=== PATIENT | female | born 1950 | race Caucasian/White ===

== ENCOUNTER 2018-03-18 13:46 | Inpatient (IN) | payer MEDICARE, BC, SELFPAY ==
[2018-03-18 13:47] VITALS: BP 143/85; PULSE 82; RESP 16; TEMP 35.6; O2SAT 96; BMI 37.0
--- NOTE | 2018-03-18 14:57 | RAD_ITS ---
STUDY: X-RAY CHEST REASON FOR EXAM: Female, 67 years old. Cough. TECHNIQUE: Single PA view of the chest. COMPARISON: 14 August 2017 FINDINGS: No evidence of distinct focal airspace disease. There is no demonstrated pleural abnormality. Normal size heart. Normal mediastinum and ronni. Normal visualized pulmonary arteries. Normal visualized aortic arch and descending thoracic aorta. Normal visualized thoracic spine. Normal visualized ribs, clavicles, and shoulders. There is no demonstrated abnormality of the visualized soft tissue structures of the upper abdomen. RAD/Chest 1 View (Portable) IMPRESSION: No evidence of acute cardiopulmonary process. Electronically Signed: Dustin Hamm DO at 15:21 EDT , Service support ,
--- NOTE | 2018-03-18 14:58 | EKG12_ITS ---
Test Reason : EDEMA Blood Pressure : / mmHG Vent. Rate : 067 BPM Atrial Rate : 067 BPM P-R Int : 282 ms QRS Dur : 102 ms QT Int : 422 ms P-R-T Axes : 047 000 022 degrees QTc Int : 445 ms Sinus rhythm with 1st degree A-V block Otherwise normal ECG Confirmed by SONY THOMAS, LEANNE ([id number]), purchasing expeditor ANTELMO MARTÍNEZ ([id number]) on 03/21/2018 2:44:37 PM Referred By: NICHO Confirmed By:LEANNE CARDOZA MD
[2018-03-18 15:34] LABS: Absolute Lymphocyte Count 0.95 X10^3/ul (0.83-4.51); Absolute Neutrophil Count 3.6 X10^3/uL (2.0-7.7); Basophil# 0.02 X10^3/uL; Basophil% 0.4 % (0-1); Eosinophil# 0.09 X10^3/uL; Eosinophils% 1.8 % (0-5); Hematocrit 40.1 % (37-47); Hemoglobin 13.4 g/dl (12.0-15.0); Lymphocyte # 0.95 X10^3/ul (4.0); Lymphocyte % 19.3 % (19-41); Mean Corp Hgb Conc 33.4 g/gl (32-36); Mean Corpuscular Hgb 32.1 pg (27.0-32.0); Mean Corpuscular Volume 96.2 fL (81-99); Mean Platelet Vol. 10.8 fl (6.2-12.0); Monocyte# 0.31 X10^3/uL; Monocyte% 6.3 % (0-10); Neutrophil # 3.55 X10^3/uL (2.7-7.7); Platelet Count 236 K/mm3 (150-450); RBC Distribution Width CV 14.5 % (11.6-14.6); RBC Distribution Width SD 50.4 fl (35.1-43.9); Red Blood Count 4.17 M/mm3 (4.2-5.4); White Blood Count 4.9 K/mm3 (4.4-11.0)
[2018-03-18 15:41] LABS: Anion Gap 5 (5-15); BUN 32 mg/dL (7-18); BUN/Creat Ratio 19.8 RATIO (10-20); Chloride 95 mmol/L (98-107); Creatinine, Serum 1.62 mg/dL (0.55-1.02); EST Glomerular Filtration Rate 33 mL/min (>60); Est Glom Filt Rate - Afr Amer 40 mL/min (>60); Estimated Creatinine Clearance 27.11 ml/min; Glucose 128 mg/dL (74-106); Potassium 4.1 mmol/L (3.5-5.1); Sodium Level 133 mmol/L (136-145)
[2018-03-18 15:51] VITALS: BP 132/99; PULSE 76; RESP 18; O2SAT 98
[2018-03-18 15:57] LABS: POSITIVE COUNT NO; POSITIVE DIFFERENTIAL NO; POSITIVE MORPHOLOGY NO
[2018-03-18 16:27] LABS: BNP,B-Type NATRIURETIC PEPTIDE 12.9 pg/mL (0-100)
[2018-03-18 16:50] LABS: Mucous, Urine 0 SEEN /hpf (<or=2+)
[2018-03-18 16:52] LABS: Color, Urine Yellow (Yellow); Glucose, Dipstick Normal (Normal); Ketone-Dipstick Negative (Negative); Leukocyte Esterase-Dipstick 500 /ul (Negative); Nitrite-Dipstick Positive (Negative); Occult Blood-Urine 10 /ul (Negative); Protein-Dipstick Negative (Negative); Urine Bilirubin Dipstick Negative (Negative); Urine Clarity Cloudy (Clear); Urine Urobilinogen Normal (Normal); Urine pH 6.5 (5.0 - 8.0)
--- NOTE | 2018-03-18 17:07 | HP.PCM_ITS ---
Problem List (1) Hypothyroidism Status: Chronic (2) Hypertension Status: Chronic (3) Depression Status: Chronic (4) GERD (gastroesophageal reflux disease) Status: Chronic (5) Allergic rhinitis Status: Chronic (6) Acute kidney injury Status: Acute (7) Parkinsons disease Status: Chronic (8) Obstructive sleep apnea Status: Chronic (9) History of breast cancer Status: Resolved (10) History of pneumothorax Status: Resolved (11) Obesity (BMI 30-39.9) Status: Chronic History of Present Illness Date of Admission: 03/18/18 Chief Complaint: Increased lower extremity swelling, low urine output. The patient is a 67 year old F who presents to the emergency room with increased lower extremity edema, low urine output. Patient states she chronically has lower extremity edema however this has increased significantly in the past 2 days. She took extra hydrochlorothiazide at home and has had very little urine output. She also complains of constipation. She states she administered a suppository yesterday with small bowel movements but still feels bloated. Patient denies dysuria, flank pain. Denies fever, chills. Patient has a history of neurogenic bladder and urinary incontinence. Her other past medical history includes Parkinson's disease, hypertension, hypothyroidism, depression, GERD, allergic rhinitis, obstructive sleep apnea on BiPAP with supplemental oxygen at bedtime, obesity, history of breast cancer status post right mastectomy. She is wheelchair-bound for the most part at home secondary to Parkinson's disease. She does have home health services and able to pivot with walker. Past Medical History Past Medical History (Chronic Problems): Chronic Problems Hypothyroidism (Chronic) Hypertension (Chronic) Depression (Chronic) GERD (gastroesophageal reflux disease) (Chronic) Allergic rhinitis (Chronic) Parkinsons disease (Chronic) Obstructive sleep apnea (Chronic) Obesity (BMI 30-39.9) (Chronic) Allergies atorvastatin calcium [From Lipitor] Allergy (Verified 07/05/16 06:28) Other tetanus immune globulin Allergy (Verified 07/05/16 06:28) Fever and skin rash codeine Adverse Reaction (Verified 07/05/16 06:28) Other Home Medications: Ambulatory Orders Medication Instructions Recorded Calcium Carb,Gluc/Mag Ox,Gluc 1 each PO DAILY 09/07/13 [Calcium Magnesium Caplet] Citalopram [Celexa] 20 mg PO DAILY 09/07/13 Hydrochlorothiazide 25 mg PO DAILY 09/07/13 Levothyroxine [Synthroid] 50 mcg PO DAILY 09/07/13 Mometasone Furoate [Elocon] 15 gm TP PRN PRN 09/07/13 Mometasone Furoate [Nasonex] 2 spray NASAL DAILY 09/07/13 Multivit-Min/FA/Lycopene/Lut 1 each PO DAILY 09/07/13 [Centrum Silver Tablet] Naproxen Sodium [Aleve] 220 mg PO 4X/DAY 09/07/13 Omeprazole [Prilosec] 40 mg PO QHS 09/07/13 Zolpidem Tartrate [Ambien Cr] 12.5 mg PO QHS PRN PRN 09/07/13 Carbidopa/Levodopa [Carbidopa-Levo 1 each PO TID 07/04/16 10-100 mg Odt] Aspirin 325 mg PO DAILY@0800 07/05/16 Loratadine [Claritin] 10 mg PO DAILY 03/18/18 Tolterodine Tartrate [Detrol LA] 2 mg PO DAILY 03/18/18 Surgical History: cholecystectomy, tonsillectomy, - - Right mastectomy, right underarm lymph node removal, bilateral breast biopsy Psychiatric History: Depression Smoking Status: Never smoker - *Family History Maternal History Items: Hypertension Paternal History Items: Heart Disease, Hypertension Review of Systems Constitutional: Denies: Chills, Fever, Weight Change Eyes: Reports: Redness, Vision Change - Intermittent blurry/double vision., - - Dryness. HEENT: Denies: Head Aches, Sinus Congestion, Sinus Drainage Cardiovascular: Reports: Edema - BLLE. Denies: Chest Pain, Palpitations, Syncope Respiratory: Denies: Cough, Shortness of breath at rest, Sputum production Gastrointestinal: Reports: Constipation, - - Bloating.. Denies: Abdominal Pain , Nausea, Vomiting Genitourinary: Reports: Incontinence, Retention, - - Low urine output.. Denies : Dysuria, Hematuria Musculoskeletal: Denies: Joint Pain, Joint Tenderness Skin: Denies: Rash, Wounds Psychiatric: Reports: Depression Hematologic/ Lymphatic: Denies: Easy Bruising, Easy Bleeding VTE Information - Inpt Only VTE Present on Admission: No VTE Mechan Device Prophylaxis: None VTE Pharm Prophylaxis ordered?: Yes Patient Problems: Active and Suspected Problems Acute kidney injury (Acute) - Physical Exam General: Alert, Oriented x3, Cooperative, No apparent distress HEENT: - - Bilateral conjunctival erythema, no drainage. Neck: Supple, No JVD, Negative Carotid Bruits Lungs: Clear to auscultation, Diminished Cardiovascular: Regular rate, Regular Rhythm, Normal S1, Normal S2, No murmurs Abdomen: Bowel Sounds Present, Soft, Non Tender, Non-Distended Extremities: No clubbing, No cyanosis, Capillary Refill Less than 3 Seconds, Edema - +3 bilateral lower extremities Skin: No rashes, No breakdown, - - Chronic skin changes bilateral lower extremities Musculoskeletal: No Tenderness to Palpation of Joints or Extremities Neurological: Cranial nerves II-XII grossly intact Psych/Mental Status: Normal Affect, Appropriate Vital Signs Temp Pulse Resp BP Pulse Ox 96.0 F L 82 16 143/85 H 96 03/18/18 13:47 03/18/18 13:47 03/18/18 13:47 03/18/18 13:47 03/18/18 13:47 Oxygen Delivery Method Room Air Weight: 95 kg Body Mass Index (BMI) 37.0 Laboratory Tests Past 24 Hrs 03/18/18 03/18/18 03/18/18 14:30 14:30 14:30 WBC 4.9 RBC 4.17 L Hgb 13.4 Hct 40.1 MCV 96.2 MCH 32.1 H MCHC 33.4 RDW 14.5 RDW Differential 50.4 H Plt Count 236 MPV 10.8 Immature Gran % (Auto) 0.200 Neut % (Auto) 72.0 H Lymph % (Auto) 19.3 Bryan % (Auto) 6.3 Eos % (Auto) 1.8 Baso % (Auto) 0.4 Absolute Neuts (auto) 3.6 Absolute Lymphs (auto) 0.95 Total Counted Not Reportable Sodium 133 L Potassium 4.1 Chloride 95 L Carbon Dioxide 33.0 H Anion Gap 5 BUN 32 H Creatinine 1.62 H Estim Creat Clear Calc 27.11 Est GFR (MDRD) Af Amer 40 L Est GFR (MDRD) Non-Af 33 L BUN/Creatinine Ratio 19.8 Glucose 128 H Calcium 9.0 Troponin I < 0.015 B-Natriuretic Peptide 12.9 Urine Color Urine Clarity Urine pH Ur Specific [place] Urine Protein Urine Glucose (UA) Urine Ketones Urine Occult Blood Urine Nitrite Urine Bilirubin Urine Urobilinogen Ur Leukocyte Esterase Urine RBC Urine WBC Ur Squamous Epith Cells Urine Bacteria Urine Mucus 03/18/18 16:40 WBC RBC Hgb Hct MCV MCH MCHC RDW RDW Differential Plt Count MPV Immature Gran % (Auto) Neut % (Auto) Lymph % (Auto) Bryan % (Auto) Eos % (Auto) Baso % (Auto) Absolute Neuts (auto) Absolute Lymphs (auto) Total Counted Sodium Potassium Chloride Carbon Dioxide Anion Gap BUN Creatinine Estim Creat Clear Calc Est GFR (MDRD) Af Amer Est GFR (MDRD) Non-Af BUN/Creatinine Ratio Glucose Calcium Troponin I B-Natriuretic Peptide Urine Color Pending Urine Clarity Pending Urine pH Pending Ur Specific [place] Pending Urine Protein Pending Urine Glucose (UA) Pending Urine Ketones Pending Urine Occult Blood Pending Urine Nitrite Pending Urine Bilirubin Pending Urine Urobilinogen Pending Ur Leukocyte Esterase Pending Urine RBC Pending Urine WBC Pending Ur Squamous Epith Cells Pending Urine Bacteria Pending Urine Mucus Pending Assessment/Plan Active and Suspected Problems Acute kidney injury (Acute) 1. Acute kidney injury, low urine output-patient has a history of neurogenic bladder secondary to Parkinson's disease. Suspect dehydration as a result of patient increasing home dose of hydrochlorothiazide. IV fluids. FENa. Monitor BMP. Bladder scan, place pedersen if retaining. 2. Acute cystitis-urinalysis positive. Send urine for culture. Begin IV Rocephin. 3. Increased lower extremity edema-suspect secondary to chronic dependent position and wheelchair. Gurinder wraps bilateral lower extremities. Elevate lower extremities. Obtain duplex ultrasound to rule out DVT. 4. Hyponatremia-suspect secondary to dehydration. IV fluids. Monitor BMP. 5. Parkinson's disease with associated physical debility-patient mostly wheelchair-bound. PT/OT. Continue home carbidopa/levodopa regimen. 6. Constipation-scheduled and as needed bowel regimen. Continue to monitor. 7. Hypothyroidism-continue home Synthroid regimen. Check TSH. 8. Hypertension-hydrochlorothiazide regimen on hold secondary to #1. 9. Obstructive sleep apnea-continue BiPAP nightly with supplemental oxygen. 10. GERD-continue omeprazole. 11. Depression-continue home Celexa regimen. 12. Allergic rhinitis-continue home Nasonex, Claritin regimen. 13. History of breast cancer status post right mastectomy 14. Obesity-encouraged diet and lifestyle modifications. Nutrition consult. DVT prophylaxis-heparin subcu. This patient was seen by THOMAS Robles under the supervision of Dr. Stevens.
[2018-03-18 17:08] VITALS: BP 132/99; PULSE 76; RESP 18; TEMP 36.6; O2SAT 98
--- NOTE | 2018-03-18 17:11 | ED.DCSUM_ITS ---
- ER Visit Summary Date of Service: 03/18/18 Chief Complaint: Leg swelling History of Present Illness: The patient is a 67 F who presents with leg swelling. She has noticed increased peripheral edema since yesterday. She always has some but it is worse since yesterday. She took an extra hydrochlorothiazide last night. She reports little urination since that time and only voided a small amount this morning. She does report decreased urination but is unable to say how long. She denies any other symptoms such as fevers chest pain shortness of breath vomiting. Physical Examination: Afebrile vitals are stable Pulse ox 96% on room air Moist mucous membranes Heart regular rate and rhythm Lungs are clear Abdomen soft 3+ pitting symmetric lower extremity edema Alert Test Results: EKG shows sinus rhythm at a rate of 67. CBC normal. BMP notable for sodium 133. Troponin negative. BNP 12.9. Urinalysis pending at the time of this dictation. BUN 32, creatinine 1.62. Emergency Department Course and Treatment: Patient presents with increasing peripheral edema. However her laboratory studies are notable for acute kidney injury. Creatinine 1.62 today and was normal on prior labs. Patient was treated with gentle hydration. She was discussed with the hospitalist and will be admitted. Treatment Plan: [] Disposition: Admit Impression: Acute kidney injury Peripheral edema This note was generated with [employer] dictation software. It may contain incorrect words, spelling, and punctuation that were not noted in review of the chart prior to signing ED Disposition - Plan for ED Patient: Chief Complaint: Edema Referrals: Gordon Locke III, MD [Primary Care Provider] -
[2018-03-18 17:42] LABS: Bacteria 1+ /hpf (None Seen); Red Blood Cells-Urine 0-5 SEEN /hpf (0-5); Squamous Epithelial Cells - UA 0-5 SEEN /hpf (5-10); White Blood Cells 25-50 SEEN /hpf (0-5)
[2018-03-18] MEDS: 0.9% Normal Saline 1,000 ML 150 ML IV (18:06)
[2018-03-18] MEDS: Ceftriaxone 1 GM/50 ML BAG IV (18:06)
--- NOTE | 2018-03-18 18:06 | VDLE_ITS ---
Reason For Study: LEG SWELLING RIGHT LEFT GSV is normal. GSV is normal. CFV is compressible, spontaneous, phasic, CFV is compressible, spontaneous, phasic, competent and demonstrates normal competent, and demonstrates normal augmentation. augmentation. FV is compressible, spontaneous, phasic, FV is compressible, spontaneous, phasic, competent and demonstrates normal competent and demonstrates normal augmentation. augmentation. POP V is compressible, spontaneous, phasic, POP V is compressible, spontaneous, phasic, competent and demonstrates normal competent and demonstrates normal augmentation. augmentation. T/P Trunk is compressible. T/P Trunk is compressible. PTV is compressible. PTV is compressible. RT PerV is compressible. LT PerV is compressible. Procedure Exam performed portable in patient room. A preliminary report was called and/or faxed to [id number]. Interpretation Summary No evidence for acute deep venous thrombosis bilateral lower extremities with patent and compressible bilateral great saphenous veins. Ordering Physician: Deann Stevens Referring Physician: SOLOMON Locke M.D. Performed By: Karely Red RVT
[2018-03-18 18:07] VITALS: BMI 43.2
[2018-03-18 18:45] VITALS: BP 166/91; PULSE 84; RESP 18; TEMP 36.5; O2SAT 93
--- NOTE | 2018-03-18 18:56 | NURSING ---
DIETARY CALLED PRIOR TO PT'S (~[phone] )ARRIVAL AND ABLE TO HAVE MEAL ORDERED FOR WHEN PATIENT ARRIVED.
[2018-03-18] MEDS: Senna/Docusate Sodium 1 Tablet 2 TABLET PO (19:07)
[2018-03-18 19:16] LABS: Magnesium 1.9 mg/dL (1.6-2.6); T4 Free Direct 1.28 ng/dL (0.76-1.46); Thyroid Stim Hormone (TSH) 5.21 uIU/mL (0.358-3.74)
[2018-03-18 19:30] LABS: Hemoglobin A1c 5.4 % (4.2-6.3)
[2018-03-18 20:19] VITALS: O2SAT 93
[2018-03-18 21:06] VITALS: BP 124/92; PULSE 92; RESP 16; TEMP 36.3; O2SAT 93
[2018-03-18] MEDS: Pantoprazole Sodium 40 MG Tablet PO (21:16)
[2018-03-18] MEDS: Heparin Injection (Vial) 5,000 UNIT/ML VIAL 5000 UNIT SC (21:16)
[2018-03-18] MEDS: 0.9% Normal Saline 1,000 ML 125 ML IV (21:17)
[2018-03-19 00:05] LABS: Urine Sodium 51 mmol/L (Not Establ.)
[2018-03-19] MEDS: 0.9% Normal Saline 1,000 ML 125 ML IV ×3 (02:16→19:49)
[2018-03-19 04:07] VITALS: BP 95/68; PULSE 82; RESP 16; TEMP 36.4; O2SAT 96
[2018-03-19] MEDS: Levothyroxine 50 MCG Tablet PO (06:34)
[2018-03-19] MEDS: Heparin Injection (Vial) 5,000 UNIT/ML VIAL 5000 UNIT SC ×3 (06:34→21:10)
[2018-03-19] MEDS: Carbidopa/Levodopa 10/100 Tablet PO ×3 (06:35→16:05)
[2018-03-19 07:01] LABS: Absolute Lymphocyte Count 1.41 X10^3/ul (0.83-4.51); Absolute Neutrophil Count 1.8 X10^3/uL (2.0-7.7); Basophil# 0.02 X10^3/uL; Basophil% 0.5 % (0-1); Eosinophil# 0.09 X10^3/uL; Eosinophils% 2.5 % (0-5); Hematocrit 35.2 % (37-47); Lymphocyte # 1.41 X10^3/ul (4.0); Lymphocyte % 38.6 % (19-41); Mean Corp Hgb Conc 34.1 g/gl (32-36); Mean Corpuscular Hgb 32.9 pg (27.0-32.0); Mean Corpuscular Volume 96.4 fL (81-99); Mean Platelet Vol. 10.7 fl (6.2-12.0); Monocyte# 0.36 X10^3/uL; Monocyte% 9.9 % (0-10); Neutrophil # 1.77 X10^3/uL (2.7-7.7); Neutrophil % 48.5 % (47-70); Platelet Count 223 K/mm3 (150-450); RBC Distribution Width CV 14.3 % (11.6-14.6); Red Blood Count 3.65 M/mm3 (4.2-5.4); White Blood Count 3.7 K/mm3 (4.4-11.0)
[2018-03-19 07:02] LABS: POSITIVE COUNT NO; POSITIVE DIFFERENTIAL NO; POSITIVE MORPHOLOGY NO
[2018-03-19 07:17] LABS: Anion Gap 8 (5-15); BUN 27 mg/dL (7-18); BUN/Creat Ratio 23.5 RATIO (10-20); Calcium,Total 8.5 mg/dL (8.5-10.1); Chloride 102 mmol/L (98-107); Creatinine, Serum 1.15 mg/dL (0.55-1.02); EST Glomerular Filtration Rate 50 mL/min (>60); Est Glom Filt Rate - Afr Amer 60 mL/min (>60); Estimated Creatinine Clearance 38.19 ml/min; Glucose 71 mg/dL (74-106); Sodium Level 140 mmol/L (136-145)
[2018-03-19 07:22] VITALS: O2SAT 91
[2018-03-19] MEDS: Loratadine 10 MG Tablet PO (08:43)
[2018-03-19] MEDS: Aspirin 325 MG Tablet PO (08:43)
[2018-03-19] MEDS: Senna/Docusate Sodium 1 Tablet 2 TABLET PO (08:43)
[2018-03-19] MEDS: Citalopram 20 MG Tablet PO (08:44)
[2018-03-19] MEDS: Psyllium 1 PACKET PO (08:44)
[2018-03-19] MEDS: Tolterodine Tartrate 2 MG CAP.SA PO (08:48)
[2018-03-19] MEDS: Acetaminophen 325 MG Tablet 650 MG PO ×2 (08:49→21:08)
[2018-03-19 08:50] VITALS: BP 128/83; PULSE 87; RESP 16; TEMP 36.3; O2SAT 95
--- NOTE | 2018-03-19 09:20 | PCM.PROGNOTE ---
Patient Problems: Active and Suspected Problems Acute kidney injury (Acute) Subjective: Mrs Morocho is a 67 YO Female with a PMH of Parkinson's disease, chronic debility/WC bound, neurogenic bladder, hypothyroidism, chronic mild hyponatremia, KAREN on BiPAP, history of breast cancer, GERD, depression, allergic rhinitis, dry eyes, glaucoma, hypertension, morbid obesity and chronic bilateral lower extremity edema who presented to the [facility] emergency department on 03/18/2018 complaining of increased fatigue, weakness, malaise and nausea with decreased urine output over the preceding 24 hours. Significant lab in the emergency department included a UA with positive nitrites, 25-50 WBCs per high-power field and 1+ bacteria. White blood cell count was normal with an unremarkable differential. Creatinine was increased at 1.62 and the creatinine 1 day following admission was 1.15 after hydration. She was admitted to the hospital with a diagnosis of cystitis and started on IV Rocephin. Day #2 Rocephin Afebrile since admission Blood pressure today is mildly decreased at 95/68 but that was while she was sleeping. She is 91% saturated on room air today. Fluid balance since admission is +1593. Urine output overnight was 300 cc. White blood cell count today is 3.7 with a normal differential. Hemoglobin and platelets are normal. Electrolytes are within normal limits and the BUN is 27 with a creatinine of 1.15, down from 1.62 at admission. Urine culture has not been set up yet. X-ray at admission showed no acute cardiopulmonary processes. She is unaware of having a UTI and thinks she came to the hospital with swelling in the legs. She sits in a chair with her legs dependent......tells me the compression stockings are too small and she and her are unable to get them on. She has chronic constipation. Had a large BM yesterday. No recent falls. Parkinson's is managed by Dr. Gordon Locke. Denies dysuria. No cough, no SOB, no hx of CHF. Objective: PHYSICAL EXAM: GENERAL: alert, oriented X 3, Cooperative, NAD, slow speech, EOMI, PERRLA ORAL: moist mucosa, no mucosal lesions NECK: No JVD, supple, trachea midline LUNGS: CTA, symmetric chest expansion, diminished HEART: RRR, Normal S1 and S2, no rub, no gallop, no MM ABDOMEN: soft, NT, ND, BS present, no guarding with palpation EXTREMITIES: + edema- much better than at admission per the pt, no cyanosis, no calf tenderness, the legs are both in MOISES wraps SKIN: No rashes, no breakdown NEUROLOGIC: no focal neurologic deficits, no significant cogwheel rigidity, + bradykinesia PSYCH: appropriate, normal affect, pleasant - Physical Exam Vital Signs Temp Pulse Resp BP Pulse Ox 97.5 F L 82 16 95/68 91 03/19/18 04:07 03/19/18 04:07 03/19/18 04:07 03/19/18 04:07 03/19/18 07:22 Oxygen Delivery Method Room Air Weight: 248 lb 0.321 oz Body Mass Index (BMI) 43.2 Intake and Output for Last 24 Hours 03/17/18 03/18/18 03/19/18 23:59 23:59 23:59 Intake Total 1893 / 1893 Output Total 300 / 300 Balance 1593 / 1593 Laboratory Tests Past 24 Hrs 03/18/18 03/18/18 03/18/18 18:25 18:25 23:17 WBC RBC Hgb Hct MCV MCH MCHC RDW RDW Differential Plt Count MPV Immature Gran % (Auto) Neut % (Auto) Lymph % (Auto) [place] % (Auto) Eos % (Auto) Baso % (Auto) Absolute Neuts (auto) Absolute Lymphs (auto) Total Counted Sodium Potassium Chloride Carbon Dioxide Anion Gap BUN Creatinine Estim Creat Clear Calc Est GFR (MDRD) Af Amer Est GFR (MDRD) Non-Af BUN/Creatinine Ratio Glucose Hemoglobin A1c 5.4 Calcium Magnesium 1.9 TSH 5.21 H Free T4 1.28 Ur Random Sodium Urine Creatinine 15.80 03/18/18 03/19/18 03/19/18 23:17 05:58 05:58 WBC 3.7 L RBC 3.65 L Hgb 12.0 Hct 35.2 L MCV 96.4 MCH 32.9 H MCHC 34.1 RDW 14.3 RDW Differential 48.0 H Plt Count 223 MPV 10.7 Immature Gran % (Auto) 0.000 Neut % (Auto) 48.5 Lymph % (Auto) 38.6 [place] % (Auto) 9.9 Eos % (Auto) 2.5 Baso % (Auto) 0.5 Absolute Neuts (auto) 1.8 L Absolute Lymphs (auto) 1.41 Total Counted Not Reportable Sodium 140 Potassium 4.0 Chloride 102 Carbon Dioxide 30.0 Anion Gap 8 BUN 27 H Creatinine 1.15 H Estim Creat Clear Calc 38.19 Est GFR (MDRD) Af Amer 60 Est GFR (MDRD) Non-Af 50 L BUN/Creatinine Ratio 23.5 H Glucose 71 L Hemoglobin A1c Calcium 8.5 Magnesium TSH Free T4 Ur Random Sodium 51 Urine Creatinine Medical Necessity - Tobacco Use Smoking Status: Never smoker Assessment/Plan Active and Suspected Problems Acute kidney injury (Acute) Impressions 1. suspected UTI - started on Rocephin at admission 2. 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 Parkinson's disease with chronic debility- has a WC but is able to walk with a WW 4. Elevated creatinine at admission -no recent baseline creatinine available 5. Neurogenic bladder-does not self cath 6. Hypothyroidism TSH is mildly increased at 5.21 but free T4 is within normal limits. 7. Depression 8. History of breast cancer-follows with Dr. Johnston 9. GERD 10. Allergic rhinitis 11. Glaucoma 12. Hypertension 13. Morbid obesity 14. Venous insufficiency 15. Obstructive sleep apnea 16. Hyponatremia/hypochloremia-secondary to hydrochlorothiazide-resolved with hydration post void bladder residual Continue Rocephin Urine culture has not even been set up yet.......she does not appear toxic and she is afebrile with Nl WBC and Diff......probable DC tomorrow. DC the anti-cholinergic since she has neurogenic bladder Continue heparin for DVT prophylaxis Check BMP in the a.m. Possible discharge 03/20 if she remains afebrile Code Visit Inpatient E&M: 78470 Subs Hosp L2
--- NOTE | 2018-03-19 09:26 | PN_ITS ---
Patient Problems: Active and Suspected Problems Acute kidney injury (Acute) Subjective: Mrs Morocho is a 67 YO Female with a PMH of Parkinson's disease, chronic debility/ WC bound, neurogenic bladder, hypothyroidism, chronic mild hyponatremia, KAREN on BiPAP, history of breast cancer, GERD, depression, allergic rhinitis, dry eyes, glaucoma, hypertension, morbid obesity and chronic bilateral lower extremity edema who presented to the [facility] emergency department on complaining of increased fatigue, weakness, malaise and nausea with decreased urine output over the preceding 24 hours. Significant lab in the emergency department included a UA with positive nitrites, 25-50 WBCs per high- power field and 1+ bacteria. White blood cell count was normal with an unremarkable differential. Creatinine was increased at 1.62 and the creatinine 1 day following admission was 1.15 after hydration. She was admitted to the hospital with a diagnosis of cystitis and started on IV Rocephin. Day #2 Rocephin Afebrile since admission Blood pressure today is mildly decreased at 95/68 but that was while she was sleeping. She is 91% saturated on room air today. Fluid balance since admission is +1593. Urine output overnight was 300 cc. White blood cell count today is 3.7 with a normal differential. Hemoglobin and platelets are normal. Electrolytes are within normal limits and the BUN is 27 with a creatinine of 1.15, down from 1.62 at admission. Urine culture has not been set up yet. X-ray at admission showed no acute cardiopulmonary processes. She is unaware of having a UTI and thinks she came to the hospital with swelling in the legs. She sits in a chair with her legs dependent......tells me the compression stockings are too small and she and her are unable to get them on. She has chronic constipation. Had a large BM yesterday. No recent falls. Parkinson's is managed by Dr. Gordon Locke. Denies dysuria. No cough, no SOB, no hx of CHF. Objective: PHYSICAL EXAM: GENERAL: alert, oriented X 3, Cooperative, NAD, slow speech, EOMI, PERRLA ORAL: moist mucosa, no mucosal lesions NECK: No JVD, supple, trachea midline LUNGS: CTA, symmetric chest expansion, diminished HEART: RRR, Normal S1 and S2, no rub, no gallop, no MM ABDOMEN: soft, NT, ND, BS present, no guarding with palpation EXTREMITIES: + edema- much better than at admission per the pt, no cyanosis, no calf tenderness, the legs are both in MOISES wraps SKIN: No rashes, no breakdown NEUROLOGIC: no focal neurologic deficits, no significant cogwheel rigidity, + bradykinesia PSYCH: appropriate, normal affect, pleasant - Physical Exam Vital Signs Temp Pulse Resp BP Pulse Ox 97.5 F L 82 16 95/68 91 03/19/18 04:07 03/19/18 04:07 03/19/18 04:07 03/19/18 04:07 03/19/18 07:22 Oxygen Delivery Method Room Air Weight: 248 lb 0.321 oz Body Mass Index (BMI) 43.2 Intake and Output for Last 24 Hours 03/17/18 03/18/18 03/19/18 23:59 23:59 23:59 Intake Total 1893 / 1893 Output Total 300 / 300 Balance 1593 / 1593 Laboratory Tests Past 24 Hrs 03/18/18 03/18/18 03/18/18 18:25 18:25 23:17 WBC RBC Hgb Hct MCV MCH MCHC RDW RDW Differential Plt Count MPV Immature Gran % (Auto) Neut % (Auto) Lymph % (Auto) [place] % (Auto) Eos % (Auto) Baso % (Auto) Absolute Neuts (auto) Absolute Lymphs (auto) Total Counted Sodium Potassium Chloride Carbon Dioxide Anion Gap BUN Creatinine Estim Creat Clear Calc Est GFR (MDRD) Af Amer Est GFR (MDRD) Non-Af BUN/Creatinine Ratio Glucose Hemoglobin A1c 5.4 Calcium Magnesium 1.9 TSH 5.21 H Free T4 1.28 Ur Random Sodium Urine Creatinine 15.80 03/18/18 03/19/18 03/19/18 23:17 05:58 05:58 WBC 3.7 L RBC 3.65 L Hgb 12.0 Hct 35.2 L MCV 96.4 MCH 32.9 H MCHC 34.1 RDW 14.3 RDW Differential 48.0 H Plt Count 223 MPV 10.7 Immature Gran % (Auto) 0.000 Neut % (Auto) 48.5 Lymph % (Auto) 38.6 [place] % (Auto) 9.9 Eos % (Auto) 2.5 Baso % (Auto) 0.5 Absolute Neuts (auto) 1.8 L Absolute Lymphs (auto) 1.41 Total Counted Not Reportable Sodium 140 Potassium 4.0 Chloride 102 Carbon Dioxide 30.0 Anion Gap 8 BUN 27 H Creatinine 1.15 H Estim Creat Clear Calc 38.19 Est GFR (MDRD) Af Amer 60 Est GFR (MDRD) Non-Af 50 L BUN/Creatinine Ratio 23.5 H Glucose 71 L Hemoglobin A1c Calcium 8.5 Magnesium TSH Free T4 Ur Random Sodium 51 Urine Creatinine Medical Necessity - Tobacco Use Smoking Status: Never smoker Assessment/Plan Active and Suspected Problems Acute kidney injury (Acute) Impressions 1. suspected UTI - started on Rocephin at admission 2. LE edema is due to venous insufficiency - not able to get compressions stockings on - has a OPERATIONS PROGRAM MANAGER daily.....may be able to use MOISES wraps 3. Parkinson's disease with chronic debility- has a WC but is able to walk with a WW 4. Elevated creatinine at admission -no recent baseline creatinine available 5. Neurogenic bladder-does not self cath 6. Hypothyroidism TSH is mildly increased at 5.21 but free T4 is within normal limits. 7. Depression 8. History of breast cancer-follows with Dr. Johnston 9. GERD 10. Allergic rhinitis 11. Glaucoma 12. Hypertension 13. Morbid obesity 14. Venous insufficiency 15. Obstructive sleep apnea 16. Hyponatremia/hypochloremia-secondary to hydrochlorothiazide-resolved with hydration post void bladder residual Continue Rocephin Urine culture has not even been set up yet.......she does not appear toxic and she is afebrile with Nl WBC and Diff......probable DC tomorrow. DC the anti-cholinergic since she has neurogenic bladder Continue heparin for DVT prophylaxis Check BMP in the a.m. Possible discharge 03/20 if she remains afebrile Code Visit Inpatient E&M: 63745 Subs Hosp L2
[2018-03-19] MEDS: Ceftriaxone 1 GM/50 ML BAG IV (10:12)
[2018-03-19 14:35] VITALS: BP 142/89; PULSE 67; RESP 18; TEMP 36.7; O2SAT 95
[2018-03-19 20:50] VITALS: BP 155/86; PULSE 80; RESP 16; TEMP 36.7; O2SAT 95
[2018-03-19] MEDS: Pantoprazole Sodium 40 MG Tablet PO (21:08)
[2018-03-20 02:26] VITALS: BP 157/88; PULSE 88; RESP 16; TEMP 36.4; O2SAT 94
[2018-03-20] MEDS: 0.9% Normal Saline 1,000 ML 125 ML IV ×2 (03:34→11:59)
[2018-03-20] MEDS: Heparin Injection (Vial) 5,000 UNIT/ML VIAL 5000 UNIT SC ×2 (05:48→13:34)
[2018-03-20] MEDS: Levothyroxine 50 MCG Tablet PO (05:48)
[2018-03-20] MEDS: Carbidopa/Levodopa 10/100 Tablet PO ×2 (05:48→10:45)
[2018-03-20 06:21] LABS: Anion Gap 7 (5-15); BUN 20 mg/dL (7-18); BUN/Creat Ratio 17.9 RATIO (10-20); Calcium,Total 8.2 mg/dL (8.5-10.1); Chloride 105 mmol/L (98-107); Creatinine, Serum 1.12 mg/dL (0.55-1.02); EST Glomerular Filtration Rate 51 mL/min (>60); Est Glom Filt Rate - Afr Amer 62 mL/min (>60); Estimated Creatinine Clearance 39.22 ml/min; Glucose 83 mg/dL (74-106); Sodium Level 141 mmol/L (136-145)
[2018-03-20 07:25] VITALS: O2SAT 90
[2018-03-20 07:32] VITALS: BP 140/80; PULSE 71; RESP 18; TEMP 35.9; O2SAT 94
[2018-03-20] MEDS: Aspirin 325 MG Tablet PO (07:34)
[2018-03-20] MEDS: Psyllium 1 PACKET PO (07:34)
[2018-03-20] MEDS: Citalopram 20 MG Tablet PO (07:34)
[2018-03-20] MEDS: Acetaminophen 325 MG Tablet 650 MG PO ×2 (07:35→13:35)
[2018-03-20] MEDS: Tolterodine Tartrate 2 MG CAP.SA PO (07:35)
[2018-03-20] MEDS: Senna/Docusate Sodium 1 Tablet 2 TABLET PO (07:35)
[2018-03-20] MEDS: Loratadine 10 MG Tablet PO (07:35)
--- NOTE | 2018-03-20 08:45 | SLEEP ---
Seen patient and educated patient on the importance of bipap complaince, patient verbalized understanding. Patient states that she uses it at home with no issues and is compliant. Patient had machine and mask from home in room and both looked to be in good, clean shape. A brochure was left with the patient with information.
[2018-03-20] MEDS: Ceftriaxone 1 GM/50 ML BAG IV (09:22)
[2018-03-20 09:57] LABS: Bacteria 0 SEEN /hpf (None Seen); Mucous, Urine 0 SEEN /hpf (<or=2+)
[2018-03-20 09:59] LABS: Color, Urine Yellow (Yellow); Glucose, Dipstick Normal (Normal); Ketone-Dipstick Negative (Negative); Leukocyte Esterase-Dipstick 100 /ul (Negative); Nitrite-Dipstick Negative (Negative); Occult Blood-Urine Negative /ul (Negative); Protein-Dipstick Negative (Negative); Urine Bilirubin Dipstick Negative (Negative); Urine Clarity Clear (Clear); Urine Urobilinogen Normal (Normal)
[2018-03-20 10:09] LABS: Red Blood Cells-Urine 0-5 SEEN /hpf (0-5); White Blood Cells 5-10 SEEN /hpf (0-5)
[2018-03-20 10:10] LABS: Squamous Epithelial Cells - UA 0-5 SEEN /hpf (5-10)
--- NOTE | 2018-03-20 10:32 | CASEMGMT ---
SUSAN BARRETT Face to Face with patient for initial transition planning/care coordination assessment. RN NENA introduced self and role at [facility]. Patient sitting in chair, alert and oriented. Patient willing to participate in assessment and is able to answer all questions appropriately. Care providers, pharmacy, and demographics verified. See link attached. Patient wishes to discharge home, denies need for home health at this time. Patient states she has no further needs or concerns at this time. CM to follow for discharge planning needs that may arise. Disposition Plan: Patient to discharge home with family support, private branch exchange operator, and follow-up plans in place.
--- NOTE | 2018-03-20 12:30 | CASEMGMT ---
Received update from Dr. Moss that patient is agreeable to [facility] for PT. SUSAN BARRETT spoke with patient and she is agreeable [facility] for PT. Referral made to [facility] with acceptance. SUSAN BARRETT updated patient and Dr. Moss. SUSAN BARRETT will continue to follow this patient and plan for a safe discharge.
--- NOTE | 2018-03-20 12:34 | PCM.DC ---
- Discharge Diagnoses Current Active Problems: Current Active and Chronic Problems Hypothyroidism (Chronic) Hypertension (Chronic) Depression (Chronic) GERD (gastroesophageal reflux disease) (Chronic) Allergic rhinitis (Chronic) Acute kidney injury (Acute) Parkinsons disease (Chronic) Obstructive sleep apnea (Chronic) Obesity (BMI 30-39.9) (Chronic) You will use the following diet at home:: Other - Resume previous diet - low salt. Your food should be the consistency of: Regular Your liquids should be the consistency of: Regular/Thin Discharge Activity: Return to Normal Activity Call your doctor if you observe: Fever of 101 or Higher, Shortness of breath, Dizziness, Fainting spells, Swelling in the ankles, Chest pain, - - Call your PCP if severe diarrhea, painful sores in the mouth, painful swallowing, rash or itching. Additional Instructions: Motrin or any medications like it make your body retain salt and then you retain water to follow the salt and then you swell up. I would discontinue the Motrin or any medications like it and eat a low salt diet......that means < than 2 GM of salt a day. There were no blood clots in the legs. the legs swell because you are overweight and you have venous insufficiency in the legs. In order to have the swelling go down with elevation you have to elevate the legs higher than the level of the heart. The best way to control the swelling in the legs is to lose weight, decrease salt intake and wear the MOISES wraps from the time you get up in the AM and do not take them off until you go to bed at night. Maybe your aid can put them on during the week and your on the weekend. The next time you are in an ER and they ask you to get a urine specimen ask to be catheterized for this. IT is IMPOPSSIBLE to get a good specimen if you are overweight and [place]inton if you are overweight and have PD. Pending Tests on Discharge: none Allergies/Adverse Reactions: Allergies atorvastatin calcium [From Lipitor] Allergy (Verified 07/05/16 06:28) Other tetanus immune globulin Allergy (Verified 07/05/16 06:28) Fever and skin rash codeine Adverse Reaction (Verified 07/05/16 06:28) Other Medications to take at Discharge Citalopram [Celexa] 20 mg PO DAILY 09/07/13 Hydrochlorothiazide 25 mg PO DAILY 09/07/13 Levothyroxine [Synthroid] 50 mcg PO DAILY 09/07/13 Mometasone Furoate [Elocon] 15 gm TP PRN PRN 09/07/13 Multivit-Min/FA/Lycopene/Lut [Centrum Silver Tablet] 1 each PO DAILY 09/07/13 Omeprazole [Prilosec] 40 mg PO QHS 09/07/13 Zolpidem Tartrate [Ambien Cr] 12.5 mg PO QHS PRN PRN 09/07/13 Carbidopa/Levodopa [Carbidopa-Levo 10-100 mg Odt] 1 each PO TID 07/04/16 Aspirin 325 mg PO DAILY@0800 07/05/16 Calcium 600-Vit D3 400 Tablet 1 tab PO QODAY 03/18/18 Latanoprost [Xalatan] 1 drop OPHTHALMIC QHS 03/18/18 Loratadine [Claritin] 10 mg PO DAILY 03/18/18 Ketotifen Fumarate [Zaditor] 1 ml OP DAILY 03/19/18 Cefdinir [Omnicef [equiv]] 300 mg PO Q12H #8 cap 03/20/18 The following prescriptions were given: Cefdinir [Omnicef [equiv]] 300 mg PO Q12H #8 cap Primary Care Physician: Gordon Locke III, MD [Primary Care Provider] - Please follow up with your Primary Care Physician in: 1 week Proposed Discharge Date: 03/20/18
--- NOTE | 2018-03-20 12:57 | DS.PCM_ITS ---
Discharge Date and Diagnosis - Problem List Patient Problems: Active and Suspected Problems Cystitis (Acute) Acute kidney injury (Acute) Date of Admission: 03/18/18 Date of Discharge: 03/20/18 - Primary Discharge Diagnosis Active and Suspected Problems Cystitis (Acute) - ruled out Acute kidney injury (Acute) - resolved with fluids Dehydration - Secondary Discharge Diagnosis Chronic Problems Hypothyroidism (Chronic) Hypertension (Chronic) Depression (Chronic) GERD (gastroesophageal reflux disease) (Chronic) Allergic rhinitis (Chronic) Parkinsons disease (Chronic) Obstructive sleep apnea (Chronic) Obesity (BMI 30-39.9) (Chronic) Venous Insufficiency Hospital Course and Treatment Imaging Results: Clinical Impression(s) from Imaging Studies Chest X-Ray 03/18/18 14:57 IMPRESSION: No evidence of acute cardiopulmonary process. Electronically Signed: Dustin Hamm DO at 15:21 EDT , Service support , Laboratory Results - last 24 hr 03/20/18 03/20/18 05:20 09:40 Sodium 141 Potassium 4.0 Chloride 105 Carbon Dioxide 29.0 Anion Gap 7 BUN 20 H Creatinine 1.12 H Estim Creat Clear Calc 39.22 Est GFR (MDRD) Af Amer 62 Est GFR (MDRD) Non-Af 51 L BUN/Creatinine Ratio 17.9 Glucose 83 Calcium 8.2 L Urine Color Yellow Urine Clarity Clear Urine pH 7.0 Ur Specific [place] 1.010 Urine Protein Negative Urine Glucose (UA) Normal Urine Ketones Negative Urine Occult Blood Negative Urine Nitrite Negative Urine Bilirubin Negative Urine Urobilinogen Normal Ur Leukocyte Esterase 100 H Urine RBC 0-5 SEEN Urine WBC 5-10 SEEN Ur Squamous Epith Cells 0-5 SEEN Urine Bacteria 0 SEEN Urine Mucus 0 SEEN Microbiology 03/18/18 23:17 Urine, Clean Catch Urine Culture - Preliminary Culture exhibits no growth. none Operations: None Procedures: None Summary of Care Provided: Mrs Morocho is a 67 YO Female with a PMH of Parkinson's disease, chronic debility/WC bound, neurogenic bladder, hypothyroidism, chronic mild hyponatremia , KAREN on BiPAP, history of breast cancer, GERD, depression, allergic rhinitis, dry eyes, glaucoma, hypertension, morbid obesity and chronic bilateral lower extremity edema who presented to the [facility] emergency department on 03/18/2018 complaining of increased fatigue, weakness, malaise and nausea with decreased urine output over the preceding 24 hours. Significant lab in the emergency department included a UA with positive nitrites, 25-50 WBCs per high-power field and 1+ bacteria. It was a clean catch in a 67 YO morbidly obese patient who has Parkinson's disease and is wheel chair bound. White blood cell count was normal with an unremarkable differential. Creatinine was increased at 1.62 and the creatinine 1 day following admission was 1.15 after hydration. She was on HCTZ as an OP. She was admitted to the hospital with a diagnosis of cystitis and started on IV Rocephin. HCTZ was held and IV fluids were ordered. She was afebrile throughout her entire hospital stay. She denied any dysuria. She never had leukocytosis and the differential was unremarkable. Her main complaint was swelling of her legs.She takes Motrin at home. In addition she is morbidly obese and does not elevate her legs. She does not wear compression stockings because she tells me they are to small. she does not eat a low sodium diet. She had venous US's of the legs and they were negative for DVT. The preliminary urine culture is negative. She was discharged home on 03/20 and instructed to consume a 2 g sodium diet, elevate her legs above the level of her heart when seated in a chair, wear Gurinder wraps to be applied by her aid in the a.m. and removed at bedtime, lose weight and discontinue Motrin as it increases salt and water retention. She was give 4 days of Omnicef to complete 7 days of antibiotics because on a straight cath UA on the day of DC she still had 5-10 WBC's. She will follow-up with Dr. Gordon Locke iii in the office in 1 week. GENERAL: alert, oriented X 3, Cooperative, NAD, slow speech, EOMI, PERRLA ORAL: moist mucosa, no mucosal lesions NECK: No JVD, supple, trachea midline LUNGS: CTA, symmetric chest expansion, diminished HEART: RRR, Normal S1 and S2, no rub, no gallop, no MM ABDOMEN: soft, NT, ND, BS present, no guarding with palpation EXTREMITIES: + edema- much better than at admission per the pt, no cyanosis, no calf tenderness, the legs are both in GURINDER wraps SKIN: No rashes, no breakdown NEUROLOGIC: no focal neurologic deficits, no significant cogwheel rigidity, + bradykinesia PSYCH: appropriate, normal affect, pleasant] This note was generated with [employer] dictation software. It may contain incorrect words, spelling, and punctuation that were not noted in checking the note before signing. Discharge Activity: Return to Normal Activity Call your doctor if you observe: Fever of 101 or Higher, Shortness of breath, Dizziness, Fainting spells, Swelling in the ankles, Chest pain, - - Call your PCP if severe diarrhea, painful sores in the mouth, painful swallowing, rash or itching. Home Medications: Medications to take at Discharge Citalopram [Celexa] 20 mg PO DAILY 09/07/13 Hydrochlorothiazide 25 mg PO DAILY 09/07/13 Levothyroxine [Synthroid] 50 mcg PO DAILY 09/07/13 Mometasone Furoate [Elocon] 15 gm TP PRN PRN 09/07/13 Multivit-Min/FA/Lycopene/Lut [Centrum Silver Tablet] 1 each PO DAILY 09/07/13 Omeprazole [Prilosec] 40 mg PO QHS 09/07/13 Zolpidem Tartrate [Ambien Cr] 12.5 mg PO QHS PRN PRN 09/07/13 Carbidopa/Levodopa [Carbidopa-Levo 10-100 mg Odt] 1 each PO TID 07/04/16 Aspirin 325 mg PO DAILY@0800 07/05/16 Calcium 600-Vit D3 400 Tablet 1 tab PO QODAY 03/18/18 Latanoprost [Xalatan] 1 drop OPHTHALMIC QHS 03/18/18 Loratadine [Claritin] 10 mg PO DAILY 03/18/18 Ketotifen Fumarate [Zaditor] 1 ml OP DAILY 03/19/18 Cefdinir [Omnicef [equiv]] 300 mg PO Q12H #8 cap 03/20/18 Following Prescrptions Were Given to Patient: Cefdinir [Omnicef [equiv]] 300 mg PO Q12H #8 cap Primary Care Physician: Gordon Locke III, MD [Primary Care Provider] - Please follow up with your Primary Care Physician in: 1 week Disposition: Home with Home Health Minutes spent on discharge:: 30 Patient Condition:: Good Medical Necessity - Tobacco Use Smoking Status: Never smoker Meaningful Use Info Meaningful Use Diagnoses (Choose all that apply): None applicable Code Visit Inpatient E&M: 00492 Disch Hosp
[2018-03-20 13:29] VITALS: BP 141/91; PULSE 73; RESP 18; TEMP 36.1; O2SAT 96
== END 2018-03-20 14:15 | disposition home health service (06) | DRG 683 ==
LOC: ED 17:44 → MS3 17:52
PROVIDERS: Admitting Provider Family Medicine; Emergency Provider Emergency Medicine; Family Provider Family Medicine; PCP Family Medicine; Visit Provider Internal Medicine
DX: N17.9 Acute kidney failure, unspecified (principal); Z68.41 Body mass index [BMI] 40.0-44.9, adult; E87.1 Hypo-osmolality and hyponatremia; I87.2 Venous insufficiency (chronic) (peripheral); E86.0 Dehydration; E03.9 Hypothyroidism, unspecified; I10 Essential (primary) hypertension; F32.9 Major depressive disorder, single episode, unspecified; K21.9 Gastro-esophageal reflux disease without esophagitis; G47.33 Obstructive sleep apnea (adult) (pediatric); G20 Parkinson's disease; E66.01 Morbid (severe) obesity due to excess calories; Z71.3 Dietary counseling and surveillance; N31.9 Neuromuscular dysfunction of bladder, unspecified; Z85.3 Personal history of malignant neoplasm of breast; K59.09 Other constipation; R73.9 Hyperglycemia, unspecified
CPT/HCPCS: 36415; 71045; 80048; 81001; 82570; 83036; 83735; 83880; 84300; 84439; 84443; 84484; 85025; 87086; 87088; 93005; 93970; 97161; 97165; 97802; 99282; J7030

== ENCOUNTER 2018-06-21 13:00 | Outpatient (RCR) | payer MEDICARE, BC, SELFPAY ==
--- NOTE | 2018-04-24 14:01 | HP.PTEVAL_ITS ---
Patient's Visit Information BEATRIZ PINA is a 67 year old F referred to Physical Therapy by Gordon Locke with a diagnosis of Parkinson's Disease. Date of Evaluation: 04/24/18 Physical Therapist: Emi Crowley PT - Visit Plan Frequency: 2x /Week Duration: 4 Weeks Plan: Therapeutic exercises and activities in an aquatic setting target total body strengthening, endurance and balance. Functional Mobility training to improve gait, increase endurance and improve transfers to decrease risk of falls. - Subjective Subjective: Patient presents in therapy today with chief complaint of general weakness secondary to Parkinson's Disease. She reports that she was getting home therapy and the more exercises she did the more tired she was and muscles cramping. States the next day after activity she would be in more pain. She just finished home therapy last week. States that she keeps getting weaker and wants to be able to walk better. She can walk short distances and transfers but uses wheelchair for distance ambulation. She has pretty consistent muscle grabbing and cramping that worsens with movement. Reports her Parkinson's effect more of her left side. She is taking prescription alleve to help with the pain. Takes 3-4 pills a day. Ambulates household distances reaching for furniture and with walker. Uses wheelchair for community distances. Lives with who helps her with all ADLs. PMHx: No known heart, autoimmune, and respiratory conditions noted. - Pain throughout body Pain Intensity (Out of 10): 5 Pain Intensity Range: 5, 6 Comment: worsens with activity - Objective Appearance: Patient is obese. Pleasant and talkative. Posture: Slouched positioning sitting unsupported requiring UE support to maintain balance of 1 limb. Static standing WBOS to maintain balance slight kyphotic posturing of thoracic spine and forward head position. Palpation: No tenderness or increase pain to palpation; Moderate Swelling non-pitting throughout BLE. Strength: BLE grossly 4/5 strength except left hip flexion 4-/5, bilateral hip extension 4-/5 , bilateral hip abduction 4-/5, knee flexion left 4-/5; BUE grossly 4+/5 except bilateral shoulder abduction 4/5, scapular retraction 4-/5 (pain with resistance ), ER/IR 4-/5 bilaterally, core 3+/5 in sitting. Range of Motion: Shoulder Flexion- R: 145*, L:135*; Shoulder Abduction R/L 130*, BUE WFL; BLE WFL except hip flexion limited by adipiose tissue and ankles bilaterally limited in all planes secondary to swelling. Flexibility: Tightness noted in bilateral hamstrings in seated position and hip flexors in standing position. Gait: Patient ambulating 10 ft. with flat foot to shuffling progression and wide base of support; Typically walks with AD but fatigued and did not bring to evaluation. Transfers/ Functional Mobility: Patient transfers from wheelchair to mat with SBA. Sitting to standing transitions requires moderate UE support. Slow transitions. Patient ascends/descends stairs using a step to pattern with moderate 2 hand UE support on handrail. She self propels her W/C using single hand and LE support. Balance: Feet together eyes open 30 seconds minimal sway; Modified tandem stance 12 seconds bilaterally with moderate sway and SBA. Activity Tolerance: Fair-- patient required moderate rest breaks with activities. Minimal shortness of breath; Dizziness with transitioning sitting to standing requiring time to recover. - Goals Goal 1:: Patient will increase BLE grossly 4+/5 for improved performance with functional activities. Goal Time Frame: 6-8 Weeks Goal 2:: Patient will ambulate 50 ft. with AD displaying good endurance and without increase in pain Goal Time Frame: 6-8 Weeks Goal 3:: Patient will tolerate 10 minutes of therapeutic exercises and activities in an aquatic setting without increase in pain Goal Time Frame: 6-8 Weeks Goal 4:: Patient will increase BUE strength grossly 5/5 for improved performance wtih functional activities Goal Time Frame: 6-8 Weeks Goal 5:: Patient will perform a modified tandem stance for 20 seconds with minimal sway Goal Time Frame: 6-8 Weeks Goal 6:: Patient will transition from seated to standing for 3 consecutive repetitions and minimal UE support Goal Time Frame: 6-8 Weeks - Rehabilitation Potential Physical Therapy Diagnosis: Muscle Weakness, Impaired Gait, Decreased Activity Tolerance Rehabilitation Potential: Fair - Anticipated Interventions Patient/Client Instruction: Educate patient on: Condition, Plan of Care For the Purpose of:: To improve muscle performance and motor function, To improve ability to perform ADL's, To increase tolerance to activity/condition/ position, To improve performance and independence with ADL's, To improve ability of physical actions for home/community/work/leisure, To improve gait and locomotor functions Therapeutic Exercise to Include: Strength training, Endurance training, Balance training, Body mechanics, Postural training, Flexibilty training, Gait and locomotor training, In an aquatic setting, Passive ROM, Active ROM For the Purpose of:: To improve muscle performance and motor function, To improve performance and independence with ADL's, To decrease level of supervision to perform tasks, To improve ability of physical actions for home/ community/work/leisure, To increase flexibility/ROM, To improve ability to perform tasks related to life management, To improve tolerance to ADL's Functional Training to Include: ADL Training, Gait training For the Purpose of:: To improve muscle performance and motor function, To improve ability to perform ADL's, To improve performance and independence with ADL's, To improve gait and locomotor functions For the Purpose of:: To decrease pain, To decrease swelling/inflammation, To increase ROM For the Purpose of:: To decrease pain, To decrease swelling/inflammation, To increase ROM Thank you for the opportunity to evaluate your patient. For Medicare and Medicare HMO plans, please review the plan of care and approve it. It will need to be FAXED BACK to us at [phone] for Medicare purposes. Please let me know if there are questions or concerns regarding this plan of care. Physician Signature: Date:
--- NOTE | 2018-05-29 14:35 | HP.PTREVAL_ITS ---
Gordon Locke, It has been my pleasure to treat BEATRIZ PINA over the last 9 visits for Parkinson's Disease. Please see the progress note below for an update on the physical therapy plan of care! Subjective: No falls lately, feeling better. Struggling with Parkinson's especially in L eye. Pool helped with getting more motivated and active. No f/ u with Dr. Locke scheduled. Parkinson's meds increased in March. Objective/Function: 4/5 LE strength adn 4/5 UE strength today. Walks slowly with wh walker mod I 100 feet, able to ambulate without AD very slowly and hesitant but 15 feet. tandem stance x 5 sec I but wobbly. Stand balance ec 30 seconds without difficulty. Trasnfer sit to stand 3x I without evidence of fatigue. OVERALL APPEARS BETTER OBJECTIVELY AND SUBJECTIVELY. Met all goals except the strength goals from last recheck and appropriate to cotninue with a fair prognosis. Plan Plan: 2x/week for 4 weeks to continue in pool emphasizing UE adn LE strength but more focus on gait without holding on and balance and speed of walking. Progress to some I ex as patient will ahve access to pool in [place] with family. Goals Goal 1:: Patient will increase BLE grossly 4+/5 for improved performance with functional activities. Goal Time Frame: 6-8 Weeks Goal Progress: Progressing Goal 2:: Walk 50 feet without AD without LOB Goal Time Frame: 4-6 Weeks Goal Progress: NEW GOAL Goal 3:: Tolerate FGA adn score 20/30 Goal Time Frame: 4-6 Weeks Goal Progress: NEW GOAL Goal 4:: Patient will increase BUE strength grossly 5/5 for improved performance wt functional activities Goal Time Frame: 6-8 Weeks Goal Progress: Progressing Goal 5:: Pt report 75% overall improvement in mobility adn have HEP to continue to maintain improvements. Goal Time Frame: 4-6 Weeks Goal Progress: NEW GOAL Goal 6:: Patient will transition from seated to standing for 3 consecutive repetitions and minimal UE support Goal Time Frame: 6-8 Weeks Goal Progress: Goal Met Anticipated Interventions Patient/Client Instruction: Educate patient on: Condition, Plan of Care For the Purpose of:: To improve muscle performance and motor function, To improve ability to perform ADL's, To increase tolerance to activity/condition/ position, To improve performance and independence with ADL's, To improve ability of physical actions for home/community/work/leisure, To improve gait and locomotor functions Therapeutic Exercise to Include: Strength training, Endurance training, Balance training, Body mechanics, Postural training, Flexibilty training, Gait and locomotor training, In an aquatic setting, Passive ROM, Active ROM For the Purpose of:: To improve muscle performance and motor function, To improve performance and independence with ADL's, To decrease level of supervision to perform tasks, To improve ability of physical actions for home/ community/work/leisure, To increase flexibility/ROM, To improve ability to perform tasks related to life management, To improve tolerance to ADL's Functional Training to Include: ADL Training, Gait training For the Purpose of:: To improve muscle performance and motor function, To improve ability to perform ADL's, To improve performance and independence with ADL's, To improve gait and locomotor functions For the Purpose of:: To decrease pain, To decrease swelling/inflammation, To increase ROM For the Purpose of:: To decrease pain, To decrease swelling/inflammation, To increase ROM Please do not hesitate to contact me at [phone] by phone or Fax: if you have questions or concerns regarding this new plan of care! Sincerely, Anuj Renteria, ABDON, OC
--- NOTE | 2018-08-09 12:11 | HP.PTDCNRP_ITS ---
HP - Discharge Summary (1) - Patient Information BEATRIZ PINA was seen in my office for initial evaluation on 04/24/18. The following Plan of Care was established for this patient: Initial Frequency: 2x /Week Initial Duration: 4 Weeks - Anticipated Interventions Patient/Client Instruction: Educate patient on: Condition, Plan of Care For the Purpose of:: To improve muscle performance and motor function, To improv e ability to perform ADL's, To increase tolerance to activity/condition/position, To improve performance and independence with ADL's, To improve ability of physical actions for home/community/work/leisure, To improve gait and locomotor functions Therapeutic Exercise to Include: Strength training, Endurance training, Balance training, Body mechanics, Postural training, Flexibilty training, Gait and locomotor training, In an aquatic setting, Passive ROM, Active ROM For the Purpose of:: To improve muscle performance and motor function, To improv e performance and independence with ADL's, To decrease level of supervision to perform tasks, To improve ability of physical actions for home/community/work/leisure, To increase flexibility/ROM, To improve ability to perform tasks related to life management, To improve tolerance to ADL's Functional Training to Include: ADL Training, Gait training For the Purpose of:: To improve muscle performance and motor function, To improve ability to perform ADL's, To improve performance and independence with ADL's, To improve gait and locomotor functions For the Purpose of:: To decrease pain, To decrease swelling/inflammation, To increase ROM For the Purpose of:: To decrease pain, To decrease swelling/inflammation, To increase ROM This patient was last seen in our office 06/21/18. Pertinent comments regarding their Physical therapy will appear below: Pt seen 14 visits of plan of care and did not wchedule recheck after her vacation. At this point, it has been over two months and I will discontinue due to nonattendance. At this point I will be discontinuing this patient from physical therapy. I would be happy to see this patient again in the future if found appropriate by the physician. Thank you! Anuj Renteria, DPT, OC
== END 2018-06-21 19:00 | disposition home or self-care (01) ==
LOC: PT 13:00
PROVIDERS: Family Provider Family Medicine; PCP Family Medicine; Visit Provider Family Medicine
DX: G20 Parkinson's disease (principal)
CPT/HCPCS: 97113; 97162; 97530

== ENCOUNTER 2019-02-11 10:28 | Inpatient (IN) | payer MEDICARE, BC, SELFPAY ==
[2019-02-11] VITALS (60 sets, daily range): BP systolic 60–119; BP diastolic 34–64; PULSE 71–106; RESP 15–25; TEMP 35.7–36.6; O2SAT 88–99; BMI 38.6; BMI 38.2; BMI 38.3
--- NOTE | 2019-02-11 11:15 | RAD_ITS ---
STUDY: X-RAY CHEST REASON FOR EXAM: Female, 68 years old. Hypotension, recent pneumonia. TECHNIQUE: A single AP crosswise frontal chest. COMPARISON: March 18, 2018. FINDINGS: Again seen is stable elevation of the right hemidiaphragm. The lungs are clear and expanded. There is no pleural effusion. There is no pneumothorax. Normal size heart. Normal mediastinum and ronni. Normal visualized pulmonary arteries. There is atherosclerotic calcification of the aortic arch with tortuosity. The patient is status post right axillary lymph kim dissection. There is no evident acute osseous abnormality. There is no demonstrated abnormality of the visualized soft tissue structures of the upper abdomen. RAD/Chest 1 View (Portable) IMPRESSION: Stable examination without radiographically evident acute cardiopulmonary disease. Electronically Signed: Andreas Juan MD at 11:45 EDT , Service support ,
--- NOTE | 2019-02-11 11:15 | EKG12_ITS ---
Test Reason : JENA Blood Pressure : / mmHG Vent. Rate : 074 BPM Atrial Rate : 074 BPM P-R Int : 206 ms QRS Dur : 098 ms QT Int : 398 ms P-R-T Axes : 068 016 025 degrees QTc Int : 441 ms Normal sinus rhythm Normal ECG Confirmed by SONY THOMAS, LEANNE ([id number]), material expeditor ULICES HEAD ([id number]) on 02/13/2019 1:28:53 PM Referred By: EBEN Confirmed By:LEANNE CARDOZA MD
--- NOTE | 2019-02-11 11:18 | ED.VISSUMM ---
- ER Visit Summary Date of Service: 02/11/19 Chief Complaint: Hypotension History of Present Illness: The patient is a 68 F currently being treated for recently diagnosed C. difficile. She states she has had 10 episodes of liquid diarrhea or more per day since last Monday. Reportedly they have a positive C. difficile culture. Believes that she is on p.o. vancomycin. Denies any melena. No vomiting but positive nausea. No cough or shortness of breath. Patient was recently hospitalized both in a retirement and a hospital in [place] and currently is in a local retirement. She was hospitalized in [place] due to pneumonia and then eventually also aspiration pneumonia. Physical Examination: Older female. Initial blood pressure 64/40 however she is in Trendelenburg and she is awake alert answering questions acting appropriately. She is actually tolerating her hypotension well. Pulse ox 96% on room air no signs of hypoxia. HEENT exam moist weeks membranes. Neck nontender no lymphadenopathy. Lungs clear to auscultation bilaterally. Heart regular rhythm rate about 70 no murmur. Chest wall nontender. Abdomen soft and nontender. Normal bowel sounds no peritoneal signs. Nondistended. Patient is moving all 4 extremities. Calves are nontender without edema. Neurologically she is awake and alert with no focal motor deficits. Test Results: X-ray shows no acute abnormality one view portable read both of myself and radiologist. EKG is rhythm rate of 74 with no acute signs of ischemia. CBC shows a white count 11.8. Hemoglobin 11. Her baseline. Sodium 124 significantly lower from a month ago. BUN and creatinine are 58 and 4.2 consistent with prerenal azotemia dehydration and acute renal failure. 10 days ago she had almost normal renal function. Liver enzymes normal. Lactate normal 1. Component normal. Emergency Department Course and Treatment: Patient treated with IV fluids. I have ordered 2 large bore IVs. Hypotension may just be secondary to dehydration from the diarrhea. Also worked up for other etiologies. Treatment Plan: Received 2 L of normal saline. She will be given a third. Currently I think her C. difficile is caused to be severely dehydrated putting her in renal failure and causing her to be hypotensive. I have the hospitalist on page for admission Disposition: Admission Impression: Acute hypotension Acute diarrhea secondary to recently diagnosed with C. difficile Acute dehydration and renal insufficiency /acute renal failure Acute hyponatremia This note was generated with [employer] dictation software. It may contain incorrect words, spelling, and punctuation that were not noted in review of the chart prior to signing ED Disposition - Plan for ED Patient: Referrals: Gordon Locke III, MD [Primary Care Provider] -
--- NOTE | 2019-02-11 11:21 | ED.DCSUM_ITS ---
- ER Visit Summary Date of Service: 02/11/19 Chief Complaint: Hypotension History of Present Illness: The patient is a 68 F currently being treated for recently diagnosed C. difficile. She states she has had 10 episodes of liquid diarrhea or more per day since last Monday. Reportedly they have a positive C. difficile culture. Believes that she is on p.o. vancomycin. Denies any melena. No vomiting but positive nausea. No cough or shortness of breath. Patient was recently hospitalized both in a assisted and a hospital in [place] and currently is in a local assisted. She was hospitalized in [place] due to pneumonia and then eventually also aspiration pneumonia. Physical Examination: Older female. Initial blood pressure 64/40 however she is in Trendelenburg and she is awake alert answering questions acting appropriately. She is actually tolerating her hypotension well. Pulse ox 96% on room air no signs of hypoxia. HEENT exam moist weeks membranes. Neck nontender no lymphadenopathy. Lungs clear to auscultation bilaterally. Heart regular rhythm rate about 70 no murmur. Chest wall nontender. Abdomen soft and nontender. Normal bowel sounds no peritoneal signs. Nondistended. Patient is moving all 4 extremities. Calves are nontender without edema. Neurologically she is awake and alert with no focal motor deficits. Test Results: X-ray shows no acute abnormality one view portable read both of myself and radiologist. EKG is rhythm rate of 74 with no acute signs of ischemia. CBC shows a white count 11.8. Hemoglobin 11. Her baseline. Sodium 124 significantly lower from a month ago. BUN and creatinine are 58 and 4.2 consistent with prerenal azotemia dehydration and acute renal failure. 10 days ago she had almost normal renal function. Liver enzymes normal. Lactate normal 1. Component normal. Emergency Department Course and Treatment: Patient treated with IV fluids. I have ordered 2 large bore IVs. Hypotension may just be secondary to dehydration from the diarrhea. Also worked up for other etiologies. Treatment Plan: Received 2 L of normal saline. She will be given a third. Currently I think her C. difficile is caused to be severely dehydrated putting her in renal failure and causing her to be hypotensive. I have the hospitalist on page for admission Disposition: Admission Impression: Acute hypotension Acute diarrhea secondary to recently diagnosed with C. difficile Acute dehydration and renal insufficiency /acute renal failure Acute hyponatremia This note was generated with [employer] dictation software. It may contain incorrect words, spelling, and punctuation that were not noted in review of the chart prior to signing ED Disposition - Plan for ED Patient: Referrals: Gordon Locke III, MD [Primary Care Provider] -
[2019-02-11] MEDS: 0.9% Normal Saline 1,000 ML 999 ML IV ×4 (11:23→15:30)
[2019-02-11 11:34] LABS: International Normalized Ratio 1.1; Prothrombin Time (Protime)PT. 13.9 SECONDS (11.7-14.9)
[2019-02-11 11:35] LABS: Absolute Lymphocyte Count 0.56 X10^3/ul (0.83-4.51); Absolute Neutrophil Count 9.9 X10^3/uL (2.0-7.7); Basophil# 0.01 X10^3/uL; Basophil% 0.1 % (0-1); Eosinophil# 0.06 X10^3/uL; Eosinophils% 0.5 % (0-5); Hematocrit 33.3 % (37-47); Hemoglobin 11.3 g/dl (12.0-15.0); Lymphocyte # 0.56 X10^3/ul (4.0); Lymphocyte % 4.8 % (19-41); Mean Corp Hgb Conc 33.9 g/gl (32-36); Mean Corpuscular Hgb 30.7 pg (27.0-32.0); Mean Corpuscular Volume 90.5 fL (81-99); Mean Platelet Vol. 10.3 fl (6.2-12.0); Monocyte# 1.15 X10^3/uL; Monocyte% 9.8 % (0-10); Neutrophil # 9.93 X10^3/uL (2.7-7.7); Neutrophil % 84.2 % (47-70); Partial Thromboplast Time 34.1 Seconds (24.1-36.2); Platelet Count 240 K/mm3 (150-450); RBC Distribution Width CV 14.6 % (11.6-14.6); RBC Distribution Width SD 47.9 fl (35.1-43.9); Red Blood Count 3.68 M/mm3 (4.2-5.4); White Blood Count 11.8 K/mm3 (4.4-11.0)
[2019-02-11 11:37] LABS: Differential Indicated SCAN CRITERIA MET; POSITIVE COUNT NO; POSITIVE DIFFERENTIAL YES; POSITIVE MORPHOLOGY NO
[2019-02-11 11:51] LABS: BUN 58 mg/dL (7-18); Glucose 70 mg/dL (74-106)
[2019-02-11 11:52] LABS: ALB/GLOB Ratio 0.6 RATIO (0.9-2.4); AST(SGOT) 17 U/L (15-37); Alanine Aminotransfer ALT/SGPT < 6 U/L (13-56); Albumin, Serum 1.9 g/dL (3.2-5.0); Alkaline Phosphatase 84 U/L (45-117); Anion Gap 10 (5-15); BUN/Creat Ratio 13.8 RATIO (10-20); Calcium,Total 7.8 mg/dL (8.5-10.1); Chloride 88 mmol/L (98-107); EST Glomerular Filtration Rate 11 mL/min (>60); Est Glom Filt Rate - Afr Amer 13 mL/min (>60); Estimated Creatinine Clearance 10.31 ml/min; Globulin 3.3 g/dL (2.2-4.2); Potassium 4.5 mmol/L (3.5-5.1); Protein, Total 5.2 g/dL (6.4-8.2); Sodium Level 124 mmol/L (136-145)
--- NOTE | 2019-02-11 14:28 | PCM.HP.STD ---
Problem List (1) Clostridium difficile infection Status: Acute (2) Hyponatremia Status: Acute (3) Hypotension due to hypovolemia Status: Acute (4) Acute kidney injury Status: Acute (5) Hypothyroidism Status: Chronic Qualifiers: Hypothyroidism type: unspecified Qualified Code(s): E03.9 - Hypothyroidism, unspecified (6) Hypertension Status: Chronic Qualifiers: Hypertension type: essential hypertension Qualified Code(s): I10 - Essential (primary) hypertension (7) Depression Status: Chronic Qualifiers: Depression Type: unspecified Qualified Code(s): F32.9 - Major depressive disorder, single episode, unspecified (8) GERD (gastroesophageal reflux disease) Status: Chronic Qualifiers: Esophagitis presence: esophagitis presence not specified Qualified Code(s): K21.9 - Gastro-esophageal reflux disease without esophagitis (9) Allergic rhinitis Status: Chronic Qualifiers: Allergic rhinitis trigger: unspecified (10) Parkinsons disease Status: Chronic History of Present Illness Date of Admission: 02/11/19 Chief Complaint: Diarrhea, abd cramping, poor intake. The patient is a 68 y/o F w/ PMHx: Parkinson's Disease w/ Chronic Debility, Wheelchair bound, severe LE Weakness, Neurogenic Bladder, Hypothyroidism, Chronic Mild Hyponatremia (Na 133-134), KAREN on q HS BIPAP, Hx Breast CA, GERD, Depression, Allergic Rhinitis, Dry Eyes, Glaucoma, HTN, Obesity, Chronic BL LE Lymphedema, Hx of transition to [facility] following history of hospitalization in [place] preceding w/ ICU care, requested eventual intubation with Influenza A who presents to the [facility] ED on 02/11/19 with history of onset severe copious ongoing foul smelling diarrhea, poor oral intake, associated generalized abdominal cramping with no nausea or emesis associated, noted decreased appetite without fevers or chills starting this past Monday, ongoing w/ confirmation of + toxigenic c. difficile testing with most recent abx therapy ~ 2 months prior to current onset with abx oral vanc administration once confirmed (1st dose Monday). Work-up in the ED included T 96.6, heart rate 76, initial BP 64/40 --> 76/43 now on 3rd NS L starting, RR 16, 92% on RA, CBC with W BC 11.8, hemoglobin 11.3, platelet 240 with left shift, unremarkable coags, CMP with sodium 124, chloride 88, BUN/Cr 58/4.20, glucose 70, troponin less than 0.015, EKG with no acute evidence of ischemia, chest x-ray with no acute cardiopulmonary process, blood culture x2 pending per ED, recent 02/08/19 + toxigenic c. difficile testing. In the ED patient administered aggressive IV fluids (3L NS). Past Medical History Past Medical History (Chronic Problems): Chronic Problems Hypothyroidism (Chronic) Hypertension (Chronic) Depression (Chronic) GERD (gastroesophageal reflux disease) (Chronic) Allergic rhinitis (Chronic) Parkinsons disease (Chronic) Obstructive sleep apnea (Chronic) Obesity (BMI 30-39.9) (Chronic) Allergies atorvastatin calcium [From Lipitor] Allergy (Verified 02/11/19 12:24) Other tetanus immune globulin Allergy (Verified 02/11/19 12:24) Fever and skin rash codeine Adverse Reaction (Verified 02/11/19 12:24) Other Home Medications: Ambulatory Orders Medication Instructions Recorded Citalopram [Celexa] 20 mg PO DAILY 09/07/13 Latanoprost [Xalatan] 1 drop OPHTHALMIC QHS 03/18/18 Acetaminophen [Pain Relief] 650 mg PO TID 02/11/19 Carbidopa/Levodopa 25/100 [Sinemet 1 tab PO TID 02/11/19 25/100] Furosemide [Lasix] 20 mg PO DAILY 02/11/19 Ipratropium/Albuterol Sulfate 3 ml INHALATION Q6H.RT 02/11/19 [Duoneb] Levothyroxine Sodium [Synthroid] 75 mcg PO DAILY 02/11/19 Lisinopril [Prinivil] 5 mg PO DAILY 02/11/19 Montelukast Sodium [Singulair] 10 mg PO DAILY 02/11/19 Multivitamin [Multiple Vitamins] 1 tab PO DAILY 02/11/19 Pantoprazole Sodium [Protonix] 40 mg PO DAILY 02/11/19 Vancomycin [Vancocin] 125 mg PO Q6H 02/11/19 Surgical History: cholecystectomy, tonsillectomy, - - Right mastectomy, right underarm lymph node removal, bilateral breast biopsy. 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 Denies: Chills, Fever, Weight Change HEENT: Denies: Head Aches, Sinus Congestion, Sinus Drainage Cardiovascular: Denies: Chest Pain, Palpitations Respiratory: Denies: Cough, Shortness of breath at rest, Sputum production Gastrointestinal: Reports: Abdominal Pain, Diarrhea. Denies: Nausea, Vomiting Genitourinary: Reports: - - Decreased UOP, hx neurogenic bladder.. Denies: Dysuria Musculoskeletal: Reports: Back Pain, Joint Pain. Denies: Joint Tenderness Skin: Denies: Rash, Wounds Neurological: Reports: Focal weakness. Denies: Numbness, Tingling Psychiatric: Reports: Depression. Denies: Anxiety, Homicidal Ideations, Suicidal Ideations Hematologic/ Lymphatic: Denies: Easy Bruising, Easy Bleeding VTE Information - Inpt Only VTE Present on Admission: No VTE Mechan Device Prophylaxis: SCD's VTE Pharm Prophylaxis ordered?: Yes Patient Problems: Active and Suspected Problems Clostridium difficile infection (Acute) Hyponatremia (Acute) Hypotension due to hypovolemia (Acute) Subjective: Laying in [place] in the ED, fatigued appearance, recent stool incontinence, noting ongoing abdominal cramping and discomfort. Objective: Physical Examination: General: awake, alert, oriented x 3 and cooperative, laying in Trendelenburg in the ED bed, fatigued appearance, ill-appearing. Skin: normal color, turgor, no icterus, cyanosis. HEENT: AT/NC, EOMI, PERRLA, dry MM, no carotid bruits or JVD noted. Lungs: Diminished BS BL bases, moderate effort, mild decrease BL bases, no rales, ronchi or wheezing. Heart: Regular rate and rhythm; no gallop, rub audible. Abdomen: soft, obese, generalized discomfort w/ palpation, no rebound or guarding, no distention evidence, hyperactive bowel sounds, no HSM. Extremities: no cyanosis, clubbing, BL LE mild chronic lymphedema, stable, no pitting. Neurological: patient awake, alert, oriented x 3; cognitive function intact; pupils equally reactive to light and accomodation; cranial nerves II-XII grossly normal, patient able to move all 4 extremities but severely weak and especially bilateral lower extremities with chronic wheelchair usage, severe Parkinson's disease, strength accordingly severely globally decreased complicated by acute presentation. Psychiatric: affect appears flat, fatigued, no acute evidence of depressive or anxiety feelings. - Physical Exam Vital Signs Temp Pulse Resp BP Pulse Ox 96.3 F L 72 23 H 71/42 L 95 02/11/19 11:26 02/11/19 11:17 02/11/19 11:17 02/11/19 11:17 02/11/19 11:19 Oxygen Flow Rate (L/min) 2 Oxygen Delivery Method Nasal Cannula Weight: 218 lb 0.595 oz Body Mass Index (BMI) 38.6 Laboratory Tests Past 24 Hrs 02/11/19 02/11/19 02/11/19 10:40 10:40 10:40 WBC 11.8 H RBC 3.68 L Hgb 11.3 L Hct 33.3 L MCV 90.5 MCH 30.7 MCHC 33.9 RDW 14.6 RDW Differential 47.9 H Plt Count 240 MPV 10.3 Immature Gran % (Auto) 0.600 Neut % (Auto) 84.2 H Lymph % (Auto) 4.8 L [place] % (Auto) 9.8 Eos % (Auto) 0.5 Baso % (Auto) 0.1 Absolute Neuts (auto) 9.9 H Absolute Lymphs (auto) 0.56 L Total Counted Not Reportable PT 13.9 INR 1.1 APTT 34.1 Sodium 124 L Potassium 4.5 Chloride 88 L Carbon Dioxide 26.0 Anion Gap 10 BUN 58 H Creatinine 4.20 H Estim Creat Clear Calc 10.31 Est GFR (MDRD) Af Amer 13 L Est GFR (MDRD) Non-Af 11 L BUN/Creatinine Ratio 13.8 Glucose 70 L Lactic Acid Calcium 7.8 L Total Bilirubin 0.30 AST 17 ALT < 6 L Alkaline Phosphatase 84 Troponin I < 0.015 Total Protein 5.2 L Albumin 1.9 L Globulin 3.3 Albumin/Globulin Ratio 0.6 L 02/11/19 10:40 WBC RBC Hgb Hct MCV MCH MCHC RDW RDW Differential Plt Count MPV Immature Gran % (Auto) Neut % (Auto) Lymph % (Auto) [place] % (Auto) Eos % (Auto) Baso % (Auto) Absolute Neuts (auto) Absolute Lymphs (auto) Total Counted PT INR APTT Sodium Potassium Chloride Carbon Dioxide Anion Gap BUN Creatinine Estim Creat Clear Calc Est GFR (MDRD) Af Amer Est GFR (MDRD) Non-Af BUN/Creatinine Ratio Glucose Lactic Acid 1.0 Calcium Total Bilirubin AST ALT Alkaline Phosphatase Troponin I Total Protein Albumin Globulin Albumin/Globulin Ratio Assessment/Plan All Active Problems Clostridium difficile infection (Acute) Hyponatremia (Acute) Hypotension due to hypovolemia (Acute) Cystitis (Acute) Acute kidney injury (Acute) History of breast cancer (Resolved) History of pneumothorax (Resolved) The patient is a 68 y/o F w/ PMHx: Parkinson's Disease w/ Chronic Debility, Wheelchair bound, severe LE Weakness, Neurogenic Bladder, Hypothyroidism, Chronic Mild Hyponatremia (Na 133-134), KAREN on q HS BIPAP, Hx Breast CA, GERD, Depression, Allergic Rhinitis, Dry Eyes, Glaucoma, HTN, Obesity, Chronic BL LE Lymphedema who presents to the [facility] ED on 02/11/19 with history of onset severe copious ongoing foul smelling diarrhea, poor oral intake, associated generalized abdominal cramping with no nausea or emesis associated, noted decreased appetite without fevers or chills starting this past Monday, ongoing w/ confirmation of + toxigenic c. difficile testing with most recent abx therapy ~ 2 months prior to current onset with abx oral vanc administration once confirmed (1st dose Monday). (1) Severe Hypotensive secondary to GI Losses w/ Acute Clostridium Difficile Infection: Work-up in the ED included T 96.6, heart rate 76, initial BP 64/40 --> 76/43 now on 3rd NS L starting, RR 16, 92% on RA, CBC with W BC 11.8, hemoglobin 11.3, platelet 240 with left shift, unremarkable coags, CMP with sodium 124, chloride 88, BUN/Cr 58/4.20, glucose 70, troponin less than 0.015, EKG with no acute evidence of ischemia, chest x-ray with no acute cardiopulmonary process, blood culture x2 pending per ED, recent 02/08/19 + toxigenic c. difficile testing. Will admit to the ICU, maintain on telemetry, continue aggressive IVF administration, continue oral vancomycin with consideration concurrent IV flagyl if ongoing severe diarrhea, discussed with Dr. Keane and noted intention for continued IVFs, [address], if not responsive will necessitate transition to pressor therapy, LA normal, likely secondary to hypovolemia with concurrent as noted ARRON, hyponatremia with acute GI losses, trending labs, obtain mag, phos, pedersen placement for accurate I&Os, also hx neurogenic bladder, hold nephrotoxic regimen, hold BP regimen, fall precautions, position changes, barrier cream, PT, OT, CM for discharge planning, additionally per discussion with family ID consultation requested. Nutrition consulted given poor intake. (2) Acute kidney injury w/ Decreased UOP, secondary to #1: Secondary to #1. Admission BUN/Cr 58/4.20, prior baseline creatinine noted to be 0.9. Will continue to aggressively hydrate, hold nephrotoxic medications and repeat chemistry in AM. If not improving will request FeNa and renal US assessment. (3) Hyponatremia, Acute on Chronic, Hypovolemic: Admission Na 124, secondary to #1, GI losses, hypovolemia, continue to aggressively hydrate, trend BMP. (4) Dry Eyes: Continue home eye drop regimen. (5) Parkinson's disease: Continue home Sinemet regimen, fall precautions, position changes, PT, OT, CM for discharge planning. (6) Obesity: Weight loss and lifestyle changes encouraged. (7) Depression: Continue home Celexa regimen; however, if worsening function hold given severe ARRON. (8) Hypothyroidism: Continue home synthroid regimen. (9) GERD: Hold chronic PPI given acute presentation #1, will need to avoid PPI/H2B given this presentation. (10) KAREN: BIPAP q HS. (11) DVT Prophylaxis: SCDs, heparin. (12) CODE status: Patient HCPOA. Patient living will in place. SNF code status listed full code status. Discussed CODE status including difference concept of usage of aggressive interventions, i.e. compressions, paddles, intubation. Following discussions, requested continued Full Code status. Advanced Care Planning Face to Face Time: 16 minutes. Code Visit Inpatient E&M: 76021 Init Hosp L3 Procedures: 72773 Advncd Care Plan 30 Min
--- NOTE | 2019-02-11 15:36 | NURSING ---
patient arrived in ICU at 1503
[2019-02-11 15:45] LABS: Magnesium 1.6 mg/dL (1.6-2.6); Phosphorus 5.5 mg/dL (2.5-4.9)
[2019-02-11 16:05] LABS: Mucous, Urine 0 SEEN /hpf (<or=2+)
[2019-02-11 16:23] LABS: Color, Urine Yellow (Yellow); Glucose, Dipstick Normal (Normal); Ketone-Dipstick 5 mg/dl (Negative); Leukocyte Esterase-Dipstick 25 /ul (Negative); Nitrite-Dipstick Negative (Negative); Occult Blood-Urine 10 /ul (Negative); Protein-Dipstick 30 mg/dl (Negative); Specific Gravity, Urine 1.025 (1.002-1.030); Urine Clarity Cloudy (Clear); Urine Urobilinogen Normal (Normal)
--- NOTE | 2019-02-11 16:23 | CPS ---
Pt wears a BIPAP @[facility], family is bringing it in this evening.
[2019-02-11 16:24] LABS: Urine Bilirubin Dipstick 1 mg/dL (Negative)
[2019-02-11 16:31] LABS: Amorphous Sediment 1+; Bacteria 3+ /hpf (None Seen); Calcium Oxalate Crystals Ur 4+ /hpf (<or=2+); Red Blood Cells-Urine 0-5 SEEN /hpf (0-5); Squamous Epithelial Cells - UA 5-10 SEEN /hpf (5-10); White Blood Cells 0-5 SEEN /hpf (0-5)
[2019-02-11] MEDS: 0.9% Normal Saline 1,000 ML 150 ML IV ×2 (17:00→22:26)
[2019-02-11] MEDS: Carbidopa/Levodopa 25/100 Tablet PO (17:54)
[2019-02-11] MEDS: Ipratropium/Albuterol Sulfate 3 ML AMPUL.NEB INHALATION (18:34)
--- NOTE | 2019-02-11 18:53 | CPS ---
home bipap setup with sterile water to max fill line. patient placed on bipap, no adverse reaction noted.
[2019-02-11] MEDS: 0.9% NaCl Peripheral Flush Adult/Peds IV (20:30)
[2019-02-11] MEDS: Menthol/Lanolin/Calamine/Znox 113 GM Tube 1 APPLIC TOPICAL (22:26)
[2019-02-11] MEDS: Acetaminophen 325 MG Tablet 650 MG PO (22:26)
[2019-02-11] MEDS: Heparin Injection (Vial) 5,000 UNIT/ML VIAL 5000 UNIT SC (22:27)
[2019-02-11] MEDS: Latanoprost 0.005% 1 Bottle 1 DRP EACH EYE (22:27)
[2019-02-12] VITALS (47 sets, daily range): BP systolic 62–118; BP diastolic 35–81; PULSE 80–105; RESP 16–26; TEMP 36.1–36.6; O2SAT 90–100
[2019-02-12] MEDS: Ipratropium/Albuterol Sulfate 3 ML AMPUL.NEB INHALATION (00:46)
--- NOTE | 2019-02-12 00:49 | CPS ---
Addendum entered by Jay Edmond 02/12/19 00:52: 2 lpm oxygen bled in as per home use. Original Note: bipap on per home unit.
[2019-02-12] MEDS: 0.9% NaCl Peripheral Flush Adult/Peds IV ×3 (04:04→11:10)
[2019-02-12 04:21] LABS: Absolute Lymphocyte Count 0.65 X10^3/ul (0.83-4.51); Absolute Neutrophil Count 10.7 X10^3/uL (2.0-7.7); Basophil# 0.01 X10^3/uL; Basophil% 0.1 % (0-1); Eosinophil# 0.03 X10^3/uL; Eosinophils% 0.2 % (0-5); Hematocrit 35.4 % (37-47); Hemoglobin 12.1 g/dl (12.0-15.0); Lymphocyte # 0.65 X10^3/ul (4.0); Mean Corp Hgb Conc 34.2 g/gl (32-36); Mean Corpuscular Hgb 31.3 pg (27.0-32.0); Mean Corpuscular Volume 91.7 fL (81-99); Mean Platelet Vol. 10.2 fl (6.2-12.0); Monocyte% 11.5 % (0-10); Neutrophil # 10.68 X10^3/uL (2.7-7.7); Neutrophil % 82.2 % (47-70); Platelet Count 265 K/mm3 (150-450); RBC Distribution Width CV 14.7 % (11.6-14.6); RBC Distribution Width SD 49.2 fl (35.1-43.9); Red Blood Count 3.86 M/mm3 (4.2-5.4)
[2019-02-12 04:34] LABS: Anion Gap 11 (5-15); BUN 57 mg/dL (7-18); Calcium,Total 7.3 mg/dL (8.5-10.1); Chloride 98 mmol/L (98-107); Creatinine, Serum 3.35 mg/dL (0.55-1.02); Differential Indicated SCAN CRITERIA MET; EST Glomerular Filtration Rate 14 mL/min (>60); Est Glom Filt Rate - Afr Amer 17 mL/min (>60); Estimated Creatinine Clearance 12.93 ml/min; Glucose 154 mg/dL (74-106); POSITIVE COUNT NO; POSITIVE DIFFERENTIAL NO; POSITIVE MORPHOLOGY YES; Potassium 4.3 mmol/L (3.5-5.1); Sodium Level 130 mmol/L (136-145)
[2019-02-12] MEDS: 0.9% Normal Saline 1,000 ML 150 ML IV (05:00)
[2019-02-12 05:21] LABS: Anisocytosis RARE; Macrocytosis RARE; Platelet Estimate ADEQUATE (ADEQ); Toxic Granulation 1+
[2019-02-12] MEDS: Carbidopa/Levodopa 25/100 Tablet PO ×3 (06:15→18:37)
[2019-02-12] MEDS: Levothyroxine 75 MCG Tablet PO (06:15)
[2019-02-12] MEDS: Acetaminophen 325 MG Tablet 650 MG PO ×2 (06:15→22:44)
--- NOTE | 2019-02-12 06:19 | CON.PCM_ITS ---
Reason for Consult Date of Consultation: 02/12/19 Reason for Consultation: Septic shock History of Present Illness: The patient is a 68-year-old female, with a history as outlined below, who presented to the emergency department on February 11 with nausea, voluminous diarrhea and hypotension. The patient was diagnosed with C. difficile colitis on February 08. She was subsequently placed on p.o. vancomycin by her primary care provider. On presentation to the emergency department, the patient was noted to be afebrile and hypotensive. Laboratory evaluation revealed a mildly elevated white blood cell count to 12,000. Coagulation profile was within normal limits. Chemistry profile was notable for a sodium of 124, chloride of 88 along with evidence of acute on chronic kidney disease with a creatinine of 4.20. Lactate was within normal limits. Troponin was negative. Albumin is low at 1.9. Urine analysis was positive for leukocyte esterase, 0-5 white blood cells and 3+ urine bacteria. Plain film chest x-ray revealed elevation of the right hemidiaphragm without acute cardiopulmonary process. The patient received supplemental IV fluid hydration in the emergency department. She was continued on p.o. vancomycin and admitted to the medical intensive care unit. Following arrival to the ICU, the patient received several additional liters of supplemental IV fluid hydration, but remained persistently hypotensive. Therefore, she was started on levophed to maintain hemodynamic stability. A PICC line was also placed last evening. Given the patient's high vasopressor requirement, I elected to place an arterial line after obtaining consent from the patient. Arterial Line Placement A time-out was completed verifying correct patient, procedure, site, positioning, and special equipment if applicable. Geovany?s test was performed to ensure adequate perfusion. The patient?s left wrist was prepped and draped in sterile fashion. 1% Lidocaine was used to anesthetize the area. A 18G Arrow arterial line was introduced into the radial artery. The catheter was threaded over the guide wire and the needle was removed with appropriate pulsatile blood return. The catheter was then sutured in place to the skin and a sterile dressing applied. Perfusion to the extremity distal to the point of catheter insertion was checked and found to be adequate. ULTRASOUND GUIDANCE STATEMENT (Vascular Access): I performed ultrasound image acquisition and interpretation for needle placement during this procedure. The vessel was identified and was found to be free of thrombosis by compression technique. A safe point of entry was marked at the skin and an angle for access was determined. The needle was guided by obtaining free flowing fluid and by real time visualization. Past Medical History Past Medical History (Chronic Problems): Chronic Problems Hypothyroidism (Chronic) Hypertension (Chronic) Depression (Chronic) GERD (gastroesophageal reflux disease) (Chronic) Allergic rhinitis (Chronic) Parkinsons disease (Chronic) Obstructive sleep apnea (Chronic) Obesity (BMI 30-39.9) (Chronic) Allergies atorvastatin calcium [From Lipitor] Allergy (Verified 02/11/19 15:30) severe muscle pain tetanus immune globulin Allergy (Verified 02/11/19 15:30) Fever, skin rash, swelling around injection site codeine Adverse Reaction (Verified 02/11/19 15:30) it causes more pain than it relieves Home Medications: Ambulatory Orders Medication Instructions Recorded Citalopram [Celexa] 20 mg PO DAILY 09/07/13 Latanoprost [Xalatan] 1 drop OPHTHALMIC QHS 03/18/18 Acetaminophen [Pain Relief] 650 mg PO TID 02/11/19 Carbidopa/Levodopa 25/100 [Sinemet 1 tab PO TID 02/11/19 25/100] Furosemide [Lasix] 20 mg PO DAILY 02/11/19 Ipratropium/Albuterol Sulfate 3 ml INHALATION Q6H.RT 02/11/19 [Duoneb] Levothyroxine Sodium [Synthroid] 75 mcg PO DAILY 02/11/19 Lisinopril [Prinivil] 5 mg PO DAILY 02/11/19 Montelukast Sodium [Singulair] 10 mg PO DAILY 02/11/19 Multivitamin [Multiple Vitamins] 1 tab PO DAILY 02/11/19 Pantoprazole Sodium [Protonix] 40 mg PO DAILY 02/11/19 Vancomycin [Vancocin] 125 mg PO Q6H 02/11/19 Surgical History: cholecystectomy, tonsillectomy, - - Right mastectomy, right underarm lymph node removal, bilateral breast biopsy. 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 Denies: Chills, Fever Eyes: Denies: Blurred vision, Double vision HEENT: Denies: Head Aches, Sinus Congestion, Sinus Drainage Cardiovascular: Denies: Chest Pain, Palpitations Respiratory: Denies: Cough, Shortness of breath at rest, Sputum production Gastrointestinal: Reports: Diarrhea, Nausea Genitourinary: Denies: Dysuria Musculoskeletal: Denies: Joint Pain, Joint Tenderness Skin: Denies: Rash, Wounds Neurological: Denies: Numbness, Tingling, Focal weakness Psychiatric: Denies: Anxiety, Depression, Homicidal Ideations, Suicidal Ideations Hematologic/ Lymphatic: Denies: Easy Bruising, Easy Bleeding Patient Problems: Active and Suspected Problems Clostridium difficile infection (Acute) Hyponatremia (Acute) Hypotension due to hypovolemia (Acute) Septic shock (Acute) Objective: The patient's most recent lab work, culture data and imaging studies have all been personally reviewed. Blood and urine cultures are pending. - Physical Exam General: Alert, Cooperative, No apparent distress, - - Resting comfortably in bed. HEENT: Atraumatic, PERRLA, Normocephalic Oral: No Gingival or Mucosal Lesions/ Ulcerations Neck: Supple, No Nodes, Trachea Midline Lungs: No rhonchi, No wheeze, No rales, Diminished Cardiovascular: Regular rate, Regular Rhythm, Normal S1, Normal S2, No murmurs Abdomen: Soft, Non Tender, Hyperactive Bowel Sounds, Obese Extremities: No clubbing, No cyanosis, Edema Skin: No breakdown Musculoskeletal: No Tenderness to Palpation of Joints or Extremities Lymphatic: No Cervical, Supraclavicular, or Inguinal Adenopathy Neurological: Neuro grossly intact, - - +tremor Psych/Mental Status: Flat Affect Vital Signs Temp Pulse Resp BP Pulse Ox 97.8 F 83 16 101/53 L 96 02/12/19 04:00 02/12/19 06:00 02/12/19 06:00 02/12/19 06:00 02/12/19 06:00 Oxygen Flow Rate (L/min) 2 Oxygen Delivery Method CPAP Weight: 224 lb 3.362 oz Body Mass Index (BMI) 38.2 Intake and Output for Last 24 Hours 02/10/19 02/11/19 02/12/19 23:59 23:59 23:59 Intake Total 4000 / 4000 2080.7 / 2080.7 Output Total 400 / 400 145 / 145 Balance 3600 / 3600 1935.7 / 1935.7 Laboratory Tests Past 24 Hrs 02/11/19 02/11/19 02/11/19 10:40 10:40 10:40 WBC 11.8 H RBC 3.68 L Hgb 11.3 L Hct 33.3 L MCV 90.5 MCH 30.7 MCHC 33.9 RDW 14.6 RDW Differential 47.9 H Plt Count 240 MPV 10.3 Immature Gran % (Auto) 0.600 Neut % (Auto) 84.2 H Lymph % (Auto) 4.8 L [place] % (Auto) 9.8 Eos % (Auto) 0.5 Baso % (Auto) 0.1 Absolute Neuts (auto) 9.9 H Absolute Lymphs (auto) 0.56 L Total Counted Not Reportable Diff Path Review Toxic Granulation Platelet Estimate Anisocytosis Macrocytosis PT 13.9 INR 1.1 APTT 34.1 Sodium 124 L Potassium 4.5 Chloride 88 L Carbon Dioxide 26.0 Anion Gap 10 BUN 58 H Creatinine 4.20 H Estim Creat Clear Calc 10.31 Est GFR (MDRD) Af Amer 13 L Est GFR (MDRD) Non-Af 11 L BUN/Creatinine Ratio 13.8 Glucose 70 L Lactic Acid Calcium 7.8 L Phosphorus Magnesium Total Bilirubin 0.30 AST 17 ALT < 6 L Alkaline Phosphatase 84 Troponin I < 0.015 Total Protein 5.2 L Albumin 1.9 L Globulin 3.3 Albumin/Globulin Ratio 0.6 L Urine Color Urine Clarity Urine pH Ur Specific Turner Urine Protein Urine Glucose (UA) Urine Ketones Urine Occult Blood Urine Nitrite Urine Bilirubin Urine Urobilinogen Ur Leukocyte Esterase Urine RBC Urine WBC Ur Squamous Epith Cells Calcium Oxalate Crystal Amorphous Sediment Urine Bacteria Urine Mucus 02/11/19 02/11/19 02/11/19 10:40 10:40 15:53 WBC RBC Hgb Hct MCV MCH MCHC RDW RDW Differential Plt Count MPV Immature Gran % (Auto) Neut % (Auto) Lymph % (Auto) [place] % (Auto) Eos % (Auto) Baso % (Auto) Absolute Neuts (auto) Absolute Lymphs (auto) Total Counted Diff Path Review Toxic Granulation Platelet Estimate Anisocytosis Macrocytosis PT INR APTT Sodium Potassium Chloride Carbon Dioxide Anion Gap BUN Creatinine Estim Creat Clear Calc Est GFR (MDRD) Af Amer Est GFR (MDRD) Non-Af BUN/Creatinine Ratio Glucose Lactic Acid 1.0 Calcium Phosphorus 5.5 H Magnesium 1.6 Total Bilirubin AST ALT Alkaline Phosphatase Troponin I Total Protein Albumin Globulin Albumin/Globulin Ratio Urine Color Yellow Urine Clarity Cloudy Urine pH 5.0 Ur Specific Turner 1.025 Urine Protein 30 H Urine Glucose (UA) Normal Urine Ketones 5 H Urine Occult Blood 10 H Urine Nitrite Negative Urine Bilirubin 1 H Urine Urobilinogen Normal Ur Leukocyte Esterase 25 H Urine RBC 0-5 SEEN Urine WBC 0-5 SEEN Ur Squamous Epith Cells 5-10 SEEN Calcium Oxalate Crystal 4+ Amorphous Sediment 1+ Urine Bacteria 3+ Urine Mucus 0 SEEN 02/12/19 02/12/19 04:00 04:00 WBC 13.0 H RBC 3.86 L Hgb 12.1 Hct 35.4 L MCV 91.7 MCH 31.3 MCHC 34.2 RDW 14.7 H RDW Differential 49.2 H Plt Count 265 MPV 10.2 Immature Gran % (Auto) 1.000 H Neut % (Auto) 82.2 H Lymph % (Auto) 5.0 L [place] % (Auto) 11.5 H Eos % (Auto) 0.2 Baso % (Auto) 0.1 Absolute Neuts (auto) 10.7 H Absolute Lymphs (auto) 0.65 L Total Counted Not Reportable Diff Path Review May foll Toxic Granulation 1+ Platelet Estimate ADEQUATE Anisocytosis RARE Macrocytosis RARE PT INR APTT Sodium 130 L Potassium 4.3 Chloride 98 Carbon Dioxide 21.0 Anion Gap 11 BUN 57 H Creatinine 3.35 H Estim Creat Clear Calc 12.93 Est GFR (MDRD) Af Amer 17 L Est GFR (MDRD) Non-Af 14 L BUN/Creatinine Ratio 17.0 Glucose 154 H Lactic Acid Calcium 7.3 L Phosphorus Magnesium Total Bilirubin AST ALT Alkaline Phosphatase Troponin I Total Protein Albumin Globulin Albumin/Globulin Ratio Urine Color Urine Clarity Urine pH Ur Specific Turner Urine Protein Urine Glucose (UA) Urine Ketones Urine Occult Blood Urine Nitrite Urine Bilirubin Urine Urobilinogen Ur Leukocyte Esterase Urine RBC Urine WBC Ur Squamous Epith Cells Calcium Oxalate Crystal Amorphous Sediment Urine Bacteria Urine Mucus Clinical Impression(s) from Imaging Studies Chest X-Ray 02/11/19 11:15 IMPRESSION: Stable examination without radiographically evident acute cardiopulmonary disease. Electronically Signed: Andreas Juan MD at 11:45 EDT , Service support , Assessment/Plan Active and Suspected Problems Clostridium difficile infection (Acute) Hyponatremia (Acute) Hypotension due to hypovolemia (Acute) Septic shock (Acute) RECOMMENDATIONS: 1. Continue p.o. vancomycin. Will add Flagyl to the patient's regimen as well, given the patient's septic shock. 2. Continue Levophed to maintain a mean arterial pressure at or above 65 mmHg. Will consider adding vasopressin as well. 3. Place arterial line to obtain more accurate blood pressure parameters. 4. Infectious diseases consultation is pending. 5. Change fluids to half-normal saline. 6. Continue appropriate ICU prophylaxis. IMPRESSIONS: 1. Septic shock secondary to recent diagnosis of C. difficile colitis Given the severity of the patient's clinical presentation, will add IV Flagyl to p.o. vancomycin regimen, while awaiting infectious diseases input. The patient will be continued on supplemental IV fluid hydration to offset ongoing GI losses. Continue vasopressor support in an attempt to maintain a mean arterial pressure at or above 65 mmHg. If, after placing an arterial line, the patient's Levophed requirement remains elevated, will add vasopressin. Consideration can be given to performing a cosyntropin stimulation test. She does not appear to be on any chronic systemic corticosteroids. 2. Acute on chronic kidney disease Likely prerenal in etiology and related to ischemic ATN in the setting of #1. Anticipate improvement with stabilization of hemodynamics and with volume expansion. Continue to monitor urine output. Continue vasopressor support. No current indication for renal replacement therapy. 3. Hypovolemic hyponatremia Improving with volume expansion. Continue half-normal saline as ordered. 4. Obstructive sleep apnea Continue nocturnal CPAP therapy per home regimen. 5. Personal history of Parkinson's disease/obesity/depression/hypothyroidism/GERD Complicates care, management, recovery and prognosis. Continue home medications as indicated. TIME: 45 minutes of critical care time, inclusive of procedures, was spent addressing the patient's septic shock secondary to severe C. difficile colitis, acute on chronic kidney disease, hypovolemic hyponatremia, obstructive sleep apnea, review of all data and collaboration with the care team. ([id number]) Code Visit [id number]: [id number] Critical care first hour
--- NOTE | 2019-02-12 07:20 | PN_ITS ---
Patient Problems: Active and Suspected Problems Clostridium difficile infection (Acute) Hyponatremia (Acute) Hypotension due to hypovolemia (Acute) Subjective: Patient is a 68-year-old lady with recent diagnosis of C. difficile colitis on 02/08/2019 started on vancomycin by PCP brought to the emergency department on account of persistent hypotension and assessment of septic shock secondary to severe C. difficile colitis made admitted to the intensive care unit for subsequent management. Objective: GENERAL: cooperative HEENT: Atraumatic; EYES; Anicteric, Normal Conjunctiva NECK; supple, normal thyroid, RESPIRATORY: Diminished to auscultation bilaterally, CARDIOVASCULAR: Regular S1 S2, GI: soft, non-tender, normoactive bowel sounds, : No Renal angle tenderness; EXTREMITIES: No edema, no clubbing, NEURO: Awake; no lateralizing signs. SKIN: No Rash PSYCH; Normal affect Vitals/I&O's: Vital Signs Temp Pulse Resp BP Pulse Ox 97.8 F 85 19 H 96/50 L 94 02/12/19 04:00 02/12/19 07:00 02/12/19 07:00 02/12/19 07:00 02/12/19 07:00 Oxygen Flow Rate (L/min) 2 Oxygen Delivery Method CPAP Weight: 101.7 kg Body Mass Index (BMI) 38.2 Intake and Output for Last 24 Hours 02/10/19 02/11/19 02/12/19 23:59 23:59 23:59 Intake Total 4000 / 4000 2080.7 / 2080.7 Output Total 400 / 400 145 / 145 Balance 3600 / 3600 1935.7 / 1935.7 Laboratory Results 02/11/19 10:40: WBC 11.8 H, RBC 3.68 L, Hgb 11.3 L, Hct 33.3 L, MCV 90.5, MCH 30.7, MCHC 33.9, RDW 14.6, RDW Differential 47.9 H, Plt Count 240, MPV 10.3, Immature Gran % (Auto) 0.600, Neut % (Auto) 84.2 H, Lymph % (Auto) 4.8 L, [place] % (Auto) 9.8, Eos % (Auto) 0.5, Baso % (Auto) 0.1, Absolute Neuts (auto) 9.9 H, Absolute Lymphs (auto) 0.56 L, Total Counted Not Reportable 04/22/19 10:40: PT 13.9, INR 1.1, APTT 34.1 02/11/19 10:40: Sodium 124 L, Potassium 4.5, Chloride 88 L, Carbon Dioxide 26.0, Anion Gap 10, BUN 58 H, Creatinine 4.20 H, Estim Creat Clear Calc 10.31, Est GFR (MDRD) Af Amer 13 L, Est GFR (MDRD) Non-Af 11 L, BUN/Creatinine Ratio 13.8, Glucose 70 L, Calcium 7.8 L, Total Bilirubin 0.30, AST 17, ALT < 6 L, Alkaline Phosphatase 84, Troponin I < 0.015, Total Protein 5.2 L, Albumin 1.9 L, Globulin 3.3, Albumin/Globulin Ratio 0.6 L 02/11/19 10:40: Lactic Acid 1.0 02/11/19 10:40: Phosphorus 5.5 H, Magnesium 1.6 02/11/19 15:53: Urine Color Yellow, Urine Clarity Cloudy, Urine pH 5.0, Ur Specific [place] 1.025, Urine Protein 30 H, Urine Glucose (UA) Normal, Urine Ketones 5 H, Urine Occult Blood 10 H, Urine Nitrite Negative, Urine Bilirubin 1 H, Urine Urobilinogen Normal, Ur Leukocyte Esterase 25 H, Urine RBC 0-5 SEEN, Urine WBC 0-5 SEEN, Ur Squamous Epith Cells 5-10 SEEN, Calcium Oxalate Crystal 4+, Amorphous Sediment 1+, Urine Bacteria 3+, Urine Mucus 0 SEEN 02/12/19 04:00: WBC 13.0 H, RBC 3.86 L, Hgb 12.1, Hct 35.4 L, MCV 91.7, MCH 3 1.3, MCHC 34.2, RDW 14.7 H, RDW Differential 49.2 H, Plt Count 265, MPV 10.2, Immature Gran % (Auto) 1.000 H, Neut % (Auto) 82.2 H, Lymph % (Auto) 5.0 L, Mckenzie % (Auto) 11.5 H, Eos % (Auto) 0.2, Baso % (Auto) 0.1, Absolute Neuts (auto) 10.7 H, Absolute Lymphs (auto) 0.65 L, Total Counted Not Reportable, Diff Path Review May foll, Toxic Granulation 1+, Platelet Estimate ADEQUATE, Anisocytosis RARE, Macrocytosis RARE 02/12/19 04:00: Sodium 130 L, Potassium 4.3, Chloride 98, Carbon Dioxide 21.0, Anion Gap 11, BUN 57 H, Creatinine 3.35 H, Estim Creat Clear Calc 12.93, Est GFR (MDRD) Af Amer 17 L, Est GFR (MDRD) Non-Af 14 L, BUN/Creatinine Ratio 17.0, Glucose 154 H, Calcium 7.3 L Current Medications Acetaminophen (Tylenol) 650 mg PO TID [facility] Last Admin: 02/12/19 06:15 Dose: 650 mg Hydrocodone Bitart/Acetaminophen ([facility] 5mg-325mg) 1 - 2 tablet PO Q6H PRN PRN PRN Reason: MOD-SEVERE PAIN (4-08/01) Al Hydroxide/Mg Hydroxide (Mylanta Ii) 15 - 30 ml PO Q4H PRN PRN PRN Reason: INDIGESTION Albuterol Sulfate (Ventolin Aerosols) 2.5 mg INHALATION Q2H PRN PRN PRN Reason: dyspnea, wheezing Albuterol/Ipratropium (Duoneb) 3 ml INHALATION Q6H.RT [facility] Last Admin: 02/12/19 07:00 Dose: Not Given Calamine/Phenol (Calmoseptine Ointment) 1 applic TOPICAL 4X/DAY [facility]; Protocol Last Admin: 02/11/19 22:26 Dose: 1 applicatio Carbidopa/Levodopa (Sinemet) 1 tablet PO TIDAC [facility] Last Admin: 02/12/19 06:15 Dose: 1 tablet Citalopram Hydrobromide (Celexa) 20 mg PO DAILY [facility] Heparin Sodium (Porcine) (Heparin Na) 5,000 unit SC Q12 [facility] Last Admin: 02/11/19 22:27 Dose: 5,000 unit Norepinephrine Bitartrate 8 mg (/ Sodium Chloride) 250 mls @ 1.88 mls/hr CONT INF .[id number] [facility] Last Admin: 02/12/19 03:48 Dose: 1.88 mls/hr Metronidazole (Flagyl) 500 mg in 100 mls @ 100 mls/hr IV Q8 [facility] Lactobacillus Acidophilus (Acidophilus) 2 tablet PO 4X/DAY [facility] Last Admin: 02/11/19 22:26 Dose: 2 tablet Latanoprost (Xalatan Opthalmic) 1 drop EACH EYE QHS [facility] Last Admin: 02/11/19 22:27 Dose: 1 drop Levothyroxine Sodium (Synthroid) 75 mcg PO DAILY@0600 [facility] Last Admin: 02/12/19 06:15 Dose: 75 mcg Magnesium Hydroxide (Milk Of Magnesia) 30 ml PO DAILY PRN PRN PRN Reason: Constipation Montelukast Sodium (Singulair) 10 mg PO DAILY [facility] Multivitamins (Multivitamin) 1 tablet PO DAILY@0800 [facility] Ondansetron HCl (Zofran) 4 mg IV Q8H PRN PRN PRN Reason: NAUSEA/VOMITING Sodium Chloride () 5 - 15 ml IV UD PRN PRN Reason: SALINE FLUSH Last Admin: 02/12/19 04:05 Dose: 10 ml Vancomycin HCl () 125 mg PO Q6 [facility] Stop: 02/18/19 18:01 Last Admin: 02/12/19 06:15 Dose: 125 mg Medical Necessity - Tobacco Use Smoking Status: Never smoker Tobacco Use: Non-smoker Assessment/Plan All Active Problems Clostridium difficile infection (Acute) Hyponatremia (Acute) Hypotension due to hypovolemia (Acute) Cystitis (Acute) Acute kidney injury (Acute) History of breast cancer (Resolved) History of pneumothorax (Resolved) Patient is a 68-year-old lady with recent diagnosis of C. difficile colitis on 02/08/2019 started on vancomycin by PCP brought to the emergency department on account of persistent hypotension and assessment of septic shock secondary to severe C. difficile colitis made admitted to the intensive care unit for subsequent management. 1. Septic shock secondary to acute C. difficile colitis patient admitted to the intensive care unit where she was managed with aggressive IV fluid resuscitation. Patient had to be started on pressors due to persistent hypotension on PO vancomycin as well as IV Flagyl in view severe C. difficile colitis. Consultation was also placed to ID 2. Acute kidney injury secondary to GN from septic shock. Patient baseline creatinine drawn on 02/01/2019 was 1.12. Patient is on aggressive IV fluid resuscitation with monitoring of electrolyte 3. Hyponatremia secondary to hypovolemic hyponatremia. Patient is on IV fluids 4. Chronic kidney disease stage 2 with baseline creatinine of 1.2~1.3 5. Hypothyroidism-patient is on levothyroxine home dose continued 6. GERD 7. Obesity with BMI of 39.7 8. Parkinson's disease on Sinemet did continue 9. Obstructive sleep apnea BiPAP 9 10. Depression patient is on SSRI (Celexa) Active Medications Acetaminophen (Tylenol) 650 mg PO TID [facility] Last Admin: 02/12/19 06:15 Dose: 650 mg Hydrocodone Bitart/Acetaminophen ([facility] 5mg-325mg) 1 - 2 tablet PO Q6H PRN PRN PRN Reason: MOD-SEVERE PAIN (4-10/10) Al Hydroxide/Mg Hydroxide (Mylanta Ii) 15 - 30 ml PO Q4H PRN PRN PRN Reason: INDIGESTION Albuterol Sulfate (Ventolin Aerosols) 2.5 mg INHALATION Q2H PRN PRN PRN Reason: dyspnea, wheezing Calamine/Phenol (Calmoseptine Ointment) 1 applic TOPICAL 4X/DAY [facility]; Protocol Last Admin: 02/12/19 09:03 Dose: 1 applicatio Carbidopa/Levodopa (Sinemet) 1 tablet PO TIDAC [facility] Last Admin: 02/12/19 06:15 Dose: 1 tablet Citalopram Hydrobromide (Celexa) 20 mg PO DAILY [facility] Last Admin: 02/12/19 09:03 Dose: 20 mg Heparin Sodium (Porcine) (Heparin Na) 5,000 unit SC Q12 [facility] Last Admin: 02/12/19 09:03 Dose: 5,000 unit Norepinephrine Bitartrate 8 mg (/ Sodium Chloride) 250 mls @ 1.88 mls/hr CONT INF .[id number] [facility] Last Admin: 02/12/19 03:48 Dose: 1.88 mls/hr Metronidazole (Flagyl) 500 mg in 100 mls @ 100 mls/hr IV Q8 [facility] Last Admin: 02/12/19 09:03 Dose: 100 mls/hr Sodium Chloride () 1,000 mls @ 125 mls/hr IV .Q8H [facility] Last Admin: 02/12/19 08:56 Dose: 125 mls/hr Lactobacillus Acidophilus (Acidophilus) 2 tablet PO 4X/DAY [facility] Last Admin: 02/12/19 09:03 Dose: 2 tablet Latanoprost (Xalatan Opthalmic) 1 drop EACH EYE QHS [facility] Last Admin: 02/11/19 22:27 Dose: 1 drop Levothyroxine Sodium (Synthroid) 75 mcg PO DAILY@0600 [facility] Last Admin: 02/12/19 06:15 Dose: 75 mcg Montelukast Sodium (Singulair) 10 mg PO DAILY [facility] Multivitamins (Multivitamin) 1 tablet PO DAILY@0800 [facility] Last Admin: 02/12/19 09:03 Dose: 1 tablet Ondansetron HCl (Zofran) 4 mg IV Q8H PRN PRN PRN Reason: NAUSEA/VOMITING Sodium Chloride () 5 - 15 ml IV UD PRN PRN Reason: SALINE FLUSH Last Admin: 02/12/19 04:05 Dose: 10 ml Vancomycin HCl () 125 mg PO Q6 [facility] Stop: 02/18/19 18:01 Last Admin: 02/12/19 06:15 Dose: 125 mg Code Visit Inpatient E&M: [id number] [facility] Hosp L3
[2019-02-12] MEDS: 0.45% Normal Saline 1,000 ML 125 ML IV ×2 (08:56→19:59)
[2019-02-12] MEDS: Menthol/Lanolin/Calamine/Znox 113 GM Tube 1 APPLIC TOPICAL ×4 (09:03→22:59)
[2019-02-12] MEDS: Citalopram 20 MG Tablet PO (09:03)
[2019-02-12] MEDS: Multivitamins,Therapeutic Tablet 1 TABLET PO (09:03)
[2019-02-12] MEDS: Heparin Injection (Vial) 5,000 UNIT/ML VIAL 5000 UNIT SC ×2 (09:03→22:44)
--- NOTE | 2019-02-12 10:19 | NURSING ---
not titrating levo down because waiting on Dr. Keane to place ART Line for accurate BP.
[2019-02-12] MEDS: Ondansetron 4 MG/2 ML Vial IV (11:43)
[2019-02-12] MEDS: Montelukast 10 MG Tablet PO (12:15)
--- NOTE | 2019-02-12 13:15 | CHAPLAIN ---
Type of Pastoral Visit _x__ Initial Visit ___ Follow-up Visit ___ On-call Visit ___ General Patient Visit ___ Spiritual Assessment ___ Family Conference ___ Bereavement ___ Rapid Response ___ Code Blue ___ Other (describe below) Pastoral Care Referral From _x__ Patient ___ Family ___ Nurse ___ Physician ___ Offset Lithographic Press Operator ___ Machine Greaser ___ Other (describe below) Sacrament/Intervention _x__ Active listening ___ Anointing ___ Congregation ___ Bereavement ___ Communion ___ Isabel exploration ___ ___ Life review _x__ Prayer ___ Reconciliation ___ Sacrament of Sick _x__ Supportive presence ___ Wedding ___ Other (describe below) Pastoral Comments patient requested that her temple would be contacted; this was done by this survey questionnaire designer
--- NOTE | 2019-02-12 13:42 | CASEMGMT ---
LIBORIO met with patient as she is from [facility]. Patient confirms her plan is to return there at d/c. LIBORIO faxed updates to [place]. Plan: d/c back to [facility] under skilled level of care. Lou COHEN MSW
[2019-02-12 14:48] LABS: Pathologist Review Reviewed
--- NOTE | 2019-02-12 15:47 | CT_ITS ---
STUDY: CT ABDOMEN AND PELVIS WITHOUT CONTRAST REASON FOR EXAM: Female, 68 years old. Abdominal pain, septic shock, colitis RADIATION DOSAGE (If Supplied By Facility): CTDIvol = ( 20.94 ) mGy, DLP = ( 1187.52 ) mGycm TECHNIQUE: Transaxial images were obtained from the dome of the diaphragm to the symphysis pubis without oral contrast, and without intravenous contrast. Sagittal and coronal images were reconstructed. Individualized dose optimization techniques were used for this CT. COMPARISON: None. FINDINGS: The visualized lung bases demonstrate effusion and atelectasis/consolidation, right more than left. The visualized portions of the heart are within normal limits. 8 mm right inferior hepatic cyst in the liver. Nonvisualization of the gallbladder. No significant dilatation of the extrahepatic biliary system. Normal spleen. Normal pancreas. There is mild ascites. Normal bilateral adrenal glands. Normal right kidney. Normal left kidney. Normal visualized stomach. Normal small intestine. Diffuse wall thickening of the colon suggesting colitis. There is presacral mesentery thickening/edema. The appendix is visualized. Normal abdominal aorta. Normal inferior vena cava. Normal retroperitoneum. Rosen catheter in the urinary bladder. Right lower quadrant and pelvic free fluid. Normal abdominal wall. Bilateral old rib fractures. CT/Abdomen/Pel W ORAL Cont Only IMPRESSION: Ascites and pelvic fluid. Probably diffuse colitis. Right hepatic cyst. Bilateral pleural effusions with basilar consolidation/atelectasis, right more than left. Electronically Signed: Israel Staley DO at 18:47 EDT Tel [phone], Service support ,
--- NOTE | 2019-02-12 15:53 | CON.PCM_ITS ---
Problem List (1) Septic shock Status: Acute Reason for Consult: cdiff Consulted by: Dr. Stevens History of Present Illness: The patient is a 68 year old F with no prior h/o cdiff, presented with several days of frequent mucusy diarrhea with diffuse abd cramping, fever, chills, nausea. Had course of abx for lung infection a few weeks ago. Admitted to icu on iv flagyl and po vanc. Also with ARRON. Full ROS performed and neg except as noted above. - Medical History Past Medical History (Chronic Problems): Chronic Problems Hypothyroidism (Chronic) Hypertension (Chronic) Depression (Chronic) GERD (gastroesophageal reflux disease) (Chronic) Allergic rhinitis (Chronic) Parkinsons disease (Chronic) Obstructive sleep apnea (Chronic) Obesity (BMI 30-39.9) (Chronic) Allergies/Adverse Reactions: Allergies atorvastatin calcium [From Lipitor] Allergy (Verified 02/11/19 15:30) severe muscle pain tetanus immune globulin Allergy (Verified 02/11/19 15:30) Fever, skin rash, swelling around injection site codeine Adverse Reaction (Verified 02/11/19 15:30) it causes more pain than it relieves Home Medications: Ambulatory Orders Medication Instructions Recorded Citalopram [Celexa] 20 mg PO DAILY 09/07/13 Latanoprost [Xalatan] 1 drop OPHTHALMIC QHS 03/18/18 Acetaminophen [Pain Relief] 650 mg PO TID 02/11/19 Carbidopa/Levodopa 25/100 [Sinemet 1 tab PO TID 02/11/19 25/100] Furosemide [Lasix] 20 mg PO DAILY 02/11/19 Ipratropium/Albuterol Sulfate 3 ml INHALATION Q6H.RT 02/11/19 [Duoneb] Levothyroxine Sodium [Synthroid] 75 mcg PO DAILY 02/11/19 Lisinopril [Prinivil] 5 mg PO DAILY 02/11/19 Montelukast Sodium [Singulair] 10 mg PO DAILY 02/11/19 Multivitamin [Multiple Vitamins] 1 tab PO DAILY 02/11/19 Pantoprazole Sodium [Protonix] 40 mg PO DAILY 02/11/19 Vancomycin [Vancocin] 125 mg PO Q6H 02/11/19 - Social History Tobacco Use: non-smoker Vital Signs Temp Pulse Resp BP Pulse Ox 97.8 F 88 17 91/52 L 91 02/12/19 12:00 02/12/19 15:00 02/12/19 15:00 02/12/19 15:00 02/12/19 15:00 Oxygen Flow Rate (L/min) 2 Oxygen Delivery Method CPAP Weight: 101.7 kg Body Mass Index (BMI) 38.2 Microbiology Past 72 Hours 02/11/19 15:53 Urine Culture - Preliminary Urine Catheter - Rosen Culture exhibits no growth. Laboratory Tests Past 24 Hrs 02/11/19 02/12/19 02/12/19 15:53 04:00 04:00 WBC 13.0 H RBC 3.86 L Hgb 12.1 Hct 35.4 L MCV 91.7 MCH 31.3 MCHC 34.2 RDW 14.7 H RDW Differential 49.2 H Plt Count 265 MPV 10.2 Immature Gran % (Auto) 1.000 H Neut % (Auto) 82.2 H Lymph % (Auto) 5.0 L [place] % (Auto) 11.5 H Eos % (Auto) 0.2 Baso % (Auto) 0.1 Absolute Neuts (auto) 10.7 H Absolute Lymphs (auto) 0.65 L Total Counted Not Reportable Diff Path Review Reviewed Toxic Granulation 1+ Platelet Estimate ADEQUATE Anisocytosis RARE Macrocytosis RARE Sodium 130 L Potassium 4.3 Chloride 98 Carbon Dioxide 21.0 Anion Gap 11 BUN 57 H Creatinine 3.35 H Estim Creat Clear Calc 12.93 Est GFR (MDRD) Af Amer 17 L Est GFR (MDRD) Non-Af 14 L BUN/Creatinine Ratio 17.0 Glucose 154 H Calcium 7.3 L Cortisol Urine Color Yellow Urine Clarity Cloudy Urine pH 5.0 Ur Specific [place] 1.025 Urine Protein 30 H Urine Glucose (UA) Normal Urine Ketones 5 H Urine Occult Blood 10 H Urine Nitrite Negative Urine Bilirubin 1 H Urine Urobilinogen Normal Ur Leukocyte Esterase 25 H Urine RBC 0-5 SEEN Urine WBC 0-5 SEEN Ur Squamous Epith Cells 5-10 SEEN Calcium Oxalate Crystal 4+ Amorphous Sediment 1+ Urine Bacteria 3+ Urine Mucus 0 SEEN 02/12/19 02/12/19 02/12/19 10:28 11:40 12:10 WBC RBC Hgb Hct MCV MCH MCHC RDW RDW Differential Plt Count MPV Immature Gran % (Auto) Neut % (Auto) Lymph % (Auto) [place] % (Auto) Eos % (Auto) Baso % (Auto) Absolute Neuts (auto) Absolute Lymphs (auto) Total Counted Diff Path Review Toxic Granulation Platelet Estimate Anisocytosis Macrocytosis Sodium Potassium Chloride Carbon Dioxide Anion Gap BUN Creatinine Estim Creat Clear Calc Est GFR (MDRD) Af Amer Est GFR (MDRD) Non-Af BUN/Creatinine Ratio Glucose Calcium Cortisol 20.60 33.90 H 37.80 H Urine Color Urine Clarity Urine pH Ur Specific [place] Urine Protein Urine Glucose (UA) Urine Ketones Urine Occult Blood Urine Nitrite Urine Bilirubin Urine Urobilinogen Ur Leukocyte Esterase Urine RBC Urine WBC Ur Squamous Epith Cells Calcium Oxalate Crystal Amorphous Sediment Urine Bacteria Urine Mucus - Other Studies Radiology: [] reviewed Other Studies: [] Route of nutrition/ use of supplements: [] Nutritional Intake: [] IV Site: [] Rosen Catheter: [] - Physical Exam General: Alert, Oriented x3, Cooperative, - - ill appearing HEENT: Atraumatic, PERRLA, EOMI Neck: Supple, No Nodes Lungs: Clear to auscultation, Normal air movement Cardiovascular: Regular Rhythm, No murmurs, Tachycardic Abdomen: Soft, Tender Extremities: Edema Skin: No rashes IV Site: PICC, without redness Musculoskeletal: No Tenderness to Palpation of Joints or Extremities Neurological: Cranial nerves II-XII grossly intact - Assessment/Plan Antibiotics: [] Assessment/Plan: [] Active and Suspected Problems Clostridium difficile infection (Acute) Hyponatremia (Acute) Hypotension due to hypovolemia (Acute) Septic shock due to Cdiff colitis with ARRON - on 2 pressors. Cont iv flagyl and po vanc. Will check CT abd/pelvis to look for perf or megacolon or hydronephrosis/obstruction. Cr better today, some UOP now. Will follow, thank you. D/w nursing.
[2019-02-12] MEDS: Latanoprost 0.005% 1 Bottle 1 DRP EACH EYE (23:00)
[2019-02-13] VITALS (61 sets, daily range): BP systolic 71–135; BP diastolic 41–98; PULSE 75–102; RESP 16–28; TEMP 36.1–37.1; O2SAT 90–99
[2019-02-13] MEDS: 0.45% Normal Saline 1,000 ML 125 ML IV (04:08)
[2019-02-13] MEDS: Acetaminophen 325 MG Tablet 650 MG PO ×3 (06:09→21:41)
[2019-02-13] MEDS: Levothyroxine 75 MCG Tablet PO (06:09)
[2019-02-13] MEDS: Carbidopa/Levodopa 25/100 Tablet PO ×3 (06:09→16:58)
--- NOTE | 2019-02-13 06:24 | PCM.PN.INT ---
Subjective: The patient was seen and examined at the bedside this morning. Events from the last 24 hours have been reviewed. Patient remains on dual vasopressor support with vasopressin and levophed at 28 mcg. There has been discordance between the arterial line blood pressure readings and cuff blood pressure readings. The patient was once again tolerant of nocturnal CPAP therapy per her home regimen. She is currently overall net +10.4 L for the admission. Creatinine has improved this morning to 2.39. A cosyntropin stimulation test was completed yesterday. Patient does report the presence of abdominal cramping this morning but denies nausea. She continues to have loose bowel movements. Objective: The patient's most recent lab work, culture data and imaging studies have all been personally reviewed. Fecal leukocytes were positive. Urine culture has exhibited no growth. Blood cultures have been unrevealing to date. Enteric panel is pending. CT abdomen/pelvis completed yesterday revealed ascites and pelvic fluid, diffuse colitis and bilateral pleural effusions with basilar consolidation/atelectasis. General: Alert, Cooperative, No apparent distress HEENT: Atraumatic, PERRLA, Normocephalic Oral: No Gingival or Mucosal Lesions/ Ulcerations Neck: Supple, No Nodes, Trachea Midline Lungs: No rhonchi, No wheeze, No rales, Diminished Cardiovascular: Regular rate, Regular Rhythm, Normal S1, Normal S2, No murmurs Abdomen: Bowel Sounds Present, Soft, Non Tender, Tender Extremities: No clubbing, No cyanosis, Edema Skin: - - No significant change from previous Musculoskeletal: No Tenderness to Palpation of Joints or Extremities Lymphatic: No Cervical, Supraclavicular, or Inguinal Adenopathy Neurological: Neuro grossly intact Psych/Mental Status: Flat Affect Vital Signs Temp Pulse Resp BP Pulse Ox 98.0 F 79 20 H 104/49 L 98 02/13/19 04:00 02/13/19 04:15 02/13/19 04:15 02/13/19 04:15 02/13/19 04:15 Oxygen Flow Rate (L/min) 2 Oxygen Delivery Method CPAP Weight: 238 lb 15.697 oz Body Mass Index (BMI) 38.2 Intake and Output for Last 24 Hours 02/11/19 02/12/19 02/13/19 23:59 23:59 23:59 Intake Total 4000 / 4000 5305.7 / 5305.7 1210.1 / 1210.1 Output Total 400 / 400 325 / 325 200 / 200 Balance 3600 / 3600 4980.7 / 4980.7 1010.1 / 1010.1 Labs (Last 48 Hours) 02/11/19 02/11/19 02/11/19 10:40 10:40 10:40 WBC 11.8 H RBC 3.68 L Hgb 11.3 L Hct 33.3 L MCV 90.5 MCH 30.7 MCHC 33.9 RDW 14.6 RDW Differential 47.9 H Plt Count 240 MPV 10.3 Immature Gran % (Auto) 0.600 Neut % (Auto) 84.2 H Lymph % (Auto) 4.8 L [place] % (Auto) 9.8 Eos % (Auto) 0.5 Baso % (Auto) 0.1 Absolute Neuts (auto) 9.9 H Absolute Lymphs (auto) 0.56 L Total Counted Not Reportable Diff Path Review Toxic Granulation Platelet Estimate Anisocytosis Macrocytosis PT 13.9 INR 1.1 APTT 34.1 Sodium 124 L Potassium 4.5 Chloride 88 L Carbon Dioxide 26.0 Anion Gap 10 BUN 58 H Creatinine 4.20 H Estim Creat Clear Calc 10.31 Est GFR (MDRD) Af Amer 13 L Est GFR (MDRD) Non-Af 11 L BUN/Creatinine Ratio 13.8 Glucose 70 L Lactic Acid Calcium 7.8 L Phosphorus Magnesium Total Bilirubin 0.30 AST 17 ALT < 6 L Alkaline Phosphatase 84 Troponin I < 0.015 Total Protein 5.2 L Albumin 1.9 L Globulin 3.3 Albumin/Globulin Ratio 0.6 L Cortisol Urine Color Urine Clarity Urine pH Ur Specific [place] Urine Protein Urine Glucose (UA) Urine Ketones Urine Occult Blood Urine Nitrite Urine Bilirubin Urine Urobilinogen Ur Leukocyte Esterase Urine RBC Urine WBC Ur Squamous Epith Cells Calcium Oxalate Crystal Amorphous Sediment Urine Bacteria Urine Mucus 02/11/19 02/11/19 02/11/19 10:40 10:40 15:53 WBC RBC Hgb Hct MCV MCH MCHC RDW RDW Differential Plt Count MPV Immature Gran % (Auto) Neut % (Auto) Lymph % (Auto) [place] % (Auto) Eos % (Auto) Baso % (Auto) Absolute Neuts (auto) Absolute Lymphs (auto) Total Counted Diff Path Review Toxic Granulation Platelet Estimate Anisocytosis Macrocytosis PT INR APTT Sodium Potassium Chloride Carbon Dioxide Anion Gap BUN Creatinine Estim Creat Clear Calc Est GFR (MDRD) Af Amer Est GFR (MDRD) Non-Af BUN/Creatinine Ratio Glucose Lactic Acid 1.0 Calcium Phosphorus 5.5 H Magnesium 1.6 Total Bilirubin AST ALT Alkaline Phosphatase Troponin I Total Protein Albumin Globulin Albumin/Globulin Ratio Cortisol Urine Color Yellow Urine Clarity Cloudy Urine pH 5.0 Ur Specific [place] 1.025 Urine Protein 30 H Urine Glucose (UA) Normal Urine Ketones 5 H Urine Occult Blood 10 H Urine Nitrite Negative Urine Bilirubin 1 H Urine Urobilinogen Normal Ur Leukocyte Esterase 25 H Urine RBC 0-5 SEEN Urine WBC 0-5 SEEN Ur Squamous Epith Cells 5-10 SEEN Calcium Oxalate Crystal 4+ Amorphous Sediment 1+ Urine Bacteria 3+ Urine Mucus 0 SEEN 02/12/19 02/12/19 02/12/19 04:00 04:00 10:28 WBC 13.0 H RBC 3.86 L Hgb 12.1 Hct 35.4 L MCV 91.7 MCH 31.3 MCHC 34.2 RDW 14.7 H RDW Differential 49.2 H Plt Count 265 MPV 10.2 Immature Gran % (Auto) 1.000 H Neut % (Auto) 82.2 H Lymph % (Auto) 5.0 L [place] % (Auto) 11.5 H Eos % (Auto) 0.2 Baso % (Auto) 0.1 Absolute Neuts (auto) 10.7 H Absolute Lymphs (auto) 0.65 L Total Counted Not Reportable Diff Path Review Reviewed Toxic Granulation 1+ Platelet Estimate ADEQUATE Anisocytosis RARE Macrocytosis RARE PT INR APTT Sodium 130 L Potassium 4.3 Chloride 98 Carbon Dioxide 21.0 Anion Gap 11 BUN 57 H Creatinine 3.35 H Estim Creat Clear Calc 12.93 Est GFR (MDRD) Af Amer 17 L Est GFR (MDRD) Non-Af 14 L BUN/Creatinine Ratio 17.0 Glucose 154 H Lactic Acid Calcium 7.3 L Phosphorus Magnesium Total Bilirubin AST ALT Alkaline Phosphatase Troponin I Total Protein Albumin Globulin Albumin/Globulin Ratio Cortisol 20.60 Urine Color Urine Clarity Urine pH Ur Specific [place] Urine Protein Urine Glucose (UA) Urine Ketones Urine Occult Blood Urine Nitrite Urine Bilirubin Urine Urobilinogen Ur Leukocyte Esterase Urine RBC Urine WBC Ur Squamous Epith Cells Calcium Oxalate Crystal Amorphous Sediment Urine Bacteria Urine Mucus 02/12/19 02/12/19 11:40 12:10 WBC RBC Hgb Hct MCV MCH MCHC RDW RDW Differential Plt Count MPV Immature Gran % (Auto) Neut % (Auto) Lymph % (Auto) [place] % (Auto) Eos % (Auto) Baso % (Auto) Absolute Neuts (auto) Absolute Lymphs (auto) Total Counted Diff Path Review Toxic Granulation Platelet Estimate Anisocytosis Macrocytosis PT INR APTT Sodium Potassium Chloride Carbon Dioxide Anion Gap BUN Creatinine Estim Creat Clear Calc Est GFR (MDRD) Af Amer Est GFR (MDRD) Non-Af BUN/Creatinine Ratio Glucose Lactic Acid Calcium Phosphorus Magnesium Total Bilirubin AST ALT Alkaline Phosphatase Troponin I Total Protein Albumin Globulin Albumin/Globulin Ratio Cortisol 33.90 H 37.80 H Urine Color Urine Clarity Urine pH Ur Specific [place] Urine Protein Urine Glucose (UA) Urine Ketones Urine Occult Blood Urine Nitrite Urine Bilirubin Urine Urobilinogen Ur Leukocyte Esterase Urine RBC Urine WBC Ur Squamous Epith Cells Calcium Oxalate Crystal Amorphous Sediment Urine Bacteria Urine Mucus Microbiology 02/12/19 23:15 Stool Stool Lactoferrin - Final 02/11/19 15:53 Urine Catheter - Rosen Urine Culture - Preliminary Culture exhibits no growth. Clinical Impression(s) from Imaging Studies Chest X-Ray 02/11/19 11:15 IMPRESSION: Stable examination without radiographically evident acute cardiopulmonary disease. Electronically Signed: Andreas Juan MD at 11:45 EDT , Service support , Abdomen CT 02/12/19 15:47 IMPRESSION: Ascites and pelvic fluid. Probably diffuse colitis. Right hepatic cyst. Bilateral pleural effusions with basilar consolidation/atelectasis, right more than left. Electronically Signed: Israel Staley DO at 18:47 EDT Tel [phone], Service support , Medical Necessity - Tobacco Use Smoking Status: Never smoker Tobacco Use: Non-smoker Assessment/Plan All Active Problems Clostridium difficile infection (Acute) Hyponatremia (Acute) Hypotension due to hypovolemia (Acute) Septic shock (Acute) Cystitis (Acute) Acute kidney injury (Acute) History of breast cancer (Resolved) History of pneumothorax (Resolved) RECOMMENDATIONS: 1. Continue p.o. vancomycin and IV Flagyl, per ID recommendations. 2. Check BNP. Stop all continue with supplemental IV fluids. 3. Continue Levophed and vasopressin to maintain a mean arterial pressure at or above 65 mmHg. 4. Continue appropriate ICU prophylaxis. 5. Given that the patient was previously on a modified diet, recommend speech therapy evaluation. IMPRESSIONS: 1. Septic shock secondary to recent diagnosis of C. difficile colitis The patient presented to the hospital with severe C. difficile colitis, requiring vasopressor support. She remains on IV Flagyl and p.o. vancomycin. Infectious diseases is following. We will continue to wean vasopressor support in an attempt to maintain a mean arterial pressure at or above 65 mmHg. The patient's vasopressin can be discontinued this morning first, prior to weaning Levophed. Given that the functional nature of the patient's arterial line is questionable, would recommend weaning vasopressor support based upon cuff pressures. 2. Acute on chronic kidney disease Improving. Likely prerenal in etiology and related to ischemic ATN in the setting of #1. Anticipate improvement with stabilization of hemodynamics and with volume expansion. Continue to monitor urine output. Continue vasopressor support. No current indication for renal replacement therapy. 3. Hypovolemic hyponatremia Improving with volume expansion. 4. Obstructive sleep apnea Continue nocturnal CPAP therapy per home regimen. 5. Personal history of Parkinson's disease/obesity/depression/hypothyroidism/GERD Complicates care, management, recovery and prognosis. Continue home medications as indicated. TIME: 40 minutes of critical care time, inclusive of procedures, was spent addressing the patient's septic shock secondary to severe C. difficile colitis, acute on chronic kidney disease, hypovolemic hyponatremia, obstructive sleep apnea, review of all data and collaboration with the care team. ([id number]) Code Visit [id number]: [id number] Critical care first hour
[2019-02-13 06:57] LABS: Anion Gap 7 (5-15); BUN 51 mg/dL (7-18); BUN/Creat Ratio 21.3 RATIO (10-20); Calcium,Total 7.6 mg/dL (8.5-10.1); Chloride 100 mmol/L (98-107); Creatinine, Serum 2.39 mg/dL (0.55-1.02); EST Glomerular Filtration Rate 21 mL/min (>60); Est Glom Filt Rate - Afr Amer 26 mL/min (>60); Estimated Creatinine Clearance 18.12 ml/min; Glucose 171 mg/dL (74-106); Potassium 4.3 mmol/L (3.5-5.1); Sodium Level 129 mmol/L (136-145)
[2019-02-13 06:58] LABS: Absolute Lymphocyte Count 1.35 X10^3/ul (0.83-4.51); Absolute Neutrophil Count 8.8 X10^3/uL (2.0-7.7); Basophil# 0.02 X10^3/uL; Basophil% 0.2 % (0-1); Eosinophil# 0.04 X10^3/uL; Eosinophils% 0.3 % (0-5); Hemoglobin 11.6 g/dl (12.0-15.0); Lymphocyte # 1.35 X10^3/ul (4.0); Lymphocyte % 10.9 % (19-41); Mean Corp Hgb Conc 34.1 g/gl (32-36); Mean Corpuscular Hgb 30.6 pg (27.0-32.0); Mean Corpuscular Volume 89.7 fL (81-99); Mean Platelet Vol. 9.1 fl (6.2-12.0); Monocyte# 2.03 X10^3/uL; Monocyte% 16.4 % (0-10); Neutrophil # 8.78 X10^3/uL (2.7-7.7); Neutrophil % 71.1 % (47-70); Platelet Count 196 K/mm3 (150-450); RBC Distribution Width CV 14.9 % (11.6-14.6); RBC Distribution Width SD 48.7 fl (35.1-43.9); Red Blood Count 3.79 M/mm3 (4.2-5.4); White Blood Count 12.4 K/mm3 (4.4-11.0)
[2019-02-13 06:59] LABS: Differential Indicated SCAN CRITERIA MET; POSITIVE COUNT NO; POSITIVE DIFFERENTIAL YES; POSITIVE MORPHOLOGY NO
[2019-02-13] MEDS: 0.9% NaCl Peripheral Flush Adult/Peds IV (08:06)
[2019-02-13] MEDS: Ondansetron 4 MG/2 ML Vial IV (08:06)
[2019-02-13 08:16] LABS: BNP,B-Type NATRIURETIC PEPTIDE 105.6 pg/mL (0-100)
--- NOTE | 2019-02-13 08:33 | PCM.PN.HOSP ---
Patient Problems: Active and Suspected Problems Clostridium difficile infection (Acute) Hyponatremia (Acute) Hypotension due to hypovolemia (Acute) Septic shock (Acute) Subjective: Patient seen still appears ill looking. Patient remains on both Levophed and vasopressin. CT of the abdomen obtained the day prior demonstrated diffuse colitis with some ascites and pelvic fluid. Patient was also noted to have bilateral pleural effusion with by basilar consolidation/atelectasis Objective: GENERAL: cooperative appears ill looking HEENT: Atraumatic; EYES; Anicteric, Normal Conjunctiva NECK; supple, normal thyroid, RESPIRATORY: Diminished to auscultation bilaterally, CARDIOVASCULAR: Regular S1 S2, GI: soft, non-tender, normoactive bowel sounds, : No Renal angle tenderness; EXTREMITIES: Trace bipedal edema, no clubbing, NEURO: Awake; no lateralizing signs. SKIN: No Rash PSYCH; significantly flat affect Vitals/I&O's: Vital Signs Temp Pulse Resp BP Pulse Ox 97.5 F L 92 25 H 109/62 96 02/13/19 08:00 02/13/19 08:00 02/13/19 08:00 02/13/19 08:00 02/13/19 08:05 Oxygen Flow Rate (L/min) 2 Oxygen Delivery Method Nasal Cannula Weight: 108.4 kg Body Mass Index (BMI) 38.2 Intake and Output for Last 24 Hours 02/11/19 02/12/19 02/13/19 23:59 23:59 23:59 Intake Total 4000 / 4000 5305.7 / 5305.7 2370.1 / 2370.1 Output Total 400 / 400 325 / 325 550 / 550 Balance 3600 / 3600 4980.7 / 4980.7 1820.1 / 1820.1 Microbiology Past 72 Hours 02/12/19 23:15 Stool Stool Lactoferrin - Final 02/11/19 15:53 Urine Catheter - Rosen Urine Culture - Preliminary Culture exhibits no growth. Laboratory Results 02/12/19 04:00: Diff Path Review Reviewed 02/12/19 10:28: Cortisol 20.60 02/12/19 11:40: Cortisol 33.90 H 02/12/19 12:10: Cortisol 37.80 H 02/13/19 06:35: WBC 12.4 H, RBC 3.79 L, Hgb 11.6 L, Hct 34.0 L, MCV 89.7, MCH 30.6, MCHC 34.1, RDW 14.9 H, RDW Differential 48.7 H, Plt Count 196, MPV 9.1, Immature Gran % (Auto) 1.100 H, Neut % (Auto) 71.1 H, Lymph % (Auto) 10.9 L, [place] % (Auto) 16.4 H, Eos % (Auto) 0.3, Baso % (Auto) 0.2, Absolute Neuts (auto) 8.8 H, Absolute Lymphs (auto) 1.35, Total Counted Not Reportable, Diff Path Review February02/13/19 06:35: Sodium 129 L, Potassium 4.3, Chloride 100, Carbon Dioxide 22.0, Anion Gap 7, BUN 51 H, Creatinine 2.39 H, Estim Creat Clear Calc 18.12, Est GFR (MDRD) Af Amer 26 L, Est GFR (MDRD) Non-Af 21 L, BUN/Creatinine Ratio 21.3 H, Glucose 171 H, Calcium 7.6 L 02/13/19 06:35: B-Natriuretic Peptide 105.6 H Current Medications Acetaminophen (Tylenol) 650 mg PO TID [facility] Last Admin: 02/13/19 06:09 Dose: 650 mg Hydrocodone Bitart/Acetaminophen ([place] 5mg-325mg) 1 - 2 tablet PO Q6H PRN PRN PRN Reason: MOD-SEVERE PAIN (4-10/10) Al Hydroxide/Mg Hydroxide (Mylanta Ii) 15 - 30 ml PO Q4H PRN PRN PRN Reason: INDIGESTION Albuterol Sulfate (Ventolin Aerosols) 2.5 mg INHALATION Q2H PRN PRN PRN Reason: dyspnea, wheezing Calamine/Phenol (Calmoseptine Ointment) 1 applic TOPICAL 4X/DAY [facility]; Protocol Last Admin: 02/12/19 22:59 Dose: 1 applicatio Carbidopa/Levodopa (Sinemet) 1 tablet PO TIDAC [facility] Last Admin: 02/13/19 06:09 Dose: 1 tablet Citalopram Hydrobromide (Celexa) 20 mg PO DAILY [facility] Last Admin: 02/12/19 09:03 Dose: 20 mg Heparin Sodium (Porcine) (Heparin Na) 5,000 unit SC Q12 [facility] Last Admin: 02/12/19 22:44 Dose: 5,000 unit Metronidazole (Flagyl) 500 mg in 100 mls @ 100 mls/hr IV Q8 [facility] Last Admin: 02/13/19 06:15 Dose: 100 mls/hr Vasopressin 20 units/ Sodium (Chloride) 25 mls @ 3 mls/hr IV .Q8H20M [facility] Last Admin: 02/13/19 07:18 Dose: 3 mls/hr Norepinephrine Bitartrate 8 mg (/ Sodium Chloride) 250 mls @ 71.25 mls/hr CONT INF .Q3H31M [facility] Last Admin: 02/13/19 07:15 Dose: 71.25 mls/hr Lactobacillus Acidophilus (Acidophilus) 2 tablet PO 4X/DAY [facility] Last Admin: 02/12/19 22:44 Dose: 2 tablet Latanoprost (Xalatan Opthalmic) 1 drop EACH EYE QHS [facility] Last Admin: 02/12/19 23:00 Dose: 1 drop Levothyroxine Sodium (Synthroid) 75 mcg PO DAILY@0600 [facility] Last Admin: 02/13/19 06:09 Dose: 75 mcg Montelukast Sodium (Singulair) 10 mg PO DAILY [facility] Last Admin: 02/12/19 12:15 Dose: 10 mg Multivitamins (Multivitamin) 1 tablet PO DAILY@0800 [facility] Last Admin: 02/12/19 09:03 Dose: 1 tablet Ondansetron HCl (Zofran) 4 mg IV Q8H PRN PRN PRN Reason: NAUSEA/VOMITING Last Admin: 02/13/19 08:06 Dose: 4 mg Sodium Chloride () 5 - 15 ml IV UD PRN PRN Reason: SALINE FLUSH Last Admin: 02/13/19 08:06 Dose: 10 ml Vancomycin HCl () 125 mg PO Q6 [facility] Stop: 02/18/19 18:01 Last Admin: 02/13/19 06:10 Dose: 125 mg Medical Necessity - Tobacco Use Smoking Status: Never smoker Tobacco Use: Non-smoker Assessment/Plan All Active Problems Clostridium difficile infection (Acute) Hyponatremia (Acute) Hypotension due to hypovolemia (Acute) Septic shock (Acute) Cystitis (Acute) Acute kidney injury (Acute) History of breast cancer (Resolved) History of pneumothorax (Resolved) Patient is a 68-year-old lady with recent diagnosis of C. difficile colitis on 02/08/2019 started on vancomycin by PCP brought to the emergency department on account of persistent hypotension and assessment of septic shock secondary to severe C. difficile colitis made admitted to the intensive care unit for subsequent management. 1. Septic shock secondary to acute C. difficile colitis patient admitted to the intensive care unit where she was managed with aggressive IV fluid resuscitation. Patient had to be started on pressors due to persistent hypotension on PO vancomycin as well as IV Flagyl in view severe C. difficile colitis. Consultation was also placed to ID the patient was seen in consultation by Dr. Ohara his notes and recommendations reviewed. CT of the abdomen and pelvis obtained on 02/12/2019 demonstrated diffuse colitis 2. Acute kidney injury secondary to GN from septic shock. Patient baseline creatinine drawn on 02/01/2019 was 1.12. Patient is on aggressive IV fluid resuscitation with monitoring of electrolyte. Not much improvement in patient's kidney function 02/13/2019 3. Hyponatremia secondary to hypovolemic hyponatremia. Patient is on IV fluids still remains low 4. Chronic kidney disease stage 2 with baseline creatinine of 1.2~1.3 5. Hypothyroidism-patient is on levothyroxine home dose continued 6. GERD 7. Obesity with BMI of 39.7 8. Parkinson's disease on Sinemet did continue 9. Obstructive sleep apnea BiPAP 9 10. Depression patient is on SSRI (Celexa) Code Visit Inpatient E&M: 97314 [facility] Hosp L3
--- NOTE | 2019-02-13 08:38 | PN_ITS ---
Patient Problems: Active and Suspected Problems Clostridium difficile infection (Acute) Hyponatremia (Acute) Hypotension due to hypovolemia (Acute) Septic shock (Acute) Subjective: Patient seen still appears ill looking. Patient remains on both Levophed and vasopressin. CT of the abdomen obtained the day prior demonstrated diffuse colitis with some ascites and pelvic fluid. Patient was also noted to have bilateral pleural effusion with by basilar consolidation/atelectasis Objective: GENERAL: cooperative appears ill looking HEENT: Atraumatic; EYES; Anicteric, Normal Conjunctiva NECK; supple, normal thyroid, RESPIRATORY: Diminished to auscultation bilaterally, CARDIOVASCULAR: Regular S1 S2, GI: soft, non-tender, normoactive bowel sounds, : No Renal angle tenderness; EXTREMITIES: Trace bipedal edema, no clubbing, NEURO: Awake; no lateralizing signs. SKIN: No Rash PSYCH; significantly flat affect Vitals/I&O's: Vital Signs Temp Pulse Resp BP Pulse Ox 97.5 F L 92 25 H 109/62 96 02/13/19 08:00 02/13/19 08:00 02/13/19 08:00 02/13/19 08:00 02/13/19 08:05 Oxygen Flow Rate (L/min) 2 Oxygen Delivery Method Nasal Cannula Weight: 108.4 kg Body Mass Index (BMI) 38.2 Intake and Output for Last 24 Hours 02/11/19 02/12/19 02/13/19 23:59 23:59 23:59 Intake Total 4000 / 4000 5305.7 / 5305.7 2370.1 / 2370.1 Output Total 400 / 400 325 / 325 550 / 550 Balance 3600 / 3600 4980.7 / 4980.7 1820.1 / 1820.1 Microbiology Past 72 Hours 02/12/19 23:15 Stool Stool Lactoferrin - Final 02/11/19 15:53 Urine Catheter - Rosen Urine Culture - Preliminary Culture exhibits no growth. Laboratory Results 02/12/19 04:00: Diff Path Review Reviewed 02/12/19 10:28: Cortisol 20.60 02/12/19 11:40: Cortisol 33.90 H 02/12/19 12:10: Cortisol 37.80 H 02/13/19 06:35: WBC 12.4 H, RBC 3.79 L, Hgb 11.6 L, Hct 34.0 L, MCV 89.7, MCH 30.6, MCHC 34.1, RDW 14.9 H, RDW Differential 48.7 H, Plt Count 196, MPV 9.1, Immature Gran % (Auto) 1.100 H, Neut % (Auto) 71.1 H, Lymph % (Auto) 10.9 L, [place] % (Auto) 16.4 H, Eos % (Auto) 0.3, Baso % (Auto) 0.2, Absolute Neuts (auto) 8.8 H, Absolute Lymphs (auto) 1.35, Total Counted Not Reportable, Diff Path Review February02/13/19 06:35: Sodium 129 L, Potassium 4.3, Chloride 100, Carbon Dioxide 22.0, Anion Gap 7, BUN 51 H, Creatinine 2.39 H, Estim Creat Clear Calc 18.12, Est GFR (MDRD) Af Amer 26 L, Est GFR (MDRD) Non-Af 21 L, BUN/Creatinine Ratio 21.3 H, Glucose 171 H, Calcium 7.6 L 02/13/19 06:35: B-Natriuretic Peptide 105.6 H Current Medications Acetaminophen (Tylenol) 650 mg PO TID [facility] Last Admin: 02/13/19 06:09 Dose: 650 mg Hydrocodone Bitart/Acetaminophen (Norris 5mg-325mg) 1 - 2 tablet PO Q6H PRN PRN PRN Reason: MOD-SEVERE PAIN (4-10/10) Al Hydroxide/Mg Hydroxide (Mylanta Ii) 15 - 30 ml PO Q4H PRN PRN PRN Reason: INDIGESTION Albuterol Sulfate (Ventolin Aerosols) 2.5 mg INHALATION Q2H PRN PRN PRN Reason: dyspnea, wheezing Calamine/Phenol (Calmoseptine Ointment) 1 applic TOPICAL 4X/DAY [facility]; Protocol Last Admin: 02/12/19 22:59 Dose: 1 applicatio Carbidopa/Levodopa (Sinemet) 1 tablet PO TIDAC [facility] Last Admin: 02/13/19 06:09 Dose: 1 tablet Citalopram Hydrobromide (Celexa) 20 mg PO DAILY [facility] Last Admin: 02/12/19 09:03 Dose: 20 mg Heparin Sodium (Porcine) (Heparin Na) 5,000 unit SC Q12 [facility] Last Admin: 02/12/19 22:44 Dose: 5,000 unit Metronidazole (Flagyl) 500 mg in 100 mls @ 100 mls/hr IV Q8 [facility] Last Admin: 02/13/19 06:15 Dose: 100 mls/hr Vasopressin 20 units/ Sodium (Chloride) 25 mls @ 3 mls/hr IV .Q8H20M [facility] Last Admin: 02/13/19 07:18 Dose: 3 mls/hr Norepinephrine Bitartrate 8 mg (/ Sodium Chloride) 250 mls @ 71.25 mls/hr CONT INF .Q3H31M [facility] Last Admin: 02/13/19 07:15 Dose: 71.25 mls/hr Lactobacillus Acidophilus (Acidophilus) 2 tablet PO 4X/DAY [facility] Last Admin: 02/12/19 22:44 Dose: 2 tablet Latanoprost (Xalatan Opthalmic) 1 drop EACH EYE QHS [facility] Last Admin: 02/12/19 23:00 Dose: 1 drop Levothyroxine Sodium (Synthroid) 75 mcg PO DAILY@0600 [facility] Last Admin: 02/13/19 06:09 Dose: 75 mcg Montelukast Sodium (Singulair) 10 mg PO DAILY [facility] Last Admin: 02/12/19 12:15 Dose: 10 mg Multivitamins (Multivitamin) 1 tablet PO DAILY@0800 [facility] Last Admin: 02/12/19 09:03 Dose: 1 tablet Ondansetron HCl (Zofran) 4 mg IV Q8H PRN PRN PRN Reason: NAUSEA/VOMITING Last Admin: 02/13/19 08:06 Dose: 4 mg Sodium Chloride () 5 - 15 ml IV UD PRN PRN Reason: SALINE FLUSH Last Admin: 02/13/19 08:06 Dose: 10 ml Vancomycin HCl () 125 mg PO Q6 [facility] Stop: 02/18/19 18:01 Last Admin: 02/13/19 06:10 Dose: 125 mg Medical Necessity - Tobacco Use Smoking Status: Never smoker Tobacco Use: Non-smoker Assessment/Plan All Active Problems Clostridium difficile infection (Acute) Hyponatremia (Acute) Hypotension due to hypovolemia (Acute) Septic shock (Acute) Cystitis (Acute) Acute kidney injury (Acute) History of breast cancer (Resolved) History of pneumothorax (Resolved) Patient is a 68-year-old lady with recent diagnosis of C. difficile colitis on 02/08/2019 started on vancomycin by PCP brought to the emergency department on account of persistent hypotension and assessment of septic shock secondary to severe C. difficile colitis made admitted to the intensive care unit for subsequent management. 1. Septic shock secondary to acute C. difficile colitis patient admitted to the intensive care unit where she was managed with aggressive IV fluid resuscitation. Patient had to be started on pressors due to persistent hypotension on PO vancomycin as well as IV Flagyl in view severe C. difficile colitis. Consultation was also placed to ID the patient was seen in consultation by Dr. Ohara his notes and recommendations reviewed. CT of the abdomen and pelvis obtained on 02/12/2019 demonstrated diffuse colitis 2. Acute kidney injury secondary to GN from septic shock. Patient baseline creatinine drawn on 02/01/2019 was 1.12. Patient is on aggressive IV fluid resuscitation with monitoring of electrolyte. Not much improvement in patient's kidney function 02/13/2019 3. Hyponatremia secondary to hypovolemic hyponatremia. Patient is on IV fluids still remains low 4. Chronic kidney disease stage 2 with baseline creatinine of 1.2~1.3 5. Hypothyroidism-patient is on levothyroxine home dose continued 6. GERD 7. Obesity with BMI of 39.7 8. Parkinson's disease on Sinemet did continue 9. Obstructive sleep apnea BiPAP 9 10. Depression patient is on SSRI (Celexa) Code Visit Inpatient E&M: 13674 [facility] Hosp L3
[2019-02-13] MEDS: Menthol/Lanolin/Calamine/Znox 113 GM Tube 1 APPLIC TOPICAL ×4 (10:03→21:41)
[2019-02-13] MEDS: CHLORHEXIDINE GLUC 2% CLOTH 1 EACH TOWELETTE TOPICAL (10:10)
[2019-02-13] MEDS: Montelukast 10 MG Tablet PO (10:36)
[2019-02-13] MEDS: Heparin Injection (Vial) 5,000 UNIT/ML VIAL 5000 UNIT SC ×2 (10:36→22:03)
[2019-02-13] MEDS: Citalopram 20 MG Tablet PO (10:36)
[2019-02-13] MEDS: Multivitamins,Therapeutic Tablet 1 TABLET PO (10:36)
--- NOTE | 2019-02-13 11:10 | CASEMGMT ---
Addendum entered by Pura Villalobos 02/14/19 09:42: Pt is sleeping, SW spoke w/daughter in law and asked if she would ask to bring in the POA forms for us to copy and place on chart. Daughter in law states understanding. ALEJANDRO Chavez Original Note: LW/POA not on chart. SW called [facility], they do not have copies on the chart either. SW will ask pt when appropriate, pt is sleeping at present. ALEJANDRO Chavez, PULMONOLOGIST/INTENSIVIST
[2019-02-13 14:52] LABS: Pathologist Review Reviewed
--- NOTE | 2019-02-13 17:59 | PCM.PN.ID ---
Patient Problems: Active and Suspected Problems Clostridium difficile infection (Acute) Hyponatremia (Acute) Hypotension due to hypovolemia (Acute) Septic shock (Acute) Subjective: Feeling ok, abd sore, no fever - Physical Exam General: Alert, Cooperative Lungs: Clear to auscultation, Normal air movement Cardiovascular: Regular rate, Regular Rhythm Abdomen: Soft, Tender - mild Extremities: Edema Skin: No rashes Vital Signs Temp Pulse Resp BP Pulse Ox 97.5 F L 88 16 102/52 L 96 02/13/19 13:53 02/13/19 17:00 02/13/19 17:00 02/13/19 17:45 02/13/19 17:15 Oxygen Flow Rate (L/min) 2 Oxygen Delivery Method CPAP Weight: 108.4 kg Body Mass Index (BMI) 38.2 Intake and Output for Last 24 Hours 02/11/19 02/12/19 02/13/19 23:59 23:59 23:59 Intake Total 4000 / 4000 5305.7 / 5305.7 3367.7 / 3367.7 Output Total 400 / 400 325 / 325 1150 / 1150 Balance 3600 / 3600 4980.7 / 4980.7 2217.7 / 2217.7 Microbiology Past 72 Hours 02/12/19 23:15 Enteric Bacteriology - Preliminary Stool 02/11/19 15:53 Urine Culture - Final Urine Catheter - Rosen Culture exhibits no growth. 02/11/19 11:30 Blood Culture - Preliminary Blood Culture (Wb) - Anticubital Left No growth in 48 hours. 02/11/19 11:35 Blood Culture - Preliminary Blood Culture (Wb) - Left Forearm No growth in 48 hours. 02/12/19 23:15 Stool Lactoferrin - Final Stool Laboratory Tests Past 24 Hrs 02/13/19 02/13/19 02/13/19 06:35 06:35 06:35 WBC 12.4 H RBC 3.79 L Hgb 11.6 L Hct 34.0 L MCV 89.7 MCH 30.6 MCHC 34.1 RDW 14.9 H RDW Differential 48.7 H Plt Count 196 MPV 9.1 Immature Gran % (Auto) 1.100 H Neut % (Auto) 71.1 H Lymph % (Auto) 10.9 L [place] % (Auto) 16.4 H Eos % (Auto) 0.3 Baso % (Auto) 0.2 Absolute Neuts (auto) 8.8 H Absolute Lymphs (auto) 1.35 Total Counted Not Reportable Diff Path Review Reviewed Sodium 129 L Potassium 4.3 Chloride 100 Carbon Dioxide 22.0 Anion Gap 7 BUN 51 H Creatinine 2.39 H Estim Creat Clear Calc 18.12 Est GFR (MDRD) Af Amer 26 L Est GFR (MDRD) Non-Af 21 L BUN/Creatinine Ratio 21.3 H Glucose 171 H Calcium 7.6 L B-Natriuretic Peptide 105.6 H Medical Necessity - Tobacco Use Smoking Status: Never smoker Tobacco Use: Non-smoker Route of nutrition/ use of supplements: [] Nutritional Intake: [] IV Site: [] Rosen Catheter: [] - Assessment/Plan Antibiotics: [] Assessment/Plan: [] Active and Suspected Problems Clostridium difficile infection (Acute) Hyponatremia (Acute) Hypotension due to hypovolemia (Acute) Septic shock due to Cdiff colitis with ARRON - BP improved, on one pressr. Cont iv flagyl and po vanc. CT showed diffuse colitis, no megacolon. Cr better today. Will follow
[2019-02-13] MEDS: Latanoprost 0.005% 1 Bottle 1 DRP EACH EYE (21:40)
[2019-02-14] VITALS (60 sets, daily range): BP systolic 81–148; BP diastolic 41–74; PULSE 60–87; RESP 13–23; TEMP 35.5–36.6; O2SAT 94–99
[2019-02-14] MEDS: 0.9% NaCl Peripheral Flush Adult/Peds IV (06:22)
[2019-02-14] MEDS: Acetaminophen 325 MG Tablet 650 MG PO ×3 (06:22→21:16)
[2019-02-14] MEDS: Levothyroxine 75 MCG Tablet PO (06:22)
[2019-02-14] MEDS: Carbidopa/Levodopa 25/100 Tablet PO ×3 (06:23→17:07)
--- NOTE | 2019-02-14 07:12 | PCM.PN.INT ---
Subjective: The patient was seen and examined at the bedside this morning. Events from the last 24 hours have been reviewed. The patient is currently afebrile, but is still requiring vasopressor support to maintain hemodynamic stability. She is currently documented to be overall net +11 L for the admission. The patient was evaluated by speech therapy yesterday and did have to be placed on a modified diet over concerns for aspiration. Creatinine has improved this morning to 1.87. The patient is experiencing less frequent bowel movements. She denies any abdominal pain. Objective: The patient's most recent lab work, culture data and imaging studies have all been personally reviewed. Fecal leukocytes were positive. Urine culture has exhibited no growth. Blood cultures have been unrevealing to date. Enteric panel is pending. CT abdomen/pelvis completed yesterday revealed ascites and pelvic fluid, diffuse colitis and bilateral pleural effusions with basilar consolidation/atelectasis. General: Alert, Cooperative, No apparent distress HEENT: Atraumatic, PERRLA, Normocephalic Oral: No Gingival or Mucosal Lesions/ Ulcerations Neck: Supple, No Nodes, Trachea Midline Lungs: No rhonchi, No wheeze, No rales, Diminished Cardiovascular: Regular rate, Regular Rhythm, Normal S1, Normal S2, No murmurs Abdomen: Bowel Sounds Present, Soft, Non Tender, Obese Extremities: No clubbing, No cyanosis, Edema Skin: - - No significant change from previous Musculoskeletal: No Muscle Wasting Lymphatic: No Cervical, Supraclavicular, or Inguinal Adenopathy Neurological: Cranial nerves II-XII grossly intact, Neuro grossly intact Psych/Mental Status: Flat Affect Vital Signs Temp Pulse Resp BP Pulse Ox 97.2 F L 81 22 H 102/48 L 97 02/14/19 06:00 02/14/19 06:00 02/14/19 06:00 02/14/19 06:00 02/14/19 06:00 Oxygen Flow Rate (L/min) 4 Oxygen Delivery Method CPAP Weight: 240 lb 8.389 oz Body Mass Index (BMI) 38.2 Intake and Output for Last 24 Hours 02/12/19 02/13/19 02/14/19 23:59 23:59 23:59 Intake Total 5305.7 / 5305.7 4182.7 / 4182.7 321 / 321 Output Total 325 / 325 1550 / 1550 350 / 350 Balance 4980.7 / 4980.7 2632.7 / 2632.7 -29 / -29 Labs (Last 48 Hours) 02/12/19 02/12/19 02/12/19 04:00 10:28 11:40 WBC RBC Hgb Hct MCV MCH MCHC RDW RDW Differential Plt Count MPV Immature Gran % (Auto) Neut % (Auto) Lymph % (Auto) [place] % (Auto) Eos % (Auto) Baso % (Auto) Absolute Neuts (auto) Absolute Lymphs (auto) Total Counted Diff Path Review Reviewed Sodium Potassium Chloride Carbon Dioxide Anion Gap BUN Creatinine Estim Creat Clear Calc Est GFR (MDRD) Af Amer Est GFR (MDRD) Non-Af BUN/Creatinine Ratio Glucose Calcium B-Natriuretic Peptide Cortisol 20.60 33.90 H 02/12/19 02/13/19 02/13/19 12:10 06:35 06:35 WBC 12.4 H RBC 3.79 L Hgb 11.6 L Hct 34.0 L MCV 89.7 MCH 30.6 MCHC 34.1 RDW 14.9 H RDW Differential 48.7 H Plt Count 196 MPV 9.1 Immature Gran % (Auto) 1.100 H Neut % (Auto) 71.1 H Lymph % (Auto) 10.9 L [place] % (Auto) 16.4 H Eos % (Auto) 0.3 Baso % (Auto) 0.2 Absolute Neuts (auto) 8.8 H Absolute Lymphs (auto) 1.35 Total Counted Not Reportable Diff Path Review Reviewed Sodium 129 L Potassium 4.3 Chloride 100 Carbon Dioxide 22.0 Anion Gap 7 BUN 51 H Creatinine 2.39 H Estim Creat Clear Calc 18.12 Est GFR (MDRD) Af Amer 26 L Est GFR (MDRD) Non-Af 21 L BUN/Creatinine Ratio 21.3 H Glucose 171 H Calcium 7.6 L B-Natriuretic Peptide Cortisol 37.80 H 02/13/19 02/14/19 02/14/19 06:35 06:50 06:50 WBC Pending RBC Pending Hgb Pending Hct Pending MCV Pending MCH Pending MCHC Pending RDW Pending RDW Differential Pending Plt Count Pending MPV Immature Gran % (Auto) Neut % (Auto) Pending Lymph % (Auto) [place] % (Auto) Eos % (Auto) Baso % (Auto) Absolute Neuts (auto) Pending Absolute Lymphs (auto) Total Counted Pending Diff Path Review Sodium Pending Potassium Pending Chloride Pending Carbon Dioxide Pending Anion Gap Pending BUN Pending Creatinine Pending Estim Creat Clear Calc Est GFR (MDRD) Af Amer Pending Est GFR (MDRD) Non-Af Pending BUN/Creatinine Ratio Pending Glucose Pending Calcium Pending B-Natriuretic Peptide 105.6 H Cortisol Microbiology 02/12/19 23:15 Stool Enteric Bacteriology - Preliminary 02/11/19 15:53 Urine Catheter - Rosen Urine Culture - Final Culture exhibits no growth. 02/11/19 11:30 Blood Culture (Wb) - Anticubital Left Blood Culture - Preliminary No growth in 48 hours. 02/11/19 11:35 Blood Culture (Wb) - Left Forearm Blood Culture - Preliminary No growth in 48 hours. 02/12/19 23:15 Stool Stool Lactoferrin - Final Clinical Impression(s) from Imaging Studies Chest X-Ray 02/11/19 11:15 IMPRESSION: Stable examination without radiographically evident acute cardiopulmonary disease. Electronically Signed: Andreas Juan MD at 11:45 EDT , Service support , Abdomen CT 02/12/19 15:47 IMPRESSION: Ascites and pelvic fluid. Probably diffuse colitis. Right hepatic cyst. Bilateral pleural effusions with basilar consolidation/atelectasis, right more than left. Electronically Signed: Israel Staley DO at 18:47 EDT Tel [phone], Service support , Medical Necessity - Tobacco Use Smoking Status: Never smoker Tobacco Use: Non-smoker Assessment/Plan All Active Problems Clostridium difficile infection (Acute) Hyponatremia (Acute) Hypotension due to hypovolemia (Acute) Septic shock (Acute) Cystitis (Acute) Acute kidney injury (Acute) History of breast cancer (Resolved) History of pneumothorax (Resolved) RECOMMENDATIONS: 1. Continue p.o. vancomycin and IV Flagyl, per ID recommendations. 2. Continue vasopressor support to maintain a mean arterial pressure at or above 65 mmHg. 3. Remove arterial line and titrate vasopressors to cuff blood pressures. 4. Continue appropriate ICU prophylaxis. 5. Continue nocturnal CPAP therapy per home regimen. 6. Mobilize patient and encourage incentive spirometer use. IMPRESSIONS: 1. Septic shock secondary to recent diagnosis of C. difficile colitis The patient presented to the hospital with severe C. difficile colitis, requiring vasopressor support. She remains on IV Flagyl and p.o. vancomycin. Infectious diseases is following. We will continue to wean vasopressor support in an attempt to maintain a mean arterial pressure at or above 65 mmHg. Given that the functional nature of the patient's arterial line is questionable, would recommend weaning vasopressor support based upon cuff pressures. 2. Acute on chronic kidney disease Improving. Likely prerenal in etiology and related to ischemic ATN in the setting of #1. Anticipate improvement with stabilization of hemodynamics and with volume expansion. Continue to monitor urine output. Continue vasopressor support. No current indication for renal replacement therapy. 3. Hypovolemic hyponatremia Improving with volume expansion. 4. Obstructive sleep apnea Continue nocturnal CPAP therapy per home regimen. 5. Personal history of Parkinson's disease/obesity/depression/hypothyroidism/GERD Complicates care, management, recovery and prognosis. Continue home medications as indicated. TIME: 38 minutes of critical care time, inclusive of procedures, was spent addressing the patient's septic shock secondary to severe C. difficile colitis, acute on chronic kidney disease, hypovolemic hyponatremia, obstructive sleep apnea, review of all data and collaboration with the care team. ([id number]) Code Visit 9xxxx: 23021 Critical care first hour
[2019-02-14 07:15] LABS: Anion Gap 7 (5-15); BUN 46 mg/dL (7-18); BUN/Creat Ratio 24.6 RATIO (10-20); Calcium,Total 7.9 mg/dL (8.5-10.1); Chloride 100 mmol/L (98-107); Creatinine, Serum 1.87 mg/dL (0.55-1.02); EST Glomerular Filtration Rate 28 mL/min (>60); Est Glom Filt Rate - Afr Amer 34 mL/min (>60); Estimated Creatinine Clearance 23.16 ml/min; Glucose 141 mg/dL (74-106); Potassium 4.1 mmol/L (3.5-5.1); Sodium Level 131 mmol/L (136-145)
[2019-02-14 07:23] LABS: Absolute Lymphocyte Count 1.01 X10^3/ul (0.83-4.51); Absolute Neutrophil Count 7.5 X10^3/uL (2.0-7.7); Basophil# 0.01 X10^3/uL; Basophil% 0.1 % (0-1); Eosinophil# 0.05 X10^3/uL; Eosinophils% 0.5 % (0-5); Hematocrit 32.9 % (37-47); Hemoglobin 11.4 g/dl (12.0-15.0); Lymphocyte # 1.01 X10^3/ul (4.0); Mean Corp Hgb Conc 34.7 g/gl (32-36); Mean Corpuscular Hgb 30.6 pg (27.0-32.0); Mean Corpuscular Volume 88.4 fL (81-99); Mean Platelet Vol. 8.7 fl (6.2-12.0); Monocyte# 1.37 X10^3/uL; Monocyte% 13.6 % (0-10); Neutrophil # 7.45 X10^3/uL (2.7-7.7); Neutrophil % 73.7 % (47-70); Platelet Count 192 K/mm3 (150-450); RBC Distribution Width CV 15.1 % (11.6-14.6); Red Blood Count 3.72 M/mm3 (4.2-5.4); White Blood Count 10.1 K/mm3 (4.4-11.0)
[2019-02-14 07:24] LABS: POSITIVE COUNT YES; POSITIVE DIFFERENTIAL NO; POSITIVE MORPHOLOGY YES
--- NOTE | 2019-02-14 08:24 | PN_ITS ---
Patient Problems: Active and Suspected Problems Clostridium difficile infection (Acute) Hyponatremia (Acute) Hypotension due to hypovolemia (Acute) Septic shock (Acute) Subjective: Patient seen in the ICU still on pressors with systolic blood pressures in the 80s. Patient complains of abdominal discomfort. Patient had 2 bowel movement during the night. She appears edematous. Creatinine is 1.8 today, WBC count is 10.1 Objective: GENERAL: cooperative appears ill looking HEENT: Atraumatic; EYES; Anicteric, Normal Conjunctiva NECK; supple, normal thyroid, RESPIRATORY: Diminished to auscultation bilaterally, CARDIOVASCULAR: Regular S1 S2, GI: soft, non-tender, normoactive bowel sounds, : No Renal angle tenderness; EXTREMITIES: Trace bipedal edema, no clubbing, NEURO: Awake; no lateralizing signs. SKIN: No Rash PSYCH; significantly flat affect Vitals/I&O's: Vital Signs Temp Pulse Resp BP Pulse Ox 97.1 F L 81 18 102/51 L 98 02/14/19 07:00 02/14/19 07:30 02/14/19 07:00 02/14/19 07:30 02/14/19 07:00 Oxygen Flow Rate (L/min) 4 Oxygen Delivery Method CPAP Weight: 109.1 kg Body Mass Index (BMI) 38.2 Intake and Output for Last 24 Hours 02/12/19 02/13/19 02/14/19 23:59 23:59 23:59 Intake Total 5305.7 / 5305.7 4182.7 / 4182.7 321 / 321 Output Total 325 / 325 1550 / 1550 350 / 350 Balance 4980.7 / 4980.7 2632.7 / 2632.7 -29 / -29 Microbiology Past 72 Hours 02/12/19 23:15 Stool Enteric Bacteriology - Final 02/11/19 15:53 Urine Catheter - Rosen Urine Culture - Final Culture exhibits no growth. 02/11/19 11:30 Blood Culture (Wb) - Anticubital Left Blood Culture - Preliminary No growth in 48 hours. 02/11/19 11:35 Blood Culture (Wb) - Left Forearm Blood Culture - Preliminary No growth in 48 hours. 02/12/19 23:15 Stool Stool Lactoferrin - Final Laboratory Results 02/13/19 06:35: Diff Path Review Reviewed 02/14/19 06:50: WBC 10.1, RBC 3.72 L, Hgb 11.4 L, Hct 32.9 L, MCV 88.4, MCH 30.6, MCHC 34.7, RDW 15.1 H, RDW Differential 48.0 H, Plt Count 192, MPV 8.7, Immature Gran % (Auto) 2.100 H, Neut % (Auto) 73.7 H, Lymph % (Auto) 10.0 L, [place] % (Auto) 13.6 H, Eos % (Auto) 0.5, Baso % (Auto) 0.1, Absolute Neuts (auto) 7.5, Absolute Lymphs (auto) 1.01, Total Counted Not Reportable, Diff Path Review February02/14/19 06:50: Sodium 131 L, Potassium 4.1, Chloride 100, Carbon Dioxide 24.0, Anion Gap 7, BUN 46 H, Creatinine 1.87 H, Estim Creat Clear Calc 23.16, Est GFR (MDRD) Af Amer 34 L, Est GFR (MDRD) Non-Af 28 L, BUN/Creatinine Ratio 24.6 H, Glucose 141 H, Calcium 7.9 L Current Medications Acetaminophen (Tylenol) 650 mg PO TID [facility] Last Admin: 02/14/19 06:22 Dose: 650 mg Hydrocodone Bitart/Acetaminophen ([place] 5mg-325mg) 1 - 2 tablet PO Q6H PRN PRN PRN Reason: MOD-SEVERE PAIN (4-10/10) Al Hydroxide/Mg Hydroxide (Mylanta Ii) 15 - 30 ml PO Q4H PRN PRN PRN Reason: INDIGESTION Albuterol Sulfate (Ventolin Aerosols) 2.5 mg INHALATION Q2H PRN PRN PRN Reason: dyspnea, wheezing Calamine/Phenol (Calmoseptine Ointment) 1 applic TOPICAL 4X/DAY [facility]; Protocol Last Admin: 02/13/19 21:41 Dose: 1 applicatio Carbidopa/Levodopa (Sinemet) 1 tablet PO TIDAC [facility] Last Admin: 02/14/19 06:23 Dose: 1 tablet Chlorhexidine Gluconate () 1 each TOPICAL DAILY [facility] Last Admin: 02/13/19 10:10 Dose: 1 each Citalopram Hydrobromide (Celexa) 20 mg PO DAILY [facility] Last Admin: 02/13/19 10:36 Dose: 20 mg Heparin Sodium (Porcine) (Heparin Na) 5,000 unit SC Q12 [facility] Last Admin: 02/13/19 22:03 Dose: 5,000 unit Metronidazole (Flagyl) 500 mg in 100 mls @ 100 mls/hr IV Q8 [facility] Last Admin: 02/14/19 06:22 Dose: 100 mls/hr Norepinephrine Bitartrate 8 mg (/ Sodium Chloride) 250 mls @ 71.25 mls/hr CONT INF .Q3H31M [facility] Last Admin: 02/14/19 06:22 Dose: 71.25 mls/hr Lactobacillus Acidophilus (Acidophilus) 2 tablet PO 4X/DAY [facility] Last Admin: 02/13/19 21:40 Dose: 2 tablet Latanoprost (Xalatan Opthalmic) 1 drop EACH EYE QHS [facility] Last Admin: 02/13/19 21:40 Dose: 1 drop Levothyroxine Sodium (Synthroid) 75 mcg PO DAILY@0600 [facility] Last Admin: 02/14/19 06:22 Dose: 75 mcg Montelukast Sodium (Singulair) 10 mg PO DAILY [facility] Last Admin: 02/13/19 10:36 Dose: 10 mg Multivitamins (Multivitamin) 1 tablet PO DAILY@0800 [facility] Last Admin: 02/13/19 10:36 Dose: 1 tablet Ondansetron HCl (Zofran) 4 mg IV Q8H PRN PRN PRN Reason: NAUSEA/VOMITING Last Admin: 02/13/19 08:06 Dose: 4 mg Sodium Chloride () 5 - 15 ml IV UD PRN PRN Reason: SALINE FLUSH Last Admin: 02/14/19 06:22 Dose: 10 ml Vancomycin HCl () 125 mg PO Q6 [facility] Stop: 02/18/19 18:01 Last Admin: 02/14/19 06:23 Dose: 125 mg Medical Necessity - Tobacco Use Smoking Status: Never smoker Tobacco Use: Non-smoker Assessment/Plan All Active Problems Clostridium difficile infection (Acute) Hyponatremia (Acute) Hypotension due to hypovolemia (Acute) Septic shock (Acute) Cystitis (Acute) Acute kidney injury (Acute) History of breast cancer (Resolved) History of pneumothorax (Resolved) Patient is a 68-year-old lady with recent diagnosis of C. difficile colitis on 02/08/2019 started on vancomycin by PCP brought to the emergency department on account of persistent hypotension and assessment of septic shock secondary to severe C. difficile colitis made admitted to the intensive care unit for subsequent management. 1. Septic shock secondary to acute C. difficile colitis patient admitted to the intensive care unit where she was managed with aggressive IV fluid resuscitation. Patient had to be started on pressors due to persistent hypotension on PO vancomycin as well as IV Flagyl in view severe C. difficile colitis. Consultation was also placed to ID the patient was seen in consultation by Dr. Ohara his notes and recommendations reviewed. CT of the abdomen and pelvis obtained on 02/12/2019 demonstrated diffuse colitis; her progres has rather been slow still requiring pressors as of 02/14/2019. 2. Acute kidney injury secondary to GN from septic shock. Patient baseline creatinine drawn on 02/01/2019 was 1.12. Patient is on aggressive IV fluid resuscitation with monitoring of electrolyte. Not much improvement in patient's kidney function 02/13/2019 3. Hyponatremia secondary to hypovolemic hyponatremia. Patient is on IV fluids still remains low odium level 131 on 02/13/2019 4. Chronic kidney disease stage 2 with baseline creatinine of 1.2~1.3 creatinine down to 1.8 as of 02/14/2019 5. Hypothyroidism-patient is on levothyroxine home dose continued 6. GERD 7. Obesity with BMI of 39.7 8. Parkinson's disease on Sinemet did continue 9. Obstructive sleep apnea BiPAP 9 10. Depression patient is on SSRI (Celexa) Code Visit Inpatient E&M: 70934 [facility] Hosp L3
--- NOTE | 2019-02-14 09:57 | CASEMGMT ---
SW participated in ICU rounds, pt's daughter present for rounds. SW called [facility] after rounds and faxed updates. Pt has been with them a few weeks, came to them after being in [place] and getting ill there. SW will continue to follow. ALEJANDRO Chavez
[2019-02-14] MEDS: CHLORHEXIDINE GLUC 2% CLOTH 1 EACH TOWELETTE TOPICAL (10:46)
[2019-02-14] MEDS: Montelukast 10 MG Tablet PO (10:47)
[2019-02-14] MEDS: Heparin Injection (Vial) 5,000 UNIT/ML VIAL 5000 UNIT SC ×2 (10:47→21:16)
[2019-02-14] MEDS: Citalopram 20 MG Tablet PO (10:47)
[2019-02-14] MEDS: Menthol/Lanolin/Calamine/Znox 113 GM Tube 1 APPLIC TOPICAL ×4 (10:48→21:15)
[2019-02-14 12:41] LABS: Pathologist Review Reviewed
--- NOTE | 2019-02-14 16:06 | PCM.PN.ID ---
Patient Problems: Active and Suspected Problems Clostridium difficile infection (Acute) Hyponatremia (Acute) Hypotension due to hypovolemia (Acute) Septic shock (Acute) Subjective: Feeling ok, denies SOB, still some mild abd pain - Physical Exam General: Cooperative, No apparent distress Lungs: Clear to auscultation, Normal air movement Cardiovascular: Regular rate, Regular Rhythm Abdomen: Soft, Non Tender, Non-Distended Skin: No rashes Vital Signs Temp Pulse Resp BP Pulse Ox 97.8 F 80 13 112/55 L 95 02/14/19 12:00 02/14/19 15:44 02/14/19 14:00 02/14/19 14:45 02/14/19 14:00 Oxygen Flow Rate (L/min) 4 Oxygen Delivery Method CPAP Weight: 109.1 kg Body Mass Index (BMI) 38.2 Intake and Output for Last 24 Hours 02/12/19 02/13/19 02/14/19 23:59 23:59 23:59 Intake Total 5305.7 / 5305.7 4182.7 / 4182.7 805 / 805 Output Total 325 / 325 1550 / 1550 650 / 650 Balance 4980.7 / 4980.7 2632.7 / 2632.7 155 / 155 Microbiology Past 72 Hours 02/12/19 23:15 Enteric Bacteriology - Final Stool 02/11/19 15:53 Urine Culture - Final Urine Catheter - Rosen Culture exhibits no growth. 02/11/19 11:30 Blood Culture - Preliminary Blood Culture (Wb) - Anticubital Left No growth in 48 hours. 02/11/19 11:35 Blood Culture - Preliminary Blood Culture (Wb) - Left Forearm No growth in 48 hours. 02/12/19 23:15 Stool Lactoferrin - Final Stool Laboratory Tests Past 24 Hrs 02/14/19 02/14/19 06:50 06:50 WBC 10.1 RBC 3.72 L Hgb 11.4 L Hct 32.9 L MCV 88.4 MCH 30.6 MCHC 34.7 RDW 15.1 H RDW Differential 48.0 H Plt Count 192 MPV 8.7 Immature Gran % (Auto) 2.100 H Neut % (Auto) 73.7 H Lymph % (Auto) 10.0 L [place] % (Auto) 13.6 H Eos % (Auto) 0.5 Baso % (Auto) 0.1 Absolute Neuts (auto) 7.5 Absolute Lymphs (auto) 1.01 Total Counted Not Reportable Diff Path Review Reviewed Sodium 131 L Potassium 4.1 Chloride 100 Carbon Dioxide 24.0 Anion Gap 7 BUN 46 H Creatinine 1.87 H Estim Creat Clear Calc 23.16 Est GFR (MDRD) Af Amer 34 L Est GFR (MDRD) Non-Af 28 L BUN/Creatinine Ratio 24.6 H Glucose 141 H Calcium 7.9 L Medical Necessity - Tobacco Use Smoking Status: Never smoker Tobacco Use: Non-smoker Route of nutrition/ use of supplements: [] Nutritional Intake: [] IV Site: [] Rosen Catheter: [] - Assessment/Plan Antibiotics: [] Assessment/Plan: [] Active and Suspected Problems Clostridium difficile infection (Acute) Hyponatremia (Acute) Hypotension due to hypovolemia (Acute) Septic shock due to Cdiff colitis with ARRON - BP improved overall, on one pressor. Cont iv flagyl and po vanc. CT showed diffuse colitis, no megacolon. Cr better today. Will follow
[2019-02-14] MEDS: Latanoprost 0.005% 1 Bottle 1 DRP EACH EYE (21:17)
[2019-02-15] VITALS (45 sets, daily range): BP systolic 72–130; BP diastolic 41–89; PULSE 66–89; RESP 12–25; TEMP 35.4–36.1; O2SAT 93–99
[2019-02-15] MEDS: Levothyroxine 75 MCG Tablet PO (06:19)
[2019-02-15] MEDS: Acetaminophen 325 MG Tablet 650 MG PO ×2 (06:19→22:21)
[2019-02-15] MEDS: Carbidopa/Levodopa 25/100 Tablet PO ×3 (06:19→17:17)
--- NOTE | 2019-02-15 06:27 | PCM.PN.INT ---
Subjective: The patient was seen and examined at the bedside this morning. Events from the last 24 hours have been reviewed. The patient is currently afebrile, but is still requiring 10 mcg of levophed to maintain hemodynamic stability. She remains compliant with use of nocturnal CPAP therapy, per her home regimen. The patient is currently documented to be overall net +11.4 L for the admission. The patient is currently arousable on her CPAP. She denies any significant abdominal pain. She does fall quickly back to sleep upon cessation of questioning. Objective: The patient's most recent lab work, culture data and imaging studies have all been personally reviewed. Fecal leukocytes were positive. Urine culture has exhibited no growth. Blood cultures have been unrevealing to date. Enteric panel was negative. CT abdomen/pelvis completed yesterday revealed ascites and pelvic fluid, diffuse colitis and bilateral pleural effusions with basilar consolidation/atelectasis. General: - - Appears quite tired this morning. HEENT: Atraumatic, PERRLA, Normocephalic Oral: No Gingival or Mucosal Lesions/ Ulcerations Neck: Supple, No Nodes, Trachea Midline Lungs: No rhonchi, No wheeze, No rales, Diminished Cardiovascular: Regular rate, Regular Rhythm, Normal S1, Normal S2, No murmurs Abdomen: Bowel Sounds Present, Soft, Obese Extremities: No clubbing, No cyanosis, Edema Skin: No breakdown Musculoskeletal: No Tenderness to Palpation of Joints or Extremities, No Muscle Wasting Lymphatic: No Cervical, Supraclavicular, or Inguinal Adenopathy Neurological: - - No focal neurological deficits. Will arouse and answer questions. Vital Signs Temp Pulse Resp BP Pulse Ox 96.7 F L 80 15 95/44 L 98 02/15/19 04:00 02/15/19 06:00 02/15/19 06:00 02/15/19 06:00 02/15/19 06:00 Oxygen Flow Rate (L/min) 4 Oxygen Delivery Method CPAP Weight: 241 lb 6.499 oz Body Mass Index (BMI) 38.2 Intake and Output for Last 24 Hours 02/13/19 02/14/19 02/15/19 23:59 23:59 23:59 Intake Total 4182.7 / 4182.7 2055 / 2055 155 / 155 Output Total 1550 / 1550 1750 / 1750 250 / 250 Balance 2632.7 / 2632.7 306 / 306 -95 / -95 Labs (Last 48 Hours) 02/13/19 02/13/19 02/13/19 06:35 06:35 06:35 WBC 12.4 H RBC 3.79 L Hgb 11.6 L Hct 34.0 L MCV 89.7 MCH 30.6 MCHC 34.1 RDW 14.9 H RDW Differential 48.7 H Plt Count 196 MPV 9.1 Immature Gran % (Auto) 1.100 H Neut % (Auto) 71.1 H Lymph % (Auto) 10.9 L [place] % (Auto) 16.4 H Eos % (Auto) 0.3 Baso % (Auto) 0.2 Absolute Neuts (auto) 8.8 H Absolute Lymphs (auto) 1.35 Total Counted Not Reportable Diff Path Review Reviewed Sodium 129 L Potassium 4.3 Chloride 100 Carbon Dioxide 22.0 Anion Gap 7 BUN 51 H Creatinine 2.39 H Estim Creat Clear Calc 18.12 Est GFR (MDRD) Af Amer 26 L Est GFR (MDRD) Non-Af 21 L BUN/Creatinine Ratio 21.3 H Glucose 171 H Calcium 7.6 L B-Natriuretic Peptide 105.6 H 02/14/19 02/14/19 06:50 06:50 WBC 10.1 RBC 3.72 L Hgb 11.4 L Hct 32.9 L MCV 88.4 MCH 30.6 MCHC 34.7 RDW 15.1 H RDW Differential 48.0 H Plt Count 192 MPV 8.7 Immature Gran % (Auto) 2.100 H Neut % (Auto) 73.7 H Lymph % (Auto) 10.0 L [place] % (Auto) 13.6 H Eos % (Auto) 0.5 Baso % (Auto) 0.1 Absolute Neuts (auto) 7.5 Absolute Lymphs (auto) 1.01 Total Counted Not Reportable Diff Path Review Reviewed Sodium 131 L Potassium 4.1 Chloride 100 Carbon Dioxide 24.0 Anion Gap 7 BUN 46 H Creatinine 1.87 H Estim Creat Clear Calc 23.16 Est GFR (MDRD) Af Amer 34 L Est GFR (MDRD) Non-Af 28 L BUN/Creatinine Ratio 24.6 H Glucose 141 H Calcium 7.9 L B-Natriuretic Peptide Microbiology 02/12/19 23:15 Stool Enteric Bacteriology - Final 02/11/19 15:53 Urine Catheter - Rosen Urine Culture - Final Culture exhibits no growth. 02/11/19 11:30 Blood Culture (Wb) - Anticubital Left Blood Culture - Preliminary No growth in 48 hours. 02/11/19 11:35 Blood Culture (Wb) - Left Forearm Blood Culture - Preliminary No growth in 48 hours. Clinical Impression(s) from Imaging Studies Chest X-Ray 02/11/19 11:15 IMPRESSION: Stable examination without radiographically evident acute cardiopulmonary disease. Electronically Signed: Andreas Juan MD at 11:45 EDT , Service support , Abdomen CT 02/12/19 15:47 IMPRESSION: Ascites and pelvic fluid. Probably diffuse colitis. Right hepatic cyst. Bilateral pleural effusions with basilar consolidation/atelectasis, right more than left. Electronically Signed: Israel Staley DO at 18:47 EDT Tel [phone], Service support , Medical Necessity - Tobacco Use Smoking Status: Never smoker Tobacco Use: Non-smoker Assessment/Plan All Active Problems Clostridium difficile infection (Acute) Hyponatremia (Acute) Hypotension due to hypovolemia (Acute) Septic shock (Acute) Cystitis (Acute) Acute kidney injury (Acute) History of breast cancer (Resolved) History of pneumothorax (Resolved) RECOMMENDATIONS: 1. Continue p.o. vancomycin and IV Flagyl, per ID recommendations. 2. Continue vasopressor support to maintain a mean arterial pressure at or above 65 mmHg. 3. Continue appropriate ICU prophylaxis. 4. Continue nocturnal CPAP therapy per home regimen. 5. Mobilize patient and encourage incentive spirometer use. 6. Check arterial blood gas. 7. Check TSH. IMPRESSIONS: 1. Septic shock secondary to recent diagnosis of C. difficile colitis The patient presented to the hospital with severe C. difficile colitis, requiring vasopressor support. She remains on IV Flagyl and p.o. vancomycin. Infectious diseases is following. We will continue to wean vasopressor support in an attempt to maintain a mean arterial pressure at or above 65 mmHg. 2. Acute on chronic kidney disease Improving. Likely prerenal in etiology and related to ischemic ATN in the setting of #1. Anticipate improvement with stabilization of hemodynamics and with volume expansion. Continue to monitor urine output. Continue vasopressor support. No current indication for renal replacement therapy. 3. Hypovolemic hyponatremia Improving with volume expansion. 4. Obstructive sleep apnea Continue nocturnal CPAP therapy per home regimen. 5. Personal history of Parkinson's disease/obesity/depression/hypothyroidism/GERD Complicates care, management, recovery and prognosis. Continue home medications as indicated. TIME: 38 minutes of critical care time, inclusive of procedures, was spent addressing the patient's septic shock secondary to severe C. difficile colitis, acute on chronic kidney disease, hypovolemic hyponatremia, obstructive sleep apnea, review of all data and collaboration with the care team. ([id number]) Code Visit 9xxxx: [id number] Critical care first hour
--- NOTE | 2019-02-15 07:22 | PN_ITS ---
Patient Problems: Active and Suspected Problems Clostridium difficile infection (Acute) Hyponatremia (Acute) Hypotension due to hypovolemia (Acute) Septic shock (Acute) Subjective: She is seen in the ICU requiring pressors. Patient also complains of abdominal discomfort and loose bowel movement Objective: GENERAL: cooperative appears ill looking HEENT: Atraumatic; EYES; Anicteric, Normal Conjunctiva NECK; supple, normal thyroid, RESPIRATORY: Diminished to auscultation bilaterally, CARDIOVASCULAR: Regular S1 S2, GI: soft, non-tender, normoactive bowel sounds, : No Renal angle tenderness; EXTREMITIES: Trace bipedal edema, no clubbing, NEURO: Awake; no lateralizing signs. SKIN: No Rash PSYCH; significantly flat affect Vitals/I&O's: Vital Signs Temp Pulse Resp BP Pulse Ox 96.7 F L 76 15 101/46 L 97 02/15/19 04:00 02/15/19 07:00 02/15/19 07:00 02/15/19 07:00 02/15/19 07:00 Oxygen Flow Rate (L/min) 4 Oxygen Delivery Method CPAP Weight: 109.5 kg Body Mass Index (BMI) 38.2 Intake and Output for Last 24 Hours 02/13/19 02/14/19 02/15/19 23:59 23:59 23:59 Intake Total 4182.7 / 4182.7 2056 / 205 155 / 155 Output Total 1550 / 1550 1750 / 1750 250 / 250 Balance 2632.7 / 2632.7 306 / 306 -95 / -95 Microbiology Past 72 Hours 02/12/19 23:15 Stool Enteric Bacteriology - Final 02/11/19 15:53 Urine Catheter - Rosen Urine Culture - Final Culture exhibits no growth. 02/11/19 11:30 Blood Culture (Wb) - Anticubital Left Blood Culture - Preliminary No growth in 48 hours. 02/11/19 11:35 Blood Culture (Wb) - Left Forearm Blood Culture - Preliminary No growth in 48 hours. 02/12/19 23:15 Stool Stool Lactoferrin - Final Laboratory Results 02/14/19 06:50: WBC 10.1, RBC 3.72 L, Hgb 11.4 L, Hct 32.9 L, MCV 88.4, MCH 30.6, MCHC 34.7, RDW 15.1 H, RDW Differential 48.0 H, Plt Count 192, MPV 8.7, Immature Gran % (Auto) 2.100 H, Neut % (Auto) 73.7 H, Lymph % (Auto) 10.0 L, [place] % (Auto) 13.6 H, Eos % (Auto) 0.5, Baso % (Auto) 0.1, Absolute Neuts (auto) 7.5, Absolute Lymphs (auto) 1.01, Total Counted Not Reportable, Diff Path Review Reviewed Current Medications Acetaminophen (Tylenol) 650 mg PO TID [facility] Last Admin: 02/15/19 06:19 Dose: 650 mg Hydrocodone Bitart/Acetaminophen ([place] 5mg-325mg) 1 - 2 tablet PO Q6H PRN PRN PRN Reason: MOD-SEVERE PAIN (-08/01) Al Hydroxide/Mg Hydroxide (Mylanta Ii) 15 - 30 ml PO Q4H PRN PRN PRN Reason: INDIGESTION Albuterol Sulfate (Ventolin Aerosols) 2.5 mg INHALATION Q2H PRN PRN PRN Reason: dyspnea, wheezing Calamine/Phenol (Calmoseptine Ointment) 1 applic TOPICAL 4X/DAY [facility]; Protocol Last Admin: 02/14/19 21:15 Dose: 1 applicatio Carbidopa/Levodopa (Sinemet) 1 tablet PO TIDAC [facility] Last Admin: 02/15/19 06:19 Dose: 1 tablet Chlorhexidine Gluconate () 1 each TOPICAL DAILY [facility] Last Admin: 02/14/19 10:46 Dose: 1 each Citalopram Hydrobromide (Celexa) 20 mg PO DAILY [facility] Last Admin: 02/14/19 10:47 Dose: 20 mg Heparin Sodium (Porcine) (Heparin Na) 5,000 unit SC Q12 [facility] Last Admin: 02/14/19 21:16 Dose: 5,000 unit Metronidazole (Flagyl) 500 mg in 100 mls @ 100 mls/hr IV Q8 [facility] Last Admin: 02/15/19 06:19 Dose: 100 mls/hr Norepinephrine Bitartrate 8 mg (/ Sodium Chloride) 250 mls @ 71.25 mls/hr CONT INF .Q3H31M [facility] Last Admin: 02/15/19 06:35 Dose: Not Given Lactobacillus Acidophilus (Acidophilus) 2 tablet PO 4X/DAY [facility] Last Admin: 02/14/19 21:15 Dose: 2 tablet Latanoprost (Xalatan Opthalmic) 1 drop EACH EYE QHS [facility] Last Admin: 02/14/19 21:17 Dose: 1 drop Levothyroxine Sodium (Synthroid) 75 mcg PO DAILY@0600 [facility] Last Admin: 02/15/19 06:19 Dose: 75 mcg Montelukast Sodium (Singulair) 10 mg PO DAILY [facility] Last Admin: 02/14/19 10:47 Dose: 10 mg Multivitamins (Multivitamin) 1 tablet PO DAILY@0800 [facility] Last Admin: 02/14/19 14:42 Dose: Not Given Ondansetron HCl (Zofran) 4 mg IV Q8H PRN PRN PRN Reason: NAUSEA/VOMITING Last Admin: 02/13/19 08:06 Dose: 4 mg Sodium Chloride () 5 - 15 ml IV UD PRN PRN Reason: SALINE FLUSH Last Admin: 02/14/19 06:22 Dose: 10 ml Vancomycin HCl () 125 mg PO Q6 [facility] Stop: 02/18/19 18:01 Last Admin: 02/15/19 06:19 Dose: 125 mg Medical Necessity - Tobacco Use Smoking Status: Never smoker Tobacco Use: Non-smoker Assessment/Plan All Active Problems Clostridium difficile infection (Acute) Hyponatremia (Acute) Hypotension due to hypovolemia (Acute) Septic shock (Acute) Cystitis (Acute) Acute kidney injury (Acute) History of breast cancer (Resolved) History of pneumothorax (Resolved) Patient is a 68-year-old lady with recent diagnosis of C. difficile colitis on 02/08/2019 started on vancomycin by PCP brought to the emergency department on account of persistent hypotension and assessment of septic shock secondary to severe C. difficile colitis made admitted to the intensive care unit for subsequent management. 1. Septic shock secondary to acute C. difficile colitis patient admitted to the intensive care unit where she was managed with aggressive IV fluid resuscitation. Patient had to be started on pressors due to persistent hypotension on PO vancomycin as well as IV Flagyl in view severe C. difficile colitis. Consultation was also placed to ID the patient was seen in consultation by Dr. Ohara his notes and recommendations reviewed. CT of the abdomen and pelvis obtained on 02/12/2019 demonstrated diffuse colitis; her progress has rather been slow still requiring pressors as of 02/14/2019. No significant change in patient's condition as of 02/15/2019 still requiring pressors. 2. Acute kidney injury secondary to acute tubular necrosis from septic shock. Patient baseline creatinine drawn on 02/01/2019 was 1.12. Patient is on aggressive IV fluid resuscitation with monitoring of electrolyte. Kidney function improving as compared to when she was first admitted 3. Hyponatremia secondary to hypovolemic hyponatremia. Patient is on IV fluids still remains low odium level 131 on 02/13/2019 4. Chronic kidney disease stage 2 with baseline creatinine of 1.2~1.3 creatinine down to 1.8 as of 02/14/2019 5. Hypothyroidism-patient is on levothyroxine home dose continued 6. GERD 7. Obesity with BMI of 39.7 8. Parkinson's disease on Sinemet did continue 9. Obstructive sleep apnea BiPAP 9 10. Depression patient is on SSRI (Celexa) Code Visit Inpatient E&M: 51731 Subs Hosp L3
[2019-02-15 10:11] LABS: Allen Test POS; Base Excess -3 mmol/L (-2 to +2); Bicarbonate 24.2 mmol/L (22-26); Blood Gas Specimen Type ART; O2 Delivery Device Nasal Can; PO2 103 mmHG (75-100); SITE L Radial; SO2 96 % (95-99); Time Given 1006; Total Carbon Dioxide 26 mmol/L; pCO2 58.6 mmHg (35-45); pH 7.22 (7.35-7.45)
[2019-02-15] MEDS: Multivitamins,Therapeutic Tablet 1 TABLET PO (12:05)
[2019-02-15] MEDS: Menthol/Lanolin/Calamine/Znox 113 GM Tube 1 APPLIC TOPICAL ×4 (12:05→22:20)
[2019-02-15] MEDS: Citalopram 20 MG Tablet PO (12:06)
[2019-02-15] MEDS: CHLORHEXIDINE GLUC 2% CLOTH 1 EACH TOWELETTE TOPICAL (12:06)
[2019-02-15] MEDS: Montelukast 10 MG Tablet PO (12:06)
[2019-02-15] MEDS: Heparin Injection (Vial) 5,000 UNIT/ML VIAL 5000 UNIT SC ×2 (12:06→22:21)
--- NOTE | 2019-02-15 12:28 | CASEMGMT ---
SW spoke w/Chica from [facility], let her know pt is still in ICU. There may be a chance pt could return on the weekend. Updates faxed and green sheet placed on chart w/transport forms in the event pt can be discharged on the weekend. ALEJANDRO Chavez
[2019-02-15] MEDS: Alteplase 2 MG/2 ML Vial IV (14:04)
--- NOTE | 2019-02-15 16:30 | PCM.PN.ID ---
Patient Problems: Active and Suspected Problems Clostridium difficile infection (Acute) Hyponatremia (Acute) Hypotension due to hypovolemia (Acute) Septic shock (Acute) Subjective: Abd sore. Stool less liquid. No fever. - Physical Exam General: - - ill appearing Lungs: Clear to auscultation, Normal air movement Cardiovascular: Regular rate, Regular Rhythm Abdomen: Soft, Non-Distended, Tender - mild Skin: No rashes Vital Signs Temp Pulse Resp BP Pulse Ox 96.5 F L 80 16 78/47 L 97 02/15/19 16:00 02/15/19 16:00 02/15/19 16:00 02/15/19 16:00 02/15/19 16:00 Oxygen Flow Rate (L/min) 4 Oxygen Delivery Method Bi-pap Weight: 109.5 kg Body Mass Index (BMI) 38.2 Intake and Output for Last 24 Hours 02/13/19 02/14/19 02/15/19 23:59 23:59 23:59 Intake Total 4182.7 / 4182.7 2056 / 2055 274 / 274 Output Total 1550 / 1550 1750 / 1750 550 / 550 Balance 2632.7 / 2632.7 306 / 306 -276 / -276 Microbiology Past 72 Hours 02/12/19 23:15 Enteric Bacteriology - Final Stool 02/11/19 15:53 Urine Culture - Final Urine Catheter - Rosen Culture exhibits no growth. 02/11/19 11:30 Blood Culture - Preliminary Blood Culture (Wb) - Anticubital Left No growth in 48 hours. 02/11/19 11:35 Blood Culture - Preliminary Blood Culture (Wb) - Left Forearm No growth in 48 hours. 02/12/19 23:15 Stool Lactoferrin - Final Stool Laboratory Tests Past 24 Hrs 02/15/19 02/15/19 02/15/19 09:25 09:25 10:07 Specimen Type ART Sample Site L Radial pH 7.22 L Bicarbonate Actual 24.2 POC Total CO2 26 Base Excess -3 L O2 Saturation 96 ABG pCO2 58.6 H ABG pO2 103 H Geovany Test POS O2 Delivery Device Nasal Can Liter Flow 4.0 Blood Gas Notified Whom ICU Blood Gas Notified Time 1006 Sodium Cancelled Potassium Cancelled Chloride Cancelled Carbon Dioxide Cancelled Anion Gap Cancelled BUN Cancelled Creatinine Cancelled Estim Creat Clear Calc Cancelled Est GFR (MDRD) Af Amer Cancelled Est GFR (MDRD) Non-Af Cancelled BUN/Creatinine Ratio Cancelled Glucose Cancelled Calcium Cancelled TSH Cancelled Medical Necessity - Tobacco Use Smoking Status: Never smoker Tobacco Use: Non-smoker Route of nutrition/ use of supplements: [] Nutritional Intake: [] IV Site: [] Rosen Catheter: [] - Assessment/Plan Antibiotics: [] Assessment/Plan: [] Active and Suspected Problems Clostridium difficile infection (Acute) Hyponatremia (Acute) Hypotension due to hypovolemia (Acute) Septic shock due to Cdiff colitis with ARRON - BP improved overall, on one pressor. Cont iv flagyl and po vanc. CT showed diffuse colitis, no megacolon. Cr improved. She is still on pressors, will check AAS to monitor for megacolon/free air. Will follow
--- NOTE | 2019-02-15 17:20 | RAD_ITS ---
STUDY: X-RAY - ACUTE ABDOMINAL SERIES REASON FOR EXAM: Female, 68 years old. Abdominal pain TECHNIQUE: Single view of the chest. Supine, and erect view(s) of the abdomen were obtained. COMPARISON: CT abdomen and pelvis February 12, 2019 and chest radiograph February 11, 2019. FINDINGS: EKG leads artifacts are noted. Surgical clips within the right axilla. There is a left upper extremity PICC line with the tip projecting over the SVC. Compared to prior chest radiograph there is increasing bilateral pleural effusions with adjacent atelectasis/infiltrates. There is no pneumothorax identified. Normal size heart. Aortic calcifications. There is a non-specific bowel gas pattern. No free air identified. There are diffuse degenerative changes of the visualized thoracic and lumbar spine. RAD/Acute Abd Inc Chest (Portable) IMPRESSION: Nonspecific bowel gas pattern. No free air is seen. Compared to prior chest radiograph there has been increasing bilateral pleural effusions with adjacent atelectasis/infiltrates. Left upper extremity PICC line with the tip projecting over the SVC. No pneumothorax identified. Electronically Signed: Jens Isaac, at 6:50 EDT Tel , Service support ,
[2019-02-15 17:52] LABS: Absolute Lymphocyte Count 1.11 X10^3/ul (0.83-4.51); Absolute Neutrophil Count 11.5 X10^3/uL (2.0-7.7); Basophil# 0.01 X10^3/uL; Basophil% 0.1 % (0-1); Eosinophil# 0.07 X10^3/uL; Eosinophils% 0.5 % (0-5); Hematocrit 32.3 % (37-47); Lymphocyte # 1.11 X10^3/ul (4.0); Lymphocyte % 7.8 % (19-41); Mean Corp Hgb Conc 34.1 g/gl (32-36); Mean Corpuscular Hgb 31.2 pg (27.0-32.0); Mean Corpuscular Volume 91.5 fL (81-99); Mean Platelet Vol. 9.2 fl (6.2-12.0); Monocyte# 1.33 X10^3/uL; Monocyte% 9.3 % (0-10); Neutrophil # 11.53 X10^3/uL (2.7-7.7); Neutrophil % 80.6 % (47-70); Platelet Count 161 K/mm3 (150-450); RBC Distribution Width CV 15.7 % (11.6-14.6); RBC Distribution Width SD 52.8 fl (35.1-43.9); Red Blood Count 3.53 M/mm3 (4.2-5.4); White Blood Count 14.3 K/mm3 (4.4-11.0)
[2019-02-15 18:03] LABS: POSITIVE COUNT NO; POSITIVE DIFFERENTIAL NO; POSITIVE MORPHOLOGY NO
[2019-02-15 18:21] LABS: Anion Gap 5 (5-15); BUN 47 mg/dL (7-18); Calcium,Total 8.1 mg/dL (8.5-10.1); Chloride 103 mmol/L (98-107); Creatinine, Serum 1.62 mg/dL (0.55-1.02); EST Glomerular Filtration Rate 33 mL/min (>60); Est Glom Filt Rate - Afr Amer 40 mL/min (>60); Estimated Creatinine Clearance 26.73 ml/min; Glucose 128 mg/dL (74-106); Potassium 4.1 mmol/L (3.5-5.1); Sodium Level 134 mmol/L (136-145); Thyroid Stim Hormone (TSH) 3.82 uIU/mL (0.358-3.74)
[2019-02-15] MEDS: Latanoprost 0.005% 1 Bottle 1 DRP EACH EYE (22:22)
[2019-02-16] VITALS (36 sets, daily range): BP systolic 82–122; BP diastolic 43–78; PULSE 74–88; RESP 12–24; TEMP 35.2–36.6; O2SAT 94–98
[2019-02-16] MEDS: CHLORHEXIDINE GLUC 2% CLOTH 1 EACH TOWELETTE TOPICAL ×2 (01:11→08:37)
[2019-02-16] MEDS: 0.9% NaCl Peripheral Flush Adult/Peds IV (06:16)
[2019-02-16] MEDS: Carbidopa/Levodopa 25/100 Tablet PO ×3 (06:17→17:25)
[2019-02-16] MEDS: Levothyroxine 75 MCG Tablet PO (06:17)
[2019-02-16] MEDS: Midodrine HCl 5 MG Tablet 10 MG PO ×3 (06:17→21:39)
[2019-02-16] MEDS: Acetaminophen 325 MG Tablet 650 MG PO ×3 (06:17→21:39)
--- NOTE | 2019-02-16 06:45 | PCM.PN.INT ---
Subjective: The patient was seen and examined at the bedside this morning. Events from the last 24 hours have been reviewed. The patient is currently afebrile, but is still requiring levophed at 8 mcg to maintain hemodynamic stability. The patient continues to have numerous bowel movements. The patient appears to be approximately overall net +12 L for the admission. In hopes of helping to alleviate her vasopressor requirement, the patient was started on scheduled Midodrine this morning. Given concerns that the patient was more sleepy yesterday than previous, an arterial blood gas was obtained. The patient had a pH of 7.2 with a corresponding PCO2 of 59 and PO2 of 103. Therefore, the patient's CPAP was transitioned to BiPAP therapy, which she has tolerated without issue. Acute abdomen series ordered by infectious disease yesterday revealed no free air along with a nonspecific bowel gas pattern. This morning, the patient reports feeling okay, but does confirm continued abdominal tenderness. Objective: The patient's most recent lab work, culture data and imaging studies have all been personally reviewed. Fecal leukocytes were positive. Urine culture has exhibited no growth. Blood cultures have been unrevealing to date. Enteric panel was negative. CT abdomen/pelvis completed yesterday revealed ascites and pelvic fluid, diffuse colitis and bilateral pleural effusions with basilar consolidation/atelectasis. General: Alert, Cooperative, - - Ill and fatigued in appearance. HEENT: Atraumatic, PERRLA, Normocephalic Oral: No Gingival or Mucosal Lesions/ Ulcerations Neck: Supple, No Nodes, Trachea Midline Lungs: No rhonchi, No wheeze, No rales, Diminished Cardiovascular: Regular rate, Regular Rhythm, Normal S1, Normal S2, No murmurs Abdomen: Bowel Sounds Present, Soft - Mild nonspecific tenderness to palpation without focal rebound, guarding or rigidity. Extremities: No clubbing, No cyanosis, Edema Skin: - - No significant change from previous. Musculoskeletal: No Muscle Wasting Lymphatic: No Cervical, Supraclavicular, or Inguinal Adenopathy Neurological: - - No focal neurological deficits. Tremulous. Psych/Mental Status: Flat Affect Vital Signs Temp Pulse Resp BP Pulse Ox 96.5 F L 78 18 96/58 L 94 02/16/19 04:00 02/16/19 06:00 02/16/19 06:00 02/16/19 06:00 02/16/19 06:00 Oxygen Flow Rate (L/min) 2 Oxygen Delivery Method Bi-pap Weight: 243 lb 6.245 oz Body Mass Index (BMI) 38.2 Intake and Output for Last 24 Hours 02/14/19 02/15/19 02/16/19 23:59 23:59 23:59 Intake Total 205 / 2056 1687 / 1687 Output Total 1750 / 1750 1300 / 1300 Balance 306 / 306 387 / 387 Labs (Last 48 Hours) 02/14/19 02/14/19 02/15/19 06:50 06:50 09:25 WBC 10.1 RBC 3.72 L Hgb 11.4 L Hct 32.9 L MCV 88.4 MCH 30.6 MCHC 34.7 RDW 15.1 H RDW Differential 48.0 H Plt Count 192 MPV 8.7 Immature Gran % (Auto) 2.100 H Neut % (Auto) 73.7 H Lymph % (Auto) 10.0 L [place] % (Auto) 13.6 H Eos % (Auto) 0.5 Baso % (Auto) 0.1 Absolute Neuts (auto) 7.5 Absolute Lymphs (auto) 1.01 Total Counted Not Reportable Diff Path Review Reviewed Specimen Type Sample Site pH Bicarbonate Actual POC Total CO2 Base Excess O2 Saturation ABG pCO2 ABG pO2 Geovany Test O2 Delivery Device Liter Flow Blood Gas Notified Whom Blood Gas Notified Time Sodium 131 L Cancelled Potassium 4.1 Cancelled Chloride 100 Cancelled Carbon Dioxide 24.0 Cancelled Anion Gap 7 Cancelled BUN 46 H Cancelled Creatinine 1.87 H Cancelled Estim Creat Clear Calc 23.16 Cancelled Est GFR (MDRD) Af Amer 34 L Cancelled Est GFR (MDRD) Non-Af 28 L Cancelled BUN/Creatinine Ratio 24.6 H Cancelled Glucose 141 H Cancelled Calcium 7.9 L Cancelled TSH 02/15/19 02/15/19 02/15/19 09:25 10:07 17:30 WBC 14.3 H RBC 3.53 L Hgb 11.0 L Hct 32.3 L MCV 91.5 MCH 31.2 MCHC 34.1 RDW 15.7 H RDW Differential 52.8 H Plt Count 161 MPV 9.2 Immature Gran % (Auto) 1.700 H Neut % (Auto) 80.6 H Lymph % (Auto) 7.8 L [place] % (Auto) 9.3 Eos % (Auto) 0.5 Baso % (Auto) 0.1 Absolute Neuts (auto) 11.5 H Absolute Lymphs (auto) 1.11 Total Counted Not Reportable Diff Path Review Specimen Type ART Sample Site L Radial pH 7.22 L Bicarbonate Actual 24.2 POC Total CO2 26 Base Excess -3 L O2 Saturation 96 ABG pCO2 58.6 H ABG pO2 103 H Geovany Test POS O2 Delivery Device Nasal Can Liter Flow 4.0 Blood Gas Notified Whom ICU MD Blood Gas Notified Time 1006 Sodium Potassium Chloride Carbon Dioxide Anion Gap BUN Creatinine Estim Creat Clear Calc Est GFR (MDRD) Af Amer Est GFR (MDRD) Non-Af BUN/Creatinine Ratio Glucose Calcium TSH Cancelled 02/15/19 17:30 WBC RBC Hgb Hct MCV MCH MCHC RDW RDW Differential Plt Count MPV Immature Gran % (Auto) Neut % (Auto) Lymph % (Auto) [place] % (Auto) Eos % (Auto) Baso % (Auto) Absolute Neuts (auto) Absolute Lymphs (auto) Total Counted Diff Path Review Specimen Type Sample Site pH Bicarbonate Actual POC Total CO2 Base Excess O2 Saturation ABG pCO2 ABG pO2 Geovany Test O2 Delivery Device Liter Flow Blood Gas Notified Whom Blood Gas Notified Time Sodium 134 L Potassium 4.1 Chloride 103 Carbon Dioxide 26.0 Anion Gap 5 BUN 47 H Creatinine 1.62 H Estim Creat Clear Calc 26.73 Est GFR (MDRD) Af Amer 40 L Est GFR (MDRD) Non-Af 33 L BUN/Creatinine Ratio 29.0 H Glucose 128 H Calcium 8.1 L TSH 3.82 H Microbiology 02/12/19 23:15 Stool Enteric Bacteriology - Final Clinical Impression(s) from Imaging Studies Chest X-Ray 02/11/19 11:15 IMPRESSION: Stable examination without radiographically evident acute cardiopulmonary disease. Electronically Signed: Andreas Juan MD at 11:45 EDT , Service support , Abdomen CT 02/12/19 15:47 IMPRESSION: Ascites and pelvic fluid. Probably diffuse colitis. Right hepatic cyst. Bilateral pleural effusions with basilar consolidation/atelectasis, right more than left. Electronically Signed: Israel Staley DO at 18:47 EDT Tel [phone], Service support , Medical Necessity - Tobacco Use Smoking Status: Never smoker Tobacco Use: Non-smoker Assessment/Plan All Active Problems Clostridium difficile infection (Acute) Hyponatremia (Acute) Hypotension due to hypovolemia (Acute) Septic shock (Acute) Cystitis (Acute) Acute kidney injury (Acute) History of breast cancer (Resolved) History of pneumothorax (Resolved) RECOMMENDATIONS: 1. Continue p.o. vancomycin and IV Flagyl for severe C. difficile colitis. 2. Start scheduled Midodrine TID. 3. Check BNP. 4. Start empiric antimicrobial therapy for potential aspiration pneumonia. 5. Check sputum culture and respiratory viral panel. 6. Encourage aggressive incentive spirometer use along with PEP therapy. 7. Continue vasopressor support to maintain a mean arterial pressure at or above 65 mmHg. 8. Continue appropriate ICU prophylaxis. 9. Continue nocturnal BiPAP therapy. IMPRESSIONS: 1. Septic shock secondary to recent diagnosis of C. difficile colitis The patient presented to the hospital with severe C. difficile colitis, requiring vasopressor support. She remains on IV Flagyl and p.o. vancomycin. Infectious diseases is following. We will continue to wean vasopressor support in an attempt to maintain a mean arterial pressure at or above 65 mmHg. In addition, given the patient's continued vasopressor requirement, I am going to obtain a plain film chest x-ray this morning and start the patient empirically on antimicrobials to cover for potential aspiration pneumonia. In addition to her vasopressor requirement, the patient will be started on scheduled Midodrine TID. 2. Acute hypoxic respiratory insufficiency The patient, at her baseline, only utilizes 2 L/min of supplemental oxygen nightly as a bleed in for her CPAP. She does not utilize supplemental oxygen throughout the day. My suspicion is that her current oxygen requirement is likely due to possible pleural effusions and associated atelectasis. However, given that the patient was retaining some CO2 yesterday, she was transitioned from CPAP to BiPAP nightly. We will plan to check a repeat x-ray this morning and place the patient empirically on antimicrobials to cover for potential aspiration pneumonia. She has been encouraged to utilize her incentive spirometer and PEP therapy. 3. Acute on chronic kidney disease Improving. Likely prerenal in etiology and related to ischemic ATN in the setting of #1. Anticipate improvement with stabilization of hemodynamics and with volume expansion. Continue to monitor urine output. Continue vasopressor support. No current indication for renal replacement therapy. 4. Obstructive sleep apnea Continue nocturnal PAP therapy as ordered. 5. Personal history of Parkinson's disease/obesity/depression/hypothyroidism/GERD Complicates care, management, recovery and prognosis. Continue home medications as indicated. TIME: 40 minutes of critical care time, inclusive of procedures, was spent addressing the patient's septic shock secondary to severe C. difficile colitis, acute on chronic kidney disease, acute respiratory insufficiency, obstructive sleep apnea, review of all data and collaboration with the care team. ([id number]) Code Visit 9xxxx: [id number] Critical care first hour
--- NOTE | 2019-02-16 06:48 | PN_ITS ---
Subjective: The patient was seen and examined at the bedside this morning. Events from the last 24 hours have been reviewed. The patient is currently afebrile, but is still requiring levophed at 8 mcg to maintain hemodynamic stability. The patient continues to have numerous bowel movements. The patient appears to be approximately overall net +12 L for the admission. In hopes of helping to alleviate her vasopressor requirement, the patient was started on scheduled Midodrine this morning. Given concerns that the patient was more sleepy yesterday than previous, an arterial blood gas was obtained. The patient had a pH of 7.2 with a corresponding PCO2 of 59 and PO2 of 103. Therefore, the patient's CPAP was transitioned to BiPAP therapy, which she has tolerated without issue. Acute abdomen series ordered by infectious disease yesterday revealed no free air along with a nonspecific bowel gas pattern. This morning, the patient reports feeling okay, but does confirm continued abdominal tenderness. Objective: The patient's most recent lab work, culture data and imaging studies have all been personally reviewed. Fecal leukocytes were positive. Urine culture has exhibited no growth. Blood cultures have been unrevealing to date. Enteric panel was negative. CT abdomen/pelvis completed yesterday revealed ascites and pelvic fluid, diffuse colitis and bilateral pleural effusions with basilar consolidation/atelectasis. General: Alert, Cooperative, - - Ill and fatigued in appearance. HEENT: Atraumatic, PERRLA, Normocephalic Oral: No Gingival or Mucosal Lesions/ Ulcerations Neck: Supple, No Nodes, Trachea Midline Lungs: No rhonchi, No wheeze, No rales, Diminished Cardiovascular: Regular rate, Regular Rhythm, Normal S1, Normal S2, No murmurs Abdomen: Bowel Sounds Present, Soft - Mild nonspecific tenderness to palpation without focal rebound, guarding or rigidity. Extremities: No clubbing, No cyanosis, Edema Skin: - - No significant change from previous. Musculoskeletal: No Muscle Wasting Lymphatic: No Cervical, Supraclavicular, or Inguinal Adenopathy Neurological: - - No focal neurological deficits. Tremulous. Psych/Mental Status: Flat Affect Vital Signs Temp Pulse Resp BP Pulse Ox 96.5 F L 78 18 96/58 L 94 02/16/19 04:00 02/16/19 06:00 02/16/19 06:00 02/16/19 06:00 02/16/19 06:00 Oxygen Flow Rate (L/min) 2 Oxygen Delivery Method Bi-pap Weight: 243 lb 6.245 oz Body Mass Index (BMI) 38.2 Intake and Output for Last 24 Hours 02/14/19 02/15/19 02/16/19 23:59 23:59 23:59 Intake Total 205 / 2056 1687 / 1687 Output Total 1750 / 1750 1300 / 1300 Balance 306 / 306 387 / 387 Labs (Last 48 Hours) 02/14/19 02/14/19 02/15/19 06:50 06:50 09:25 WBC 10.1 RBC 3.72 L Hgb 11.4 L Hct 32.9 L MCV 88.4 MCH 30.6 MCHC 34.7 RDW 15.1 H RDW Differential 48.0 H Plt Count 192 MPV 8.7 Immature Gran % (Auto) 2.100 H Neut % (Auto) 73.7 H Lymph % (Auto) 10.0 L [place] % (Auto) 13.6 H Eos % (Auto) 0.5 Baso % (Auto) 0.1 Absolute Neuts (auto) 7.5 Absolute Lymphs (auto) 1.01 Total Counted Not Reportable Diff Path Review Reviewed Specimen Type Sample Site pH Bicarbonate Actual POC Total CO2 Base Excess O2 Saturation ABG pCO2 ABG pO2 Geovany Test O2 Delivery Device Liter Flow Blood Gas Notified Whom Blood Gas Notified Time Sodium 131 L Cancelled Potassium 4.1 Cancelled Chloride 100 Cancelled Carbon Dioxide 24.0 Cancelled Anion Gap 7 Cancelled BUN 46 H Cancelled Creatinine 1.87 H Cancelled Estim Creat Clear Calc 23.16 Cancelled Est GFR (MDRD) Af Amer 34 L Cancelled Est GFR (MDRD) Non-Af 28 L Cancelled BUN/Creatinine Ratio 24.6 H Cancelled Glucose 141 H Cancelled Calcium 7.9 L Cancelled TSH 02/15/19 02/15/19 02/15/19 09:25 10:07 17:30 WBC 14.3 H RBC 3.53 L Hgb 11.0 L Hct 32.3 L MCV 91.5 MCH 31.2 MCHC 34.1 RDW 15.7 H RDW Differential 52.8 H Plt Count 161 MPV 9.2 Immature Gran % (Auto) 1.700 H Neut % (Auto) 80.6 H Lymph % (Auto) 7.8 L [place] % (Auto) 9.3 Eos % (Auto) 0.5 Baso % (Auto) 0.1 Absolute Neuts (auto) 11.5 H Absolute Lymphs (auto) 1.11 Total Counted Not Reportable Diff Path Review Specimen Type ART Sample Site L Radial pH 7.22 L Bicarbonate Actual 24.2 POC Total CO2 26 Base Excess -3 L O2 Saturation 96 ABG pCO2 58.6 H ABG pO2 103 H Geovany Test POS O2 Delivery Device Nasal Can Liter Flow 4.0 Blood Gas Notified Whom ICU MD Blood Gas Notified Time 1006 Sodium Potassium Chloride Carbon Dioxide Anion Gap BUN Creatinine Estim Creat Clear Calc Est GFR (MDRD) Af Amer Est GFR (MDRD) Non-Af BUN/Creatinine Ratio Glucose Calcium TSH Cancelled 02/15/19 17:30 WBC RBC Hgb Hct MCV MCH MCHC RDW RDW Differential Plt Count MPV Immature Gran % (Auto) Neut % (Auto) Lymph % (Auto) [place] % (Auto) Eos % (Auto) Baso % (Auto) Absolute Neuts (auto) Absolute Lymphs (auto) Total Counted Diff Path Review Specimen Type Sample Site pH Bicarbonate Actual POC Total CO2 Base Excess O2 Saturation ABG pCO2 ABG pO2 Geovany Test O2 Delivery Device Liter Flow Blood Gas Notified Whom Blood Gas Notified Time Sodium 134 L Potassium 4.1 Chloride 103 Carbon Dioxide 26.0 Anion Gap 5 BUN 47 H Creatinine 1.62 H Estim Creat Clear Calc 26.73 Est GFR (MDRD) Af Amer 40 L Est GFR (MDRD) Non-Af 33 L BUN/Creatinine Ratio 29.0 H Glucose 128 H Calcium 8.1 L TSH 3.82 H Microbiology 02/12/19 23:15 Stool Enteric Bacteriology - Final Clinical Impression(s) from Imaging Studies Chest X-Ray 02/11/19 11:15 IMPRESSION: Stable examination without radiographically evident acute cardiopulmonary disease. Electronically Signed: Andreas Juan MD at 11:45 EDT , Service support , Abdomen CT 02/12/19 15:47 IMPRESSION: Ascites and pelvic fluid. Probably diffuse colitis. Right hepatic cyst. Bilateral pleural effusions with basilar consolidation/atelectasis, right more than left. Electronically Signed: Israel Staley DO at 18:47 EDT Tel [phone], Service support , Medical Necessity - Tobacco Use Smoking Status: Never smoker Tobacco Use: Non-smoker Assessment/Plan All Active Problems Clostridium difficile infection (Acute) Hyponatremia (Acute) Hypotension due to hypovolemia (Acute) Septic shock (Acute) Cystitis (Acute) Acute kidney injury (Acute) History of breast cancer (Resolved) History of pneumothorax (Resolved) RECOMMENDATIONS: 1. Continue p.o. vancomycin and IV Flagyl for severe C. difficile colitis. 2. Start scheduled Midodrine TID. 3. Check BNP. 4. Start empiric antimicrobial therapy for potential aspiration pneumonia. 5. Check sputum culture and respiratory viral panel. 6. Encourage aggressive incentive spirometer use along with PEP therapy. 7. Continue vasopressor support to maintain a mean arterial pressure at or above 65 mmHg. 8. Continue appropriate ICU prophylaxis. 9. Continue nocturnal BiPAP therapy. IMPRESSIONS: 1. Septic shock secondary to recent diagnosis of C. difficile colitis The patient presented to the hospital with severe C. difficile colitis, requiring vasopressor support. She remains on IV Flagyl and p.o. vancomycin. Infectious diseases is following. We will continue to wean vasopressor support in an attempt to maintain a mean arterial pressure at or above 65 mmHg. In addition, given the patient's continued vasopressor requirement, I am going to obtain a plain film chest x-ray this morning and start the patient empirically on antimicrobials to cover for potential aspiration pneumonia. In addition to her vasopressor requirement, the patient will be started on scheduled Midodrine TID. 2. Acute hypoxic respiratory insufficiency The patient, at her baseline, only utilizes 2 L/min of supplemental oxygen nightly as a bleed in for her CPAP. She does not utilize supplemental oxygen throughout the day. My suspicion is that her current oxygen requirement is likely due to possible pleural effusions and associated atelectasis. However, given that the patient was retaining some CO2 yesterday, she was transitioned from CPAP to BiPAP nightly. We will plan to check a repeat x-ray this morning and place the patient empirically on antimicrobials to cover for potential aspiration pneumonia. She has been encouraged to utilize her incentive spirometer and PEP therapy. 3. Acute on chronic kidney disease Improving. Likely prerenal in etiology and related to ischemic ATN in the setting of #1. Anticipate improvement with stabilization of hemodynamics and with volume expansion. Continue to monitor urine output. Continue vasopressor support. No current indication for renal replacement therapy. 4. Obstructive sleep apnea Continue nocturnal PAP therapy as ordered. 5. Personal history of Parkinson's disease/obesity/depression/hypothyroi dism/GERD Complicates care, management, recovery and prognosis. Continue home medications as indicated. TIME: 40 minutes of critical care time, inclusive of procedures, was spent addressing the patient's septic shock secondary to severe C. difficile colitis, acute on chronic kidney disease, acute respiratory insufficiency, obstructive sleep apnea, review of all data and collaboration with the care team. ([id number]) Code Visit 9xxxx: [id number] Critical care first hour
--- NOTE | 2019-02-16 07:00 | RAD_ITS ---
STUDY: X-RAY CHEST REASON FOR EXAM: Female, 68 years old. Shortness of breath. Dyspnea. TECHNIQUE: Single AP portable view of the chest. COMPARISON: February 15, 2019 FINDINGS: PICC on the left extends to the superior vena cava. There are monitoring and support devices. There is postoperative change in the right axillary region. There are stable lower lung opacities with consolidation and small effusions. Normal size heart. Normal mediastinum and ronni. Normal visualized pulmonary arteries. Normal visualized aortic arch and descending thoracic aorta. There is demineralization of the osseous structures. Normal visualized ribs, clavicles, and shoulders. There is no demonstrated abnormality of the visualized soft tissue structures of the upper abdomen. RAD/Chest 1 View (Portable) IMPRESSION: Small pleural effusions and lower lung consolidation. Electronically Signed: Tino Yepez MD at 9:20 EDT , Service support ,
--- NOTE | 2019-02-16 07:36 | PN_ITS ---
Patient Problems: Active and Suspected Problems Clostridium difficile infection (Acute) Hyponatremia (Acute) Hypotension due to hypovolemia (Acute) Septic shock (Acute) Subjective: Patient seen remains in ICU continues to experience loose bowel movement. Case was discussed with Dr. Sarbjit Keane knobber Midodrin was started in view of patient persistently low blood pressure. Patient CPAP was switched to BiPAP also during the night. Objective: GENERAL: cooperative appears ill looking HEENT: Atraumatic; EYES; Anicteric, Normal Conjunctiva NECK; supple, normal thyroid, RESPIRATORY: Diminished to auscultation bilaterally, CARDIOVASCULAR: Regular S1 S2, GI: soft, non-tender, normoactive bowel sounds, : No Renal angle tenderness; EXTREMITIES: Both upper and lower extremities NEURO: Awake; no lateralizing signs. SKIN: No Rash PSYCH; significantly flat affect Vitals/I&O's: Vital Signs Temp Pulse Resp BP Pulse Ox 96.5 F L 78 18 96/58 L 96 02/16/19 04:00 02/16/19 06:00 02/16/19 06:00 02/16/19 06:00 02/16/19 07:35 Oxygen Flow Rate (L/min) 2 Oxygen Delivery Method Nasal Cannula Weight: 110.4 kg Body Mass Index (BMI) 38.2 Intake and Output for Last 24 Hours 02/14/19 02/15/19 02/16/19 23:59 23:59 23:59 Intake Total 2056 / 2056 1687 / 1687 294 / 294 Output Total 1750 / 1750 1300 / 1300 250 / 250 Balance 306 / 306 387 / 387 44 / 44 Microbiology Past 72 Hours 02/12/19 23:15 Stool Enteric Bacteriology - Final 02/11/19 15:53 Urine Catheter - Rosen Urine Culture - Final Culture exhibits no growth. 02/11/19 11:30 Blood Culture (Wb) - Anticubital Left Blood Culture - Preliminary No growth in 48 hours. 02/11/19 11:35 Blood Culture (Wb) - Left Forearm Blood Culture - Preliminary No growth in 48 hours. Laboratory Results 02/15/19 09:25: Sodium Cancelled, Potassium Cancelled, Chloride Cancelled, Carbon Dioxide Cancelled, Anion Gap Cancelled, BUN Cancelled, Creatinine Cancelled, Estim Creat Clear Calc Cancelled, Est GFR (MDRD) Af Amer Cancelled, Est GFR (MDRD) Non-Af Cancelled, BUN/Creatinine Ratio Cancelled, Glucose Cancelled, Calcium Cancelled 02/15/19 09:25: TSH Cancelled 02/15/19 10:07: Specimen Type ART, Sample Site L Radial, pH 7.22 L, Bicarbonate Actual 24.2, POC Total CO2 26, Base Excess -3 L, O2 Saturation 96, ABG pCO2 58.6 H, ABG pO2 103 H, Geovany Test POS, O2 Delivery Device Nasal Can, Liter Flow 4.0, Blood Gas Notified Whom ICU MD, Blood Gas Notified Time 1006 02/15/19 17:30: WBC 14.3 H, RBC 3.53 L, Hgb 11.0 L, Hct 32.3 L, MCV 91.5, MCH 31.2, MCHC 34.1, RDW 15.7 H, RDW Differential 52.8 H, Plt Count 161, MPV 9.2, Immature Gran % (Auto) 1.700 H, Neut % (Auto) 80.6 H, Lymph % (Auto) 7.8 L, [place] % (Auto) 9.3, Eos % (Auto) 0.5, Baso % (Auto) 0.1, Absolute Neuts (auto) 11.5 H, Absolute Lymphs (auto) 1.11, Total Counted Not Reportable 02/15/19 17:30: Sodium 134 L, Potassium 4.1, Chloride 103, Carbon Dioxide 26.0, Anion Gap 5, BUN 47 H, Creatinine 1.62 H, Estim Creat Clear Calc 26.73, Est GFR (MDRD) Af Amer 40 L, Est GFR (MDRD) Non-Af 33 L, BUN/Creatinine Ratio 29.0 H, Glucose 128 H, Calcium 8.1 L, TSH 3.82 H Current Medications Acetaminophen (Tylenol) 650 mg PO TID [facility] Last Admin: 02/16/19 06:17 Dose: 650 mg Al Hydroxide/Mg Hydroxide (Mylanta Ii) 15 - 30 ml PO Q4H PRN PRN PRN Reason: INDIGESTION Albuterol Sulfate (Ventolin Aerosols) 2.5 mg INHALATION Q2H PRN PRN PRN Reason: dyspnea, wheezing Calamine/Phenol (Calmoseptine Ointment) 1 applic TOPICAL 4X/DAY CONSTANCE; Protocol Last Admin: 02/15/19 22:20 Dose: 1 applicatio Carbidopa/Levodopa (Sinemet) 1 tablet PO TIDAC [facility] Last Admin: 02/16/19 06:17 Dose: 1 tablet Chlorhexidine Gluconate () 1 each TOPICAL DAILY [facility] Last Admin: 02/16/19 01:11 Dose: 1 each Citalopram Hydrobromide (Celexa) 20 mg PO DAILY [facility] Last Admin: 02/15/19 12:06 Dose: 20 mg Heparin Sodium (Porcine) (Heparin Na) 5,000 unit SC Q12 [facility] Last Admin: 02/15/19 22:21 Dose: 5,000 unit Metronidazole (Flagyl) 500 mg in 100 mls @ 100 mls/hr IV Q8 [facility] Last Admin: 02/16/19 06:16 Dose: 100 mls/hr Norepinephrine Bitartrate 8 mg (/ Sodium Chloride) 250 mls @ 71.25 mls/hr CONT INF .Q3H31M [facility] Last Admin: 02/16/19 06:18 Dose: Not Given Piperacillin Sod/Tazobactam (Sod 3.375 gm/ Sodium Chloride) 50 mls @ 12.5 mls/hr IV Q8 [facility] Lactobacillus Acidophilus (Acidophilus) 2 tablet PO 4X/DAY [facility] Last Admin: 02/15/19 22:21 Dose: 2 tablet Latanoprost (Xalatan Opthalmic) 1 drop EACH EYE QHS [facility] Last Admin: 02/15/19 22:22 Dose: 1 drop Levothyroxine Sodium (Synthroid) 75 mcg PO DAILY@0600 [facility] Last Admin: 02/16/19 06:17 Dose: 75 mcg Midodrine (Proamatine) 10 mg PO TID [facility] Last Admin: 02/16/19 06:17 Dose: 10 mg Montelukast Sodium (Singulair) 10 mg PO DAILY [facility] Last Admin: 02/15/19 12:06 Dose: 10 mg Multivitamins (Multivitamin) 1 tablet PO DAILY@0800 [facility] Last Admin: 02/15/19 12:05 Dose: 1 tablet Ondansetron HCl (Zofran) 4 mg IV Q8H PRN PRN PRN Reason: NAUSEA/VOMITING Last Admin: 02/13/19 08:06 Dose: 4 mg Sodium Chloride () 5 - 15 ml IV UD PRN PRN Reason: SALINE FLUSH Last Admin: 02/16/19 06:16 Dose: 10 ml Vancomycin HCl () 125 mg PO Q6 CONSTANCE Stop: 02/18/19 18:01 Last Admin: 02/16/19 06:16 Dose: 125 mg Medical Necessity - Tobacco Use Smoking Status: Never smoker Tobacco Use: Non-smoker Assessment/Plan All Active Problems Clostridium difficile infection (Acute) Hyponatremia (Acute) Hypotension due to hypovolemia (Acute) Septic shock (Acute) Cystitis (Acute) Acute kidney injury (Acute) History of breast cancer (Resolved) History of pneumothorax (Resolved) Patient is a 68-year-old lady with recent diagnosis of C. difficile colitis on 02/08/2019 started on vancomycin by PCP brought to the emergency department on account of persistent hypotension and assessment of septic shock secondary to severe C. difficile colitis made admitted to the intensive care unit for subsequent management. 1. Septic shock secondary to acute C. difficile colitis patient admitted to the intensive care unit where she was managed with aggressive IV fluid resuscitation. Patient had to be started on pressors due to persistent hypotension on PO vancomycin as well as IV Flagyl in view severe C. difficile colitis. Consultation was also placed to ID the patient was seen in consultation by Dr. Ohara his notes and recommendations reviewed. CT of the abdomen and pelvis obtained on 02/12/2019 demonstrated diffuse colitis; her progress has rather been slow still requiring pressors as of 02/14/2019. No significant change in patient's condition as of 02/15/2019 still requiring pressors. Midodrine was added to patient's therapy. 2. Acute kidney injury secondary to acute tubular necrosis from septic shock. Patient baseline creatinine drawn on 02/01/2019 was 1.12. Patient is on aggressive IV fluid resuscitation with monitoring of electrolyte. Kidney function improving as compared to when she was first admitted 3. Hyponatremia secondary to hypovolemic hyponatremia.; Resolved 4. Chronic kidney disease stage 2 with baseline creatinine of 1.2~1.3 creatinine down to 1.8 as of 02/14/2019 5. Hypothyroidism-patient is on levothyroxine home dose continued 6. GERD 7. Obesity with BMI of 39.7 8. Parkinson's disease on Sinemet did continue 9. Obstructive sleep apnea BiPAP 9 10. Depression patient is on SSRI (Celexa) Code Visit Inpatient E&M: 95900 [facility] Hosp L3
[2019-02-16] MEDS: Montelukast 10 MG Tablet PO (08:35)
[2019-02-16] MEDS: Citalopram 20 MG Tablet PO (08:35)
[2019-02-16] MEDS: Heparin Injection (Vial) 5,000 UNIT/ML VIAL 5000 UNIT SC ×2 (08:35→21:40)
[2019-02-16] MEDS: Multivitamins,Therapeutic Tablet 1 TABLET PO (08:35)
[2019-02-16] MEDS: Menthol/Lanolin/Calamine/Znox 113 GM Tube 1 APPLIC TOPICAL ×4 (08:37→21:38)
[2019-02-16 08:39] LABS: Absolute Lymphocyte Count 1.05 X10^3/ul (0.83-4.51); Absolute Neutrophil Count 10.1 X10^3/uL (2.0-7.7); Basophil# 0.02 X10^3/uL; Basophil% 0.2 % (0-1); Eosinophils% 0.8 % (0-5); Hematocrit 32.2 % (37-47); Lymphocyte # 1.05 X10^3/ul (4.0); Lymphocyte % 8.5 % (19-41); Mean Corp Hgb Conc 34.2 g/gl (32-36); Mean Corpuscular Hgb 30.7 pg (27.0-32.0); Mean Corpuscular Volume 89.9 fL (81-99); Monocyte# 0.81 X10^3/uL; Monocyte% 6.6 % (0-10); Neutrophil # 10.06 X10^3/uL (2.7-7.7); Neutrophil % 81.5 % (47-70); Platelet Count 180 K/mm3 (150-450); RBC Distribution Width CV 15.6 % (11.6-14.6); RBC Distribution Width SD 50.5 fl (35.1-43.9); Red Blood Count 3.58 M/mm3 (4.2-5.4); White Blood Count 12.3 K/mm3 (4.4-11.0)
[2019-02-16 08:47] LABS: Differential Indicated SCAN CRITERIA MET; POSITIVE COUNT YES; POSITIVE DIFFERENTIAL NO; POSITIVE MORPHOLOGY YES
[2019-02-16 09:01] LABS: BNP,B-Type NATRIURETIC PEPTIDE 36.3 pg/mL (0-100)
[2019-02-16 09:07] LABS: ALB/GLOB Ratio 0.6 RATIO (0.9-2.4); AST(SGOT) 14 U/L (15-37); Alanine Aminotransfer ALT/SGPT < 6 U/L (13-56); Albumin, Serum 1.5 g/dL (3.2-5.0); Alkaline Phosphatase 110 U/L (45-117); Anion Gap 6 (5-15); BUN 44 mg/dL (7-18); BUN/Creat Ratio 32.6 RATIO (10-20); Calcium,Total 8.2 mg/dL (8.5-10.1); Chloride 105 mmol/L (98-107); Creatinine, Serum 1.35 mg/dL (0.55-1.02); EST Glomerular Filtration Rate 41 mL/min (>60); Est Glom Filt Rate - Afr Amer 50 mL/min (>60); Estimated Creatinine Clearance 32.08 ml/min; Globulin 2.6 g/dL (2.2-4.2); Glucose 169 mg/dL (74-106); Lipase 200 U/L (73-393); Protein, Total 4.1 g/dL (6.4-8.2); Sodium Level 135 mmol/L (136-145)
[2019-02-16 09:16] LABS: Differential Comment SCANNED
--- NOTE | 2019-02-16 09:45 | CM.UR ---
Participated in interdisciplinary rounds this am. No family present at time of rounds. Plan continues to be return to the [facility]. Case management will continue to follow. Sully Luz RN, CCM.
[2019-02-16] MEDS: Ondansetron 4 MG/2 ML Vial IV (13:34)
[2019-02-16] MEDS: Latanoprost 0.005% 1 Bottle 1 DRP EACH EYE (21:40)
[2019-02-17] VITALS (33 sets, daily range): BP systolic 78–120; BP diastolic 43–68; PULSE 68–87; RESP 12–25; TEMP 35.8–36.7; O2SAT 91–98
[2019-02-17] MEDS: Levothyroxine 75 MCG Tablet PO (05:04)
[2019-02-17] MEDS: CHLORHEXIDINE GLUC 2% CLOTH 1 EACH TOWELETTE TOPICAL (05:04)
[2019-02-17] MEDS: Acetaminophen 325 MG Tablet 650 MG PO ×3 (05:04→21:09)
[2019-02-17] MEDS: Midodrine HCl 5 MG Tablet 10 MG PO ×3 (05:04→21:08)
[2019-02-17 05:41] LABS: Absolute Lymphocyte Count 1.02 X10^3/ul (0.83-4.51); Absolute Neutrophil Count 11.3 X10^3/uL (2.0-7.7); Basophil# 0.02 X10^3/uL; Basophil% 0.1 % (0-1); Eosinophil# 0.16 X10^3/uL; Eosinophils% 1.2 % (0-5); Hematocrit 30.7 % (37-47); Hemoglobin 10.4 g/dl (12.0-15.0); Lymphocyte # 1.02 X10^3/ul (4.0); Lymphocyte % 7.5 % (19-41); Mean Corp Hgb Conc 33.9 g/gl (32-36); Mean Corpuscular Hgb 31.3 pg (27.0-32.0); Mean Corpuscular Volume 92.5 fL (81-99); Mean Platelet Vol. 9.1 fl (6.2-12.0); Monocyte# 0.82 X10^3/uL; Neutrophil # 11.34 X10^3/uL (2.7-7.7); Neutrophil % 83.5 % (47-70); Platelet Count 193 K/mm3 (150-450); RBC Distribution Width CV 15.6 % (11.6-14.6); RBC Distribution Width SD 53.1 fl (35.1-43.9); Red Blood Count 3.32 M/mm3 (4.2-5.4); White Blood Count 13.6 K/mm3 (4.4-11.0)
[2019-02-17 05:50] LABS: POSITIVE COUNT NO; POSITIVE DIFFERENTIAL NO; POSITIVE MORPHOLOGY NO
[2019-02-17] MEDS: Carbidopa/Levodopa 25/100 Tablet PO ×3 (06:00→19:25)
--- NOTE | 2019-02-17 06:10 | PCM.PN.INT ---
Subjective: The patient was seen and examined at the bedside this morning. Events from the last 24 hours have been reviewed. The patient is currently afebrile. She was able to be weaned from Levophed at approximately 0130. She continues to remain compliant with the use of nocturnal BiPAP therapy. Stool output is improving. Nursing staff reports that the patient only had to loose, mucoid bowel movements overnight. However, the patient has been refusing to eat food. She is currently documented to be overall net +11.8 L for the admission. The patient was started empirically on Zosyn yesterday, in addition to her p.o. vancomycin and IV Flagyl over concerns for an underlying pulmonary infectious process. When removed from BiPAP this morning, the patient reported to me that she continued to have a mild degree of residual abdominal pain. She appears quite withdrawn with an extremely flat affect. She reported to me that she did not have an interest in eating breakfast, as she did not have an appetite. Objective: The patient's most recent lab work, culture data and imaging studies have all been personally reviewed. Fecal leukocytes were positive. Urine culture has exhibited no growth. Blood cultures have been unrevealing to date. Enteric panel was negative. CT abdomen/pelvis completed yesterday revealed ascites and pelvic fluid, diffuse colitis and bilateral pleural effusions with basilar consolidation/atelectasis. Acute abdominal series from February 15 revealed a nonspecific bowel gas pattern without free air. Respiratory viral panel was negative. Sputum culture is currently pending. General: Alert, Cooperative, - - Fatigued in appearance HEENT: Atraumatic, PERRLA, Normocephalic Oral: No Gingival or Mucosal Lesions/ Ulcerations Neck: Supple, No Nodes, Trachea Midline Lungs: No rhonchi, No wheeze, No rales, Diminished, - - Poor inspiratory effort. Cardiovascular: Regular rate, Regular Rhythm, Normal S1, Normal S2, No murmurs Abdomen: Bowel Sounds Present, Soft, Non-Distended, - - While the patient reports the presence of abdominal tenderness, there was no focal findings on her abdominal exam. Extremities: No clubbing, No cyanosis, Edema Skin: - - No significant change from previous Musculoskeletal: No Tenderness to Palpation of Joints or Extremities Lymphatic: No Cervical, Supraclavicular, or Inguinal Adenopathy Neurological: Cranial nerves II-XII grossly intact, Neuro grossly intact, - - Tremors present. Psych/Mental Status: Depressed, - - Extremely flat affect Vital Signs Temp Pulse Resp BP Pulse Ox 97.1 F L 73 15 92/57 L 96 02/17/19 04:00 02/17/19 06:00 02/17/19 06:00 02/17/19 06:00 02/17/19 06:00 Oxygen Flow Rate (L/min) 2 Oxygen Delivery Method Bi-pap Weight: 240 lb 8.389 oz Body Mass Index (BMI) 38.2 Intake and Output for Last 24 Hours 02/15/19 02/16/19 02/17/19 23:59 23:59 23:59 Intake Total 1687 / 1687 1314 / 1314 287 / 287 Output Total 1300 / 1300 1400 / 1400 250 / 250 Balance 387 / 387 -86 / -86 37 / 37 Labs (Last 48 Hours) 02/15/19 02/15/19 02/15/19 09:25 09:25 10:07 WBC RBC Hgb Hct MCV MCH MCHC RDW RDW Differential Plt Count MPV Immature Gran % (Auto) Neut % (Auto) Lymph % (Auto) [place] % (Auto) Eos % (Auto) Baso % (Auto) Absolute Neuts (auto) Absolute Lymphs (auto) Total Counted Differential Comment Diff Path Review Specimen Type ART Sample Site L Radial pH 7.22 L Bicarbonate Actual 24.2 POC Total CO2 26 Base Excess -3 L O2 Saturation 96 ABG pCO2 58.6 H ABG pO2 103 H Geovany Test POS O2 Delivery Device Nasal Can Liter Flow 4.0 Blood Gas Notified Whom ICU MD Blood Gas Notified Time 1006 Sodium Cancelled Potassium Cancelled Chloride Cancelled Carbon Dioxide Cancelled Anion Gap Cancelled BUN Cancelled Creatinine Cancelled Estim Creat Clear Calc Cancelled Est GFR (MDRD) Af Amer Cancelled Est GFR (MDRD) Non-Af Cancelled BUN/Creatinine Ratio Cancelled Glucose Cancelled Calcium Cancelled Magnesium Total Bilirubin AST ALT Alkaline Phosphatase B-Natriuretic Peptide Total Protein Albumin Globulin Albumin/Globulin Ratio Lipase TSH Cancelled 02/15/19 02/15/19 02/16/19 17:30 17:30 08:00 WBC 14.3 H 12.3 H RBC 3.53 L 3.58 L Hgb 11.0 L 11.0 L Hct 32.3 L 32.2 L MCV 91.5 89.9 MCH 31.2 30.7 MCHC 34.1 34.2 RDW 15.7 H 15.6 H RDW Differential 52.8 H 50.5 H Plt Count 161 180 MPV 9.2 9.0 Immature Gran % (Auto) 1.700 H 2.400 H Neut % (Auto) 80.6 H 81.5 H Lymph % (Auto) 7.8 L 8.5 L [place] % (Auto) 9.3 6.6 Eos % (Auto) 0.5 0.8 Baso % (Auto) 0.1 0.2 Absolute Neuts (auto) 11.5 H 10.1 H Absolute Lymphs (auto) 1.11 1.05 Total Counted Not Reportable Not Reportable Differential Comment SCANNED Diff Path Review May foll Specimen Type Sample Site pH Bicarbonate Actual POC Total CO2 Base Excess O2 Saturation ABG pCO2 ABG pO2 Geovany Test O2 Delivery Device Liter Flow Blood Gas Notified Whom Blood Gas Notified Time Sodium 134 L Potassium 4.1 Chloride 103 Carbon Dioxide 26.0 Anion Gap 5 BUN 47 H Creatinine 1.62 H Estim Creat Clear Calc 26.73 Est GFR (MDRD) Af Amer 40 L Est GFR (MDRD) Non-Af 33 L BUN/Creatinine Ratio 29.0 H Glucose 128 H Calcium 8.1 L Magnesium Total Bilirubin AST ALT Alkaline Phosphatase B-Natriuretic Peptide Total Protein Albumin Globulin Albumin/Globulin Ratio Lipase TSH 3.82 H 02/16/19 02/16/19 02/17/19 08:00 08:00 05:10 WBC 13.6 H RBC 3.32 L Hgb 10.4 L Hct 30.7 L MCV 92.5 MCH 31.3 MCHC 33.9 RDW 15.6 H RDW Differential 53.1 H Plt Count 193 MPV 9.1 Immature Gran % (Auto) 1.700 H Neut % (Auto) 83.5 H Lymph % (Auto) 7.5 L [place] % (Auto) 6.0 Eos % (Auto) 1.2 Baso % (Auto) 0.1 Absolute Neuts (auto) 11.3 H Absolute Lymphs (auto) 1.02 Total Counted Not Reportable Differential Comment Diff Path Review Specimen Type Sample Site pH Bicarbonate Actual POC Total CO2 Base Excess O2 Saturation ABG pCO2 ABG pO2 Geovany Test O2 Delivery Device Liter Flow Blood Gas Notified Whom Blood Gas Notified Time Sodium 135 L Potassium 4.0 Chloride 105 Carbon Dioxide 24.0 Anion Gap 6 BUN 44 H Creatinine 1.35 H Estim Creat Clear Calc 32.08 Est GFR (MDRD) Af Amer 50 L Est GFR (MDRD) Non-Af 41 L BUN/Creatinine Ratio 32.6 H Glucose 169 H Calcium 8.2 L Magnesium Total Bilirubin 0.20 AST 14 L ALT < 6 L Alkaline Phosphatase 110 B-Natriuretic Peptide 36.3 Total Protein 4.1 L Albumin 1.5 L Globulin 2.6 Albumin/Globulin Ratio 0.6 L Lipase 200 TSH 02/17/19 05:10 WBC RBC Hgb Hct MCV MCH MCHC RDW RDW Differential Plt Count MPV Immature Gran % (Auto) Neut % (Auto) Lymph % (Auto) [place] % (Auto) Eos % (Auto) Baso % (Auto) Absolute Neuts (auto) Absolute Lymphs (auto) Total Counted Differential Comment Diff Path Review Specimen Type Sample Site pH Bicarbonate Actual POC Total CO2 Base Excess O2 Saturation ABG pCO2 ABG pO2 Geovany Test O2 Delivery Device Liter Flow Blood Gas Notified Whom Blood Gas Notified Time Sodium Pending Potassium Pending Chloride Pending Carbon Dioxide Pending Anion Gap Pending BUN Pending Creatinine Pending Estim Creat Clear Calc Est GFR (MDRD) Af Amer Pending Est GFR (MDRD) Non-Af Pending BUN/Creatinine Ratio Pending Glucose Pending Calcium Pending Magnesium Pending Total Bilirubin AST ALT Alkaline Phosphatase B-Natriuretic Peptide Total Protein Albumin Globulin Albumin/Globulin Ratio Lipase TSH Microbiology 02/16/19 07:35 Mucosa - Nasopharyngeal Respiratory Panel (PCR) - Final 02/16/19 07:35 Sputum, Expectorated/Coughed Gram Stain - Final 02/11/19 11:30 Blood Culture (Wb) - Anticubital Left Blood Culture - Final No growth in 5 days. 02/11/19 11:35 Blood Culture (Wb) - Left Forearm Blood Culture - Final No growth in 5 days. Clinical Impression(s) from Imaging Studies Chest X-Ray 02/11/19 11:15 IMPRESSION: Stable examination without radiographically evident acute cardiopulmonary disease. Electronically Signed: Andreas Juan MD at 11:45 EDT , Service support , Abdomen CT 02/12/19 15:47 IMPRESSION: Ascites and pelvic fluid. Probably diffuse colitis. Right hepatic cyst. Bilateral pleural effusions with basilar consolidation/atelectasis, right more than left. Electronically Signed: Israel Staley DO at 18:47 EDT Tel [phone], Service support , Acute Abdomen Series 02/15/19 17:20 IMPRESSION: Nonspecific bowel gas pattern. No free air is seen. Compared to prior chest radiograph there has been increasing bilateral pleural effusions with adjacent atelectasis/infiltrates. Left upper extremity PICC line with the tip projecting over the SVC. No pneumothorax identified. Electronically Signed: Jens Isaac, at 6:50 EDT Tel , Service support , Chest X-Ray 02/16/19 07:00 IMPRESSION: Small pleural effusions and lower lung consolidation. Electronically Signed: Tino Yepez MD at 9:20 EDT , Service support , Medical Necessity - Tobacco Use Smoking Status: Never smoker Tobacco Use: Non-smoker Assessment/Plan All Active Problems Clostridium difficile infection (Acute) Hyponatremia (Acute) Hypotension due to hypovolemia (Acute) Septic shock (Acute) Cystitis (Acute) Acute kidney injury (Acute) History of breast cancer (Resolved) History of pneumothorax (Resolved) RECOMMENDATIONS: 1. Continue p.o. vancomycin and IV Flagyl for severe C. difficile colitis. 2. Continue scheduled Midodrine TID. 3. Continue empiric antimicrobial therapy for potential aspiration pneumonia, pending finalized sputum culture. 4. Encourage aggressive incentive spirometer use along with PEP therapy. 5. Continue appropriate ICU prophylaxis. 6. Continue nocturnal BiPAP therapy. 7. Encourage p.o. intake. 8. Would continue to monitor in the ICU setting yet today. IMPRESSIONS: 1. Septic shock secondary to recent diagnosis of C. difficile colitis The patient presented to the hospital with severe C. difficile colitis, requiring vasopressor support. She remains on IV Flagyl and p.o. vancomycin. Infectious diseases is following. The patient was initially able to be weaned from vasopressor support on the morning of February 17. However, the patient's blood pressures have remained tenuous. Therefore, would continue to monitor in the ICU setting yet today. In addition to the aforementioned, the patient was started empirically on antibiotics to cover for potential aspiration pneumonia on the morning of February 16. Continue scheduled Midodrine as ordered. Encourage p.o. intake. The patient's nutritional status is poor. Her last albumin was noted to be 1.5. I do suspect that the patient's baseline Parkinson's and depression will prove to be a barrier to her recovery from her current illness, as she does not seem to be engaged to work with physical therapy or take in p.o. nutrition. 2. Acute hypoxic respiratory insufficiency The patient, at her baseline, only utilizes 2 L/min of supplemental oxygen nightly as a bleed in for her CPAP. She does not utilize supplemental oxygen throughout the day. My suspicion is that her current oxygen requirement is likely due to possible pleural effusions and associated atelectasis. However, given that the patient was retaining some CO2 during this hospitalization, she was transitioned from CPAP to BiPAP nightly. We will plan to continue empiric antimicrobial coverage for potential aspiration pneumonia, pending sputum culture results. I do suspect that the patient would likely benefit from gentle diuresis. However, given her tenuous hemodynamics, will hold off for now. She has been encouraged to utilize her incentive spirometer and PEP therapy. 3. Acute on chronic kidney disease Improving. Likely prerenal in etiology and related to ischemic ATN in the setting of #1. Anticipate improvement with stabilization of hemodynamics and with volume expansion. Continue to monitor urine output. Continue vasopressor support. No current indication for renal replacement therapy. 4. Obstructive sleep apnea Continue nocturnal PAP therapy as ordered. 5. Personal history of Parkinson's disease/obesity/depression/hypothyroidism/GERD Complicates care, management, recovery and prognosis. Continue home medications as indicated. TIME: 38 minutes of critical care time, inclusive of procedures, was spent addressing the patient's septic shock secondary to severe C. difficile colitis, acute on chronic kidney disease, acute respiratory insufficiency, obstructive sleep apnea, review of all data and collaboration with the care team. ([id number]) Code Visit 9xxxx: [id number] Critical care first hour
[2019-02-17 06:51] LABS: Anion Gap 3 (5-15); BUN 42 mg/dL (7-18); BUN/Creat Ratio 33.6 RATIO (10-20); Calcium,Total 8.4 mg/dL (8.5-10.1); Chloride 106 mmol/L (98-107); Creatinine, Serum 1.25 mg/dL (0.55-1.02); EST Glomerular Filtration Rate 45 mL/min (>60); Est Glom Filt Rate - Afr Amer 54 mL/min (>60); Estimated Creatinine Clearance 34.64 ml/min; Glucose 120 mg/dL (74-106); Magnesium 1.7 mg/dL (1.6-2.6); Potassium 4.3 mmol/L (3.5-5.1); Sodium Level 139 mmol/L (136-145)
--- NOTE | 2019-02-17 07:13 | PN_ITS ---
Patient Problems: Active and Suspected Problems Clostridium difficile infection (Acute) Hyponatremia (Acute) Hypotension due to hypovolemia (Acute) Septic shock (Acute) Subjective: Patient seen has a significantly flat affect. Levophed weaned off. Pain nursing staff patient had only 2 loose bowel movement. Pain significantly e dematous Objective: GENERAL: cooperative appears ill looking HEENT: Atraumatic; EYES; Anicteric, Normal Conjunctiva NECK; supple, normal thyroid, RESPIRATORY: Diminished to auscultation bilaterally, CARDIOVASCULAR: Regular S1 S2, GI: soft, non-tender, normoactive bowel sounds, : No Renal angle tenderness; EXTREMITIES: Edema involving both upper and lower extremities NEURO: Awake; no lateralizing signs. SKIN: No Rash PSYCH; significantly flat affect Vitals/I&O's: Vital Signs Temp Pulse Resp BP Pulse Ox 97.1 F L 84 15 108/68 94 02/17/19 04:00 02/17/19 07:00 02/17/19 07:00 02/17/19 07:00 02/17/19 07:00 Oxygen Flow Rate (L/min) 2 Oxygen Delivery Method Nasal Cannula Weight: 109.1 kg Body Mass Index (BMI) 38.2 Intake and Output for Last 24 Hours 02/15/19 02/16/19 02/17/19 23:59 23:59 23:59 Intake Total 1687 / 1687 1314 / 1314 287 / 287 Output Total 1300 / 1300 1400 / 1400 250 / 250 Balance 387 / 387 -86 / -86 37 / 37 Microbiology Past 72 Hours 02/16/19 07:35 Mucosa - Nasopharyngeal Respiratory Panel (PCR) - Final 02/16/19 07:35 Sputum, Expectorated/Coughed Gram Stain - Final 02/11/19 11:30 Blood Culture (Wb) - Anticubital Left Blood Culture - Final No growth in 5 days. 02/11/19 11:35 Blood Culture (Wb) - Left Forearm Blood Culture - Final No growth in 5 days. 02/12/19 23:15 Stool Enteric Bacteriology - Final Laboratory Results 02/16/19 08:00: WBC 12.3 H, RBC 3.58 L, Hgb 11.0 L, Hct 32.2 L, MCV 89.9, MCH 30.7, MCHC 34.2, RDW 15.6 H, RDW Differential 50.5 H, Plt Count 180, MPV 9.0, Immature Gran % (Auto) 2.400 H, Neut % (Auto) 81.5 H, Lymph % (Auto) 8.5 L, [place] % (Auto) 6.6, Eos % (Auto) 0.8, Baso % (Auto) 0.2, Absolute Neuts (auto) 10.1 H, Absolute Lymphs (auto) 1.05, Total Counted Not Reportable, Differential Comment SCANNED, Diff Path Review February02/16/19 08:00: Sodium 135 L, Potassium 4.0, Chloride 105, Carbon Dioxide 24.0, Anion Gap 6, BUN 44 H, Creatinine 1.35 H, Estim Creat Clear Calc 32.08, Est GFR (MDRD) Af Amer 50 L, Est GFR (MDRD) Non-Af 41 L, BUN/Creatinine Ratio 32.6 H, Glucose 169 H, Calcium 8.2 L, Total Bilirubin 0.20, AST 14 L, ALT < 6 L, Alkaline Phosphatase 110, Total Protein 4.1 L, Albumin 1.5 L, Globulin 2.6, Albumin/Globulin Ratio 0.6 L, Lipase 200 02/16/19 08:00: B-Natriuretic Peptide 36.3 02/17/19 05:10: WBC 13.6 H, RBC 3.32 L, Hgb 10.4 L, Hct 30.7 L, MCV 92.5, MCH 31.3, MCHC 33.9, RDW 15.6 H, RDW Differential 53.1 H, Plt Count 193, MPV 9.1, Immature Gran % (Auto) 1.700 H, Neut % (Auto) 83.5 H, Lymph % (Auto) 7.5 L, [place] % (Auto) 6.0, Eos % (Auto) 1.2, Baso % (Auto) 0.1, Absolute Neuts (auto) 11.3 H, Absolute Lymphs (auto) 1.02, Total Counted Not Reportable 02/17/19 05:10: Sodium 139, Potassium 4.3, Chloride 106, Carbon Dioxide 30.0, Anion Gap 3 L, BUN 42 H, Creatinine 1.25 H, Estim Creat Clear Calc 34.64, Est GFR (MDRD) Af Amer 54 L, Est GFR (MDRD) Non-Af 45 L, BUN/Creatinine Ratio 33.6 H , Glucose 120 H, Calcium 8.4 L, Magnesium 1.7 Current Medications Acetaminophen (Tylenol) 650 mg PO TID [facility] Last Admin: 02/17/19 05:04 Dose: 650 mg Al Hydroxide/Mg Hydroxide (Mylanta Ii) 15 - 30 ml PO Q4H PRN PRN PRN Reason: INDIGESTION Albuterol Sulfate (Ventolin Aerosols) 2.5 mg INHALATION Q2H PRN PRN PRN Reason: dyspnea, wheezing Calamine/Phenol (Calmoseptine Ointment) 1 applic TOPICAL 4X/DAY [facility]; Protocol Last Admin: 02/16/19 21:38 Dose: 1 applicatio Carbidopa/Levodopa (Sinemet) 1 tablet PO TIDAC [facility] Last Admin: 02/17/19 06:00 Dose: 1 tablet Chlorhexidine Gluconate () 1 each TOPICAL DAILY [facility] Last Admin: 02/17/19 05:04 Dose: 1 each Citalopram Hydrobromide (Celexa) 20 mg PO DAILY [facility] Last Admin: 02/16/19 08:35 Dose: 20 mg Heparin Sodium (Porcine) (Heparin Na) 5,000 unit SC Q12 [facility] Last Admin: 02/16/19 21:40 Dose: 5,000 unit Metronidazole (Flagyl) 500 mg in 100 mls @ 100 mls/hr IV Q8 [facility] Last Admin: 02/17/19 05:04 Dose: 100 mls/hr Norepinephrine Bitartrate 8 mg (/ Sodium Chloride) 250 mls @ 71.25 mls/hr CONT INF .Q3H31M [facility] Last Admin: 02/17/19 05:28 Dose: Not Given Piperacillin Sod/Tazobactam (Sod 3.375 gm/ Sodium Chloride) 50 mls @ 12.5 mls/hr IV Q8 [facility] Last Admin: 02/17/19 05:04 Dose: 12.5 mls/hr Lactobacillus Acidophilus (Acidophilus) 2 tablet PO 4X/DAY [facility] Last Admin: 02/16/19 21:39 Dose: 2 tablet Latanoprost (Xalatan Opthalmic) 1 drop EACH EYE QHS [facility] Last Admin: 02/16/19 21:40 Dose: 1 drop Levothyroxine Sodium (Synthroid) 75 mcg PO DAILY@0600 [facility] Last Admin: 02/17/19 05:04 Dose: 75 mcg Midodrine (Proamatine) 10 mg PO TID [facility] Last Admin: 02/17/19 05:04 Dose: 10 mg Montelukast Sodium (Singulair) 10 mg PO DAILY [facility] Last Admin: 02/16/19 08:35 Dose: 10 mg Multivitamins (Multivitamin) 1 tablet PO DAILY@0800 [facility] Last Admin: 02/16/19 08:35 Dose: 1 tablet Ondansetron HCl (Zofran) 4 mg IV Q8H PRN PRN PRN Reason: NAUSEA/VOMITING Last Admin: 02/16/19 13:34 Dose: 4 mg Sodium Chloride () 5 - 15 ml IV UD PRN PRN Reason: SALINE FLUSH Last Admin: 02/16/19 06:16 Dose: 10 ml Vancomycin HCl () 125 mg PO Q6 [facility] Stop: 02/18/19 18:01 Last Admin: 02/17/19 05:04 Dose: 125 mg Medical Necessity - Tobacco Use Smoking Status: Never smoker Tobacco Use: Non-smoker Assessment/Plan All Active Problems Clostridium difficile infection (Acute) Hyponatremia (Acute) Hypotension due to hypovolemia (Acute) Septic shock (Acute) Cystitis (Acute) Acute kidney injury (Acute) History of breast cancer (Resolved) History of pneumothorax (Resolved) Patient is a 68-year-old lady with recent diagnosis of C. difficile colitis on 02/08/2019 started on vancomycin by PCP brought to the emergency department on account of persistent hypotension and assessment of septic shock secondary to severe C. difficile colitis made admitted to the intensive care unit for subsequent management. 1. Septic shock secondary to acute C. difficile colitis patient admitted to the intensive care unit where she was managed with aggressive IV fluid resuscitation. Patient had to be started on pressors due to persistent hypot ension on PO vancomycin as well as IV Flagyl in view severe C. difficile colitis. Consultation was also placed to ID the patient was seen in consultation by Dr. Ohara his notes and recommendations reviewed. CT of the abdomen and pelvis obtained on 02/12/2019 demonstrated diffuse colitis; her progress has rather been slow still requiring pressors as of 02/14/2019. No significant change in patient's condition as of 02/15/2019 still requiring pressors. Midodrine was added to patient's therapy. Levophed weaned off on the morning of 02/17/2019 2. Suspected healthcare acquired pneumonia vancomycin IV and Zosyn added to patient's therapy. 3. Acute kidney injury secondary to acute tubular necrosis from septic shock. Patient baseline creatinine drawn on 02/01/2019 was 1.12. Patient is on aggressive IV fluid resuscitation with monitoring of electrolyte. Kidney function improving as compared to when she was first admitted 4. Hyponatremia secondary to hypovolemic hyponatremia.; Resolved 5. Chronic kidney disease stage 2 with baseline creatinine of 1.2~1.3 creatinine down to 1.8 as of 02/14/2019 6. Hypothyroidism-patient is on levothyroxine home dose continued 7. Obesity with BMI of 39.7 8. Parkinson's disease on Sinemet did continue 9. Obstructive sleep apnea BiPAP 9 10. Depression patient is on SSRI (Celexa) 11. GERD 12. DVT prophylaxis SC heparin Disposition do anticipate discharge possibly to [facility] in 4-5 days days recent medical condition continues to stabilize Active Medications Acetaminophen (Tylenol) 650 mg PO TID [facility] Last Admin: 02/17/19 05:04 Dose: 650 mg Al Hydroxide/Mg Hydroxide (Mylanta Ii) 15 - 30 ml PO Q4H PRN PRN PRN Reason: INDIGESTION Albuterol Sulfate (Ventolin Aerosols) 2.5 mg INHALATION Q2H PRN PRN PRN Reason: dyspnea, wheezing Calamine/Phenol (Calmoseptine Ointment) 1 applic TOPICAL 4X/DAY [facility]; Protocol Last Admin: 02/16/19 21:38 Dose: 1 applicatio Carbidopa/Levodopa (Sinemet) 1 tablet PO TIDAC [facility] Last Admin: 02/17/19 06:00 Dose: 1 tablet Chlorhexidine Gluconate () 1 each TOPICAL DAILY [facility] Last Admin: 02/17/19 05:04 Dose: 1 each Citalopram Hydrobromide (Celexa) 20 mg PO DAILY [facility] Last Admin: 02/16/19 08:35 Dose: 20 mg Heparin Sodium (Porcine) (Heparin Na) 5,000 unit SC Q12 [facility] Last Admin: 02/16/19 21:40 Dose: 5,000 unit Metronidazole (Flagyl) 500 mg in 100 mls @ 100 mls/hr IV Q8 [facility] Last Admin: 02/17/19 05:04 Dose: 100 mls/hr Norepinephrine Bitartrate 8 mg (/ Sodium Chloride) 250 mls @ 71.25 mls/hr CONT INF .Q3H31M [facility] Last Admin: 02/17/19 07:36 Dose: Not Given Piperacillin Sod/Tazobactam (Sod 3.375 gm/ Sodium Chloride) 50 mls @ 12.5 mls/hr IV Q8 [facility] Last Admin: 02/17/19 05:04 Dose: 12.5 mls/hr Lactobacillus Acidophilus (Acidophilus) 2 tablet PO 4X/DAY [facility] Last Admin: 02/16/19 21:39 Dose: 2 tablet Latanoprost (Xalatan Opthalmic) 1 drop EACH EYE QHS [facility] Last Admin: 02/16/19 21:40 Dose: 1 drop Levothyroxine Sodium (Synthroid) 75 mcg PO DAILY@0600 [facility] Last Admin: 02/17/19 05:04 Dose: 75 mcg Midodrine (Proamatine) 10 mg PO TID [facility] Last Admin: 02/17/19 05:04 Dose: 10 mg Montelukast Sodium (Singulair) 10 mg PO DAILY [facility] Last Admin: 02/16/19 08:35 Dose: 10 mg Multivitamins (Multivitamin) 1 tablet PO DAILY@0800 [facility] Last Admin: 02/16/19 08:35 Dose: 1 tablet Ondansetron HCl (Zofran) 4 mg IV Q8H PRN PRN PRN Reason: NAUSEA/VOMITING Last Admin: 02/17/19 07:36 Dose: 4 mg Sodium Chloride () 5 - 15 ml IV UD PRN PRN Reason: SALINE FLUSH Last Admin: 02/17/19 07:36 Dose: 10 ml Vancomycin HCl () 125 mg PO Q6 [facility] Stop: 02/18/19 18:01 Last Admin: 02/17/19 05:04 Dose: 125 mg Clinical Impression(s) from Imaging Studies Chest X-Ray 02/11/19 11:15 IMPRESSION: Stable examination without radiographically evident acute cardiopulmonary disease. Electronically Signed: Andreas Juan MD at 11:45 EDT , Service support , Abdomen CT 02/12/19 15:47 IMPRESSION: Ascites and pelvic fluid. Probably diffuse colitis. Right hepatic cyst. Bilateral pleural effusions with basilar consolidation/atelectasis, right more than left. Electronically Signed: Israel Staley DO at 18:47 EDT Tel [phone], Service support , Acute Abdomen Series 02/15/19 17:20 IMPRESSION: Nonspecific bowel gas pattern. No free air is seen. Compared to prior chest radiograph there has been increasing bilateral pleural effusions with adjacent atelectasis/infiltrates. Left upper extremity PICC line with the tip projecting over the SVC. No pneumothorax identified. Electronically Signed: Jens Isaac, at 6:50 EDT Tel , Service support , Chest X-Ray 02/16/19 07:00 IMPRESSION: Small pleural effusions and lower lung consolidation. Electronically Signed: Tino Yepez MD at 9:20 EDT , Service support , Code Visit Inpatient E&M: 36651 Subs Hosp L3
[2019-02-17] MEDS: Ondansetron 4 MG/2 ML Vial IV (07:36)
[2019-02-17] MEDS: 0.9% NaCl Peripheral Flush Adult/Peds IV (07:36)
[2019-02-17] MEDS: Multivitamins,Therapeutic Tablet 1 TABLET PO (11:29)
[2019-02-17] MEDS: Citalopram 20 MG Tablet PO (11:29)
[2019-02-17] MEDS: Montelukast 10 MG Tablet PO (11:29)
[2019-02-17] MEDS: Heparin Injection (Vial) 5,000 UNIT/ML VIAL 5000 UNIT SC ×2 (11:29→21:09)
[2019-02-17] MEDS: Menthol/Lanolin/Calamine/Znox 113 GM Tube 1 APPLIC TOPICAL ×4 (11:29→21:08)
[2019-02-17] MEDS: Latanoprost 0.005% 1 Bottle 1 DRP EACH EYE (21:10)
[2019-02-18] VITALS (19 sets, daily range): BP systolic 106–161; BP diastolic 43–75; PULSE 65–81; RESP 12–24; TEMP 35.7–37; O2SAT 95–98
[2019-02-18 05:25] LABS: Absolute Lymphocyte Count 1.01 X10^3/ul (0.83-4.51); Absolute Neutrophil Count 10.1 X10^3/uL (2.0-7.7); Basophil# 0.02 X10^3/uL; Basophil% 0.2 % (0-1); Eosinophils% 1.6 % (0-5); Hematocrit 28.9 % (37-47); Hemoglobin 9.7 g/dl (12.0-15.0); Lymphocyte # 1.01 X10^3/ul (4.0); Lymphocyte % 8.2 % (19-41); Mean Corp Hgb Conc 33.6 g/gl (32-36); Mean Corpuscular Hgb 31.2 pg (27.0-32.0); Mean Corpuscular Volume 92.9 fL (81-99); Mean Platelet Vol. 9.3 fl (6.2-12.0); Monocyte% 5.7 % (0-10); Neutrophil # 10.09 X10^3/uL (2.7-7.7); Neutrophil % 82.4 % (47-70); Platelet Count 228 K/mm3 (150-450); RBC Distribution Width CV 16.2 % (11.6-14.6); RBC Distribution Width SD 55.1 fl (35.1-43.9); Red Blood Count 3.11 M/mm3 (4.2-5.4); White Blood Count 12.3 K/mm3 (4.4-11.0)
[2019-02-18 05:28] LABS: Anion Gap 3 (5-15); BUN 41 mg/dL (7-18); BUN/Creat Ratio 33.6 RATIO (10-20); Calcium,Total 8.6 mg/dL (8.5-10.1); Chloride 106 mmol/L (98-107); Creatinine, Serum 1.22 mg/dL (0.55-1.02); EST Glomerular Filtration Rate 46 mL/min (>60); Est Glom Filt Rate - Afr Amer 56 mL/min (>60); Estimated Creatinine Clearance 35.49 ml/min; Glucose 110 mg/dL (74-106); Potassium 3.9 mmol/L (3.5-5.1); Sodium Level 140 mmol/L (136-145)
[2019-02-18 05:45] LABS: POSITIVE COUNT NO; POSITIVE DIFFERENTIAL NO; POSITIVE MORPHOLOGY NO
[2019-02-18] MEDS: 0.9% NaCl Peripheral Flush Adult/Peds IV (06:27)
[2019-02-18] MEDS: Carbidopa/Levodopa 25/100 Tablet PO ×3 (06:28→16:54)
[2019-02-18] MEDS: Acetaminophen 325 MG Tablet 650 MG PO ×3 (06:28→21:50)
[2019-02-18] MEDS: Midodrine HCl 5 MG Tablet 10 MG PO ×3 (06:28→21:50)
[2019-02-18] MEDS: Levothyroxine 75 MCG Tablet PO (06:29)
--- NOTE | 2019-02-18 07:06 | PCM.PN.INT ---
Subjective: Patient did okay overnight. No pressor requirements have been noted. Blood pressure continues to improve. No bleeding has been reported. Nursing was called with a gram-negative brenna in sputum, but species and sensitivities are not available at this time. Patient did use BiPAP therapy overnight for obstructive sleep apnea and is on nasal cannula oxygen during the day. Patient feels subjectively unchanged compared to previous. Patient did have a significant number of stools yesterday. General: Alert, Oriented x3, Cooperative, No apparent distress, - - Anasarca. Morbidly obese. HEENT: Atraumatic, PERRLA, EOMI, Normocephalic, - - Slight scleral injection without icterus Oral: Moist Mucosa, No Gingival or Mucosal Lesions/ Ulcerations Neck: Supple, No Nodes, Trachea Midline, JVD, Right Lungs: No rhonchi, No wheeze, No rales, Diminished, - - Symmetric expansion. No dullness to percussion. Cardiovascular: Regular rate, Regular Rhythm, Normal S1, Normal S2, No murmurs, No rub noted, No Gallop Abdomen: Bowel Sounds Present, Soft, Non Tender, Non-Distended, Obese Extremities: No clubbing, No cyanosis, Edema Skin: No rashes, No breakdown Musculoskeletal: No Tenderness to Palpation of Joints or Extremities Lymphatic: No Cervical, Supraclavicular, or Inguinal Adenopathy Neurological: Cranial nerves II-XII grossly intact, Neuro grossly intact Psych/Mental Status: Appropriate, Flat Affect Vital Signs Temp Pulse Resp BP Pulse Ox 36.3 C L 69 14 126/47 H 96 02/18/19 04:00 02/18/19 06:00 02/18/19 06:00 02/18/19 06:00 02/18/19 06:00 Oxygen Flow Rate (L/min) 2 Oxygen Delivery Method Bi-pap Weight: 110 kg Body Mass Index (BMI) 38.2 Intake and Output for Last 24 Hours 02/16/19 02/17/19 02/18/19 23:59 23:59 23:59 Intake Total 1314 / 1314 1517 / 1517 406 / 406 Output Total 1400 / 1400 450 / 450 500 / 500 Balance -86 / -86 1067 / 1067 -94 / -94 Labs (Last 48 Hours) 04/27/19 04/27/19 04/27/19 08:00 08:00 08:00 WBC 12.3 H RBC 3.58 L Hgb 11.0 L Hct 32.2 L MCV 89.9 MCH 30.7 MCHC 34.2 RDW 15.6 H RDW Differential 50.5 H Plt Count 180 MPV 9.0 Immature Gran % (Auto) 2.400 H Neut % (Auto) 81.5 H Lymph % (Auto) 8.5 L [place] % (Auto) 6.6 Eos % (Auto) 0.8 Baso % (Auto) 0.2 Absolute Neuts (auto) 10.1 H Absolute Lymphs (auto) 1.05 Total Counted Not Reportable Differential Comment SCANNED Diff Path Review February Sodium 135 L Potassium 4.0 Chloride 105 Carbon Dioxide 24.0 Anion Gap 6 BUN 44 H Creatinine 1.35 H Estim Creat Clear Calc 32.08 Est GFR (MDRD) Af Amer 50 L Est GFR (MDRD) Non-Af 41 L BUN/Creatinine Ratio 32.6 H Glucose 169 H Calcium 8.2 L Magnesium Total Bilirubin 0.20 AST 14 L ALT < 6 L Alkaline Phosphatase 110 B-Natriuretic Peptide 36.3 Total Protein 4.1 L Albumin 1.5 L Globulin 2.6 Albumin/Globulin Ratio 0.6 L Lipase 200 02/17/19 02/17/19 02/18/19 05:10 05:10 04:45 WBC 13.6 H 12.3 H RBC 3.32 L 3.11 L Hgb 10.4 L 9.7 L Hct 30.7 L 28.9 L MCV 92.5 92.9 MCH 31.3 31.2 MCHC 33.9 33.6 RDW 15.6 H 16.2 H RDW Differential 53.1 H 55.1 H Plt Count 193 228 MPV 9.1 9.3 Immature Gran % (Auto) 1.700 H 1.900 H Neut % (Auto) 83.5 H 82.4 H Lymph % (Auto) 7.5 L 8.2 L [place] % (Auto) 6.0 5.7 Eos % (Auto) 1.2 1.6 Baso % (Auto) 0.1 0.2 Absolute Neuts (auto) 11.3 H 10.1 H Absolute Lymphs (auto) 1.02 1.01 Total Counted Not Reportable Not Reportable Differential Comment Diff Path Review Sodium 139 Potassium 4.3 Chloride 106 Carbon Dioxide 30.0 Anion Gap 3 L BUN 42 H Creatinine 1.25 H Estim Creat Clear Calc 34.64 Est GFR (MDRD) Af Amer 54 L Est GFR (MDRD) Non-Af 45 L BUN/Creatinine Ratio 33.6 H Glucose 120 H Calcium 8.4 L Magnesium 1.7 Total Bilirubin AST ALT Alkaline Phosphatase B-Natriuretic Peptide Total Protein Albumin Globulin Albumin/Globulin Ratio Lipase 02/18/19 04:45 WBC RBC Hgb Hct MCV MCH MCHC RDW RDW Differential Plt Count MPV Immature Gran % (Auto) Neut % (Auto) Lymph % (Auto) [place] % (Auto) Eos % (Auto) Baso % (Auto) Absolute Neuts (auto) Absolute Lymphs (auto) Total Counted Differential Comment Diff Path Review Sodium 140 Potassium 3.9 Chloride 106 Carbon Dioxide 31.0 Anion Gap 3 L BUN 41 H Creatinine 1.22 H Estim Creat Clear Calc 35.49 Est GFR (MDRD) Af Amer 56 L Est GFR (MDRD) Non-Af 46 L BUN/Creatinine Ratio 33.6 H Glucose 110 H Calcium 8.6 Magnesium Total Bilirubin AST ALT Alkaline Phosphatase B-Natriuretic Peptide Total Protein Albumin Globulin Albumin/Globulin Ratio Lipase Microbiology 02/16/19 07:35 Sputum, Expectorated/Coughed Gram Stain - Final 02/16/19 07:35 Sputum, Expectorated/Coughed Respiratory Culture - Preliminary Gram negative brenna 02/16/19 07:35 Mucosa - Nasopharyngeal Respiratory Panel (PCR) - Final 02/11/19 11:30 Blood Culture (Wb) - Anticubital Left Blood Culture - Final No growth in 5 days. 02/11/19 11:35 Blood Culture (Wb) - Left Forearm Blood Culture - Final No growth in 5 days. Medical Necessity - Tobacco Use Smoking Status: Never smoker Tobacco Use: Non-smoker Assessment/Plan All Active Problems Clostridium difficile infection (Acute) Hyponatremia (Acute) Hypotension due to hypovolemia (Acute) Septic shock (Acute) Cystitis (Acute) Acute kidney injury (Acute) History of breast cancer (Resolved) History of pneumothorax (Resolved) RECOMMENDATIONS: 1. Continue p.o. vancomycin and IV Flagyl for severe C. difficile colitis. 2. Continue scheduled Midodrine TID. 3. Defer to infectious disease on sputum gram-negative brenna 4. Encourage aggressive incentive spirometer use along with PEP therapy. 5. Continue appropriate ICU prophylaxis. 6. Continue nocturnal BiPAP therapy. 7. Possibly initiate diuretic therapy the next 24 to 48 hours 8. Okay to leave the intensive care unit from my perspective IMPRESSIONS: 1. Septic shock secondary to recent diagnosis of C. difficile colitis Patient has been off of pressors for over 24 hours. Patient does remain on broad-spectrum antibiotics with IV Flagyl and p.o. vancomycin for C. difficile and meropenem was added over the weekend secondary to concern for infiltrate. Patient has been placed on midodrine and is responding well. Patient does have very poor nutritional status, likely adding to anasarca. 2. Acute hypoxic respiratory insufficiency The patient, at her baseline, only utilizes 2 L/min of supplemental oxygen nightly as a bleed in for her CPAP. She does not utilize supplemental oxygen throughout the day. My suspicion is that her current oxygen requirement is likely due to possible pleural effusions and associated atelectasis. However, given that the patient was retaining some CO2 during this hospitalization, she was transitioned from CPAP to BiPAP nightly. Defer to infectious disease on antibiotics given C. difficile and potential aspiration pneumonia. Likely initiate diuretic therapy in the next 24 to 48 hours if stable blood pressure. 3. Acute on chronic kidney disease Improving. Likely prerenal in etiology and related to ischemic ATN in the setting of #1. Anticipate improvement with stabilization of hemodynamics and with volume expansion. Continue to monitor urine output. No current indication for renal replacement therapy. 4. Obstructive sleep apnea Continue nocturnal PAP therapy as ordered. 5. Personal history of Parkinson's disease/obesity/depression/hypothyroidism/GERD Complicates care, management, recovery and prognosis. Continue home medications as indicated. Code Visit Inpatient E&M: 83519 [facility] Hosp L3
[2019-02-18] MEDS: Citalopram 20 MG Tablet PO (07:52)
[2019-02-18] MEDS: Montelukast 10 MG Tablet PO (07:52)
[2019-02-18] MEDS: Multivitamins,Therapeutic Tablet 1 TABLET PO (07:52)
[2019-02-18] MEDS: Menthol/Lanolin/Calamine/Znox 113 GM Tube 1 APPLIC TOPICAL ×4 (07:53→21:50)
[2019-02-18] MEDS: Heparin Injection (Vial) 5,000 UNIT/ML VIAL 5000 UNIT SC ×2 (07:53→21:50)
[2019-02-18] MEDS: CHLORHEXIDINE GLUC 2% CLOTH 1 EACH TOWELETTE TOPICAL (07:53)
--- NOTE | 2019-02-18 09:16 | PCM.PN.HOSP ---
Patient Problems: Active and Suspected Problems Clostridium difficile infection (Acute) Hyponatremia (Acute) Hypotension due to hypovolemia (Acute) Septic shock (Acute) Subjective: Off pressors for 24h. Feeling well. Still with diarrhea, but improved. Never had Cdiff previously. Vitals/I&O's: Vital Signs Temp Pulse Resp BP Pulse Ox 35.7 C L 76 19 H 161/63 H 96 02/18/19 08:00 02/18/19 08:00 02/18/19 08:00 02/18/19 08:00 02/18/19 08:00 Oxygen Flow Rate (L/min) 3 Oxygen Delivery Method Nasal Cannula Weight: 110 kg Body Mass Index (BMI) 38.2 Intake and Output for Last 24 Hours 02/16/19 02/17/19 02/18/19 23:59 23:59 23:59 Intake Total 1314 / 1314 1517 / 1517 406 / 406 Output Total 1400 / 1400 450 / 450 500 / 500 Balance -86 / -86 1067 / 1067 -94 / -94 General: Alert, No apparent distress, - - myoclonus of jaw. HEENT: Atraumatic, Normocephalic Oral: Moist Mucosa, No Gingival or Mucosal Lesions/ Ulcerations Neck: No Nodes, Thyroid Normal Size and Texture Lungs: Clear to auscultation, Normal air movement, No rhonchi, No wheeze Cardiovascular: Regular rate, Regular Rhythm, Normal S1, Normal S2, No murmurs Abdomen: Bowel Sounds Present, Soft, Non Tender, Non-Distended, No Hepato-splenomegaly Extremities: No Calf Tenderness, Edema Skin: No rashes, No breakdown Musculoskeletal: No Tenderness to Palpation of Joints or Extremities, No Muscle Wasting Psych/Mental Status: Appropriate, Flat Affect Microbiology Past 72 Hours 02/16/19 07:35 Sputum, Expectorated/Coughed Gram Stain - Final 02/16/19 07:35 Sputum, Expectorated/Coughed Respiratory Culture - Preliminary Escherichia coli Presumptive C albicans 02/16/19 07:35 Mucosa - Nasopharyngeal Respiratory Panel (PCR) - Final 02/11/19 11:30 Blood Culture (Wb) - Anticubital Left Blood Culture - Final No growth in 5 days. 02/11/19 11:35 Blood Culture (Wb) - Left Forearm Blood Culture - Final No growth in 5 days. Laboratory Results 02/18/19 04:45: WBC 12.3 H, RBC 3.11 L, Hgb 9.7 L, Hct 28.9 L, MCV 92.9, MCH 31.2, MCHC 33.6, RDW 16.2 H, RDW Differential 55.1 H, Plt Count 228, MPV 9.3, Immature Gran % (Auto) 1.900 H, Neut % (Auto) 82.4 H, Lymph % (Auto) 8.2 L, [place] % (Auto) 5.7, Eos % (Auto) 1.6, Baso % (Auto) 0.2, Absolute Neuts (auto) 10.1 H, Absolute Lymphs (auto) 1.01, Total Counted Not Reportable 02/18/19 04:45: Sodium 140, Potassium 3.9, Chloride 106, Carbon Dioxide 31.0, Anion Gap 3 L, BUN 41 H, Creatinine 1.22 H, Estim Creat Clear Calc 35.49, Est GFR (MDRD) Af Amer 56 L, Est GFR (MDRD) Non-Af 46 L, BUN/Creatinine Ratio 33.6 H, Glucose 110 H, Calcium 8.6 Current Medications Acetaminophen (Tylenol) 650 mg PO TID [facility] Last Admin: 02/18/19 06:28 Dose: 650 mg Al Hydroxide/Mg Hydroxide (Mylanta Ii) 15 - 30 ml PO Q4H PRN PRN PRN Reason: INDIGESTION Albuterol Sulfate (Ventolin Aerosols) 2.5 mg INHALATION Q2H PRN PRN PRN Reason: dyspnea, wheezing Calamine/Phenol (Calmoseptine Ointment) 1 applic TOPICAL 4X/DAY [facility]; Protocol Last Admin: 02/18/19 07:53 Dose: 1 applicatio Carbidopa/Levodopa (Sinemet) 1 tablet PO TIDAC [facility] Last Admin: 02/18/19 06:28 Dose: 1 tablet Chlorhexidine Gluconate () 1 each TOPICAL DAILY [facility] Last Admin: 02/18/19 07:53 Dose: 1 each Citalopram Hydrobromide (Celexa) 20 mg PO DAILY [facility] Last Admin: 02/18/19 07:52 Dose: 20 mg Heparin Sodium (Porcine) (Heparin Na) 5,000 unit SC Q12 [facility] Last Admin: 02/18/19 07:53 Dose: 5,000 unit Metronidazole (Flagyl) 500 mg in 100 mls @ 100 mls/hr IV Q8 [facility] Last Admin: 02/18/19 06:28 Dose: 100 mls/hr Piperacillin Sod/Tazobactam (Sod 3.375 gm/ Sodium Chloride) 50 mls @ 12.5 mls/hr IV Q8 [facility] Last Admin: 02/18/19 06:28 Dose: 12.5 mls/hr Lactobacillus Acidophilus (Acidophilus) 2 tablet PO 4X/DAY [facility] Last Admin: 02/18/19 07:53 Dose: 2 tablet Latanoprost (Xalatan Opthalmic) 1 drop EACH EYE QHS [facility] Last Admin: 02/17/19 21:10 Dose: 1 drop Levothyroxine Sodium (Synthroid) 75 mcg PO DAILY@0600 [facility] Last Admin: 02/18/19 06:29 Dose: 75 mcg Midodrine (Proamatine) 10 mg PO TID [facility] Last Admin: 02/18/19 06:28 Dose: 10 mg Montelukast Sodium (Singulair) 10 mg PO DAILY [facility] Last Admin: 02/18/19 07:52 Dose: 10 mg Multivitamins (Multivitamin) 1 tablet PO DAILY@0800 [facility] Last Admin: 02/18/19 07:52 Dose: 1 tablet Ondansetron HCl (Zofran) 4 mg IV Q8H PRN PRN PRN Reason: NAUSEA/VOMITING Last Admin: 02/17/19 07:36 Dose: 4 mg Sodium Chloride () 5 - 15 ml IV UD PRN PRN Reason: SALINE FLUSH Last Admin: 02/18/19 06:27 Dose: 10 ml Vancomycin HCl () 125 mg PO Q6 [facility] Stop: 02/18/19 18:01 Last Admin: 02/18/19 06:28 Dose: 125 mg Medical Necessity - Tobacco Use Smoking Status: Never smoker Tobacco Use: Non-smoker Assessment/Plan All Active Problems Clostridium difficile infection (Acute) Hyponatremia (Acute) Hypotension due to hypovolemia (Acute) Septic shock (Acute) Cystitis (Acute) Acute kidney injury (Acute) History of breast cancer (Resolved) History of pneumothorax (Resolved) 1. Septic shock resolved 2/2 Cdiff off pressors 2. C.diff colitis ongoing, but improved On PO vanc and IV flagyl, continue this for now, but eventually (if continues to improve) change to PO vanc 3. possible gram negative pneumonia on zosyn follow up cultures. aspiration? 4. ARRON resolved Creatinine back to baseline likely prerenal +/- ATN 5. Parkinson's dz, KAREN, hypothyroidism: complicates overall care 6. VTE proph: SQ heparin DW patient's dtr at bedside. Transfer to general medical floor. Code Visit Inpatient E&M: 18772 Subs Hosp L2
--- NOTE | 2019-02-18 09:25 | PN_ITS ---
Patient Problems: Active and Suspected Problems Clostridium difficile infection (Acute) Hyponatremia (Acute) Hypotension due to hypovolemia (Acute) Septic shock (Acute) Subjective: Off pressors for 24h. Feeling well. Still with diarrhea, but improved. Never had Cdiff previously. Vitals/I&O's: Vital Signs Temp Pulse Resp BP Pulse Ox 35.7 C L 76 19 H 161/63 H 96 02/18/19 08:00 02/18/19 08:00 02/18/19 08:00 02/18/19 08:00 02/18/19 08:00 Oxygen Flow Rate (L/min) 3 Oxygen Delivery Method Nasal Cannula Weight: 110 kg Body Mass Index (BMI) 38.2 Intake and Output for Last 24 Hours 02/16/19 02/17/19 02/18/19 23:59 23:59 23:59 Intake Total 1314 / 1314 1517 / 1517 406 / 406 Output Total 1400 / 1400 450 / 450 500 / 500 Balance -86 / -86 1067 / 1067 -94 / -94 General: Alert, No apparent distress, - - myoclonus of jaw. HEENT: Atraumatic, Normocephalic Oral: Moist Mucosa, No Gingival or Mucosal Lesions/ Ulcerations Neck: No Nodes, Thyroid Normal Size and Texture Lungs: Clear to auscultation, Normal air movement, No rhonchi, No wheeze Cardiovascular: Regular rate, Regular Rhythm, Normal S1, Normal S2, No murmurs Abdomen: Bowel Sounds Present, Soft, Non Tender, Non-Distended, No Hepato- splenomegaly Extremities: No Calf Tenderness, Edema Skin: No rashes, No breakdown Musculoskeletal: No Tenderness to Palpation of Joints or Extremities, No Muscle Wasting Psych/Mental Status: Appropriate, Flat Affect Microbiology Past 72 Hours 02/16/19 07:35 Sputum, Expectorated/Coughed Gram Stain - Final 02/16/19 07:35 Sputum, Expectorated/Coughed Respiratory Culture - Preliminary Escherichia coli Presumptive C albicans 02/16/19 07:35 Mucosa - Nasopharyngeal Respiratory Panel (PCR) - Final 02/11/19 11:30 Blood Culture (Wb) - Anticubital Left Blood Culture - Final No growth in 5 days. 02/11/19 11:35 Blood Culture (Wb) - Left Forearm Blood Culture - Final No growth in 5 days. Laboratory Results 02/18/19 04:45: WBC 12.3 H, RBC 3.11 L, Hgb 9.7 L, Hct 28.9 L, MCV 92.9, MCH 31.2, MCHC 33.6, RDW 16.2 H, RDW Differential 55.1 H, Plt Count 228, MPV 9.3, Immature Gran % (Auto) 1.900 H, Neut % (Auto) 82.4 H, Lymph % (Auto) 8.2 L, [place] % (Auto) 5.7, Eos % (Auto) 1.6, Baso % (Auto) 0.2, Absolute Neuts (auto) 10.1 H, Absolute Lymphs (auto) 1.01, Total Counted Not Reportable 02/18/19 04:45: Sodium 140, Potassium 3.9, Chloride 106, Carbon Dioxide 31.0, Anion Gap 3 L, BUN 41 H, Creatinine 1.22 H, Estim Creat Clear Calc 35.49, Est GFR (MDRD) Af Amer 56 L, Est GFR (MDRD) Non-Af 46 L, BUN/Creatinine Ratio 33.6 H , Glucose 110 H, Calcium 8.6 Current Medications Acetaminophen (Tylenol) 650 mg PO TID [facility] Last Admin: 02/18/19 06:28 Dose: 650 mg Al Hydroxide/Mg Hydroxide (Mylanta Ii) 15 - 30 ml PO Q4H PRN PRN PRN Reason: INDIGESTION Albuterol Sulfate (Ventolin Aerosols) 2.5 mg INHALATION Q2H PRN PRN PRN Reason: dyspnea, wheezing Calamine/Phenol (Calmoseptine Ointment) 1 applic TOPICAL 4X/DAY [facility]; Protocol Last Admin: 02/18/19 07:53 Dose: 1 applicatio Carbidopa/Levodopa (Sinemet) 1 tablet PO TIDAC [facility] Last Admin: 02/18/19 06:28 Dose: 1 tablet Chlorhexidine Gluconate () 1 each TOPICAL DAILY [facility] Last Admin: 02/18/19 07:53 Dose: 1 each Citalopram Hydrobromide (Celexa) 20 mg PO DAILY [facility] Last Admin: 02/18/19 07:52 Dose: 20 mg Heparin Sodium (Porcine) (Heparin Na) 5,000 unit SC Q12 [facility] Last Admin: 02/18/19 07:53 Dose: 5,000 unit Metronidazole (Flagyl) 500 mg in 100 mls @ 100 mls/hr IV Q8 [facility] Last Admin: 02/18/19 06:28 Dose: 100 mls/hr Piperacillin Sod/Tazobactam (Sod 3.375 gm/ Sodium Chloride) 50 mls @ 12.5 mls /hr IV Q8 [facility] Last Admin: 02/18/19 06:28 Dose: 12.5 mls/hr Lactobacillus Acidophilus (Acidophilus) 2 tablet PO 4X/DAY [facility] Last Admin: 02/18/19 07:53 Dose: 2 tablet Latanoprost (Xalatan Opthalmic) 1 drop EACH EYE QHS [facility] Last Admin: 02/17/19 21:10 Dose: 1 drop Levothyroxine Sodium (Synthroid) 75 mcg PO DAILY@0600 [facility] Last Admin: 02/18/19 06:29 Dose: 75 mcg Midodrine (Proamatine) 10 mg PO TID [facility] Last Admin: 02/18/19 06:28 Dose: 10 mg Montelukast Sodium (Singulair) 10 mg PO DAILY [facility] Last Admin: 02/18/19 07:52 Dose: 10 mg Multivitamins (Multivitamin) 1 tablet PO DAILY@0800 [facility] Last Admin: 02/18/19 07:52 Dose: 1 tablet Ondansetron HCl (Zofran) 4 mg IV Q8H PRN PRN PRN Reason: NAUSEA/VOMITING Last Admin: 02/17/19 07:36 Dose: 4 mg Sodium Chloride () 5 - 15 ml IV UD PRN PRN Reason: SALINE FLUSH Last Admin: 02/18/19 06:27 Dose: 10 ml Vancomycin HCl () 125 mg PO Q6 [facility] Stop: 02/18/19 18:01 Last Admin: 02/18/19 06:28 Dose: 125 mg Medical Necessity - Tobacco Use Smoking Status: Never smoker Tobacco Use: Non-smoker Assessment/Plan All Active Problems Clostridium difficile infection (Acute) Hyponatremia (Acute) Hypotension due to hypovolemia (Acute) Septic shock (Acute) Cystitis (Acute) Acute kidney injury (Acute) History of breast cancer (Resolved) History of pneumothorax (Resolved) 1. Septic shock * resolved * 2/2 Cdiff * off pressors 2. C.diff colitis * ongoing, but improved * On PO vanc and IV flagyl, continue this for now, but eventually (if continues to improve) change to PO vanc 3. possible gram negative pneumonia * on zosyn * follow up cultures. * aspiration? 4. ARRON * resolved * Creatinine back to baseline * likely prerenal +/- ATN 5. Parkinson's dz, KAREN, hypothyroidism: complicates overall care 6. VTE proph: SQ heparin DW patient's dtr at bedside. Transfer to general medical floor. Code Visit Inpatient E&M: 22433 Subs Hosp L2
--- NOTE | 2019-02-18 10:59 | CASEMGMT ---
Updates faxed to [place]. Lou COHEN PAINTER DRUM
[2019-02-18 14:41] LABS: Pathologist Review Reviewed
--- NOTE | 2019-02-18 16:27 | PN.ID_ITS ---
Patient Problems: Active and Suspected Problems Clostridium difficile infection (Acute) Hyponatremia (Acute) Hypotension due to hypovolemia (Acute) Septic shock (Acute) Subjective: Some abd pain still, off pressors, no sputum, no fever. - Physical Exam General: Alert, Cooperative, No apparent distress Lungs: Clear to auscultation, Diminished Cardiovascular: Regular rate, Regular Rhythm Abdomen: Soft, Tender - mild Skin: No rashes Vital Signs Temp Pulse Resp BP Pulse Ox 98.6 F 77 18 126/52 H 95 02/18/19 14:09 02/18/19 14:09 02/18/19 14:09 02/18/19 14:09 02/18/19 14:09 Oxygen Flow Rate (L/min) 3 Oxygen Delivery Method Mechanical Ventilator Weight: 110 kg Body Mass Index (BMI) 38.2 Intake and Output for Last 24 Hours 02/16/19 02/17/19 02/18/19 23:59 23:59 23:59 Intake Total 1314 / 1314 1517 / 1517 906 / 906 Output Total 1400 / 1400 450 / 450 850 / 850 Balance -86 / -86 1067 / 1067 56 / 56 Microbiology Past 72 Hours 02/16/19 07:35 Gram Stain - Final Sputum, Expectorated/Coughed Respiratory Culture - Preliminary Escherichia coli Presumptive C albicans 02/16/19 07:35 Respiratory Panel (PCR) - Final Mucosa - Nasopharyngeal 02/11/19 11:30 Blood Culture - Final Blood Culture (Wb) - Anticubital Left No growth in 5 days. 02/11/19 11:35 Blood Culture - Final Blood Culture (Wb) - Left Forearm No growth in 5 days. Laboratory Tests Past 24 Hrs 02/16/19 02/18/19 02/18/19 08:00 04:45 04:45 WBC 12.3 H RBC 3.11 L Hgb 9.7 L Hct 28.9 L MCV 92.9 MCH 31.2 MCHC 33.6 RDW 16.2 H RDW Differential 55.1 H Plt Count 228 MPV 9.3 Immature Gran % (Auto) 1.900 H Neut % (Auto) 82.4 H Lymph % (Auto) 8.2 L [place] % (Auto) 5.7 Eos % (Auto) 1.6 Baso % (Auto) 0.2 Absolute Neuts (auto) 10.1 H Absolute Lymphs (auto) 1.01 Total Counted Not Reportable Diff Path Review Reviewed Sodium 140 Potassium 3.9 Chloride 106 Carbon Dioxide 31.0 Anion Gap 3 L BUN 41 H Creatinine 1.22 H Estim Creat Clear Calc 35.49 Est GFR (MDRD) Af Amer 56 L Est GFR (MDRD) Non-Af 46 L BUN/Creatinine Ratio 33.6 H Glucose 110 H Calcium 8.6 Medical Necessity - Tobacco Use Smoking Status: Never smoker Tobacco Use: Non-smoker Route of nutrition/ use of supplements: [] Nutritional Intake: [] IV Site: [] Rosen Catheter: [] - Assessment/Plan Antibiotics: [] Assessment/Plan: [] Active and Suspected Problems Clostridium difficile infection (Acute) Hyponatremia (Acute) Hypotension due to hypovolemia (Acute) Septic shock due to Cdiff colitis with ARRON - Cont iv flagyl and po vanc. CT showed diffuse colitis, no megacolon. Cr improved. Now off pressors. abnormal cxr - infiltrate seen, no new fever, no new leukocytosis, no new hypoxia, no new sputum. Will stop zosyn. Additional abx without true infection will make cdiff harder to treat. Xray changes may be more fluid-related. Will follow, d/w Dr. Mane.
--- NOTE | 2019-02-18 17:09 | NURSING ---
Home Cpap machine in red bag transferred to med surg [id number]
[2019-02-18] MEDS: Latanoprost 0.005% 1 Bottle 1 DRP EACH EYE (21:55)
[2019-02-19] VITALS (10 sets, daily range): BP systolic 107–118; BP diastolic 58–70; PULSE 70–86; RESP 12–21; TEMP 35.9–36.8; O2SAT 94–98
[2019-02-19 05:29] LABS: Absolute Neutrophil Count 9.7 X10^3/uL (2.0-7.7); Basophil# 0.03 X10^3/uL; Basophil% 0.3 % (0-1); Eosinophil# 0.19 X10^3/uL; Eosinophils% 1.6 % (0-5); Hematocrit 30.2 % (37-47); Lymphocyte % 9.2 % (19-41); Mean Corp Hgb Conc 33.1 g/gl (32-36); Mean Corpuscular Hgb 30.8 pg (27.0-32.0); Mean Corpuscular Volume 92.9 fL (81-99); Mean Platelet Vol. 8.8 fl (6.2-12.0); Monocyte# 0.66 X10^3/uL; Monocyte% 5.5 % (0-10); Neutrophil # 9.65 X10^3/uL (2.7-7.7); Platelet Count 312 K/mm3 (150-450); RBC Distribution Width CV 16.4 % (11.6-14.6); RBC Distribution Width SD 53.2 fl (35.1-43.9); Red Blood Count 3.25 M/mm3 (4.2-5.4); White Blood Count 11.9 K/mm3 (4.4-11.0)
[2019-02-19 05:38] LABS: Anion Gap 3 (5-15); BUN 32 mg/dL (7-18); BUN/Creat Ratio 31.1 RATIO (10-20); Calcium,Total 8.5 mg/dL (8.5-10.1); Chloride 107 mmol/L (98-107); Creatinine, Serum 1.03 mg/dL (0.55-1.02); EST Glomerular Filtration Rate 56 mL/min (>60); Est Glom Filt Rate - Afr Amer 68 mL/min (>60); Estimated Creatinine Clearance 42.04 ml/min; Glucose 108 mg/dL (74-106); Potassium 3.8 mmol/L (3.5-5.1); Sodium Level 142 mmol/L (136-145)
[2019-02-19 05:42] LABS: POSITIVE COUNT YES; POSITIVE DIFFERENTIAL NO; POSITIVE MORPHOLOGY YES
[2019-02-19] MEDS: Carbidopa/Levodopa 25/100 Tablet PO ×3 (06:30→14:13)
[2019-02-19] MEDS: Midodrine HCl 5 MG Tablet 10 MG PO ×3 (06:30→22:05)
[2019-02-19] MEDS: Acetaminophen 325 MG Tablet 650 MG PO ×3 (06:30→22:04)
[2019-02-19] MEDS: Levothyroxine 75 MCG Tablet PO (06:30)
[2019-02-19] MEDS: Multivitamins,Therapeutic Tablet 1 TABLET PO (09:43)
[2019-02-19] MEDS: Heparin Injection (Vial) 5,000 UNIT/ML VIAL 5000 UNIT SC ×2 (09:43→22:04)
[2019-02-19] MEDS: Montelukast 10 MG Tablet PO (09:43)
[2019-02-19] MEDS: CHLORHEXIDINE GLUC 2% CLOTH 1 EACH TOWELETTE TOPICAL (09:44)
[2019-02-19] MEDS: Menthol/Lanolin/Calamine/Znox 113 GM Tube 1 APPLIC TOPICAL ×4 (09:44→22:05)
[2019-02-19] MEDS: Citalopram 20 MG Tablet PO (09:45)
[2019-02-19] MEDS: Ondansetron 4 MG/2 ML Vial IV (09:46)
--- NOTE | 2019-02-19 10:12 | PN_ITS ---
Patient Problems: Active and Suspected Problems Clostridium difficile infection (Acute) Hyponatremia (Acute) Hypotension due to hypovolemia (Acute) Septic shock (Acute) Subjective: Patient transferred out of the intensive care unit yesterday. Patient reports she is subjectively unchanged compared to previous. Patient is not reporting many bowel movements overnight. Patient has reported slight worsening in her shortness of breath and has been requiring 3-4 and 8 L nasal cannula to maintain saturations. Patient did use her BiPAP overnight. - Physical Exam General: Alert, Oriented x3, Cooperative, No apparent distress, - - Very flat affect. Masked facial features. Morbidly obese. HEENT: Atraumatic, PERRLA, EOMI, Normocephalic, - - Slight scleral injection without icterus Oral: Moist Mucosa, No Gingival or Mucosal Lesions/ Ulcerations Neck: Supple, No Nodes, Trachea Midline, JVD, Right Lungs: No rhonchi, No rales, Diminished, Wheezes, - - Symmetric expansion. Cardiovascular: Regular rate, Regular Rhythm, Normal S1, Normal S2, No murmurs Abdomen: Bowel Sounds Present, Soft, Non Tender, Non-Distended, Obese Extremities: No cyanosis, Capillary Refill Less than 3 Seconds, Edema - Anasarca Skin: - - No change compared to previous Musculoskeletal: No Tenderness to Palpation of Joints or Extremities Lymphatic: No Cervical, Supraclavicular, or Inguinal Adenopathy Neurological: Cranial nerves II-XII grossly intact, - - Some cogwheeling appreciated Psych/Mental Status: Flat Affect Vital Signs Temp Pulse Resp BP Pulse Ox 36.7 C 85 20 H 114/68 94 02/19/19 09:51 02/19/19 09:51 02/19/19 09:51 02/19/19 09:51 02/19/19 09:51 Oxygen Flow Rate (L/min) 2 Oxygen Delivery Method Nasal Cannula Weight: 130.1 kg Body Mass Index (BMI) 38.2 Intake and Output for Last 24 Hours 02/17/19 02/18/19 02/19/19 23:59 23:59 23:59 Intake Total 1517 / 1517 1146 / 1146 446 / 446 Output Total 450 / 450 1000 / 1000 900 / 900 Balance 1067 / 1067 146 / 146 -454 / -454 Microbiology Past 72 Hours 02/16/19 07:35 Gram Stain - Final Sputum, Expectorated/Coughed Respiratory Culture - Final Escherichia coli Presumptive C albicans 02/16/19 07:35 Respiratory Panel (PCR) - Final Mucosa - Nasopharyngeal 02/11/19 11:30 Blood Culture - Final Blood Culture (Wb) - Anticubital Left No growth in 5 days. 02/11/19 11:35 Blood Culture - Final Blood Culture (Wb) - Left Forearm No growth in 5 days. Laboratory Tests Past 24 Hrs 02/16/19 02/19/19 02/19/19 08:00 05:10 05:10 WBC 11.9 H RBC 3.25 L Hgb 10.0 L Hct 30.2 L MCV 92.9 MCH 30.8 MCHC 33.1 RDW 16.4 H RDW Differential 53.2 H Plt Count 312 MPV 8.8 Immature Gran % (Auto) 2.400 H Neut % (Auto) 81.0 H Lymph % (Auto) 9.2 L [place] % (Auto) 5.5 Eos % (Auto) 1.6 Baso % (Auto) 0.3 Absolute Neuts (auto) 9.7 H Absolute Lymphs (auto) 1.10 Total Counted Not Reportable Diff Path Review Reviewed February foll Sodium 142 Potassium 3.8 Chloride 107 Carbon Dioxide 32.0 Anion Gap 3 L BUN 32 H Creatinine 1.03 H Estim Creat Clear Calc 42.04 Est GFR (MDRD) Af Amer 68 Est GFR (MDRD) Non-Af 56 L BUN/Creatinine Ratio 31.1 H Glucose 108 H Calcium 8.5 Medical Necessity - Tobacco Use Smoking Status: Never smoker Tobacco Use: Non-smoker Assessment/Plan All Active Problems Clostridium difficile infection (Acute) Hyponatremia (Acute) Hypotension due to hypovolemia (Acute) Septic shock (Acute) Cystitis (Acute) Acute kidney injury (Acute) History of breast cancer (Resolved) History of pneumothorax (Resolved) RECOMMENDATIONS: 1. Continue p.o. vancomycin and IV Flagyl for severe C. difficile colitis. 2. Continue scheduled Midodrine TID. 3. Defer to infectious disease on sputum ESBL E. coli 4. Encourage aggressive incentive spirometer use along with PEP therapy. 5. Continue appropriate ICU prophylaxis. 6. Continue nocturnal BiPAP therapy. 7. Attempt diuretic therapy today IMPRESSIONS: 1. Septic shock secondary to recent diagnosis of C. difficile colitis Patient has been off of pressors for over 24 hours. Patient does remain on broad-spectrum antibiotics with IV Flagyl and p.o. vancomycin for C. difficile. Infectious disease is following. No fever or leukocytosis is noted. Patient has been placed on midodrine and is responding well. Patient does have very poor nutritional status, likely adding to anasarca. 2. Acute hypoxic respiratory insufficiency The patient, at her baseline, only utilizes 2 L/min of supplemental oxygen nightly as a bleed in for her CPAP. She does not utilize supplemental oxygen throughout the day. My suspicion is that her current oxygen requirement is likely due to possible pleural effusions and associated atelectasis. However, given that the patient was retaining some CO2 during this hospitalization, she was transitioned from CPAP to BiPAP nightly. Defer to infectious disease on antibiotics given C. difficile and potential aspiration pneumonia. Will give a dose of Lasix today. Patient was relatively even yesterday. Do not believe daily weight given 20 kg increase. 3. Acute on chronic kidney disease Improving. Likely prerenal in etiology and related to ischemic ATN in the setting of #1. Anticipate improvement with stabilization of hemodynamics and with volume expansion. Continue to monitor urine output. No current indication for renal replacement therapy. 4. Obstructive sleep apnea Continue nocturnal PAP therapy as ordered. 5. Personal history of Parkinson's disease/obesity/depression/hypothyroidism/GERD Complicates care, management, recovery and prognosis. Continue home medications as indicated. Code Visit Inpatient E&M: 72121 [facility] Hosp L2
--- NOTE | 2019-02-19 10:32 | PN.ID_ITS ---
Patient Problems: Active and Suspected Problems Clostridium difficile infection (Acute) Hyponatremia (Acute) Hypotension due to hypovolemia (Acute) Septic shock (Acute) Subjective: Feeling ok, no sputum, no fever. Still some mild abd pain and diarrhea. - Physical Exam General: Alert, Cooperative, No apparent distress Lungs: Clear to auscultation, Normal air movement Cardiovascular: Regular rate, Regular Rhythm Abdomen: Soft, Non Tender, Non-Distended Extremities: No edema Skin: No rashes Vital Signs Temp Pulse Resp BP Pulse Ox 98.0 F 85 20 H 114/68 94 02/19/19 09:51 02/19/19 09:51 02/19/19 09:51 02/19/19 09:51 02/19/19 09:51 Oxygen Flow Rate (L/min) 2 Oxygen Delivery Method Nasal Cannula Weight: 130.1 kg Body Mass Index (BMI) 38.2 Intake and Output for Last 24 Hours 02/17/19 02/18/19 02/19/19 23:59 23:59 23:59 Intake Total 1517 / 1517 1146 / 1146 446 / 446 Output Total 450 / 450 1000 / 1000 900 / 900 Balance 1067 / 1067 146 / 146 -454 / -454 Microbiology Past 72 Hours 02/16/19 07:35 Gram Stain - Final Sputum, Expectorated/Coughed Respiratory Culture - Final Escherichia coli Presumptive C albicans 02/16/19 07:35 Respiratory Panel (PCR) - Final Mucosa - Nasopharyngeal 02/11/19 11:30 Blood Culture - Final Blood Culture (Wb) - Anticubital Left No growth in 5 days. 02/11/19 11:35 Blood Culture - Final Blood Culture (Wb) - Left Forearm No growth in 5 days. Laboratory Tests Past 24 Hrs 02/16/19 02/19/19 02/19/19 08:00 05:10 05:10 WBC 11.9 H RBC 3.25 L Hgb 10.0 L Hct 30.2 L MCV 92.9 MCH 30.8 MCHC 33.1 RDW 16.4 H RDW Differential 53.2 H Plt Count 312 MPV 8.8 Immature Gran % (Auto) 2.400 H Neut % (Auto) 81.0 H Lymph % (Auto) 9.2 L [place] % (Auto) 5.5 Eos % (Auto) 1.6 Baso % (Auto) 0.3 Absolute Neuts (auto) 9.7 H Absolute Lymphs (auto) 1.10 Total Counted Not Reportable Diff Path Review Reviewed February foll Sodium 142 Potassium 3.8 Chloride 107 Carbon Dioxide 32.0 Anion Gap 3 L BUN 32 H Creatinine 1.03 H Estim Creat Clear Calc 42.04 Est GFR (MDRD) Af Amer 68 Est GFR (MDRD) Non-Af 56 L BUN/Creatinine Ratio 31.1 H Glucose 108 H Calcium 8.5 Medical Necessity - Tobacco Use Smoking Status: Never smoker Tobacco Use: Non-smoker Route of nutrition/ use of supplements: [] Nutritional Intake: [] IV Site: [] Rosen Catheter: [] - Assessment/Plan Antibiotics: [] Assessment/Plan: [] Active and Suspected Problems Clostridium difficile infection (Acute) Hyponatremia (Acute) Hypotension due to hypovolemia (Acute) Septic shock due to Cdiff colitis with ARRON - Cont iv flagyl and po vanc. CT showed diffuse colitis, no megacolon. Cr improved. Now off pressors and out of icu. abnormal cxr - infiltrate seen, no new fever, no new leukocytosis, no new hypoxia, no new sputum. Stable off zosyn. Additional abx without true infection will make cdiff harder to treat. Xray changes may be more fluid- related. Will follow
--- NOTE | 2019-02-19 12:52 | PCM.PN.HOSP ---
Patient Problems: Active and Suspected Problems Clostridium difficile infection (Acute) Hyponatremia (Acute) Hypotension due to hypovolemia (Acute) Septic shock (Acute) Subjective: Still with diarrhea. Overall, feeling better. Vitals/I&O's: Vital Signs Temp Pulse Resp BP Pulse Ox 36.7 C 74 20 H 114/68 94 02/19/19 09:51 02/19/19 10:00 02/19/19 10:00 02/19/19 09:51 02/19/19 10:00 Oxygen Flow Rate (L/min) 2 Oxygen Delivery Method Nasal Cannula Weight: 130.1 kg Body Mass Index (BMI) 38.2 Intake and Output for Last 24 Hours 02/17/19 02/18/19 02/19/19 23:59 23:59 23:59 Intake Total 1517 / 1517 1146 / 1146 446 / 446 Output Total 450 / 450 1000 / 1000 900 / 900 Balance 1067 / 1067 146 / 146 -454 / -454 General: Alert, No apparent distress, - - jaw myoclonus HEENT: Atraumatic, Normocephalic Oral: Moist Mucosa, No Gingival or Mucosal Lesions/ Ulcerations Neck: No Nodes, Thyroid Normal Size and Texture Lungs: Clear to auscultation, Normal air movement, No rhonchi, No wheeze Cardiovascular: Regular rate, Regular Rhythm, Normal S1, Normal S2, No murmurs Abdomen: Bowel Sounds Present, Soft, Non Tender, Non-Distended, No Hepato-splenomegaly Extremities: No Calf Tenderness, Edema Skin: No rashes, No breakdown Psych/Mental Status: Normal Affect, Appropriate Microbiology Past 72 Hours 02/16/19 07:35 Sputum, Expectorated/Coughed Gram Stain - Final 02/16/19 07:35 Sputum, Expectorated/Coughed Respiratory Culture - Final Escherichia coli Presumptive C albicans 02/16/19 07:35 Mucosa - Nasopharyngeal Respiratory Panel (PCR) - Final 02/11/19 11:30 Blood Culture (Wb) - Anticubital Left Blood Culture - Final No growth in 5 days. 02/11/19 11:35 Blood Culture (Wb) - Left Forearm Blood Culture - Final No growth in 5 days. Laboratory Results 02/16/19 08:00: Diff Path Review Reviewed 02/19/19 05:10: WBC 11.9 H, RBC 3.25 L, Hgb 10.0 L, Hct 30.2 L, MCV 92.9, MCH 30.8, MCHC 33.1, RDW 16.4 H, RDW Differential 53.2 H, Plt Count 312, MPV 8.8, Immature Gran % (Auto) 2.400 H, Neut % (Auto) 81.0 H, Lymph % (Auto) 9.2 L, [place] % (Auto) 5.5, Eos % (Auto) 1.6, Baso % (Auto) 0.3, Absolute Neuts (auto) 9.7 H, Absolute Lymphs (auto) 1.10, Total Counted Not Reportable, Diff Path Review February02/19/19 05:10: Sodium 142, Potassium 3.8, Chloride 107, Carbon Dioxide 32.0, Anion Gap 3 L, BUN 32 H, Creatinine 1.03 H, Estim Creat Clear Calc 42.04, Est GFR (MDRD) Af Amer 68, Est GFR (MDRD) Non-Af 56 L, BUN/Creatinine Ratio 31.1 H, Glucose 108 H, Calcium 8.5 Current Medications Acetaminophen (Tylenol) 650 mg PO TID [facility] Last Admin: 02/19/19 06:30 Dose: 650 mg Al Hydroxide/Mg Hydroxide (Mylanta Ii) 15 - 30 ml PO Q4H PRN PRN PRN Reason: INDIGESTION Albuterol Sulfate (Ventolin Aerosols) 2.5 mg INHALATION Q2H PRN PRN PRN Reason: dyspnea, wheezing Calamine/Phenol (Calmoseptine Ointment) 1 applic TOPICAL 4X/DAY [facility]; Protocol Last Admin: 02/19/19 09:44 Dose: 1 applicatio Carbidopa/Levodopa (Sinemet) 1 tablet PO TIDAC [facility] Last Admin: 02/19/19 12:30 Dose: 1 tablet Chlorhexidine Gluconate () 1 each TOPICAL DAILY [facility] Last Admin: 02/19/19 09:44 Dose: 1 each Citalopram Hydrobromide (Celexa) 20 mg PO DAILY [facility] Last Admin: 02/19/19 09:45 Dose: 20 mg Heparin Sodium (Porcine) (Heparin Na) 5,000 unit SC Q12 [facility] Last Admin: 02/19/19 09:43 Dose: 5,000 unit Metronidazole (Flagyl) 500 mg in 100 mls @ 100 mls/hr IV Q8 [facility] Last Admin: 02/19/19 06:30 Dose: 100 mls/hr Lactobacillus Acidophilus (Acidophilus) 2 tablet PO 4X/DAY [facility] Last Admin: 02/19/19 09:43 Dose: 2 tablet Latanoprost (Xalatan Opthalmic) 1 drop EACH EYE QHS [facility] Last Admin: 02/18/19 21:55 Dose: 1 drop Levothyroxine Sodium (Synthroid) 75 mcg PO DAILY@0600 [facility] Last Admin: 02/19/19 06:30 Dose: 75 mcg Midodrine (Proamatine) 10 mg PO TID [facility] Last Admin: 02/19/19 06:30 Dose: 10 mg Montelukast Sodium (Singulair) 10 mg PO DAILY [facility] Last Admin: 02/19/19 09:43 Dose: 10 mg Multivitamins (Multivitamin) 1 tablet PO DAILY@0800 [facility] Last Admin: 02/19/19 09:43 Dose: 1 tablet Ondansetron HCl (Zofran) 4 mg IV Q8H PRN PRN PRN Reason: NAUSEA/VOMITING Last Admin: 02/19/19 09:46 Dose: 4 mg Sodium Chloride () 5 - 15 ml IV UD PRN PRN Reason: SALINE FLUSH Last Admin: 02/18/19 06:27 Dose: 10 ml Vancomycin HCl () 125 mg PO Q6 [facility] Last Admin: 02/19/19 12:31 Dose: 125 mg Medical Necessity - Tobacco Use Smoking Status: Never smoker Tobacco Use: Non-smoker Assessment/Plan All Active Problems Clostridium difficile infection (Acute) Hyponatremia (Acute) Hypotension due to hypovolemia (Acute) Septic shock (Acute) Cystitis (Acute) Acute kidney injury (Acute) History of breast cancer (Resolved) History of pneumothorax (Resolved) 1. Septic shock resolved 2/2 Cdiff off pressors 2. C.diff colitis ongoing, but improved On PO vanc and IV flagyl, continue this for now, but eventually (if continues to improve) change to PO vanc 3. possible gram negative pneumonia taken off Zosyn on 02/18 aspiration? 4. ARRON resolved Creatinine back to baseline likely prerenal +/- ATN 5. Parkinson's dz, KAREN, hypothyroidism: complicates overall care 6. VTE proph: SQ heparin 7. Anasarca: diffusely edematous + pleural effusions dry weight around 100 kg, 110 yesterday (130 today inconceivable for 20kg weight gain in 24h) agree with CCM for lasix +[phone] total Code Visit Inpatient E&M: 44327 Subs Hosp L2
--- NOTE | 2019-02-19 13:02 | PN_ITS ---
Patient Problems: Active and Suspected Problems Clostridium difficile infection (Acute) Hyponatremia (Acute) Hypotension due to hypovolemia (Acute) Septic shock (Acute) Subjective: Still with diarrhea. Overall, feeling better. Vitals/I&O's: Vital Signs Temp Pulse Resp BP Pulse Ox 36.7 C 74 20 H 114/68 94 02/19/19 09:51 02/19/19 10:00 02/19/19 10:00 02/19/19 09:51 02/19/19 10:00 Oxygen Flow Rate (L/min) 2 Oxygen Delivery Method Nasal Cannula Weight: 130.1 kg Body Mass Index (BMI) 38.2 Intake and Output for Last 24 Hours 02/17/19 02/18/19 02/19/19 23:59 23:59 23:59 Intake Total 1517 / 1517 1146 / 1146 446 / 446 Output Total 450 / 450 1000 / 1000 900 / 900 Balance 1067 / 1067 146 / 146 -454 / -454 General: Alert, No apparent distress, - - jaw myoclonus HEENT: Atraumatic, Normocephalic Oral: Moist Mucosa, No Gingival or Mucosal Lesions/ Ulcerations Neck: No Nodes, Thyroid Normal Size and Texture Lungs: Clear to auscultation, Normal air movement, No rhonchi, No wheeze Cardiovascular: Regular rate, Regular Rhythm, Normal S1, Normal S2, No murmurs Abdomen: Bowel Sounds Present, Soft, Non Tender, Non-Distended, No Hepato- splenomegaly Extremities: No Calf Tenderness, Edema Skin: No rashes, No breakdown Psych/Mental Status: Normal Affect, Appropriate Microbiology Past 72 Hours 02/16/19 07:35 Sputum, Expectorated/Coughed Gram Stain - Final 02/16/19 07:35 Sputum, Expectorated/Coughed Respiratory Culture - Final Escherichia coli Presumptive C albicans 02/16/19 07:35 Mucosa - Nasopharyngeal Respiratory Panel (PCR) - Final 02/11/19 11:30 Blood Culture (Wb) - Anticubital Left Blood Culture - Final No growth in 5 days. 02/11/19 11:35 Blood Culture (Wb) - Left Forearm Blood Culture - Final No growth in 5 days. Laboratory Results 02/16/19 08:00: Diff Path Review Reviewed 02/19/19 05:10: WBC 11.9 H, RBC 3.25 L, Hgb 10.0 L, Hct 30.2 L, MCV 92.9, MCH 30.8, MCHC 33.1, RDW 16.4 H, RDW Differential 53.2 H, Plt Count 312, MPV 8.8, Immature Gran % (Auto) 2.400 H, Neut % (Auto) 81.0 H, Lymph % (Auto) 9.2 L, [place] % (Auto) 5.5, Eos % (Auto) 1.6, Baso % (Auto) 0.3, Absolute Neuts (auto) 9.7 H, Absolute Lymphs (auto) 1.10, Total Counted Not Reportable, Diff Path Review February02/19/19 05:10: Sodium 142, Potassium 3.8, Chloride 107, Carbon Dioxide 32.0, Anion Gap 3 L, BUN 32 H, Creatinine 1.03 H, Estim Creat Clear Calc 42.04, Est GFR (MDRD) Af Amer 68, Est GFR (MDRD) Non-Af 56 L, BUN/Creatinine Ratio 31.1 H, Glucose 108 H, Calcium 8.5 Current Medications Acetaminophen (Tylenol) 650 mg PO TID [facility] Last Admin: 02/19/19 06:30 Dose: 650 mg Al Hydroxide/Mg Hydroxide (Mylanta Ii) 15 - 30 ml PO Q4H PRN PRN PRN Reason: INDIGESTION Albuterol Sulfate (Ventolin Aerosols) 2.5 mg INHALATION Q2H PRN PRN PRN Reason: dyspnea, wheezing Calamine/Phenol (Calmoseptine Ointment) 1 applic TOPICAL 4X/DAY [facility]; Protocol Last Admin: 02/19/19 09:44 Dose: 1 applicatio Carbidopa/Levodopa (Sinemet) 1 tablet PO TIDAC [facility] Last Admin: 02/19/19 12:30 Dose: 1 tablet Chlorhexidine Gluconate () 1 each TOPICAL DAILY [facility] Last Admin: 02/19/19 09:44 Dose: 1 each Citalopram Hydrobromide (Celexa) 20 mg PO DAILY [facility] Last Admin: 02/19/19 09:45 Dose: 20 mg Heparin Sodium (Porcine) (Heparin Na) 5,000 unit SC Q12 [facility] Last Admin: 02/19/19 09:43 Dose: 5,000 unit Metronidazole (Flagyl) 500 mg in 100 mls @ 100 mls/hr IV Q8 [facility] Last Admin: 02/19/19 06:30 Dose: 100 mls/hr Lactobacillus Acidophilus (Acidophilus) 2 tablet PO 4X/DAY [facility] Last Admin: 02/19/19 09:43 Dose: 2 tablet Latanoprost (Xalatan Opthalmic) 1 drop EACH EYE QHS [facility] Last Admin: 02/18/19 21:55 Dose: 1 drop Levothyroxine Sodium (Synthroid) 75 mcg PO DAILY@0600 [facility] Last Admin: 02/19/19 06:30 Dose: 75 mcg Midodrine (Proamatine) 10 mg PO TID [facility] Last Admin: 02/19/19 06:30 Dose: 10 mg Montelukast Sodium (Singulair) 10 mg PO DAILY [facility] Last Admin: 02/19/19 09:43 Dose: 10 mg Multivitamins (Multivitamin) 1 tablet PO DAILY@0800 [facility] Last Admin: 02/19/19 09:43 Dose: 1 tablet Ondansetron HCl (Zofran) 4 mg IV Q8H PRN PRN PRN Reason: NAUSEA/VOMITING Last Admin: 02/19/19 09:46 Dose: 4 mg Sodium Chloride () 5 - 15 ml IV UD PRN PRN Reason: SALINE FLUSH Last Admin: 02/18/19 06:27 Dose: 10 ml Vancomycin HCl () 125 mg PO Q6 [facility] Last Admin: 02/19/19 12:31 Dose: 125 mg Medical Necessity - Tobacco Use Smoking Status: Never smoker Tobacco Use: Non-smoker Assessment/Plan All Active Problems Clostridium difficile infection (Acute) Hyponatremia (Acute) Hypotension due to hypovolemia (Acute) Septic shock (Acute) Cystitis (Acute) Acute kidney injury (Acute) History of breast cancer (Resolved) History of pneumothorax (Resolved) 1. Septic shock * resolved * 2/2 Cdiff * off pressors 2. C.diff colitis * ongoing, but improved * On PO vanc and IV flagyl, continue this for now, but eventually (if continues to improve) change to PO vanc 3. possible gram negative pneumonia * taken off Zosyn on 02/18 * aspiration? 4. ARRON * resolved * Creatinine back to baseline * likely prerenal +/- ATN 5. Parkinson's dz, KAREN, hypothyroidism: complicates overall care 6. VTE proph: SQ heparin 7. Anasarca: * diffusely edematous + pleural effusions * dry weight around 100 kg, 110 yesterday (130 today inconceivable for 20kg weight gain in 24h) * agree with CCM for lasix * +[phone] total Code Visit Inpatient E&M: 29365 Subs Hosp L2
--- NOTE | 2019-02-19 13:20 | CASEMGMT ---
Social Work Note SW faxed updated clinicals to [facility]. 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
[2019-02-19] MEDS: Furosemide 40 MG/4 ML Vial IV (14:13)
[2019-02-19] MEDS: Latanoprost 0.005% 1 Bottle 1 DRP EACH EYE (22:04)
[2019-02-20] VITALS (11 sets, daily range): BP systolic 104–135; BP diastolic 55–76; PULSE 70–101; RESP 12–23; TEMP 36.4–36.8; O2SAT 93–96
[2019-02-20] MEDS: Acetaminophen 325 MG Tablet 650 MG PO ×3 (06:23→21:32)
[2019-02-20] MEDS: 0.9% NaCl Peripheral Flush Adult/Peds IV ×4 (06:23→21:29)
[2019-02-20] MEDS: Carbidopa/Levodopa 25/100 Tablet PO ×3 (06:23→17:15)
[2019-02-20] MEDS: Midodrine HCl 5 MG Tablet 10 MG PO ×3 (06:23→21:31)
[2019-02-20] MEDS: Levothyroxine 75 MCG Tablet PO (06:23)
[2019-02-20 07:01] LABS: Anion Gap 2 (5-15); BUN 26 mg/dL (7-18); BUN/Creat Ratio 30.3 RATIO (10-20); Calcium,Total 8.7 mg/dL (8.5-10.1); Chloride 106 mmol/L (98-107); Creatinine, Serum 0.86 mg/dL (0.55-1.02); EST Glomerular Filtration Rate 70 mL/min (>60); Est Glom Filt Rate - Afr Amer 84 mL/min (>60); Estimated Creatinine Clearance 50.35 ml/min; Glucose 92 mg/dL (74-106); Potassium 3.7 mmol/L (3.5-5.1); Sodium Level 143 mmol/L (136-145)
[2019-02-20] MEDS: Citalopram 20 MG Tablet PO (08:32)
[2019-02-20] MEDS: Multivitamins,Therapeutic Tablet 1 TABLET PO (08:32)
[2019-02-20] MEDS: Montelukast 10 MG Tablet PO (08:32)
[2019-02-20] MEDS: Heparin Injection (Vial) 5,000 UNIT/ML VIAL 5000 UNIT SC ×2 (08:32→21:30)
[2019-02-20] MEDS: Menthol/Lanolin/Calamine/Znox 113 GM Tube 1 APPLIC TOPICAL ×4 (08:33→21:23)
--- NOTE | 2019-02-20 08:33 | PCM.PN.PUL ---
Patient Problems: Active and Suspected Problems Clostridium difficile infection (Acute) Hyponatremia (Acute) Hypotension due to hypovolemia (Acute) Septic shock (Acute) Subjective: Patient did well overnight. Patient did receive diuretic therapy yesterday and reports subjective improvement in overall condition this morning. Did discuss with nursing and patient is having continued difficulty with motivation. Patient has been asking to maintain BiPAP throughout the day nap. - Physical Exam General: Alert, Oriented x3, Cooperative, No apparent distress, - - Flat affect. BiPAP was in place during my evaluation. Good synchrony with no conversational dyspnea. HEENT: Atraumatic, PERRLA, EOMI, Normocephalic, - - No scleral icterus or injection noted. Oral: Moist Mucosa, No Gingival or Mucosal Lesions/ Ulcerations Neck: Supple, No JVD, No Nodes, Trachea Midline Lungs: No rhonchi, No wheeze, Diminished, Rales - Improved, - - Improved air exchange compared to previous Cardiovascular: Regular rate, Regular Rhythm, Normal S1, Normal S2, No murmurs, No rub noted, No Gallop Abdomen: Bowel Sounds Present, Soft, Non Tender, Non-Distended, Obese Extremities: No cyanosis, Capillary Refill Less than 3 Seconds, Edema - Improved Skin: - - No significant change compared to previous Musculoskeletal: No Tenderness to Palpation of Joints or Extremities Lymphatic: No Cervical, Supraclavicular, or Inguinal Adenopathy Neurological: Cranial nerves II-XII grossly intact, Neuro grossly intact, Motor Exam 5/5 strength throughout Psych/Mental Status: Flat Affect Vital Signs Temp Pulse Resp BP Pulse Ox 36.6 C 70 17 120/69 95 02/20/19 02:30 02/20/19 05:20 02/20/19 05:20 02/20/19 02:30 02/20/19 05:20 Oxygen Flow Rate (L/min) 2 Oxygen Delivery Method Bi-pap Weight: 131.4 kg Body Mass Index (BMI) 38.2 Intake and Output for Last 24 Hours 02/18/19 02/19/19 02/20/19 23:59 23:59 23:59 Intake Total 1146 / 1146 857 / 857 272 / 272 Output Total 1000 / 1000 1300 / 1300 400 / 400 Balance 146 / 146 -443 / -443 -128 / -128 Microbiology Past 72 Hours 02/16/19 07:35 Gram Stain - Final Sputum, Expectorated/Coughed Respiratory Culture - Final Escherichia coli Presumptive C albicans Laboratory Tests Past 24 Hrs 02/20/19 06:00 Sodium 143 Potassium 3.7 Chloride 106 Carbon Dioxide 35.0 H Anion Gap 2 L BUN 26 H Creatinine 0.86 Estim Creat Clear Calc 50.35 Est GFR (MDRD) Af Amer 84 Est GFR (MDRD) Non-Af 70 BUN/Creatinine Ratio 30.3 H Glucose 92 Calcium 8.7 Medical Necessity - Tobacco Use Smoking Status: Never smoker Tobacco Use: Non-smoker Assessment/Plan All Active Problems Clostridium difficile infection (Acute) Hyponatremia (Acute) Hypotension due to hypovolemia (Acute) Septic shock (Acute) Cystitis (Acute) Acute kidney injury (Acute) History of breast cancer (Resolved) History of pneumothorax (Resolved) RECOMMENDATIONS: 1. Continue antibiotics per infectious disease 2. Continue scheduled Midodrine TID. 3. Defer to infectious disease on sputum ESBL E. coli 4. Encourage aggressive incentive spirometer use along with PEP therapy. 5. Increase activity as tolerated 6. Continue nocturnal BiPAP therapy. 7. Attempt additional diuretic therapy today IMPRESSIONS: 1. Septic shock secondary to recent diagnosis of C. difficile colitis Patient has been off of pressors for over 24 hours. Patient does remain on antibiotics for C. difficile. Infectious disease is following. No fever or leukocytosis is noted. Patient has been placed on midodrine and is responding well. Patient does have very poor nutritional status, likely adding to anasarca. Patient tolerated diuretic therapy well from a blood pressure standpoint. 2. Acute hypoxic respiratory insufficiency The patient, at her baseline, only utilizes 2 L/min of supplemental oxygen nightly as a bleed in for her CPAP. She does not utilize supplemental oxygen throughout the day. My suspicion is that her current oxygen requirement is likely due to possible pleural effusions and associated atelectasis. However, given that the patient was retaining some CO2 during this hospitalization, she was transitioned from CPAP to BiPAP nightly. Patient responded well to diuretic therapy yesterday. Do not believe patient requires BiPAP rescue during the day and this likely represents more of depression than respiratory muscle fatigue. Will continue with diuretic therapy on a as needed basis. We will have to watch closely for contraction alkalosis as patient's edema may be protracted given poor nutritional status. 3. Acute on chronic kidney disease Improving. Likely prerenal in etiology and related to ischemic ATN in the setting of #1. Anticipate improvement with stabilization of hemodynamics and with volume expansion. Continue to monitor urine output. No current indication for renal replacement therapy. 4. Obstructive sleep apnea Continue nocturnal PAP therapy as ordered. 5. Personal history of Parkinson's disease/obesity/depression/hypothyroidism/GERD Complicates care, management, recovery and prognosis. Continue home medications as indicated. Code Visit Inpatient E&M: 00703 Subs Hosp L2
[2019-02-20] MEDS: Furosemide 40 MG Tablet PO (08:49)
--- NOTE | 2019-02-20 11:07 | PCM.PN.HOSP ---
Patient Problems: Active and Suspected Problems Clostridium difficile infection (Acute) Hyponatremia (Acute) Hypotension due to hypovolemia (Acute) Septic shock (Acute) Subjective: Feeling better. Decreased frequency and amount of diarrhea, but mucous noted per nursing. Vitals/I&O's: Vital Signs Temp Pulse Resp BP Pulse Ox 36.6 C 72 20 H 135/76 H 95 02/20/19 08:42 02/20/19 10:22 02/20/19 10:22 02/20/19 08:42 02/20/19 10:22 Oxygen Flow Rate (L/min) 2 Oxygen Delivery Method Nasal Cannula Weight: 131.4 kg Body Mass Index (BMI) 38.2 Intake and Output for Last 24 Hours 02/18/19 02/19/19 02/20/19 23:59 23:59 23:59 Intake Total 1146 / 1146 857 / 857 272 / 272 Output Total 1000 / 1000 1300 / 1300 400 / 400 Balance 146 / 146 -443 / -443 -128 / -128 General: Alert, No apparent distress HEENT: Atraumatic, Normocephalic Oral: Moist Mucosa, No Gingival or Mucosal Lesions/ Ulcerations Neck: No Nodes, Thyroid Normal Size and Texture Lungs: Clear to auscultation, Normal air movement, No rhonchi, No wheeze Cardiovascular: Regular rate, Regular Rhythm, Normal S1, Normal S2, No murmurs Abdomen: Bowel Sounds Present, Soft, Non Tender, Non-Distended Extremities: No Calf Tenderness, Edema Skin: No rashes, No breakdown Psych/Mental Status: Normal Affect, Appropriate Microbiology Past 72 Hours 02/16/19 07:35 Sputum, Expectorated/Coughed Gram Stain - Final 02/16/19 07:35 Sputum, Expectorated/Coughed Respiratory Culture - Final Escherichia coli Presumptive C albicans Laboratory Results 02/20/19 06:00: Sodium 143, Potassium 3.7, Chloride 106, Carbon Dioxide 35.0 H, Anion Gap 2 L, BUN 26 H, Creatinine 0.86, Estim Creat Clear Calc 50.35, Est GFR (MDRD) Af Amer 84, Est GFR (MDRD) Non-Af 70, BUN/Creatinine Ratio 30.3 H, Glucose 92, Calcium 8.7 Current Medications Acetaminophen (Tylenol) 650 mg PO TID [facility] Last Admin: 02/20/19 06:23 Dose: 650 mg Al Hydroxide/Mg Hydroxide (Mylanta Ii) 15 - 30 ml PO Q4H PRN PRN PRN Reason: INDIGESTION Albuterol Sulfate (Ventolin Aerosols) 2.5 mg INHALATION Q2H PRN PRN PRN Reason: dyspnea, wheezing Calamine/Phenol (Calmoseptine Ointment) 1 applic TOPICAL 4X/DAY [facility]; Protocol Last Admin: 02/20/19 08:33 Dose: 1 applicatio Carbidopa/Levodopa (Sinemet) 1 tablet PO TIDAC [facility] Last Admin: 02/20/19 06:23 Dose: 1 tablet Citalopram Hydrobromide (Celexa) 20 mg PO DAILY [facility] Last Admin: 02/20/19 08:32 Dose: 20 mg Heparin Sodium (Porcine) (Heparin Na) 5,000 unit SC Q12 [facility] Last Admin: 02/20/19 08:32 Dose: 5,000 unit Metronidazole (Flagyl) 500 mg in 100 mls @ 100 mls/hr IV Q8 [facility] Last Admin: 02/20/19 06:23 Dose: 100 mls/hr Lactobacillus Acidophilus (Acidophilus) 2 tablet PO 4X/DAY [facility] Last Admin: 02/20/19 08:32 Dose: 2 tablet Latanoprost (Xalatan Opthalmic) 1 drop EACH EYE QHS [facility] Last Admin: 02/19/19 22:04 Dose: 1 drop Levothyroxine Sodium (Synthroid) 75 mcg PO DAILY@0600 [facility] Last Admin: 02/20/19 06:23 Dose: 75 mcg Midodrine (Proamatine) 10 mg PO TID [facility] Last Admin: 02/20/19 06:23 Dose: 10 mg Montelukast Sodium (Singulair) 10 mg PO DAILY [facility] Last Admin: 02/20/19 08:32 Dose: 10 mg Multivitamins (Multivitamin) 1 tablet PO DAILY@0800 [facility] Last Admin: 02/20/19 08:32 Dose: 1 tablet Ondansetron HCl (Zofran) 4 mg IV Q8H PRN PRN PRN Reason: NAUSEA/VOMITING Last Admin: 02/19/19 09:46 Dose: 4 mg Sodium Chloride () 5 - 15 ml IV UD PRN PRN Reason: SALINE FLUSH Last Admin: 02/20/19 06:28 Dose: 10 ml Vancomycin HCl () 125 mg PO Q6 [facility] Last Admin: 02/20/19 06:23 Dose: 125 mg Medical Necessity - Tobacco Use Smoking Status: Never smoker Tobacco Use: Non-smoker Assessment/Plan All Active Problems Clostridium difficile infection (Acute) Hyponatremia (Acute) Hypotension due to hypovolemia (Acute) Septic shock (Acute) Cystitis (Acute) Acute kidney injury (Acute) History of breast cancer (Resolved) History of pneumothorax (Resolved) 1. Septic shock resolved 2/2 Cdiff off pressors 2. C.diff colitis ongoing, but improved On PO vanc and IV flagyl, continue this for now, but eventually (if continues to improve) change to PO vanc 3. possible gram negative pneumonia taken off Zosyn on 02/18 aspiration? 4. ARRON resolved Creatinine back to baseline likely prerenal +/- ATN 5. Parkinson's dz, KAREN, hypothyroidism: complicates overall care 6. VTE proph: SQ heparin 7. Anasarca: diffusely edematous + pleural effusions dry weight around 100 kg, 110 yesterday (130 today inconceivable for 20kg weight gain in 24h) agree with CCM for lasix (40 IV on 02/19 and 40 PO today) +12,590 total 8. Disposition: monitor at least another day. Would like to see clinical status overall improved prior to discharge. Code Visit Inpatient E&M: 45496 Subs Hosp L2
--- NOTE | 2019-02-20 11:10 | PN_ITS ---
Patient Problems: Active and Suspected Problems Clostridium difficile infection (Acute) Hyponatremia (Acute) Hypotension due to hypovolemia (Acute) Septic shock (Acute) Subjective: Feeling better. Decreased frequency and amount of diarrhea, but mucous noted per nursing. Vitals/I&O's: Vital Signs Temp Pulse Resp BP Pulse Ox 36.6 C 72 20 H 135/76 H 95 02/20/19 08:42 02/20/19 10:22 02/20/19 10:22 02/20/19 08:42 02/20/19 10:22 Oxygen Flow Rate (L/min) 2 Oxygen Delivery Method Nasal Cannula Weight: 131.4 kg Body Mass Index (BMI) 38.2 Intake and Output for Last 24 Hours 02/18/19 02/19/19 02/20/19 23:59 23:59 23:59 Intake Total 1146 / 1146 857 / 857 272 / 272 Output Total 1000 / 1000 1300 / 1300 400 / 400 Balance 146 / 146 -443 / -443 -128 / -128 General: Alert, No apparent distress HEENT: Atraumatic, Normocephalic Oral: Moist Mucosa, No Gingival or Mucosal Lesions/ Ulcerations Neck: No Nodes, Thyroid Normal Size and Texture Lungs: Clear to auscultation, Normal air movement, No rhonchi, No wheeze Cardiovascular: Regular rate, Regular Rhythm, Normal S1, Normal S2, No murmurs Abdomen: Bowel Sounds Present, Soft, Non Tender, Non-Distended Extremities: No Calf Tenderness, Edema Skin: No rashes, No breakdown Psych/Mental Status: Normal Affect, Appropriate Microbiology Past 72 Hours 02/16/19 07:35 Sputum, Expectorated/Coughed Gram Stain - Final 02/16/19 07:35 Sputum, Expectorated/Coughed Respiratory Culture - Final Escherichia coli Presumptive C albicans Laboratory Results 02/20/19 06:00: Sodium 143, Potassium 3.7, Chloride 106, Carbon Dioxide 35.0 H, Anion Gap 2 L, BUN 26 H, Creatinine 0.86, Estim Creat Clear Calc 50.35, Est GFR (MDRD) Af Amer 84, Est GFR (MDRD) Non-Af 70, BUN/Creatinine Ratio 30.3 H, Glucose 92, Calcium 8.7 Current Medications Acetaminophen (Tylenol) 650 mg PO TID [facility] Last Admin: 02/20/19 06:23 Dose: 650 mg Al Hydroxide/Mg Hydroxide (Mylanta Ii) 15 - 30 ml PO Q4H PRN PRN PRN Reason: INDIGESTION Albuterol Sulfate (Ventolin Aerosols) 2.5 mg INHALATION Q2H PRN PRN PRN Reason: dyspnea, wheezing Calamine/Phenol (Calmoseptine Ointment) 1 applic TOPICAL 4X/DAY [facility]; Protocol Last Admin: 02/20/19 08:33 Dose: 1 applicatio Carbidopa/Levodopa (Sinemet) 1 tablet PO TIDAC [facility] Last Admin: 02/20/19 06:23 Dose: 1 tablet Citalopram Hydrobromide (Celexa) 20 mg PO DAILY [facility] Last Admin: 02/20/19 08:32 Dose: 20 mg Heparin Sodium (Porcine) (Heparin Na) 5,000 unit SC Q12 [facility] Last Admin: 02/20/19 08:32 Dose: 5,000 unit Metronidazole (Flagyl) 500 mg in 100 mls @ 100 mls/hr IV Q8 [facility] Last Admin: 02/20/19 06:23 Dose: 100 mls/hr Lactobacillus Acidophilus (Acidophilus) 2 tablet PO 4X/DAY [facility] Last Admin: 02/20/19 08:32 Dose: 2 tablet Latanoprost (Xalatan Opthalmic) 1 drop EACH EYE QHS [facility] Last Admin: 02/19/19 22:04 Dose: 1 drop Levothyroxine Sodium (Synthroid) 75 mcg PO DAILY@0600 [facility] Last Admin: 02/20/19 06:23 Dose: 75 mcg Midodrine (Proamatine) 10 mg PO TID [facility] Last Admin: 02/20/19 06:23 Dose: 10 mg Montelukast Sodium (Singulair) 10 mg PO DAILY [facility] Last Admin: 02/20/19 08:32 Dose: 10 mg Multivitamins (Multivitamin) 1 tablet PO DAILY@0800 [facility] Last Admin: 02/20/19 08:32 Dose: 1 tablet Ondansetron HCl (Zofran) 4 mg IV Q8H PRN PRN PRN Reason: NAUSEA/VOMITING Last Admin: 02/19/19 09:46 Dose: 4 mg Sodium Chloride () 5 - 15 ml IV UD PRN PRN Reason: SALINE FLUSH Last Admin: 02/20/19 06:28 Dose: 10 ml Vancomycin HCl () 125 mg PO Q6 [facility] Last Admin: 02/20/19 06:23 Dose: 125 mg Medical Necessity - Tobacco Use Smoking Status: Never smoker Tobacco Use: Non-smoker Assessment/Plan All Active Problems Clostridium difficile infection (Acute) Hyponatremia (Acute) Hypotension due to hypovolemia (Acute) Septic shock (Acute) Cystitis (Acute) Acute kidney injury (Acute) History of breast cancer (Resolved) History of pneumothorax (Resolved) 1. Septic shock * resolved * 2/2 Cdiff * off pressors 2. C.diff colitis * ongoing, but improved * On PO vanc and IV flagyl, continue this for now, but eventually (if continues to improve) change to PO vanc 3. possible gram negative pneumonia * taken off Zosyn on 02/18 * aspiration? 4. ARRON * resolved * Creatinine back to baseline * likely prerenal +/- ATN 5. Parkinson's dz, KAREN, hypothyroidism: complicates overall care 6. VTE proph: SQ heparin 7. Anasarca: * diffusely edematous + pleural effusions * dry weight around 100 kg, 110 yesterday (130 today inconceivable for 20kg weight gain in 24h) * agree with CCM for lasix (40 IV on 02/19 and 40 PO today) * +12,590 total 8. Disposition: monitor at least another day. Would like to see clinical status overall improved prior to discharge. Code Visit Inpatient E&M: 73975 Subs Hosp L2
--- NOTE | 2019-02-20 15:28 | PCM.PN.ID ---
Patient Problems: Active and Suspected Problems Clostridium difficile infection (Acute) Hyponatremia (Acute) Hypotension due to hypovolemia (Acute) Septic shock (Acute) Subjective: Feeling a little better, abd less sore, no fever. - Physical Exam General: Alert, Cooperative, No apparent distress Lungs: Clear to auscultation, Normal air movement Cardiovascular: Regular rate, Regular Rhythm Abdomen: Soft, Non Tender, Non-Distended Skin: No rashes Vital Signs Temp Pulse Resp BP Pulse Ox 98.2 F 89 18 119/63 93 02/20/19 13:56 02/20/19 13:56 02/20/19 13:56 02/20/19 13:56 02/20/19 13:56 Oxygen Flow Rate (L/min) 2 Oxygen Delivery Method Nasal Cannula Weight: 131.4 kg Body Mass Index (BMI) 38.2 Intake and Output for Last 24 Hours 02/18/19 02/19/19 02/20/19 23:59 23:59 23:59 Intake Total 1146 / 1146 857 / 857 902 / 902 Output Total 1000 / 1000 1300 / 1300 400 / 400 Balance 146 / 146 -443 / -443 502 / 502 Microbiology Past 72 Hours 02/16/19 07:35 Gram Stain - Final Sputum, Expectorated/Coughed Respiratory Culture - Final Escherichia coli Presumptive C albicans Laboratory Tests Past 24 Hrs 02/20/19 06:00 Sodium 143 Potassium 3.7 Chloride 106 Carbon Dioxide 35.0 H Anion Gap 2 L BUN 26 H Creatinine 0.86 Estim Creat Clear Calc 50.35 Est GFR (MDRD) Af Amer 84 Est GFR (MDRD) Non-Af 70 BUN/Creatinine Ratio 30.3 H Glucose 92 Calcium 8.7 Medical Necessity - Tobacco Use Smoking Status: Never smoker Tobacco Use: Non-smoker Route of nutrition/ use of supplements: [] Nutritional Intake: [] IV Site: [] Rosen Catheter: [] - Assessment/Plan Antibiotics: [] Assessment/Plan: [] Active and Suspected Problems Clostridium difficile infection (Acute) Hyponatremia (Acute) Hypotension due to hypovolemia (Acute) Septic shock due to Cdiff colitis with ARRON - Cont po vanc. CT showed diffuse colitis, no megacolon. Cr improved. Now off pressors and out of icu. Will stop flagyl. Will follow
[2019-02-20 16:02] LABS: Pathologist Review Reviewed
[2019-02-20] MEDS: Latanoprost 0.005% 1 Bottle 1 DRP EACH EYE (21:23)
[2019-02-21] VITALS (12 sets, daily range): BP systolic 115–135; BP diastolic 70–83; PULSE 80–98; RESP 12–33; TEMP 36.2–36.6; O2SAT 94–99
[2019-02-21] MEDS: 0.9% NaCl Peripheral Flush Adult/Peds IV ×5 (05:40→06:31)
[2019-02-21 06:18] LABS: Anion Gap 3 (5-15); BUN 21 mg/dL (7-18); BUN/Creat Ratio 28.5 RATIO (10-20); Calcium,Total 8.7 mg/dL (8.5-10.1); Chloride 104 mmol/L (98-107); Creatinine, Serum 0.74 mg/dL (0.55-1.02); EST Glomerular Filtration Rate 83 mL/min (>60); Est Glom Filt Rate - Afr Amer 100 mL/min (>60); Glucose 99 mg/dL (74-106); Potassium 3.5 mmol/L (3.5-5.1); Sodium Level 145 mmol/L (136-145)
[2019-02-21] MEDS: Acetaminophen 325 MG Tablet 650 MG PO ×3 (06:32→22:04)
[2019-02-21] MEDS: Midodrine HCl 5 MG Tablet 10 MG PO ×3 (06:32→22:05)
[2019-02-21] MEDS: Levothyroxine 75 MCG Tablet PO (06:32)
[2019-02-21] MEDS: Carbidopa/Levodopa 25/100 Tablet PO ×3 (06:32→15:06)
--- NOTE | 2019-02-21 08:27 | RAD_ITS ---
STUDY: X-RAY CHEST REASON FOR EXAM: Female, 68 years old. Shortness of breath. Lethargy. TECHNIQUE: Single AP portable view of the chest. COMPARISON: Comparison is made with prior study dated February 16, 2019. FINDINGS: Surgical clips are seen in the right axillary region. There is evidence of a CHF with blunting of both costophrenic angles worse on the left side. Increased markings at the left lung base suggestive of atelectasis. There is mild cardiac enlargement. Normal mediastinum and ronni. Normal visualized pulmonary arteries. There is atherosclerotic calcification of the aortic arch with tortuosity. Normal visualized thoracic spine. There is degenerative osteoarthritis of the bilateral shoulders. There is no demonstrated abnormality of the visualized soft tissue structures of the upper abdomen. RAD/Chest 1 View (Portable) IMPRESSION: Findings in keeping with CHF. Blunting of the left costophrenic angle with underlying atelectasis and/or infiltrate. Electronically Signed: Tyerll James, at 13:59 EDT , Service support ,
[2019-02-21] MEDS: Montelukast 10 MG Tablet PO (08:42)
[2019-02-21] MEDS: Multivitamins,Therapeutic Tablet 1 TABLET PO (08:42)
[2019-02-21] MEDS: Citalopram 20 MG Tablet PO (08:42)
[2019-02-21] MEDS: Menthol/Lanolin/Calamine/Znox 113 GM Tube 1 APPLIC TOPICAL ×4 (08:43→22:07)
[2019-02-21] MEDS: Heparin Injection (Vial) 5,000 UNIT/ML VIAL 5000 UNIT SC ×2 (08:43→22:10)
--- NOTE | 2019-02-21 09:42 | PN_ITS ---
Patient Problems: Active and Suspected Problems Clostridium difficile infection (Acute) Hyponatremia (Acute) Hypotension due to hypovolemia (Acute) Septic shock (Acute) Subjective: Patient did okay overnight. No hemodynamic instability was reported. Patient was compliant with BiPAP therapy. Patient reports subjective worsening in breathing this morning, but supplemental oxygen has not changed. Patient did report little to no sleep overnight. Objective: Chest x-ray was personally reviewed and does show slight progression of left- sided pleural effusion. - Physical Exam General: Alert, Cooperative, No apparent distress, - - Flat affect. HEENT: Atraumatic, PERRLA, EOMI, Normocephalic, - - Increased tremor noted of jaw. Slight scleral injection. Oral: Moist Mucosa, No Gingival or Mucosal Lesions/ Ulcerations Neck: Supple, No Nodes, Trachea Midline, JVD, Right Lungs: No rhonchi, No wheeze, Diminished, Rales, - - Symmetric expansion. No dullness to percussion. Cardiovascular: Regular rate, Regular Rhythm, Normal S1, Normal S2, Murmur, No rub noted, No Gallop Abdomen: Bowel Sounds Present, Soft, Non Tender, Non-Distended, Obese Extremities: No cyanosis, Capillary Refill Less than 3 Seconds, Edema Skin: - - No significant change compared to previous Musculoskeletal: No Tenderness to Palpation of Joints or Extremities Lymphatic: No Cervical, Supraclavicular, or Inguinal Adenopathy Neurological: Cranial nerves II-XII grossly intact, - - Grossly unchanged compared to previous except for increased tremor noted today compared to previous examinations Psych/Mental Status: Anxious, Flat Affect Vital Signs Temp Pulse Resp BP Pulse Ox 36.5 C L 88 22 H 135/75 H 96 02/21/19 08:37 02/21/19 08:37 02/21/19 08:37 02/21/19 08:37 02/21/19 08:37 Oxygen Flow Rate (L/min) 2 Oxygen Delivery Method Nasal Cannula Weight: 97.8 kg Body Mass Index (BMI) 38.2 Intake and Output for Last 24 Hours 02/19/19 02/20/19 02/21/19 23:59 23:59 23:59 Intake Total 857 / 857 1538.2 / 1538.2 200 / 200 Output Total 1300 / 1300 400 / 400 Balance -443 / -443 1138.2 / 1138.2 200 / 200 Microbiology Past 72 Hours 02/16/19 07:35 Gram Stain - Final Sputum, Expectorated/Coughed Respiratory Culture - Final Escherichia coli Presumptive C albicans Laboratory Tests Past 24 Hrs 02/19/19 02/21/19 05:10 05:35 Diff Path Review Reviewed Sodium 145 Potassium 3.5 Chloride 104 Carbon Dioxide 38.0 H Anion Gap 3 L BUN 21 H Creatinine 0.74 Estim Creat Clear Calc 43.30 Est GFR (MDRD) Af Amer 100 Est GFR (MDRD) Non-Af 83 BUN/Creatinine Ratio 28.5 H Glucose 99 Calcium 8.7 Medical Necessity - Tobacco Use Smoking Status: Never smoker Tobacco Use: Non-smoker Assessment/Plan All Active Problems Clostridium difficile infection (Acute) Hyponatremia (Acute) Hypotension due to hypovolemia (Acute) Septic shock (Acute) Cystitis (Acute) Acute kidney injury (Acute) History of breast cancer (Resolved) History of pneumothorax (Resolved) RECOMMENDATIONS: 1. Continue antibiotics per infectious disease 2. Consider weaning midodrine to twice daily 3. Wean oxygen as tolerated 4. Encourage aggressive incentive spirometer use along with PEP therapy. 5. Increase activity as tolerated 6. Continue nocturnal BiPAP therapy. 7. For the hospitalist on additional diuretic therapy IMPRESSIONS: 1. Septic shock secondary to recent diagnosis of C. difficile colitis Patient has been off of pressors for over 24 hours. Patient does remain on antibiotics for C. difficile, but reported no stools overnight. Infectious disease is following. No fever or leukocytosis is noted. Patient has been placed on midodrine and is responding well. Patient does have very poor nutritional status, likely adding to anasarca. Patient tolerated diuretic therapy well from a blood pressure standpoint. Likely okay to wean Midrin from my perspective 2. Acute hypoxic respiratory insufficiency The patient, at her baseline, only utilizes 2 L/min of supplemental oxygen nightly as a bleed in for her CPAP. She does not utilize supplemental oxygen throughout the day. My suspicion is that her current oxygen requirement is likely due to possible pleural effusions and associated atelectasis. However, given that the patient was retaining some CO2 during this hospitalization, she was transitioned from CPAP to BiPAP nightly. Patient responded well to diuretic therapy yesterday. Do not believe patient requires BiPAP rescue during the day and this likely represents more of depression than respiratory muscle fatigue. Will continue with diuretic therapy on a as needed basis, but defer to hospitalist. Patient does have some increased left-sided pleural effusion versus atelectasis 3. Acute on chronic kidney disease Resolved. Likely prerenal in etiology and related to ischemic ATN in the setting of #1. Anticipate improvement with stabilization of hemodynamics and with volume expansion. Continue to monitor urine output. No current indication for renal replacement therapy. 4. Obstructive sleep apnea Continue nocturnal PAP therapy as ordered. 5. Personal history of Parkinson's disease/obesity/depression/hypothyroidism/GERD Complicates care, management, recovery and prognosis. Continue home medications as indicated. Code Visit Inpatient E&M: 37095 Subs Hosp L2
--- NOTE | 2019-02-21 10:12 | PCM.PN.HOSP ---
Patient Problems: Active and Suspected Problems Clostridium difficile infection (Acute) Hyponatremia (Acute) Hypotension due to hypovolemia (Acute) Septic shock (Acute) Subjective: Short of breath. Still with diarrhea--no change. Vitals/I&O's: Vital Signs Temp Pulse Resp BP Pulse Ox 36.5 C L 88 22 H 135/75 H 96 02/21/19 08:37 02/21/19 08:37 02/21/19 08:37 02/21/19 08:37 02/21/19 08:37 Oxygen Flow Rate (L/min) 2 Oxygen Delivery Method Nasal Cannula Weight: 97.8 kg Body Mass Index (BMI) 38.2 Intake and Output for Last 24 Hours 02/19/19 02/20/19 02/21/19 23:59 23:59 23:59 Intake Total 857 / 857 1538.2 / 1538.2 200 / 200 Output Total 1300 / 1300 400 / 400 Balance -443 / -443 1138.2 / 1138.2 200 / 200 General: Alert, No apparent distress, - - tachypneic. short shallow respirations HEENT: Atraumatic, Normocephalic Oral: Moist Mucosa, No Gingival or Mucosal Lesions/ Ulcerations Lungs: Diminished, - - coarse breath sounds bilaterally Cardiovascular: Regular rate, Regular Rhythm, Normal S1, Normal S2 Abdomen: Bowel Sounds Present, Soft, Non Tender, Non-Distended, Obese Extremities: No Calf Tenderness, Edema - improving in Upper and Lower extremities, though more prominent in LE. Skin: No rashes, No breakdown Psych/Mental Status: Appropriate, Anxious Microbiology Past 72 Hours 02/16/19 07:35 Sputum, Expectorated/Coughed Gram Stain - Final 02/16/19 07:35 Sputum, Expectorated/Coughed Respiratory Culture - Final Escherichia coli Presumptive C albicans Laboratory Results 02/19/19 05:10: Diff Path Review Reviewed 02/21/19 05:35: Sodium 145, Potassium 3.5, Chloride 104, Carbon Dioxide 38.0 H, Anion Gap 3 L, BUN 21 H, Creatinine 0.74, Estim Creat Clear Calc 43.30, Est GFR (MDRD) Af Amer 100, Est GFR (MDRD) Non-Af 83, BUN/Creatinine Ratio 28.5 H, Glucose 99, Calcium 8.7 CXR reviewed and showed poor inspiratory effort. RLL ATX. bilateral pleural effusions. Current Medications Acetaminophen (Tylenol) 650 mg PO TID [facility] Last Admin: 02/21/19 06:32 Dose: 650 mg Al Hydroxide/Mg Hydroxide (Mylanta Ii) 15 - 30 ml PO Q4H PRN PRN PRN Reason: INDIGESTION Albuterol Sulfate (Ventolin Aerosols) 2.5 mg INHALATION Q2H PRN PRN PRN Reason: dyspnea, wheezing Calamine/Phenol (Calmoseptine Ointment) 1 applic TOPICAL 4X/DAY [facility]; Protocol Last Admin: 02/21/19 08:43 Dose: 1 applicatio Carbidopa/Levodopa (Sinemet) 1 tablet PO TIDAC [facility] Last Admin: 02/21/19 06:32 Dose: 1 tablet Citalopram Hydrobromide (Celexa) 20 mg PO DAILY [facility] Last Admin: 02/21/19 08:42 Dose: 20 mg Heparin Sodium (Porcine) (Heparin Na) 5,000 unit SC Q12 [facility] Last Admin: 02/21/19 08:43 Dose: 5,000 unit Lactobacillus Acidophilus (Acidophilus) 2 tablet PO 4X/DAY [facility] Last Admin: 02/21/19 08:42 Dose: 2 tablet Latanoprost (Xalatan Opthalmic) 1 drop EACH EYE QHS [facility] Last Admin: 02/20/19 21:23 Dose: 1 drop Levothyroxine Sodium (Synthroid) 75 mcg PO DAILY@0600 [facility] Last Admin: 02/21/19 06:32 Dose: 75 mcg Midodrine (Proamatine) 10 mg PO TID [facility] Last Admin: 02/21/19 06:32 Dose: 10 mg Montelukast Sodium (Singulair) 10 mg PO DAILY [facility] Last Admin: 02/21/19 08:42 Dose: 10 mg Multivitamins (Multivitamin) 1 tablet PO DAILY@0800 [facility] Last Admin: 02/21/19 08:42 Dose: 1 tablet Ondansetron HCl (Zofran) 4 mg IV Q8H PRN PRN PRN Reason: NAUSEA/VOMITING Last Admin: 02/19/19 09:46 Dose: 4 mg Sodium Chloride () 5 - 15 ml IV UD PRN PRN Reason: SALINE FLUSH Last Admin: 02/21/19 06:31 Dose: 10 ml Vancomycin HCl () 125 mg PO Q6 [facility] Last Admin: 02/21/19 06:32 Dose: 125 mg Medical Necessity - Tobacco Use Smoking Status: Never smoker Tobacco Use: Non-smoker Assessment/Plan All Active Problems Clostridium difficile infection (Acute) Hyponatremia (Acute) Hypotension due to hypovolemia (Acute) Septic shock (Acute) Cystitis (Acute) Acute kidney injury (Acute) History of breast cancer (Resolved) History of pneumothorax (Resolved) 1. Septic shock resolved 2/2 Cdiff off pressors 2. C.diff colitis ongoing, but improved On PO vanc and IV flagyl, continue this for now, but eventually (if continues to improve) change to PO vanc 3. possible gram negative pneumonia taken off Zosyn on 02/18 aspiration? 4. ARRON resolved Creatinine back to baseline likely prerenal +/- ATN 5. Parkinson's dz Discussed progression of her disease and whether or not she would want a PEG tube or not (she did not have a decision at this time) Recommended that she follow up with a neurologist for further evaluation. According the patient, she has only been seeing her PCP for this. 6. VTE proph: SQ heparin 7. Anasarca: diffusely edematous + pleural effusions dry weight around 100 kg, 110 yesterday (130 today inconceivable for 20kg weight gain in 24h) agree with CCM for lasix (40 IV on 02/19 and 40 PO 02/20) +13,929 total will give an additional 40 IV lasix. 8. Dyspnea likely multifactorial: pleural effusions, atelectasis and anxiety doubt pneumonia (at this time) encouraged incentive spirometer 9. Disposition: monitor at least another day. Would like to see clinical status overall improved prior to discharge. Code Visit Inpatient E&M: 88955 Subs Hosp L2
--- NOTE | 2019-02-21 10:14 | CASEMGMT ---
As per physician's notes, pt was not ready for discharge yesterday, is yet to be determined if pt is ready today. LIBORIO called [facility], let her know that it is uncertain if pt will be ready today, updates faxed. LIBORIO will continue to follow. ALEJANDRO Chavez
--- NOTE | 2019-02-21 10:21 | PN_ITS ---
Patient Problems: Active and Suspected Problems Clostridium difficile infection (Acute) Hyponatremia (Acute) Hypotension due to hypovolemia (Acute) Septic shock (Acute) Subjective: Short of breath. Still with diarrhea--no change. Vitals/I&O's: Vital Signs Temp Pulse Resp BP Pulse Ox 36.5 C L 88 22 H 135/75 H 96 02/21/19 08:37 02/21/19 08:37 02/21/19 08:37 02/21/19 08:37 02/21/19 08:37 Oxygen Flow Rate (L/min) 2 Oxygen Delivery Method Nasal Cannula Weight: 97.8 kg Body Mass Index (BMI) 38.2 Intake and Output for Last 24 Hours 02/19/19 02/20/19 02/21/19 23:59 23:59 23:59 Intake Total 857 / 857 1538.2 / 1538.2 200 / 200 Output Total 1300 / 1300 400 / 400 Balance -443 / -443 1138.2 / 1138.2 200 / 200 General: Alert, No apparent distress, - - tachypneic. short shallow respirations HEENT: Atraumatic, Normocephalic Oral: Moist Mucosa, No Gingival or Mucosal Lesions/ Ulcerations Lungs: Diminished, - - coarse breath sounds bilaterally Cardiovascular: Regular rate, Regular Rhythm, Normal S1, Normal S2 Abdomen: Bowel Sounds Present, Soft, Non Tender, Non-Distended, Obese Extremities: No Calf Tenderness, Edema - improving in Upper and Lower extremities, though more prominent in LE. Skin: No rashes, No breakdown Psych/Mental Status: Appropriate, Anxious Microbiology Past 72 Hours 02/16/19 07:35 Sputum, Expectorated/Coughed Gram Stain - Final 02/16/19 07:35 Sputum, Expectorated/Coughed Respiratory Culture - Final Escherichia coli Presumptive C albicans Laboratory Results 02/19/19 05:10: Diff Path Review Reviewed 02/21/19 05:35: Sodium 145, Potassium 3.5, Chloride 104, Carbon Dioxide 38.0 H, Anion Gap 3 L, BUN 21 H, Creatinine 0.74, Estim Creat Clear Calc 43.30, Est GFR (MDRD) Af Amer 100, Est GFR (MDRD) Non-Af 83, BUN/Creatinine Ratio 28.5 H, Glucose 99, Calcium 8.7 CXR reviewed and showed poor inspiratory effort. RLL ATX. bilateral pleural effusions. Current Medications Acetaminophen (Tylenol) 650 mg PO TID [facility] Last Admin: 02/21/19 06:32 Dose: 650 mg Al Hydroxide/Mg Hydroxide (Mylanta Ii) 15 - 30 ml PO Q4H PRN PRN PRN Reason: INDIGESTION Albuterol Sulfate (Ventolin Aerosols) 2.5 mg INHALATION Q2H PRN PRN PRN Reason: dyspnea, wheezing Calamine/Phenol (Calmoseptine Ointment) 1 applic TOPICAL 4X/DAY [facility]; Protocol Last Admin: 02/21/19 08:43 Dose: 1 applicatio Carbidopa/Levodopa (Sinemet) 1 tablet PO TIDAC [facility] Last Admin: 02/21/19 06:32 Dose: 1 tablet Citalopram Hydrobromide (Celexa) 20 mg PO DAILY [facility] Last Admin: 02/21/19 08:42 Dose: 20 mg Heparin Sodium (Porcine) (Heparin Na) 5,000 unit SC Q12 [facility] Last Admin: 02/21/19 08:43 Dose: 5,000 unit Lactobacillus Acidophilus (Acidophilus) 2 tablet PO 4X/DAY [facility] Last Admin: 02/21/19 08:42 Dose: 2 tablet Latanoprost (Xalatan Opthalmic) 1 drop EACH EYE QHS [facility] Last Admin: 02/20/19 21:23 Dose: 1 drop Levothyroxine Sodium (Synthroid) 75 mcg PO DAILY@0600 [facility] Last Admin: 02/21/19 06:32 Dose: 75 mcg Midodrine (Proamatine) 10 mg PO TID [facility] Last Admin: 02/21/19 06:32 Dose: 10 mg Montelukast Sodium (Singulair) 10 mg PO DAILY [facility] Last Admin: 02/21/19 08:42 Dose: 10 mg Multivitamins (Multivitamin) 1 tablet PO DAILY@0800 [facility] Last Admin: 02/21/19 08:42 Dose: 1 tablet Ondansetron HCl (Zofran) 4 mg IV Q8H PRN PRN PRN Reason: NAUSEA/VOMITING Last Admin: 02/19/19 09:46 Dose: 4 mg Sodium Chloride () 5 - 15 ml IV UD PRN PRN Reason: SALINE FLUSH Last Admin: 02/21/19 06:31 Dose: 10 ml Vancomycin HCl () 125 mg PO Q6 [facility] Last Admin: 02/21/19 06:32 Dose: 125 mg Medical Necessity - Tobacco Use Smoking Status: Never smoker Tobacco Use: Non-smoker Assessment/Plan All Active Problems Clostridium difficile infection (Acute) Hyponatremia (Acute) Hypotension due to hypovolemia (Acute) Septic shock (Acute) Cystitis (Acute) Acute kidney injury (Acute) History of breast cancer (Resolved) History of pneumothorax (Resolved) 1. Septic shock * resolved * 2/2 Cdiff * off pressors 2. C.diff colitis * ongoing, but improved * On PO vanc and IV flagyl, continue this for now, but eventually (if continues to improve) change to PO vanc 3. possible gram negative pneumonia * taken off Zosyn on 02/18 * aspiration? 4. ARRON * resolved * Creatinine back to baseline * likely prerenal +/- ATN 5. Parkinson's dz * Discussed progression of her disease and whether or not she would want a PEG tube or not (she did not have a decision at this time) * Recommended that she follow up with a neurologist for further evaluation. According the patient, she has only been seeing her PCP for this. 6. VTE proph: SQ heparin 7. Anasarca: * diffusely edematous + pleural effusions * dry weight around 100 kg, 110 yesterday (130 today inconceivable for 20kg weight gain in 24h) * agree with CCM for lasix (40 IV on 02/19 and 40 PO 02/20) * +13,929 total * will give an additional 40 IV lasix. 8. Dyspnea * likely multifactorial: pleural effusions, atelectasis and anxiety * doubt pneumonia (at this time) * encouraged incentive spirometer 9. Disposition: monitor at least another day. Would like to see clinical status overall improved prior to discharge. Code Visit Inpatient E&M: 50198 Subs Hosp L2
[2019-02-21] MEDS: Albuterol 2.5 MG/3 ML VIAL.NEB. INHALATION (11:27)
--- NOTE | 2019-02-21 13:00 | RAD_ITS ---
STUDY: SWALLOWING STUDY REASON FOR EXAM: Female, 68 years old. Dysphagia. TECHNIQUE: The examination was performed with Speech Pathology in attendance. Under fluoroscopic observation, the patient ingested thin barium, thick barium, barium pudding, and barium coated cracker. FLUOROSCOPY TIME: 4:33 minutes/seconds. 4184 spot images were obtained. RADIOLOGIST INVOLVEMENT: Radiologist was present and providing direct supervision. COMPARISON: None. FINDINGS: The following was observed during swallowing of the various mixtures of barium: Thin Barium: Silent aspiration with ingestion of thin liquids. Thick Barium: There was no evidence of aspiration or laryngeal penetration. Barium Pudding: There was no evidence of aspiration or laryngeal penetration. Barium Coated Cracker: There was no evidence of aspiration or laryngeal penetration. RAD/Swallowing Function w/Video IMPRESSION: Silent aspiration with ingestion of thin liquids. The swallow study findings were discussed with the patient by the speech pathologist at the conclusion of the examination. Please see speech pathology report for more information and recommendations. Electronically Signed: Tyrell James, at 14:13 EDT , Service support ,
--- NOTE | 2019-02-21 13:00 | SP.MBSS_ITS ---
PRIMARY / SECONDARY DIAGNOSIS: Dysphagia REFERRING PHYSICIAN: Dr. Solano CURRENT DIET: mechanical soft texture/thin liquid diet w/ the following recommended aspiration precautions in place: direct supervision, chin tuck w/ 3 second preparatory swallow, reduced bolus volume and rate of ingestion, seated at 90 degrees w/ slight anterior lean, remain upright for 30-60 minutes post intake, medications whole w/ liquids DENTITION: natural MENTAL STATUS: flat affect, slow to respond but able to follow commands for participation in MBS RESPIRATORY STATUS: clear/diminished, dyspnea w/ exertion, 3L/min O2 via nasal cannula, cpap used when sleeping PREVIOUS MODIFIED BARIUM SWALLOW STUDY: patient/family report MBS completion earlier this year while hospitalized in [place], report not available for review REASON FOR REFERRAL: further assessment of swallow function under fluoroscopy d/t concern for silent aspiration MEDICAL HISTORY: Parkinson?s Disease, breast cancer s/p right mastectomy, GERD, chronic debility / wheelchair bound, hypothyroidism, hypertension, depression, allergic rhinitis, obstructive sleep apnea, Obesity (BMI 30-39.9) STUDY FINDINGS Patient participated in a Modified Barium Swallow (MBS) study on 02/21/2019. Dr. James was the radiologist present for this evaluation. This study was recorded in the lateral view and images were sent to PACs for storage. The following consistencies were presented to this patient for analysis of oropharyngeal swallow function: thin liquid, nectar thickened liquid, pudding, and a short bread cookie. Results of the MBS are as follows: PENETRATION / ASPIRATION SCALE (LOGAN): 1 = does not enter airway 2 = enters airway/above vocal folds/ejected 3 = enters airway/above vocal folds/not ejected 4 = enters airway/contacts vocal folds/ejected 5 = enters airway/contacts vocal folds/not ejected 6 = enters airway/below vocal folds/ejected 7 = enters airway/below vocal folds/not ejected despite effort 8 = enters airway/below vocal folds/no effort PENETRATION / ASPIRATION SCALE (SCORE): 1. Thin liquid via teaspoon: 8 2. Thin liquid via cup w/ chin tuck & 3 second prep: 2 3. Thin liquid via cup w/ chin tuck & 3 second prep: 1 4. Puddin 5. Cookie: 1 6. Thin liquid via cup w/ chin tuck: 1, 8 w/ second swallow 7. [place] thickened liquid via cup w/ chin tuck: 1 8. [place] thickened liquid via cup w/ chin tuck: 1 9. Thin liquid via cup w/ chin tuck: 2 IMPRESSION ORAL PHASE CHARACTERIZED BY: LABIAL SEAL: escape beyond interlabial space or lateral juncture; no extension beyond tete border TONGUE CONTROL DURING BOLUS MANIPULATION: posterior escape of less than half of bolus along w/ escape to floor of mouth BOLUS PREPARATION / MASTICATION: disorganized chewing/mashing with solid pieces of bolus unchewed BOLUS TRANSPORT / LINGUAL MOTION: repetitive/disorganized tongue motion ORAL RESIDUE: residue collection on oral structures PHARYNGEAL PHASE CHARACTERIZED BY: INITIATION OF PHARYNGEAL SWALLOW: bolus head in pyriforms at first hyoid excursion SOFT PALATE ELEVATION: trace column of contrast/air between soft palate and pharyngeal wall LARYNGEAL ELEVATION: partial superior movement of thyroid cartilage/partial approximation of arytenoids cartilage to epiglottic petiole ANTERIOR HYOID EXCURSION: partial anterior movement EPIGLOTTIC MOVEMENT: partial epiglottic inversion, delayed LARYNGEAL VESTIBULE CLOSURE AT HEIGHT OF SWALLOW: complete laryngeal vestibule closure with no air/contrast in laryngeal vestibule PHARYNGEAL STRIPPING WAVE: pharyngeal stripping wave present / diminished PHARYNGOESOPHAGEAL SEGMENT OPENING: complete distension and complete duration with no obstruction of flow TONGUE BASE RETRACTION: narrow column of contrast between tongue base and posterior pharyngeal wall PHARYNGEAL RESIDUE: collection of residue within or on pharyngeal structures ESOPHAGEAL PHASE CHARACTERIZED BY: ESOPHAGEAL BOLUS CLEARANCE IN THE UPRIGHT POSITION: could not view EFFECTS OF TREATMENT STRATEGIES ATTEMPTED: Chin tuck posture = effective 3 second prep = not effective Cough and reswallow = not effective Double swallow = somewhat effective Liquid chaser = effective INTERPRETATION OF RESULTS Patient presents with moderate to severe oral dysphagia (R13.11) and moderate oropharyngeal dysphagia (R13.12) secondary to Parkinson?s Disease, likely exacerbated from baseline. Oral phase primarily marked by severe mastication inefficiency w/ noted impaired lingual control. Poor bolus cohesion w/ frequent loss of control/liquid spillage to floor of mouth during attempts at A-P bolus transfer along w/ premature pharyngeal bolus entry. Maximal effort and extended period of time required for oral to pharyngeal transfer. Oral residue retention noted across consistencies following the initial swallow, often requiring a second swallow to clear the oral cavity. Pharyngeal phase primarily marked by delayed pharyngeal swallow onset timing. Implementation of a chin tuck posture was effective to improve bolus location upon swallow onset. SILENT ASPIRATION of thin liquids noted 2x throughout this study 1st w/ initial teaspoon of thin liquid d/t poor control w/ premature pharyngeal entry and penetration/aspiration prior to swallow onset and 2nd when swallowing thin liquid that was retained w/in the oral cavity after the initial swallow d/t delayed swallow onset w/ second swallow resulting in penetration and aspiration from the pyriforms. The patient did not demonstrate any overt response to aspiration. Cued expectoration was ineffective to expel laryngotracheal penetration/aspiration. Reduced tongue base retraction, hyolaryngeal excursion and delayed epiglottic inversion contributed to reduced pharyngeal clearance. Double swallow and liquid wash were both effective to improve pharyngeal clearance. Study was limited w/ inability to trial additional compensatory strategies and consistencies under fluoroscopy d/t prolonged exposure time ~5 min, given significant oral holding/delays. RECOMMENDATIONS DIET RECOMMENDED: pureed textures/nectar thickened liquids COMPENSATORY STRATEGIES RECOMMENDED: Direct supervision w/ provision of verbal cues to ensure adherence to aspiration precautions, chin tuck, double swallow as needed, seated upright at 90 degrees for all intake, remain upright for 30-60 minutes post meal (GERD precaution), medications whole with applesauce REPEAT MBS RECOMMENDED: Patient noted to SILENTLY aspirate with thin liquids, with clinical assessment at bedside relying on identification of classic overt signs and symptoms of aspiration unreliable. Would strongly discourage discontinuation of chin tuck posture or advancement past nectar thickened liquids without completion of a repeat modified barium swallow study due to the extent of aspirate identified that was SILENT in nature. NEED FOR SKILLED ST INTERVENTION TARGETING DYSPAHGIA: Patient requires intensive skilled speech-language intervention targeting training/implementation of recommended compensatory strategies, skilled assessment of diet tolerance w/ determination of appropriate time for a repeat MBS prior to advancement, training/implementation of recommended oral and pharyngeal strengthening exercises to facilitate improved oral bolus control for transfer, swallow onset timing, laryngeal vestibule pressure/cough, and pharyngeal motility. Consider training, implementation, and patient education regarding implementation of the [place] Free Water Protocol at the next level of care as deemed appropriate for improved intraoral bolus control during initiation and execution of the swallow to facilitate improved airway protection and upgrade to least restrictive means of PO intake, and Patient/caregiver education regarding dysphagia associated with Parkinson?s Disease chronic obstructive pulmonary disease. ADDITIONAL COMMENTS/RECOMMENDATIONS: Results and recommendations were discussed with the Patient immediately following MBS completion, with the Patient verbalizing understanding and agreement with all recommendations and education provided.
--- NOTE | 2019-02-21 18:45 | NURSING ---
Spoke with Family about pt's plan of care. Family and patient in agreement to change code status from full code to [id number]. Requesting to meet with doctor tomorrow 02/22/19 about further plan of care.
[2019-02-21] MEDS: Latanoprost 0.005% 1 Bottle 1 DRP EACH EYE (22:13)
[2019-02-21] MEDS: MELATONIN 3 MG TABLET PO (23:33)
[2019-02-22] VITALS (7 sets, daily range): BP systolic 115–139; BP diastolic 72–85; PULSE 81–97; RESP 12–22; TEMP 36.2–36.8; O2SAT 92–96
--- NOTE | 2019-02-22 05:07 | CPS ---
Increased FiO2 to 40 %; patient's SpO2 was 87% on 30%
[2019-02-22] MEDS: Acetaminophen 325 MG Tablet 650 MG PO ×2 (06:20→13:33)
[2019-02-22] MEDS: Levothyroxine 75 MCG Tablet PO (06:21)
[2019-02-22] MEDS: Carbidopa/Levodopa 25/100 Tablet PO ×2 (06:21→13:34)
[2019-02-22] MEDS: Midodrine HCl 5 MG Tablet 10 MG PO (06:21)
[2019-02-22 06:26] LABS: Absolute Lymphocyte Count 1.04 X10^3/ul (0.83-4.51); Absolute Neutrophil Count 7.7 X10^3/uL (2.0-7.7); Basophil# 0.03 X10^3/uL; Basophil% 0.3 % (0-1); Eosinophil# 0.09 X10^3/uL; Eosinophils% 0.9 % (0-5); Hematocrit 31.1 % (37-47); Hemoglobin 9.8 g/dl (12.0-15.0); Lymphocyte # 1.04 X10^3/ul (4.0); Lymphocyte % 10.6 % (19-41); Mean Corp Hgb Conc 31.5 g/gl (32-36); Mean Corpuscular Hgb 30.2 pg (27.0-32.0); Mean Platelet Vol. 8.9 fl (6.2-12.0); Monocyte% 8.2 % (0-10); Neutrophil # 7.73 X10^3/uL (2.7-7.7); Neutrophil % 78.9 % (47-70); Platelet Count 559 K/mm3 (150-450); RBC Distribution Width CV 16.8 % (11.6-14.6); RBC Distribution Width SD 56.2 fl (35.1-43.9); Red Blood Count 3.24 M/mm3 (4.2-5.4); White Blood Count 9.8 K/mm3 (4.4-11.0)
[2019-02-22 06:33] LABS: Anion Gap 1 (5-15); BUN 16 mg/dL (7-18); BUN/Creat Ratio 24.5 RATIO (10-20); Calcium,Total 8.6 mg/dL (8.5-10.1); Chloride 106 mmol/L (98-107); Creatinine, Serum 0.65 mg/dL (0.55-1.02); EST Glomerular Filtration Rate 95 mL/min (>60); Est Glom Filt Rate - Afr Amer 115 mL/min (>60); Glucose 119 mg/dL (74-106); Potassium 3.5 mmol/L (3.5-5.1); Sodium Level 147 mmol/L (136-145)
[2019-02-22 06:39] LABS: POSITIVE COUNT NO; POSITIVE DIFFERENTIAL NO; POSITIVE MORPHOLOGY NO
--- NOTE | 2019-02-22 08:00 | PCM.PN.PUL ---
Patient Problems: Active and Suspected Problems Clostridium difficile infection (Acute) Hyponatremia (Acute) Hypotension due to hypovolemia (Acute) Septic shock (Acute) Subjective: Patient feels she is improved compared to previous. Patient did tolerate BiPAP overnight and reports better sleep compared to previous. Patient did have a swallow study and has been placed on a modified diet. No fevers or hemodynamic instability reported overnight - Physical Exam General: Alert, Oriented x3, Cooperative, No apparent distress, - - No conversational dyspnea noted HEENT: Atraumatic, PERRLA, EOMI, Normocephalic, - - Slight scleral injection without icterus Oral: Moist Mucosa, No Gingival or Mucosal Lesions/ Ulcerations Neck: Supple, No JVD, No Nodes, Trachea Midline Lungs: No rhonchi, No rales, Diminished, Wheezes, - - Symmetric expansion. Cardiovascular: Regular rate, Regular Rhythm, Normal S1, Normal S2, No murmurs, No rub noted, No Gallop Abdomen: Bowel Sounds Present, Soft, Non Tender, Non-Distended, Obese Extremities: No clubbing, No cyanosis, - - Tremor improved today Skin: - - No significant change compared to previous Musculoskeletal: No Tenderness to Palpation of Joints or Extremities Lymphatic: No Cervical, Supraclavicular, or Inguinal Adenopathy Neurological: Cranial nerves II-XII grossly intact, Neuro grossly intact, - - Tremor improved, but otherwise unremarkable Psych/Mental Status: Appropriate, Flat Affect Vital Signs Temp Pulse Resp BP Pulse Ox 36.8 C 81 18 139/85 H 92 02/22/19 03:41 02/22/19 07:00 02/22/19 07:00 02/22/19 03:41 02/22/19 07:00 Oxygen Flow Rate (L/min) 2 Oxygen Delivery Method Bi-pap Weight: 96.1 kg Body Mass Index (BMI) 38.2 Intake and Output for Last 24 Hours 02/20/19 02/21/19 02/22/19 23:59 23:59 23:59 Intake Total 1538.2 / 1538.2 680 / 680 250 / 250 Output Total 400 / 400 Balance 1138.2 / 1138.2 680 / 680 250 / 250 Microbiology Past 72 Hours 02/16/19 07:35 Gram Stain - Final Sputum, Expectorated/Coughed Respiratory Culture - Final Escherichia coli Presumptive C albicans Laboratory Tests Past 24 Hrs 02/22/19 02/22/19 06:07 06:07 WBC 9.8 RBC 3.24 L Hgb 9.8 L Hct 31.1 L MCV 96.0 MCH 30.2 MCHC 31.5 L RDW 16.8 H RDW Differential 56.2 H Plt Count 559 H MPV 8.9 Immature Gran % (Auto) 1.100 H Neut % (Auto) 78.9 H Lymph % (Auto) 10.6 L Divide % (Auto) 8.2 Eos % (Auto) 0.9 Baso % (Auto) 0.3 Absolute Neuts (auto) 7.7 Absolute Lymphs (auto) 1.04 Total Counted Not Reportable Sodium 147 H Potassium 3.5 Chloride 106 Carbon Dioxide 40.0 H Anion Gap 1 L BUN 16 Creatinine 0.65 Estim Creat Clear Calc 43.30 Est GFR (MDRD) Af Amer 115 Est GFR (MDRD) Non-Af 95 BUN/Creatinine Ratio 24.5 H Glucose 119 H Calcium 8.6 Clinical Impression(s) from Imaging Studies Chest X-Ray 02/21/19 08:27 IMPRESSION: Findings in keeping with CHF. Blunting of the left costophrenic angle with underlying atelectasis and/or infiltrate. Electronically Signed: Tyrell James, at 13:59 EDT , Service support , Videofluoroscopic Swallow 02/21/19 13:00 IMPRESSION: Silent aspiration with ingestion of thin liquids. The swallow study findings were discussed with the patient by the speech pathologist at the conclusion of the examination. Please see speech pathology report for more information and recommendations. Electronically Signed: Tyrell James, at 14:13 EDT , Service support , Medical Necessity - Tobacco Use Smoking Status: Never smoker Tobacco Use: Non-smoker Assessment/Plan All Active Problems Clostridium difficile infection (Acute) Hyponatremia (Acute) Hypotension due to hypovolemia (Acute) Septic shock (Acute) Cystitis (Acute) Acute kidney injury (Acute) History of breast cancer (Resolved) History of pneumothorax (Resolved) RECOMMENDATIONS: 1. Continue antibiotics per infectious disease 2. Transition to midodrine twice daily and wean over the next 3 days 3. Wean oxygen as tolerated 4. Encourage aggressive incentive spirometer use along with PEP therapy. 5. Increase activity as tolerated 6. Continue nocturnal BiPAP therapy. 7. Likely okay to hold on additional diuretic therapy 8. Continue modified diet IMPRESSIONS: 1. Septic shock secondary to recent diagnosis of C. difficile colitis Patient has been off of pressors for days. Patient does remain on antibiotics for C. difficile, but reported multiple small stools overnight. Infectious disease is following. No fever or leukocytosis is noted. Patient has been placed on midodrine and is responding well. Patient does have very poor nutritional status, likely adding to anasarca. Patient tolerated diuretic therapy well from a blood pressure standpoint. Will decrease midodrine today. Likely wean over the next 3 days to off 2. Acute hypoxic respiratory insufficiency The patient, at her baseline, only utilizes 2 L/min of supplemental oxygen nightly as a bleed in for her CPAP. She does not utilize supplemental oxygen throughout the day. My suspicion is that her current oxygen requirement is likely due to possible pleural effusions and associated atelectasis. In retrospect, patient's course likely complicated by recurrent aspirations with thin liquids. Patient is on a modified diet at this time. We will continue with BiPAP rescue as necessary. 3. Acute on chronic kidney disease Resolved. Likely prerenal in etiology and related to ischemic ATN in the setting of #1. Anticipate improvement with stabilization of hemodynamics and with volume expansion. Continue to monitor urine output. No current indication for renal replacement therapy. 4. Obstructive sleep apnea Continue nocturnal PAP therapy as ordered. 5. Personal history of Parkinson's disease/obesity/depression/hypothyroidism/GERD Complicates care, management, recovery and prognosis. Continue home medications as indicated. Code Visit Inpatient E&M: 77073 Subs Hosp L2
--- NOTE | 2019-02-22 08:04 | PN_ITS ---
Patient Problems: Active and Suspected Problems Clostridium difficile infection (Acute) Hyponatremia (Acute) Hypotension due to hypovolemia (Acute) Septic shock (Acute) Subjective: Patient feels she is improved compared to previous. Patient did tolerate BiPAP overnight and reports better sleep compared to previous. Patient did have a swallow study and has been placed on a modified diet. No fevers or hemodynamic instability reported overnight - Physical Exam General: Alert, Oriented x3, Cooperative, No apparent distress, - - No conversational dyspnea noted HEENT: Atraumatic, PERRLA, EOMI, Normocephalic, - - Slight scleral injection without icterus Oral: Moist Mucosa, No Gingival or Mucosal Lesions/ Ulcerations Neck: Supple, No JVD, No Nodes, Trachea Midline Lungs: No rhonchi, No rales, Diminished, Wheezes, - - Symmetric expansion. Cardiovascular: Regular rate, Regular Rhythm, Normal S1, Normal S2, No murmurs, No rub noted, No Gallop Abdomen: Bowel Sounds Present, Soft, Non Tender, Non-Distended, Obese Extremities: No clubbing, No cyanosis, - - Tremor improved today Skin: - - No significant change compared to previous Musculoskeletal: No Tenderness to Palpation of Joints or Extremities Lymphatic: No Cervical, Supraclavicular, or Inguinal Adenopathy Neurological: Cranial nerves II-XII grossly intact, Neuro grossly intact, - - Tremor improved, but otherwise unremarkable Psych/Mental Status: Appropriate, Flat Affect Vital Signs Temp Pulse Resp BP Pulse Ox 36.8 C 81 18 139/85 H 92 02/22/19 03:41 02/22/19 07:00 02/22/19 07:00 02/22/19 03:41 02/22/19 07:00 Oxygen Flow Rate (L/min) 2 Oxygen Delivery Method Bi-pap Weight: 96.1 kg Body Mass Index (BMI) 38.2 Intake and Output for Last 24 Hours 02/20/19 02/21/19 02/22/19 23:59 23:59 23:59 Intake Total 1538.2 / 1538.2 680 / 680 250 / 250 Output Total 400 / 400 Balance 1138.2 / 1138.2 680 / 680 250 / 250 Microbiology Past 72 Hours 02/16/19 07:35 Gram Stain - Final Sputum, Expectorated/Coughed Respiratory Culture - Final Escherichia coli Presumptive C albicans Laboratory Tests Past 24 Hrs 02/22/19 02/22/19 06:07 06:07 WBC 9.8 RBC 3.24 L Hgb 9.8 L Hct 31.1 L MCV 96.0 MCH 30.2 MCHC 31.5 L RDW 16.8 H RDW Differential 56.2 H Plt Count 559 H MPV 8.9 Immature Gran % (Auto) 1.100 H Neut % (Auto) 78.9 H Lymph % (Auto) 10.6 L [place] % (Auto) 8.2 Eos % (Auto) 0.9 Baso % (Auto) 0.3 Absolute Neuts (auto) 7.7 Absolute Lymphs (auto) 1.04 Total Counted Not Reportable Sodium 147 H Potassium 3.5 Chloride 106 Carbon Dioxide 40.0 H Anion Gap 1 L BUN 16 Creatinine 0.65 Estim Creat Clear Calc 43.30 Est GFR (MDRD) Af Amer 115 Est GFR (MDRD) Non-Af 95 BUN/Creatinine Ratio 24.5 H Glucose 119 H Calcium 8.6 Clinical Impression(s) from Imaging Studies Chest X-Ray 02/21/19 08:27 IMPRESSION: Findings in keeping with CHF. Blunting of the left costophrenic angle with underlying atelectasis and/or infiltrate. Electronically Signed: Tyrell James, at 13:59 EDT , Service support , Videofluoroscopic Swallow 02/21/19 13:00 IMPRESSION: Silent aspiration with ingestion of thin liquids. The swallow study findings were discussed with the patient by the speech pathologist at the conclusion of the examination. Please see speech pathology report for more information and recommendations. Electronically Signed: Tyrell James, at 14:13 EDT , Service support , Medical Necessity - Tobacco Use Smoking Status: Never smoker Tobacco Use: Non-smoker Assessment/Plan All Active Problems Clostridium difficile infection (Acute) Hyponatremia (Acute) Hypotension due to hypovolemia (Acute) Septic shock (Acute) Cystitis (Acute) Acute kidney injury (Acute) History of breast cancer (Resolved) History of pneumothorax (Resolved) RECOMMENDATIONS: 1. Continue antibiotics per infectious disease 2. Transition to midodrine twice daily and wean over the next 3 days 3. Wean oxygen as tolerated 4. Encourage aggressive incentive spirometer use along with PEP therapy. 5. Increase activity as tolerated 6. Continue nocturnal BiPAP therapy. 7. Likely okay to hold on additional diuretic therapy 8. Continue modified diet IMPRESSIONS: 1. Septic shock secondary to recent diagnosis of C. difficile colitis Patient has been off of pressors for days. Patient does remain on antibiotics for C. difficile, but reported multiple small stools overnight. Infectious disease is following. No fever or leukocytosis is noted. Patient has been placed on midodrine and is responding well. Patient does have very poor nutritional status, likely adding to anasarca. Patient tolerated diuretic therapy well from a blood pressure standpoint. Will decrease midodrine today. Likely wean over the next 3 days to off 2. Acute hypoxic respiratory insufficiency The patient, at her baseline, only utilizes 2 L/min of supplemental oxygen nightly as a bleed in for her CPAP. She does not utilize supplemental oxygen throughout the day. My suspicion is that her current oxygen requirement is likely due to possible pleural effusions and associated atelectasis. In r etrospect, patient's course likely complicated by recurrent aspirations with thin liquids. Patient is on a modified diet at this time. We will continue with BiPAP rescue as necessary. 3. Acute on chronic kidney disease Resolved. Likely prerenal in etiology and related to ischemic ATN in the setting of #1. Anticipate improvement with stabilization of hemodynamics and with volume expansion. Continue to monitor urine output. No current indication for renal replacement therapy. 4. Obstructive sleep apnea Continue nocturnal PAP therapy as ordered. 5. Personal history of Parkinson's disease/obesity/depression/hypothyroidism/GERD Complicates care, management, recovery and prognosis. Continue home medications as indicated. Code Visit Inpatient E&M: 12925 Subs Hosp L2
[2019-02-22] MEDS: Citalopram 20 MG Tablet PO (09:53)
[2019-02-22] MEDS: Multivitamins,Therapeutic Tablet 1 TABLET PO (09:53)
[2019-02-22] MEDS: Montelukast 10 MG Tablet PO (09:53)
[2019-02-22] MEDS: Menthol/Lanolin/Calamine/Znox 113 GM Tube 1 APPLIC TOPICAL ×2 (09:54→13:34)
[2019-02-22] MEDS: Heparin Injection (Vial) 5,000 UNIT/ML VIAL 5000 UNIT SC (09:55)
--- NOTE | 2019-02-22 11:00 | CASEMGMT ---
Addendum entered by Iliana Ruelas 02/22/19 13:10: RN NENA Quinn updated this worker that pt signed with [facility] and RN will be evaluating pt to determine if she meets inpatient criteria, if not pt will be returning to [facility] with Hospice. SW placed a call to Chica at [facility] and updated her of this. Original Note: Social Work Note Physician updated this worker that pt is requesting Hospice consult and pt's family is aware of Hospice consult. LIBORIO placed a call to [facility], and spoke with SUSAN Burk and provided Hospice referral. SW faxed referral to [facility]. Plan: Hospice to meet with pt today. Pt is able to go home with Hospice or return to [facility] with Hospice Iliana Ruelas TELEGRAPH INSTALLER, DIRECTOR OF ENTERPRISE STRATEGY
--- NOTE | 2019-02-22 11:55 | PN.ID_ITS ---
Patient Problems: Active and Suspected Problems Clostridium difficile infection (Acute) Hyponatremia (Acute) Hypotension due to hypovolemia (Acute) Septic shock (Acute) Subjective: Feeling about the same, still SOB. No sputum, no fever, mild abd pain, diarrhea improving. - Physical Exam General: Cooperative, No apparent distress Lungs: Clear to auscultation, Normal air movement Cardiovascular: Regular rate, Regular Rhythm Abdomen: Soft, - - mild tenderness and distension Skin: No rashes Vital Signs Temp Pulse Resp BP Pulse Ox 98.1 F 88 20 H 135/82 H 95 02/22/19 09:49 02/22/19 09:49 02/22/19 09:49 02/22/19 09:49 02/22/19 09:49 Oxygen Flow Rate (L/min) 2 Oxygen Delivery Method Nasal Cannula Weight: 96.1 kg Body Mass Index (BMI) 38.2 Intake and Output for Last 24 Hours 02/20/19 02/21/19 02/22/19 23:59 23:59 23:59 Intake Total 1538.2 / 1538.2 680 / 680 250 / 250 Output Total 400 / 400 Balance 1138.2 / 1138.2 680 / 680 250 / 250 Laboratory Tests Past 24 Hrs 02/22/19 02/22/19 06:07 06:07 WBC 9.8 RBC 3.24 L Hgb 9.8 L Hct 31.1 L MCV 96.0 MCH 30.2 MCHC 31.5 L RDW 16.8 H RDW Differential 56.2 H Plt Count 559 H MPV 8.9 Immature Gran % (Auto) 1.100 H Neut % (Auto) 78.9 H Lymph % (Auto) 10.6 L [place] % (Auto) 8.2 Eos % (Auto) 0.9 Baso % (Auto) 0.3 Absolute Neuts (auto) 7.7 Absolute Lymphs (auto) 1.04 Total Counted Not Reportable Sodium 147 H Potassium 3.5 Chloride 106 Carbon Dioxide 40.0 H Anion Gap 1 L BUN 16 Creatinine 0.65 Estim Creat Clear Calc 43.30 Est GFR (MDRD) Af Amer 115 Est GFR (MDRD) Non-Af 95 BUN/Creatinine Ratio 24.5 H Glucose 119 H Calcium 8.6 Medical Necessity - Tobacco Use Smoking Status: Never smoker Tobacco Use: Non-smoker Route of nutrition/ use of supplements: [] Nutritional Intake: [] IV Site: [] Rosen Catheter: [] - Assessment/Plan Antibiotics: [] Assessment/Plan: [] Active and Suspected Problems Clostridium difficile infection (Acute) Hyponatremia (Acute) Hypotension due to hypovolemia (Acute) Septic shock due to Cdiff colitis with ARRON - Cont po vanc. CT showed diffuse colitis, no megacolon. Cr improved. Remains off pressors and out of icu. Day 12 of po vanc. Plan on one more week, stop date 03/01/19. Will follow
[2019-02-22] MEDS: Ondansetron 4 MG/2 ML Vial IV (12:54)
[2019-02-22] MEDS: 0.9% NaCl Peripheral Flush Adult/Peds IV (12:54)
--- NOTE | 2019-02-22 13:34 | CASEMGMT ---
Social Work Note Ryan from [facility] updated this worker that pt is going to inpatient hospice today. SW placed a call to Chica at [facility] and left her a message informing her that pt is going to inpatient hospice today. Physician updated. Plan: Inpatient Hospice today Iliana Ruelas [employer] ATTENDANT, FLOOR LAYER APPRENTICE
--- NOTE | 2019-02-22 13:54 | PCM.DC.SUM ---
Discharge Date and Diagnosis - Problem List Patient Problems: Active and Suspected Problems Clostridium difficile infection (Acute) Hyponatremia (Acute) Hypotension due to hypovolemia (Acute) Septic shock (Acute) Date of Admission: 02/11/19 Date of Discharge: 02/22/19 - Primary Discharge Diagnosis Active and Suspected Problems Clostridium difficile infection (Acute) Hyponatremia (Acute) Hypotension due to hypovolemia (Acute) Septic shock (Acute) - Secondary Discharge Diagnosis Chronic Problems Hypothyroidism (Chronic) Hypertension (Chronic) Depression (Chronic) GERD (gastroesophageal reflux disease) (Chronic) Allergic rhinitis (Chronic) Parkinsons disease (Chronic) Obstructive sleep apnea (Chronic) Obesity (BMI 30-39.9) (Chronic) Hospital Course and Treatment Imaging Results: Diagnostic Data Abdomen CT 02/12/19 15:47 IMPRESSION: Ascites and pelvic fluid. Probably diffuse colitis. Right hepatic cyst. Bilateral pleural effusions with basilar consolidation/atelectasis, right more than left. Electronically Signed: Israel Staley DO at 18:47 EDT Tel [phone], Service support , Acute Abdomen Series 02/15/19 17:20 IMPRESSION: Nonspecific bowel gas pattern. No free air is seen. Compared to prior chest radiograph there has been increasing bilateral pleural effusions with adjacent atelectasis/infiltrates. Left upper extremity PICC line with the tip projecting over the SVC. No pneumothorax identified. Electronically Signed: Jens Isaac, at 6:50 EDT Tel , Service support , Chest X-Ray 02/21/19 08:27 IMPRESSION: Findings in keeping with CHF. Blunting of the left costophrenic angle with underlying atelectasis and/or infiltrate. Electronically Signed: Tyrell James, at 13:59 EDT , Service support , Videofluoroscopic Swallow 02/21/19 13:00 IMPRESSION: Silent aspiration with ingestion of thin liquids. The swallow study findings were discussed with the patient by the speech pathologist at the conclusion of the examination. Please see speech pathology report for more information and recommendations. Electronically Signed: Tyrell James, at 14:13 EDT , Service support , ID- Dr Ohara Pulmonology- Dr Keane Palliative care Operations: None Procedures: None Summary of Care Provided: The patient is a 68 year old F with an extensive past medical history as listed. She was admitted to the ED on 02/11/2019 with complaint of severe foul-smelling diarrhea with poor oral intake and assisted abdominal cramping. She had no nausea or vomiting but had associated decreased appetite without fevers or chills. This had been going on for several days before admission she had tested positive for C. difficile on February 08. She had been placed on p.o. vancomycin by her primary care provider.. She was also found to be hypotensive on admission with blood pressure 64/40. She had an elevated white cell count of 12,000 and chemistry was significant for sodium of 124 and chloride of 88 as well as evidence of ARRON on CKD with creatinine of 4.2. UA was positive for leukocyte esterase and 3+ bacteria and chest x-ray showed no acute cardiopulmonary process and only showed right diaphragm elevation. She was started on IV fluids and admitted to the ICU as well as started on p.o. vancomycin. She was managed for septic shock due to acute C. difficile infection, ARRON on CKD and hyponatremia. She remained persistently hypotensive despite IV fluid administration and was subsequently started on Levophed to maintain hemodynamic stability. She had a PICC line placed for this. Critical care was consulted. IV Flagyl was added on to the p.o. vancomycin and arterial line was also placed. Infectious disease was also consulted. She required 2 pressors-Levophed and vasopressin. CT of the abdomen showed diffuse colitis with some ascites and pelvic fluid. Septic shock gradually resolved and patient was transitioned off vasopressors. She was transferred to the regular nursing floor. Her stay was also complicated by possible gram-negative pneumonia due to possible aspiration and she was started on IV Zosyn. ARRON also resolved. Patient developed worsening anasarca. She was started on diuresis. She also developed acute hypoxic respiratory insufficiency which was due to possible pleural effusions and associated atelectasis and required BiPAP intermittently due to assisted CO2 retention. Diarrhea gradually improved. Patient was however subsequently refusing diuresis and says she felt like giving up. She had a videofluoroscopic examination which showed silent aspiration of thin liquids. Patient was counseled about need for Lasix and she was willing to start p.o. Lasix. However, family requested a family meeting on 02/22/2019 to discuss goals of care and patient's wishes. After extensive counseling, patient was open to a hospice and palliative care consults. Hospice and palliative care were consulted on 02/22/2019 and patient agreed to be discharged to an inpatient hospice facility on 02/22/2019. Patient seen and examined prior to discharge. She was very frail and complained of feeling tired and wanted to give up. Her , daughter, [id number] and son were by her bedside. Her CODE STATUS has been changed to DNR CCA on 02/21/2019 and patient confirmed that she still wanted to remain DNR CCA. She complained of frequent urination and diarrhea. Review of systems is otherwise negative. Labs and vitals reviewed. Home medications reviewed and reconciled. [] Patient Problems: Active and Suspected Problems Clostridium difficile infection (Acute) Hyponatremia (Acute) Hypotension due to hypovolemia (Acute) Septic shock (Acute) - Physical Exam General: Alert, Oriented x3, Cooperative, Lethargic HEENT: Atraumatic, PERRLA, EOMI, Normocephalic Oral: Dry Mucosa Neck: Supple, No JVD, Negative Carotid Bruits Lungs: - - decreased breath sounds bibasally; no wheezes or crackles. on 2L of oxygen Cardiovascular: Regular rate, Regular Rhythm, Normal S1, Normal S2, No murmurs Abdomen: Bowel Sounds Present, Soft, Non Tender, Non-Distended, No Hepato-splenomegaly Extremities: No clubbing, No cyanosis, Edema - generalised edema Skin: No rashes, No breakdown Musculoskeletal: No Tenderness to Palpation of Joints or Extremities Lymphatic: No Cervical, Supraclavicular, or Inguinal Adenopathy Neurological: Cranial nerves II-XII grossly intact, Neuro grossly intact, Motor Exam 5/5 strength throughout Psych/Mental Status: Normal Affect, Appropriate, Alert and oriented to time, place, person, mood and affect Vital Signs Temp Pulse Resp BP Pulse Ox 97.2 F L 97 22 H 115/72 92 02/22/19 13:45 02/22/19 13:45 02/22/19 13:45 02/22/19 13:45 02/22/19 13:45 Oxygen Flow Rate (L/min) 2 Oxygen Delivery Method Nasal Cannula Weight: 211 lb 13.828 oz Body Mass Index (BMI) 38.2 Intake and Output for Last 24 Hours 02/20/19 02/21/19 02/22/19 23:59 23:59 23:59 Intake Total 1538.2 / 1538.2 680 / 680 550 / 550 Output Total 400 / 400 Balance 1138.2 / 1138.2 680 / 680 550 / 550 Laboratory Tests Past 24 Hrs 02/22/19 02/22/19 06:07 06:07 WBC 9.8 RBC 3.24 L Hgb 9.8 L Hct 31.1 L MCV 96.0 MCH 30.2 MCHC 31.5 L RDW 16.8 H RDW Differential 56.2 H Plt Count 559 H MPV 8.9 Immature Gran % (Auto) 1.100 H Neut % (Auto) 78.9 H Lymph % (Auto) 10.6 L [place] % (Auto) 8.2 Eos % (Auto) 0.9 Baso % (Auto) 0.3 Absolute Neuts (auto) 7.7 Absolute Lymphs (auto) 1.04 Total Counted Not Reportable Sodium 147 H Potassium 3.5 Chloride 106 Carbon Dioxide 40.0 H Anion Gap 1 L BUN 16 Creatinine 0.65 Estim Creat Clear Calc 43.30 Est GFR (MDRD) Af Amer 115 Est GFR (MDRD) Non-Af 95 BUN/Creatinine Ratio 24.5 H Glucose 119 H Calcium 8.6 Discharge Diet: Low fat/ Low Cholesterol Discharge Activity: Return to Normal Activity Weight Bearing Status: Weight bearing as tolerated Home Medications: Medications to take at Discharge Citalopram [Celexa] 20 mg PO DAILY 09/07/13 Latanoprost [Xalatan] 1 drop OPHTHALMIC QHS 03/18/18 Acetaminophen [Pain Relief] 650 mg PO TID 02/11/19 Carbidopa/Levodopa 25/100 [Sinemet 25/100] 1 tab PO TID 02/11/19 Furosemide [Lasix] 20 mg PO DAILY 02/11/19 Ipratropium/Albuterol Sulfate [Duoneb] 3 ml INHALATION Q6H.RT 02/11/19 Levothyroxine Sodium [Synthroid] 75 mcg PO DAILY 02/11/19 Lisinopril [Prinivil] 5 mg PO DAILY 02/11/19 Montelukast Sodium [Singulair] 10 mg PO DAILY 02/11/19 Multivitamin [Multiple Vitamins] 1 tab PO DAILY 02/11/19 Pantoprazole Sodium [Protonix] 40 mg PO DAILY 02/11/19 Vancomycin [Vancocin] 125 mg PO Q6H 02/11/19 Primary Care Physician: Gordon Locke III, MD [Primary Care Provider] - Please follow up with your Primary Care Physician in: one week Disposition: Hospice Medical Facility Minutes spent on discharge:: 50 Medical Necessity - Tobacco Use Smoking Status: Never smoker Tobacco Use: Non-smoker Meaningful Use Info Meaningful Use Diagnoses (Choose all that apply): None applicable Code Visit Inpatient E&M: 00384 Disch Hosp
--- NOTE | 2019-02-22 14:13 | DS.PCM_ITS ---
Discharge Date and Diagnosis - Problem List Patient Problems: Active and Suspected Problems Clostridium difficile infection (Acute) Hyponatremia (Acute) Hypotension due to hypovolemia (Acute) Septic shock (Acute) Date of Admission: 02/11/19 Date of Discharge: 02/22/19 - Primary Discharge Diagnosis Active and Suspected Problems Clostridium difficile infection (Acute) Hyponatremia (Acute) Hypotension due to hypovolemia (Acute) Septic shock (Acute) - Secondary Discharge Diagnosis Chronic Problems Hypothyroidism (Chronic) Hypertension (Chronic) Depression (Chronic) GERD (gastroesophageal reflux disease) (Chronic) Allergic rhinitis (Chronic) Parkinsons disease (Chronic) Obstructive sleep apnea (Chronic) Obesity (BMI 30-39.9) (Chronic) Hospital Course and Treatment Imaging Results: Diagnostic Data Abdomen CT 02/12/19 15:47 IMPRESSION: Ascites and pelvic fluid. Probably diffuse colitis. Right hepatic cyst. Bilateral pleural effusions with basilar consolidation/atelectasis, right more than left. Electronically Signed: Israel Staley DO at 18:47 EDT Tel [phone], Service support , Acute Abdomen Series 02/15/19 17:20 IMPRESSION: Nonspecific bowel gas pattern. No free air is seen. Compared to prior chest radiograph there has been increasing bilateral pleural effusions with adjacent atelectasis/infiltrates. Left upper extremity PICC line with the tip projecting over the SVC. No pneumothorax identified. Electronically Signed: Jens Isaac, at 6:50 EDT Tel , Service support , Chest X-Ray 02/21/19 08:27 IMPRESSION: Findings in keeping with CHF. Blunting of the left costophrenic angle with underlying atelectasis and/or infiltrate. Electronically Signed: Tyrell James, at 13:59 EDT , Service support , Videofluoroscopic Swallow 02/21/19 13:00 IMPRESSION: Silent aspiration with ingestion of thin liquids. The swallow study findings were discussed with the patient by the speech pathologist at the conclusion of the examination. Please see speech pathology report for more information and recommendations. Electronically Signed: Tyrell James, at 14:13 EDT , Service support , ID- Dr Ohara Pulmonology- Dr Keane Palliative care Operations: None Procedures: None Summary of Care Provided: The patient is a 68 year old F with an extensive past medical history as listed. She was admitted to the ED on 02/11/2019 with complaint of severe foul-smelling diarrhea with poor oral intake and assisted abdominal cramping. She had no nausea or vomiting but had associated decreased appetite without fevers or chills. This had been going on for several days before admission she had tested positive for C. difficile on February 08. She had been placed on p.o. vancomycin by her primary care provider.. She was also found to be hypotensive on admission with blood pressure 64/40. She had an elevated white cell count of 12,000 and chemistry was significant for sodium of 124 and chloride of 88 as well as evidence of ARRON on CKD with creatinine of 4.2. UA was positive for leukocyte esterase and 3+ bacteria and chest x-ray showed no acute cardi opulmonary process and only showed right diaphragm elevation. She was started on IV fluids and admitted to the ICU as well as started on p.o. vancomycin. She was managed for septic shock due to acute C. difficile infection, ARRON on CKD and hyponatremia. She remained persistently hypotensive despite IV fluid administration and was subsequently started on Levophed to maintain hemodynamic stability. She had a PICC line placed for this. Critical care was consulted. IV Flagyl was added on to the p.o. vancomycin and arterial line was also placed. Infectious disease was also consulted. She required 2 pressors-Levophed and vasopressin. CT of the abdomen showed diffuse colitis with some ascites and pelvic fluid. Septic shock gradually resolved and patient was transitioned off vasopressors. She was transferred to the regular nursing floor. Her stay was also complicated by possible gram-negative pneumonia due to possible aspiration and she was started on IV Zosyn. ARRON also resolved. Patient developed worsening anasarca. She was started on diuresis. She also developed acute hypoxic respiratory insufficiency which was due to possible pleural effusions and associated atelectasis and required BiPAP intermittently due to assisted CO2 retention. Diarrhea gradually improved. Patient was however subsequently refusing diuresis and says she felt like giving up. She had a videofluoroscopic examination which showed silent aspiration of thin liquids. Patient was counseled about need for Lasix and she was willing to start p.o. Lasix. However, family requested a family meeting on 02/22/2019 to discuss goals of care and patient's wishes. After extensive counseling, patient was open to a hospice and palliative care consults. Hospice and palliative care were consulted on 02/22/2019 and patient agreed to be discharged to an inpatient hospice facility on 02/22/2019. Patient seen and examined prior to discharge. She was very frail and complained of feeling tired and wanted to give up. Her , daughter, [id number] and son were by her bedside. Her CODE STATUS has been changed to DNR CCA on 02/21/2019 and patient confirmed that she still wanted to remain DNR CCA. She complained of frequent urination and diarrhea. Review of systems is otherwise negative. Labs and vitals reviewed. Home medications reviewed and reconciled. [] Patient Problems: Active and Suspected Problems Clostridium difficile infection (Acute) Hyponatremia (Acute) Hypotension due to hypovolemia (Acute) Septic shock (Acute) - Physical Exam General: Alert, Oriented x3, Cooperative, Lethargic HEENT: Atraumatic, PERRLA, EOMI, Normocephalic Oral: Dry Mucosa Neck: Supple, No JVD, Negative Carotid Bruits Lungs: - - decreased breath sounds bibasally; no wheezes or crackles. on 2L of oxygen Cardiovascular: Regular rate, Regular Rhythm, Normal S1, Normal S2, No murmurs Abdomen: Bowel Sounds Present, Soft, Non Tender, Non-Distended, No Hepato- splenomegaly Extremities: No clubbing, No cyanosis, Edema - generalised edema Skin: No rashes, No breakdown Musculoskeletal: No Tenderness to Palpation of Joints or Extremities Lymphatic: No Cervical, Supraclavicular, or Inguinal Adenopathy Neurological: Cranial nerves II-XII grossly intact, Neuro grossly intact, Motor Exam 5/5 strength throughout Psych/Mental Status: Normal Affect, Appropriate, Alert and oriented to time, place, person, mood and affect Vital Signs Temp Pulse Resp BP Pulse Ox 97.2 F L 97 22 H 115/72 92 02/22/19 13:45 02/22/19 13:45 02/22/19 13:45 02/22/19 13:45 02/22/19 13:45 Oxygen Flow Rate (L/min) 2 Oxygen Delivery Method Nasal Cannula Weight: 211 lb 13.828 oz Body Mass Index (BMI) 38.2 Intake and Output for Last 24 Hours 02/20/19 02/21/19 02/22/19 23:59 23:59 23:59 Intake Total 1538.2 / 1538.2 680 / 680 550 / 550 Output Total 400 / 400 Balance 1138.2 / 1138.2 680 / 680 550 / 550 Laboratory Tests Past 24 Hrs 02/22/19 02/22/19 06:07 06:07 WBC 9.8 RBC 3.24 L Hgb 9.8 L Hct 31.1 L MCV 96.0 MCH 30.2 MCHC 31.5 L RDW 16.8 H RDW Differential 56.2 H Plt Count 559 H MPV 8.9 Immature Gran % (Auto) 1.100 H Neut % (Auto) 78.9 H Lymph % (Auto) 10.6 L [place] % (Auto) 8.2 Eos % (Auto) 0.9 Baso % (Auto) 0.3 Absolute Neuts (auto) 7.7 Absolute Lymphs (auto) 1.04 Total Counted Not Reportable Sodium 147 H Potassium 3.5 Chloride 106 Carbon Dioxide 40.0 H Anion Gap 1 L BUN 16 Creatinine 0.65 Estim Creat Clear Calc 43.30 Est GFR (MDRD) Af Amer 115 Est GFR (MDRD) Non-Af 95 BUN/Creatinine Ratio 24.5 H Glucose 119 H Calcium 8.6 Discharge Diet: Low fat/ Low Cholesterol Discharge Activity: Return to Normal Activity Weight Bearing Status: Weight bearing as tolerated Home Medications: Medications to take at Discharge Citalopram [Celexa] 20 mg PO DAILY 09/07/13 Latanoprost [Xalatan] 1 drop OPHTHALMIC QHS 03/18/18 Acetaminophen [Pain Relief] 650 mg PO TID 02/11/19 Carbidopa/Levodopa 25/100 [Sinemet 25/100] 1 tab PO TID 02/11/19 Furosemide [Lasix] 20 mg PO DAILY 02/11/19 Ipratropium/Albuterol Sulfate [Duoneb] 3 ml INHALATION Q6H.RT 02/11/19 Levothyroxine Sodium [Synthroid] 75 mcg PO DAILY 02/11/19 Lisinopril [Prinivil] 5 mg PO DAILY 02/11/19 Montelukast Sodium [Singulair] 10 mg PO DAILY 02/11/19 Multivitamin [Multiple Vitamins] 1 tab PO DAILY 02/11/19 Pantoprazole Sodium [Protonix] 40 mg PO DAILY 02/11/19 Vancomycin [Vancocin] 125 mg PO Q6H 02/11/19 Primary Care Physician: Gordon Locke III, MD [Primary Care Provider] - Please follow up with your Primary Care Physician in: one week Disposition: Hospice Medical Facility Minutes spent on discharge:: 50 Medical Necessity - Tobacco Use Smoking Status: Never smoker Tobacco Use: Non-smoker Meaningful Use Info Meaningful Use Diagnoses (Choose all that apply): None applicable Code Visit Inpatient E&M: 20729 Disch Hosp
== END 2019-02-22 14:25 | disposition hospice, inpatient (51) | DRG 871 ==
LOC: ED 12:19 → ICU 02-12 07:16 → MS2 02-18 17:17 → MS3 02-21 17:49
PROVIDERS: Internal Medicine; Internal Medicine Critical Care Medicine; Admitting Provider Family Medicine; Emergency Provider Emergency Medicine; Family Provider Family Medicine; PCP Family Medicine; Visit Provider Student in an Organized Health Care Education/Training Program
DX: A41.89 Other specified sepsis (principal); R65.21 Severe sepsis with septic shock; N17.0 Acute kidney failure with tubular necrosis; A04.72 Enterocolitis due to Clostridium difficile, not specified as recurrent; E87.1 Hypo-osmolality and hyponatremia; G20 Parkinson's disease; E03.9 Hypothyroidism, unspecified; F32.9 Major depressive disorder, single episode, unspecified; H04.123 Dry eye syndrome of bilateral lacrimal glands; G47.33 Obstructive sleep apnea (adult) (pediatric); E66.9 Obesity, unspecified; Z68.38 Body mass index [BMI] 38.0-38.9, adult; K21.9 Gastro-esophageal reflux disease without esophagitis; I10 Essential (primary) hypertension; J30.9 Allergic rhinitis, unspecified; Z51.5 Encounter for palliative care; Z66 Do not resuscitate; E86.1 Hypovolemia
CPT/HCPCS: 36415; 36569; 36600; 36620; 71045; 74022; 74176; 74230; 80048; 80053; 81001; 82533; 82803; 83605; 83630; 83690; 83735; 83880; 84100; 84443; 84484; 85025; 85610; 85730; 87040; 87070; 87077; 87086; 87186; 87205; 87506; 87633; 92507; 92526; 92610; 92611; 93005; 94002; 94003; 94640; 94668; 97110; 97163; 97166; 97530; 97802; 99285; J2997; J7030; J7050; A4216; J0834; J1940; J2405; J3490